=== PATIENT | female | born 1950 | race Caucasian/White ===

== ENCOUNTER → 2016-05-12 | Outpatient (CLI) | payer BC ==
[~2016-05-12] MED LIST: ACET-1311 PO; ALBUAER2 INH; AMIO200T PO; DIVA500T3 PO; DOCU100C31 PO; FENO134C2 PO; FURO20TA PO; LEVO25TA5 PO; METO100T14 PO; MOME50SP5; ONDA4TAB7 SL; PRAV10TA39 PO; RIVA1TAB4 PO
== END | disposition home or self-care (01) ==
LOC: C.LABSPEC 17:02
PROVIDERS: ATTEND Urology
DX: N39.0 Urinary tract infection, site not specified (principal)

== ENCOUNTER → 2016-10-13 | Outpatient (CLI) | payer BC ==
--- NOTE | 2016-10-14 13:49 | MAMMOGRAPHY REPORT ---
BILATERAL DIGITAL SCREENING MAMMOGRAM WITH CAD: 10/13/2016 CLINICAL HISTORY: Routine screening. The patient reported to the technologist that she has diffuse l eft breast pain. TECHNIQUE: Current study was also evaluated with a Computer Aided Detection (CAD) system. Bilateral CC and MLO views were obtained. COMPARISON: Comparison is made to exams dated: 01/22/2013 mammogram, 03/19/2014 mammogram, 09/15/2011 m ammogram, 08/26/2010 mammogram, 08/25/2009 mammogram - [facility], and 05/08/2008. BREAST COMPOSITION: There are scattered areas of fibroglandular density in both breasts. FINDINGS: No suspicious masses, calcifications, or areas of architectural distortion are noted in ei ther breast. There has been no significant interval change compared to prior exams. Coarse benign-ap pearing calcifications are noted throughout the left breast. Benign-appearing calcifications are als o noted within the right breast. Note that the images are suboptimal due to difficulties with patien t positioning as she is in a wheelchair and had to be held for the views; the MLO views in particular are suboptimal as the pectoralis muscles are not well-visualized. IMPRESSION: ACR BI-RADS CATEGORY 2: BENIGN There is no mammographic evidence of malignancy in either breast. A 1 year screening mammogram is rec ommended. Also recommend clinical follow-up for diffuse left breast pain. The patient will receive written notification of the results. Approximately 10% of breast cancers are not detected with mammography. A negative mammographic report should not delay biopsy if a clinically suggestive mass is present. Naila Prieto M.D. ah/:10/13/2016 15:41:19 Attending Technologist: Griselda MICHAEL(Donnell)(Lyn), [facility] Senior Technical Editor: Ptati Rose, [facility] letter sent: Normal 1/2 BI-RADS Code: ACR BI-RADS Category 2: Benign
== END | disposition home or self-care (01) ==
LOC: C.MAMM 14:55
PROVIDERS: ATTEND Family Medicine
DX: Z12.31 Encounter for screening mammogram for malignant neoplasm of breast (principal)

== ENCOUNTER → 2017-01-06 | Outpatient (CLI) | payer BC ==
--- NOTE | 2017-01-06 17:01 | DIAGNOSTIC IMAGING REPORT ---
CHEST 2 VIEWS ROUTINE CLINICAL HISTORY: R05 dyspnea COMPARISON STUDY: 01/13/2016 FINDINGS: Right subdiaphragmatic free air versus distended colon. Lungs are considered clear. No evidence for significant cardiac enlargement. Slight pulmonary vascular prominence. IMPRESSION: 1. Distended air-filled colon versus right subdiaphragmatic free air. 2. Pulmonary vascular congestion. The above report was generated using voice recognition software. It may contain grammatical, syntax or spelling errors. Electronically signed by: Garth Rincon M.D. 01/06/2017 5:00 PM Dictated Date/Time: 01/06/2017 4:58 PM
== END | disposition home or self-care (01) ==
LOC: C.RAD1850 15:44
PROVIDERS: ATTEND Family Medicine
DX: R05 Cough (principal); R09.89 Other specified symptoms and signs involving the circulatory and respiratory systems

== ENCOUNTER 2017-05-31 09:55 | Inpatient (IN) | payer BC, OTHER ==
[~2017-05-31] VITALS: Ht 167.6 cm; Wt 115.7 kg
[2017-05-31] MEDS ORDERED: TPRSR/25 PO (10:17)
[2017-05-31] MEDS ORDERED: PRVC/20 PO (10:17)
[2017-05-31] MEDS ORDERED: LEVO75TA5 PO (10:17)
[2017-05-31] MEDS ORDERED: RANI150T2 PO (10:17)
[2017-05-31] MEDS ORDERED: AMIO200T4 PO (10:17)
[2017-05-31] MEDS ORDERED: SODIUM CHLORIDE 0.9% 1000ML 1,000 ML IV STA (10:49)
[2017-05-31] MEDS ORDERED: ACETAMINOPHEN 500 MG TAB PO STA (10:50)
[2017-05-31] MEDS ORDERED: ASCA500 PO (10:57)
[2017-05-31 11:00] LABS: HEMATOCRIT 44.8 % (37-47); HEMOGLOBIN 14.9 g/dL (12.0-16.0); MEAN CELL VOLUME 97.4 fL (80-100); MEAN CORPUSCULAR HEMOGLOBIN 32.4 pg (25-34); MEAN CORPUSCULAR HGB CONC 33.3 g/dl (32-36); MEAN PLATELET VOLUME 10.3 fL (7.4-10.4); PLATELET COUNT 101 K/uL (130-400); RED CELL DISTRIBUTION WIDTH CV 13.4 % (11.5-14.5); RED CELL DISTRIBUTION WIDTH SD 47.5 fL (36.4-46.3); WHITE BLOOD COUNT 7.54 K/uL (4.8-10.8)
[2017-05-31 11:01] LABS: BASO % 0.1 %; BASO ABS # 0.01 K/uL (0-0.2); EOS % 0.3 %; EOS ABS # 0.02 K/uL (0-0.5); IG# 0.03 K/uL (0.00-0.02); LYMPH % 28.6 %; LYMPH ABS # 2.16 K/uL (1.2-3.4); MONO ABS # 1.58 K/uL (0.11-0.59); NEUT % 49.6 %; NEUT ABS # 3.74 K/uL (1.4-6.5)
[2017-05-31 11:06] LABS: INR 1.1 (0.9-1.1)
--- NOTE | 2017-05-31 11:09 | DIAGNOSTIC IMAGING REPORT ---
CHEST ONE VIEW PORTABLE CLINICAL HISTORY: Fever. COMPARISON STUDY: Radiograph January 06, 2017. FINDINGS: There is no pneumothorax or pleural effusion. There is no evidence for pulmonary edema. There is lucency under the right hemidiaphragm. Cardiomegaly is unchanged. IMPRESSION: Lucency under the right hemidiaphragm which was shown on previous exam. This could reflect bowel gas or pneumoperitoneum. This can be assessed on CT of the abdomen and pelvis which has been ordered. Electronically signed by: Vasyl Klein M.D. 05/31/2017 11:08 AM Dictated Date/Time: 05/31/2017 11:05 AM
[2017-05-31 11:10] LABS: ALT/SGPT 26 U/L (12-78); AST/SGOT 49 U/L (15-37); BLOOD UREA NITROGEN 10 mg/dl (7-18); CALCIUM 8.7 mg/dl (8.5-10.1); CARBON DIOXIDE 25 mmol/L (21-32); CREATININE 0.86 mg/dl (0.60-1.20); GLUCOSE 112 mg/dl (70-99); POTASSIUM 4.4 mmol/L (3.5-5.1); SODIUM 134 mmol/L (136-145)
[2017-05-31 11:15] LABS: ALKALINE PHOSPHATASE 52 U/L (45-117); CKMB 0.8 ng/ml (0.5-3.6); TOTAL PROTEIN 6.8 gm/dl (6.4-8.2)
[2017-05-31] MEDS ORDERED: OPTIRAY 320 IV PRN (11:15)
[2017-05-31 11:29] LABS: INFLUENZA B ANTIGEN Neg for Influ B (NEG)
[2017-05-31] MEDS ORDERED: KETOROLAC TROMETHAMINE 30 MG/ML VIAL IV STA (11:31)
[2017-05-31 11:36] LABS: ISTAT IONIZED CALCIUM 1.17 mmol/l (1.12-1.32); ISTAT POTASSIUM 4.2 mEq/L (3.3-5.0)
--- NOTE | 2017-05-31 12:15 | DIAGNOSTIC IMAGING REPORT ---
CT OF THE ABDOMEN AND PELVIS WITH CONTRAST CLINICAL HISTORY: Abdominal pain. COMPARISON STUDY: CT of the abdomen and pelvis August 22, 2015. TECHNIQUE: Following IV administration of 87 mL of Optiray-320, axial images of the abdomen and pelvis were obtained from the lung bases to the proximal femurs. Images were reviewed in the axial, sagittal, and coronal planes. IV contrast was administered without complication. A dose lowering technique was utilized adhering to the principles of ALARA. CT DOSE: 1669.71 mGy.cm FINDINGS: Mild cardiomegaly is noted. There is no pneumoperitoneum. Lucency projecting over the right hemidiaphragm on prior chest radiograph was due to gas within the colon. There are gallstones within the gallbladder. There is no evidence for acute cholecystitis. The liver, spleen, adrenal glands, kidneys and pancreas are unremarkable. There is no biliary or pancreatic ductal dilatation. No hydronephrosis. IVC filter is in place. The appendix is normal. There is no lymphadenopathy or ascites. No suspicious osseous lesions are present. The appearance of the abdomen and pelvis is unchanged. There is moderate levoscoliosis of the lumbar spine. There is a loop of significantly dilated small bowel within the anterior abdomen. Several additional small bowel loops of mildly dilated. There is a twisting appearance of the small bowel shown best on axial image 271 of 491. This favors a small bowel obstruction. There is no evidence for a obstruction. IMPRESSION: 1. Loop of significantly dilated gas-filled small bowel with mild dilatation of several distal small bowel loops suggestive of a small bowel obstruction. Associated twisting appearance of the small bowel may reflect the transition point and this could be due to an internal hernia or adhesions. No pneumatosis, free air or portal venous gas. No ascites. 2. Cholelithiasis. Electronically signed by: Vasyl Klein M.D. 05/31/2017 12:14 PM Dictated Date/Time: 05/31/2017 12:02 PM
[2017-05-31] MEDS ORDERED: PIPERACILLIN/TAZOBACTAM 4.5 GM/100ML D5W IV STA (12:21)
--- NOTE | 2017-05-31 13:19 | History and Physical ---
History & Physical Date & Time of Service: May 31, 2017 at 13:11 Chief Complaint: Incoherent Primary Care Physician: Jasmyne Orozco M.D. 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 The patient presents to the ER with her daughter and son who are present at bedside. The patient complains of increased respiratory symptoms including runny nose, sore throat, cough with sputum production in the past 3 days. Today caregivers (present for 5 hours in the morning, 2 hours in the afternoon) noticed the patient had increased lethargy and that she was found to be hypoxic in the 80s on room air at home. She does not wear any supplemental O2. she is prescribed CPAP at night but family reports it does not fit due to history of craniotomy. She also reports a decreased appetite with limited oral intake due to nausea which waxes and wanes over the last week. In general, family reports she is poor at staying hydrated as her is her primary caregiver and she does not want to make him take her to the bathroom more than required. The patient cannot remember the last time she had a bowel movement, but thinks it has been over 4 days. She does have some abdominal pain in the right upper quadrant and feels somewhat bloated . Here in the ER the patient is found to be influenza A positive. A CT of the abdomen and pelvis shows partial small bowel obstruction. CXR could reflect bowel gas or pneumoperitoneum. There are no consolidations or infiltrates to suggest pneumonia. EKG showing that she was in A. fib with RVR at time of admission, rate is currently well controlled in the 60s-80s. Past Medical/Surgical History Medical Problems: Atrial fibrillation CVA (cerebral infarction) Hyperlipidemia Hypertension Influenza A Partial small bowel obstruction Left sided hemiplegia Complex partial seizure on depakote Paroxsysmal Afib Obstructive sleep apnea Morbid obesity Osteoarthritis Surgical Hx: Hysterectomy s/p crainiotomy 2012 IVC filter Social History Smoking Status: Never Smoker Smokeless Tobacco Use: No Alcohol Use: none Drug Use: none Marital Status: Housing status: lives with family Occupational Status: employed Immunizations History of Influenza Vaccine: Yes Influenza Vaccine Date: Feb 04, 2013 History of Tetanus Vaccine?: Yes Tetanus Immunization Date: Feb 09, 2006 History of Pneumococcal: Yes Pneumococcal Date: Mar 06, 2003 History of Hepatitis B Vaccine: No 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 recently stopped taking med 01/2016, 05/31/17) Home Medications Scheduled Acetaminophen (Tylenol), 650 MG PO Q6HR PRN Amiodarone Hcl (Cordarone), 200 MG PO DAILY Ascorbic Acid (Vitamin C), 500 MG PO DAILY Divalproex Sodium (Depakote Er), 1 TAB PO DAILY Divalproex Sodium (Depakote Er), 2 TAB PO HS Docusate Sodium (Docusate Sodium), 100 MG PO BID Fenofibrate (Tricor ), 134 MG PO QAM Levothyroxine Sodium (Levothyroxine Sodium), 75 MCG PO QAM Metoprolol Succinate (Metoprolol Succinate ER), 25 MG PO DAILY Mometasone Furoate (Nasonex), 2 SPRAY NA QAM Pravastatin Sod (Pravastatin Sodium), 20 MG PO DAILY Ranitidine HCl (Ranitidine HCl), 150 MG PO DAILY Rivaroxaban (Xarelto), 20 MG PO DAILY Scheduled PRN Ondansetron (Zofran Odt), 4 MG SL Q6H PRN for Nausea Review of Systems Constitutional: No fever, + chills in the past 3 days Eyes: No diplopia, no worsening or blurred vision ENT: normal hearing, no trouble swallowing, + sore throat Respiratory: + cough, sputum, no dyspnea at rest or on exertion Cardiovascular: No chest pain, tightness or palpitations Abdomen: + pain in the RUQ, nausea, no vomiting, diarrhea or constipation Musculoskeletal: No joint pain, calf pain, + minor peripheral lower extremity swelling, worse in the left compared to right chronically Neurologic: No weakness, numbness/tingling, or balance problems Psychiatric: No anxiety or depression Skin: No rash or itch Physical Exam Vital Signs Date Time Temp Pulse Resp B/P (MAP) Pulse Ox O2 Delivery O2 Flow Rate FiO2 2/20/18 13:04 93 Nasal Cannula 2.0 05/31/17 13:03 88 Room Air 05/31/17 12:19 60 20 107/63 92 05/31/17 11:19 94 20 121/60 93 Room Air 05/31/17 10:38 104 05/31/17 09:58 38.0 107 18 113/69 92 Room Air General: awake, easily fatigued, NAD, morbidly obese Head: Normocephalic, atraumatic ENT: PERRL, EOMI, no pharyngeal exudate, mucous membranes dry Chest: Clear to auscultation, on 2 L via NC, O2 sats equal 95%, no adventitious breath sounds Cardiac: Irregularly irregular, no murmur, no JVD, normal peripheral pulses, good capillary refill Abdominal: NABS x 4 quadrants, soft, slightly distended + tender to palpation in the RUQ, no rebound, guarding or tenderness Extremities: Left-sided hemiplegia, mild peripheral edema trace pitting worse in left compared to right, no erythema, calfs nontender to palpation Psych: Normal mood and affect Neuro: AAO x 3, left-sided hemiplegia, speech is clear but somewhat slow, no peripheral sensory deficits Diagnostics Laboratory Results Results Past 24 Hours Test 05/31/17 10:20 05/31/17 10:30 05/31/17 11:21 05/31/17 11:25 Range/Units White Blood Count 7.54 4.8-10.8 K/uL Red Blood Count 4.60 4.2-5.4 M/uL Hemoglobin 14.9 12.0-16.0 g/dL Hematocrit 44.8 37-47 % Mean Corpuscular Volume 97.4 80-100 fL Mean Corpuscular Hemoglobin 32.4 25-34 pg Mean Corpuscular Hemoglobin Concent 33.3 32-36 g/dl Platelet Count 101 130-400 K/uL Mean Platelet Volume 10.3 7.4-10.4 fL Neutrophils (%) (Auto) 49.6 % Lymphocytes (%) (Auto) 28.6 % Monocytes (%) (Auto) 21.0 % Eosinophils (%) (Auto) 0.3 % Basophils (%) (Auto) 0.1 % Neutrophils # (Auto) 3.74 1.4-6.5 K/uL Lymphocytes # (Auto) 2.16 1.2-3.4 K/uL Monocytes # (Auto) 1.58 0.11-0.59 K/uL Eosinophils # (Auto) 0.02 0-0.5 K/uL Basophils # (Auto) 0.01 0-0.2 K/uL RDW Standard Deviation 47.5 36.4-46.3 fL RDW Coefficient of Variation 13.4 11.5-14.5 % Immature Granulocyte % (Auto) 0.4 % Immature Granulocyte # (Auto) 0.03 0.00-0.02 K/uL Prothrombin Time 11.7 9.0-12.0 SECONDS Prothromb Time International Ratio 1.1 0.9-1.1 Sodium Level 134 136-145 mmol/L Potassium Level 4.4 3.5-5.1 mmol/L Chloride Level 101 98-107 mmol/L Carbon Dioxide Level 25 21-32 mmol/L Anion Gap 8.0 18.0 16-25 mmol/L Blood Urea Nitrogen 10 7-18 mg/dl Creatinine 0.86 0.60-1.20 mg/dl Est Creatinine Clear Calc Drug Dose 84.5 ml/min Estimated GFR () 82.7 Estimated GFR (Non- 71.4 BUN/Creatinine Ratio 11.8 10-20 Random Glucose 112 70-99 mg/dl Calcium Level 8.7 8.5-10.1 mg/dl Magnesium Level 2.2 1.8-2.4 mg/dl Total Bilirubin 0.5 0.2-1 mg/dl Direct Bilirubin 0.2 0-0.2 mg/dl Aspartate Amino Transf (AST/SGOT) 49 15-37 U/L Alanine Aminotransferase (ALT/SGPT) 26 12-78 U/L Alkaline Phosphatase 52 45-117 U/L Total Creatine Kinase 92 26-192 U/L Creatine Kinase MB 0.8 0.5-3.6 ng/ml Creatine Kinase MB Ratio 0.9 0-3.0 Troponin I < 0.015 0-0.045 ng/ml Total Protein 6.8 6.4-8.2 gm/dl Albumin 3.0 3.4-5.0 gm/dl Influenza Type A Antigen POS for Influ A NEG Influenza Type B Antigen Neg for Influ B NEG Bedside Lactic Acid Venous 2.05 0.90-1.70 mmol/L Bedside Hemoglobin 15.6 12.0-16.0 g/dl Bedside Hematocrit 46 37-47 % Bedside Sodium 136 135-144 mEq/L Bedside Potassium 4.2 3.3-5.0 mEq/L Bedside Chloride 95 101-112 mEq/L Bedside Total CO2 28 24-31 mEq/l Bedside Blood Urea Nitrogen 10 7-18 mg/dl Bedside Creatinine 1.0 0.6-1.3 mg/dl Bedside Glucose (other) 102 70-99 mg/dl Bedside Ionized Calcium ([place]) 1.17 1.12-1.32 mmol/l Test 05/31/17 12:17 Range/Units Urine Color YELLOW Urine Appearance CLEAR CLEAR Urine pH 6.5 4.5-7.5 Urine Specific [place] 1.026 1.000-1.030 Urine Protein NEG NEG Urine Glucose (UA) NEG NEG Urine Ketones NEG NEG Urine Occult Blood NEG NEG Urine Nitrite NEG NEG Urine Bilirubin NEG NEG Urine Urobilinogen NEG NEG Urine Leukocyte Esterase NEG NEG Urine WBC (Auto) 1-5 0-5 /hpf Urine RBC (Auto) 0-4 0-4 /hpf Urine Hyaline Casts (Auto) 1-5 0-5 /lpf Urine Epithelial Cells (Auto) 0-5 0-5 /lpf Urine Bacteria (Auto) NEG NEG Microbiology Results 05/31/17 Blood Culture, Received Pending 05/31/17 Blood Culture, Received Pending Diagnostic Radiology CHEST ONE VIEW PORTABLE CLINICAL HISTORY: Fever. COMPARISON STUDY: Radiograph January 06, 2017. FINDINGS: There is no pneumothorax or pleural effusion. There is no evidence for pulmonary edema. There is lucency under the right hemidiaphragm. Cardiomegaly is unchanged. IMPRESSION: Lucency under the right hemidiaphragm which was shown on previous exam. This could reflect bowel gas or pneumoperitoneum. This can be assessed on CT of the abdomen and pelvis which has been ordered. Electronically signed by: Vasyl Klein M.D. 05/31/2017 11:08 AM Dictated Date/Time: 05/31/2017 11:05 AM The status of this report is Signed. CT OF THE ABDOMEN AND PELVIS WITH CONTRAST CLINICAL HISTORY: Abdominal pain. COMPARISON STUDY: CT of the abdomen and pelvis August 22, 2015. TECHNIQUE: Following IV administration of 87 mL of Optiray-320, axial images of the abdomen and pelvis were obtained from the lung bases to the proximal femurs. Images were reviewed in the axial, sagittal, and coronal planes. IV contrast was administered without complication. A dose lowering technique was utilized adhering to the principles of ALARA. CT DOSE: 1669.71 mGy.cm FINDINGS: Mild cardiomegaly is noted. There is no pneumoperitoneum. Lucency projecting over the right hemidiaphragm on prior chest radiograph was due to gas within the colon. There are gallstones within the gallbladder. There is no evidence for acute cholecystitis. The liver, spleen, adrenal glands, kidneys and pancreas are unremarkable. There is no biliary or pancreatic ductal dilatation. No hydronephrosis. IVC filter is in place. The appendix is normal. There is no lymphadenopathy or ascites. No suspicious osseous lesions are present. The appearance of the abdomen and pelvis is unchanged. There is moderate levoscoliosis of the lumbar spine. There is a loop of significantly dilated small bowel within the anterior abdomen. Several additional small bowel loops of mildly dilated. There is a twisting appearance of the small bowel shown best on axial image 271 of 491. This favors a small bowel obstruction. There is no evidence for a obstruction. IMPRESSION: 1. Loop of significantly dilated gas-filled small bowel with mild dilatation of several distal small bowel loops suggestive of a small bowel obstruction. Associated twisting appearance of the small bowel may reflect the transition point and this could be due to an internal hernia or adhesions. No pneumatosis, free air or portal venous gas. No ascites. 2. Cholelithiasis. Electronically signed by: Vasyl Klein M.D. 05/31/2017 12:14 PM Dictated Date/Time: 05/31/2017 12:02 PM The status of this report is Signed. EKG Atrial fibrillation with rapid ventricular response with premature ventricular or aberrantly conducted complexes Right axis deviation Right ventricular hypertrophy with repolarization abnormality Nonspecific T wave abnormality Vent. 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 The patient was found to have a partial small bowel obstruction and is influenza A positive. Influenza A - CXR reviewed-without any signs of consolidation or infiltrate suggestive of pneumonia - We will continue supportive care with oxygen, cough suppressants, Mucinex - Since symptoms started 3 days ago will not administer Tamiflu, especially since this may have side effects in regards to her small bowel obstruction. - Received 1 dose of Zosyn in the ER, no further antibiotics at this time - No leukocytosis, afebrile, VSS Small bowel obstruction - CT abdomen and pelvis reviewed showing a partial small bowel obstruction - general surgery has been contacted and at this time not recommending surgical intervention Discussed with Lyle Looney PA-C: no aggressive bowel regimen at this time. Serial abdominal exams, repeat imaging prn, hold xarelto in the event that surgical intervention is required. - N.p.o.- transition all meds to IV as possible - NSS at 100 mL/hr x 1 day Complex partial seizure - Patient is on Depakote 500 qam, 1000 mgeqpm -we will check Depakote level for toxicity - Patient has not had recent seizure like activity, her last was prior to January 2017 where she was also diagnosed with UTI. - The patient received 1 dose of Zosyn in the ER, will hold on further antibiotics as this may affect Depakote absorption levels. History of CVA right cerebral, with residual left-sided hemiplegia s/p craniotomy March 2012 - Patient follows with Dr. Berrios as an outpatient - We will hold Xarelto at this time with possibilities for surgical intervention for small bowel obstruction, and will start heparin drip low dose no bolus. - Continue statin therapy when PO meds allowed Paroxsysmal Afib - s/p IVC filter placement - Hold xarelto, heparin gtt on board - Continue amiodarone HTN - Pt does use lasix 20 mg prn for lower extremity edema, last use was 3-4 days ago. Monitor edema with fluids on board. HLD - Continue statin therapy when allowed po meds Obstructive sleep apnea - Patient is noted to have a CPAP machine at home however it does not fit her correctly therefore she refuses to wear at this time. Morbid obesity - BMI equal to 40.4 40.4 DVT prophylaxis: Teds, SCDs, heparin CODE STATUS: Full code, discussion was held with patient and family members at bedside. Disposition: Patient from home, has part-time caregivers and lives with who acts as the primary caregiver. CM to assist with discharge planning. Level of Care Telemetry Advanced Directives Existing Advance Directive: Yes Existing Living Will: Yes Resuscitation Status FULL RESUSCITATION VTE Prophylaxis Risk Level: Low Given or contraindicated: Other Anticoagulation, T.E.D. Stockings, SCD's Reviewed: Pt Seen/Exam by Me History Pt has been confused and weak. She has had a cough and has not had a bowel movement for 4 days. She takes lasix 20mg PRN for LE swelling and family reports she needed this 3-4 days ago. Family also reports that pt has not had a seizure since she had UTI. She does have issues with her depakote absorption if she is on abx and will have withdrawal seizures. Agree with HPI/ROS as noted by PA. General Appearance: no apparent distress, obese Eye Exam: bilateral eye EOMI, bilateral eye other (normal sclera) Respiratory: normal breath sounds, no respiratory distress Cardiovascular: normal peripheral pulses, regular rate, rhythm Gastrointestinal: non tender, soft, distended Extremities: non-tender, no pedal edema Neurologic/Psychiatric: alert (to person), other (unable to stay awake during discussion) Skin Characteristics: normal color, warm/dry Assessment/Plan Agree with plan as outlined above Confusion: possibly related to flu Depakote level pending Outside of sx tx window for tamiflu and PO intake could make SBO worse, will hold tamiflu for now I did discuss this with family and they agree to this plan IVF SBO: surgery has seen in the ED, planning for conservative management for now NGT IVF PRN lasix: give 10mg IV tomorrow given IVF Monitor Holding xarelto in case of OR needs, heparin gtt for now
--- NOTE | 2017-05-31 13:53 | Medical Consult ---
Consultation Date of Consultation: May 31, 2017. Attending Physician: History of Present Illness had 66 y/o female h/o A-fib, CVA with residual weakness brought to the ED for several days of upper respiratory symptoms (tested positive for Influenza A) and less alert/coherent today. Apparently she has had some abdominal discomfort over the last day. She is able to answer simple questions from her children but not able to offer a history on her own. She has caregivers along with her at home. Unsure of last BM. Her oral intake has been low the past few days. No N/V her children are aware of. She has some "trouble with her bowels" since her hysterectomy. Often is several days between BM's. No previous bowel obstruction. Past Medical/Surgical History Medical Problems: (1) Atrial fibrillation Status: Chronic (2) CVA (cerebral infarction) Status: Chronic (3) Hyperlipidemia Status: Chronic (4) Hypertension Status: Chronic Surgical history: hysterectomy 2009 knee scope IVCF Social History Smoking Status: Never Smoker Marital Status: Occupation Status: employed Allergies Coded Allergies: Fish Oil (Verified Allergy, Unknown, UNKNOWN, 05/31/17) Atorvastatin (Verified Adverse Reaction, Mild, MUSCLE ACHES, 05/31/17) Citalopram (Verified Adverse Reaction, Unknown, contributed to seizures? recently stopped taking med 01/2016, 05/31/17) Current Inpatient Medications Current Inpatient Medications Medications (Trade) Dose Ordered Sig/Carleen Route Start Time Stop Time Status Last Admin Dose Admin Ioversol (Optiray 320) 125 ml UD PRN IV 05/31/17 11:15 06/04/17 11:14 Review of Systems Respiratory: + cough Abdomen: + pain, No nausea, No vomiting Physical Exam Date Time Temp Pulse Resp B/P (MAP) Pulse Ox O2 Delivery O2 Flow Rate FiO2 05/31/17 13:04 93 Nasal Cannula 2.0 05/31/17 13:03 88 Room Air 05/31/17 12:19 60 20 107/63 92 05/31/17 11:19 94 20 121/60 93 Room Air 05/31/17 10:38 104 05/31/17 09:58 38.0 107 18 113/69 92 Room Air ENT: normal ENT inspection (does not have NGT) Abdomen/GI: non tender, soft (nondistended) Laboratory Results Last 24 Hours Test 05/31/17 10:20 05/31/17 10:30 05/31/17 11:21 05/31/17 11:25 White Blood Count 7.54 K/uL Red Blood Count 4.60 M/uL Hemoglobin 14.9 g/dL Hematocrit 44.8 % Mean Corpuscular Volume 97.4 fL Mean Corpuscular Hemoglobin 32.4 pg Mean Corpuscular Hemoglobin Concent 33.3 g/dl Platelet Count 101 K/uL Mean Platelet Volume 10.3 fL Neutrophils (%) (Auto) 49.6 % Lymphocytes (%) (Auto) 28.6 % Monocytes (%) (Auto) 21.0 % Eosinophils (%) (Auto) 0.3 % Basophils (%) (Auto) 0.1 % Neutrophils # (Auto) 3.74 K/uL Lymphocytes # (Auto) 2.16 K/uL Monocytes # (Auto) 1.58 K/uL Eosinophils # (Auto) 0.02 K/uL Basophils # (Auto) 0.01 K/uL RDW Standard Deviation 47.5 fL RDW Coefficient of Variation 13.4 % Immature Granulocyte % (Auto) 0.4 % Immature Granulocyte # (Auto) 0.03 K/uL Prothrombin Time 11.7 SECONDS Prothromb Time International Ratio 1.1 Sodium Level 134 mmol/L Potassium Level 4.4 mmol/L Chloride Level 101 mmol/L Carbon Dioxide Level 25 mmol/L Anion Gap 8.0 mmol/L 18.0 mmol/L Blood Urea Nitrogen 10 mg/dl Creatinine 0.86 mg/dl Est Creatinine Clear Calc Drug Dose 84.5 ml/min Estimated GFR () 82.7 Estimated GFR (Non- 71.4 BUN/Creatinine Ratio 11.8 Random Glucose 112 mg/dl Calcium Level 8.7 mg/dl Magnesium Level 2.2 mg/dl Total Bilirubin 0.5 mg/dl Direct Bilirubin 0.2 mg/dl Aspartate Amino Transf (AST/SGOT) 49 U/L Alanine Aminotransferase (ALT/SGPT) 26 U/L Alkaline Phosphatase 52 U/L Total Creatine Kinase 92 U/L Creatine Kinase MB 0.8 ng/ml Creatine Kinase MB Ratio 0.9 Troponin I < 0.015 ng/ml Total Protein 6.8 gm/dl Albumin 3.0 gm/dl Influenza Type A Antigen POS for Influ A Influenza Type B Antigen Neg for Influ B Bedside Lactic Acid Venous 2.05 mmol/L Bedside Hemoglobin 15.6 g/dl Bedside Hematocrit 46 % Bedside Sodium 136 mEq/L Bedside Potassium 4.2 mEq/L Bedside Chloride 95 mEq/L Bedside Total CO2 28 mEq/l Bedside Blood Urea Nitrogen 10 mg/dl Bedside Creatinine 1.0 mg/dl Bedside Glucose (other) 102 mg/dl Bedside Ionized Calcium (Chad) 1.17 mmol/l Test 05/31/17 12:17 Urine Color YELLOW Urine Appearance CLEAR Urine pH 6.5 Urine Specific [place] 1.026 Urine Protein NEG Urine Glucose (UA) NEG Urine Ketones NEG Urine Occult Blood NEG Urine Nitrite NEG Urine Bilirubin NEG Urine Urobilinogen NEG Urine Leukocyte Esterase NEG Urine WBC (Auto) 1-5 /hpf Urine RBC (Auto) 0-4 /hpf Urine Hyaline Casts (Auto) 1-5 /lpf Urine Epithelial Cells (Auto) 0-5 /lpf Urine Bacteria (Auto) NEG CT OF THE ABDOMEN AND PELVIS WITH CONTRAST CLINICAL HISTORY: Abdominal pain. COMPARISON STUDY: CT of the abdomen and pelvis August 22, 2015. TECHNIQUE: Following IV administration of 87 mL of Optiray-320, axial images of the abdomen and pelvis were obtained from the lung bases to the proximal femurs. Images were reviewed in the axial, sagittal, and coronal planes. IV contrast was administered without complication. A dose lowering technique was utilized adhering to the principles of ALARA. CT DOSE: 1669.71 mGy.cm FINDINGS: Mild cardiomegaly is noted. There is no pneumoperitoneum. Lucency projecting over the right hemidiaphragm on prior chest radiograph was due to gas within the colon. There are gallstones within the gallbladder. There is no evidence for acute cholecystitis. The liver, spleen, adrenal glands, kidneys and pancreas are unremarkable. There is no biliary or pancreatic ductal dilatation. No hydronephrosis. IVC filter is in place. The appendix is normal. There is no lymphadenopathy or ascites. No suspicious osseous lesions are present. The appearance of the abdomen and pelvis is unchanged. There is moderate levoscoliosis of the lumbar spine. There is a loop of significantly dilated small bowel within the anterior abdomen. Several additional small bowel loops of mildly dilated. There is a twisting appearance of the small bowel shown best on axial image 271 of 491. This favors a small bowel obstruction. There is no evidence for a obstruction. IMPRESSION: 1. Loop of significantly dilated gas-filled small bowel with mild dilatation of several distal small bowel loops suggestive of a small bowel obstruction. Associated twisting appearance of the small bowel may reflect the transition point and this could be due to an internal hernia or adhesions. No pneumatosis, free air or portal venous gas. No ascites. 2. Cholelithiasis. Electronically signed by: Vasyl Klein M.D. 05/31/2017 12:14 PM Dictated Date/Time: 05/31/2017 12:02 PM Assessment & Plan Influenza A-fib, anticoagulated ileus vs SBO Abdominal exam is benign. Lactic acid minimally elevated, will recheck this afternoon. Please hold Xarelto for now. Discussed with Dr. Oh, will place NGT.
[2017-05-31] MEDS ORDERED: ACETAMINOPHEN 325 MG TAB PO PRN (14:15)
[2017-05-31] MEDS ORDERED: HEPARIN 25000 UNIT/500 ML D5W ONE (14:22)
--- NOTE | 2017-05-31 14:45 | EMERGENCY ROOM VISIT NOTE ---
History Report prepared by April: Wes Quiñonez Under the Supervision of: Dr. Akhil Oliveros D.O. First contact with patient: 10:37 Chief Complaint: ALTERED MENTAL STATUS Stated Complaint: INCOHERENT Nursing Triage Summary: Family reports patient has been having flu like symptoms since the weekend- cough, nausea. History of a stroke 5 years ago, left sided weakness. Family reports increased weakness and only speaking one work or syllable at a time. Wheelchair bound. History of Present Illness The patient is a 66 year old female who presents to the Emergency Room with complaints of constant altered mental status starting this morning. The patient' s daughter states that the patient has not been herself today, and she has been less responsive than usual. The additionally states that he is unsure if she has been able to take her pills the past couple days. The patient also has had a cough for the past two days, and she has a runny nose and sore throat. The patient has been complaining of some abdominal pain for a while as well. The patient states that she is unsure when her last bowel movement was, and she states that she does not have any open wounds or sores. She has a history of a stroke 5 years ago, and she has some baseline weakness from it. The patient still has her appendix and gall bladder, and she has gall stones. She has not had any recent falls or traumas, and she is currently on Xarelto for A-fib. Pt denies headache, change in vision, fevers, chest pain, shortness of breath, vomiting, pain with urination, and melena. Source of History: patient, family Onset: this morning Position: other (global ) Quality: other (altered mental status) Timing: constant Associated Symptoms: + sorethroat, + cough, + abdominal pain Note: Associated symptoms: Runny nose Review of Systems See HPI for pertinent positives & negatives. A total of 10 systems reviewed and were otherwise negative. Past Medical & Surgical Medical Problems: (1) Atrial fibrillation (2) CVA (cerebral infarction) (3) Hyperlipidemia (4) Hypertension (5) Influenza A (6) Partial small bowel obstruction Social History Smoking Status: Never Smoker Marital Status: Occupation Status: employed Current/Historical Medications Scheduled Acetaminophen (Tylenol), 650 MG PO Q6HR PRN Amiodarone Hcl (Cordarone), 200 MG PO DAILY Ascorbic Acid (Vitamin C), 500 MG PO DAILY Divalproex Sodium (Depakote Er), 1 TAB PO DAILY Divalproex Sodium (Depakote Er), 2 TAB PO HS Docusate Sodium (Docusate Sodium), 100 MG PO BID Fenofibrate (Tricor ), 134 MG PO QAM Levothyroxine Sodium (Levothyroxine Sodium), 75 MCG PO QAM Metoprolol Succinate (Metoprolol Succinate ER), 25 MG PO DAILY Mometasone Furoate (Nasonex), 2 SPRAY NA QAM Pravastatin Sod (Pravastatin Sodium), 20 MG PO DAILY Ranitidine HCl (Ranitidine HCl), 150 MG PO DAILY Rivaroxaban (Xarelto), 20 MG PO DAILY Scheduled PRN Ondansetron (Zofran Odt), 4 MG SL Q6H PRN for Nausea Allergies Coded Allergies: Fish Oil (Verified Allergy, Unknown, UNKNOWN, 05/31/17) Atorvastatin (Verified Adverse Reaction, Mild, MUSCLE ACHES, 05/31/17) Citalopram (Verified Adverse Reaction, Unknown, contributed to seizures? recently stopped taking med 01/2016, 05/31/17) Physical Exam Vital Signs Date Time Temp Pulse Resp B/P (MAP) Pulse Ox O2 Delivery O2 Flow Rate FiO2 05/31/17 14:10 36.9 72 20 95/50 97 Nasal Cannula 2.0 05/31/17 13:54 74 05/31/17 13:04 93 Nasal Cannula 2.0 05/31/17 13:03 88 Room Air 05/31/17 12:19 60 20 107/63 92 05/31/17 11:19 94 20 121/60 93 Room Air 05/31/17 10:38 104 05/31/17 09:58 38.0 107 18 113/69 92 Room Air Physical Exam GENERAL: Sitting up in bed, lethargic, falls asleep on exam EYE EXAM: normal conjunctiva. PERRL and EOM's intact. OROPHARYNX: no exudate, no erythema, lips, buccal mucosa, and tongue normal and mucous membranes are moist NECK: supple, no nuchal rigidity, no adenopathy, non-tender LUNGS: Clear to auscultation. Normal chest wall mechanics HEART: no murmurs, S1 normal and S2 normal ABDOMEN: abdomen soft, non-tender, normo-active bowel sounds, no masses, no rebound or guarding. BACK: Back is symmetrical on inspection and there is no deformity, no midline tenderness, no CVA tenderness. SKIN: no rashes and no bruising UPPER EXTREMITIES: upper extremities are grossly normal. LOWER EXTREMITIES: No pitting edema. NEURO EXAM: Normal sensorium, cranial nerves II-XII grossly intact, normal speech, unable to move the left upper and left lower extremity secondary to a stroke. No weakness in the right upper or right lower extremity. Medical Decision & Procedures ER Provider Diagnostic Interpretation: Radiology results as stated below per my review and the radiologist's interpretation: CHEST ONE VIEW PORTABLE CLINICAL HISTORY: Fever. COMPARISON STUDY: Radiograph January 06, 2017. FINDINGS: There is no pneumothorax or pleural effusion. There is no evidence for pulmonary edema. There is lucency under the right hemidiaphragm. Cardiomegaly is unchanged. IMPRESSION: Lucency under the right hemidiaphragm which was shown on previous exam. This could reflect bowel gas or pneumoperitoneum. This can be assessed on CT of the abdomen and pelvis which has been ordered. Electronically signed by: Vasyl Klein M.D. 05/31/2017 11:08 AM Dictated Date/Time: 05/31/2017 11:[address] OF THE ABDOMEN AND PELVIS WITH CONTRAST CLINICAL HISTORY: Abdominal pain. COMPARISON STUDY: CT of the abdomen and pelvis August 22, 2015. TECHNIQUE: Following IV administration of 87 mL of Optiray-320, axial images of the abdomen and pelvis were obtained from the lung bases to the proximal femurs. Images were reviewed in the axial, sagittal, and coronal planes. IV contrast was administered without complication. A dose lowering technique was utilized adhering to the principles of ALARA. CT DOSE: 1669.71 mGy.cm FINDINGS: Mild cardiomegaly is noted. There is no pneumoperitoneum. Lucency projecting over the right hemidiaphragm on prior chest radiograph was due to gas within the colon. There are gallstones within the gallbladder. There is no evidence for acute cholecystitis. The liver, spleen, adrenal glands, kidneys and pancreas are unremarkable. There is no biliary or pancreatic ductal dilatation. No hydronephrosis. IVC filter is in place. The appendix is normal. There is no lymphadenopathy or ascites. No suspicious osseous lesions are present. The appearance of the abdomen and pelvis is unchanged. There is moderate levoscoliosis of the lumbar spine. There is a loop of significantly dilated small bowel within the anterior abdomen. Several additional small bowel loops of mildly dilated. There is a twisting appearance of the small bowel shown best on axial image 271 of 491. This favors a small bowel obstruction. There is no evidence for a obstruction. IMPRESSION: 1. Loop of significantly dilated gas-filled small bowel with mild dilatation of several distal small bowel loops suggestive of a small bowel obstruction. Associated twisting appearance of the small bowel may reflect the transition point and this could be due to an internal hernia or adhesions. No pneumatosis, free air or portal venous gas. No ascites. 2. Cholelithiasis. Electronically signed by: Vasyl Klein M.D. 05/31/2017 12:14 PM Dictated Date/Time: 05/31/2017 12:02 PM Laboratory Results 05/31/17 10:20 Red Blood Count 4.60, Mean Corpuscular Volume 97.4, Mean Corpuscular Hemoglobin 32.4, Mean Corpuscular Hemoglobin Concent 33.3, Mean Platelet Volume 10.3, Neutrophils (%) (Auto) 49.6, Lymphocytes (%) (Auto) 28.6, Monocytes (%) (Auto) 21.0, Eosinophils (%) (Auto) 0.3, Basophils (%) (Auto) 0.1, Neutrophils # (Auto ) 3.74, Lymphocytes # (Auto) 2.16, Monocytes # (Auto) 1.58, Eosinophils # (Auto ) 0.02, Basophils # (Auto) 0.01 05/31/17 10:20 Test 05/31/17 10:20 05/31/17 10:30 05/31/17 11:21 05/31/17 11:25 White Blood Count 7.54 K/uL (4.8-10.8) Red Blood Count 4.60 M/uL (4.2-5.4) Hemoglobin 14.9 g/dL (12.0-16.0) Hematocrit 44.8 % (37-47) Mean Corpuscular Volume 97.4 fL (80-100) Mean Corpuscular Hemoglobin 32.4 pg (25-34) Mean Corpuscular Hemoglobin Concent 33.3 g/dl (32-36) Platelet Count 101 K/uL (130-400) Mean Platelet Volume 10.3 fL (7.4-10.4) Neutrophils (%) (Auto) 49.6 % Lymphocytes (%) (Auto) 28.6 % Monocytes (%) (Auto) 21.0 % Eosinophils (%) (Auto) 0.3 % Basophils (%) (Auto) 0.1 % Neutrophils # (Auto) 3.74 K/uL (1.4-6.5) Lymphocytes # (Auto) 2.16 K/uL (1.2-3.4) Monocytes # (Auto) 1.58 K/uL (0.11-0.59) Eosinophils # (Auto) 0.02 K/uL (0-0.5) Basophils # (Auto) 0.01 K/uL (0-0.2) RDW Standard Deviation 47.5 fL (36.4-46.3) RDW Coefficient of Variation 13.4 % (11.5-14.5) Immature Granulocyte % (Auto) 0.4 % Immature Granulocyte # (Auto) 0.03 K/uL (0.00-0.02) Prothrombin Time 11.7 SECONDS (9.0-12.0) Prothromb Time International Ratio 1.1 (0.9-1.1) Est Creatinine Clear Calc Drug Dose 84.5 ml/min Estimated GFR () 82.7 Estimated GFR (Non- 71.4 BUN/Creatinine Ratio 11.8 (10-20) Calcium Level 8.7 mg/dl (8.5-10.1) Magnesium Level 2.2 mg/dl (1.8-2.4) Total Bilirubin 0.5 mg/dl (0.2-1) Direct Bilirubin 0.2 mg/dl (0-0.2) Aspartate Amino Transf (AST/SGOT) 49 U/L (15-37) Alanine Aminotransferase (ALT/SGPT) 26 U/L (12-78) Alkaline Phosphatase 52 U/L (45-117) Total Creatine Kinase 92 U/L (26-192) Creatine Kinase MB 0.8 ng/ml (0.5-3.6) Creatine Kinase MB Ratio 0.9 (0-3.0) Troponin I < 0.015 ng/ml (0-0.045) Total Protein 6.8 gm/dl (6.4-8.2) Albumin 3.0 gm/dl (3.4-5.0) Influenza Type A Antigen POS for Influ A (NEG) Influenza Type B Antigen Neg for Influ B (NEG) Bedside Lactic Acid Venous 2.05 mmol/L (0.90-1.70) Bedside Hemoglobin 15.6 g/dl (12.0-16.0) Bedside Hematocrit 46 % (37-47) Bedside Sodium 136 mEq/L (135-144) Bedside Potassium 4.2 mEq/L (3.3-5.0) Bedside Chloride 95 mEq/L (101-112) Bedside Total CO2 28 mEq/l (24-31) Anion Gap 18.0 mmol/L (16-25) Bedside Blood Urea Nitrogen 10 mg/dl (7-18) Bedside Creatinine 1.0 mg/dl (0.6-1.3) Bedside Glucose (other) 102 mg/dl (70-99) Bedside Ionized Calcium (Chad) 1.17 mmol/l (1.12-1.32) Test 05/31/17 12:17 05/31/17 14:02 Urine Color YELLOW Urine Appearance CLEAR (CLEAR) Urine pH 6.5 (4.5-7.5) Urine Specific [place] 1.026 (1.000-1.030) Urine Protein NEG (NEG) Urine Glucose (UA) NEG (NEG) Urine Ketones NEG (NEG) Urine Occult Blood NEG (NEG) Urine Nitrite NEG (NEG) Urine Bilirubin NEG (NEG) Urine Urobilinogen NEG (NEG) Urine Leukocyte Esterase NEG (NEG) Urine WBC (Auto) 1-5 /hpf (0-5) Urine RBC (Auto) 0-4 /hpf (0-4) Urine Hyaline Casts (Auto) 1-5 /lpf (0-5) Urine Epithelial Cells (Auto) 0-5 /lpf (0-5) Urine Bacteria (Auto) NEG (NEG) Laboratory results per my review. Medications Administered Medications (Trade) Dose Ordered Sig/Carleen Route Start Time Stop Time Status Last Admin Dose Admin Sodium Chloride 1,000 ml @ 999 mls/hr Q1H1M STAT IV 05/31/17 10:49 05/31/17 11:49 DC 05/31/17 11:23 999 MLS/HR Ketorolac Tromethamine (Toradol Inj) 15 mg NOW STAT IV 05/31/17 11:31 05/31/17 11:32 DC 05/31/17 12:07 15 MG Piperacillin Sod/ Tazobactam Sod (Zosyn Iv) 4.5 gm NOW STAT IV 05/31/17 12:21 05/31/17 12:22 DC 05/31/17 13:02 4.5 GM Heparin Sodium/ Dextrose (Heparin 25,000 Unit/500ml D5W) 25,000 unit STK-MED ONCE .ROUTE 05/31/17 14:22 05/31/17 14:23 DC 05/31/17 14:33 25,000 UNIT ECG Per My Interpretation Indication: altered mental status Rate (beats per minute): 107 Rhythm: atrial fibrillation (with RVR) Findings: nonspecific-ST abn (Lateral), Q waves (Inferior), RBBB, other (Right axis deviation) Comparison ECG Date: 03/09/13 Change: Atrial Fibrillation is new. RBBB, Q waves, and non-specific ST abnormality are unchanged. ED Course ED COURSE: Vital signs were reviewed and showed tachycardia and febrile The patients medical record was reviewed The above diagnostic studies were performed and reviewed. ED treatments and interventions as stated above. 1037: The patient was evaluated in room C4. A complete history and physical examination was performed. 1049: Sodium Chloride 1000 ml @ 999 mls/hr IV 1050: Tylenol Tab 1000mg PO 1131: Toradol 15mg IV 1221: Zosyn 4.5gm IV 1243: I discussed the patient's case with Lyle Martinez, and he recommends that the patient be evaluated by the hospitalist. 1305: I reviewed the patient's case with Dr. Garland - [facility] Hospitalist. She will evaluate the patient for further management. 1310: Upon reevaluation, the patient is doing okay.I discussed my findings with the patient and her family and they understand and agree with the treatment plan. Based on the patients age, coexisting illnesses, exam and lab findings the decision to treat as an inpatient was made. The patient remained stable while under my care. The patient will be evaluated for further management. Medical Decision Differential diagnosis includes etiologies such as sepsis, UTI, pneumonia, metabolic, electrolyte abnormalities, cardiac sources, intracerebral event, toxicologic, neurologic, as well as others were entertained. Patient is a 66-year-old female who presents to the ER for altered mental status , lethargy, brought in by family. On exam she did have a tender abdomen as well. She admits to multiple upper respiratory symptoms. Influenza was positive. Abdomen was tender on palpation consequently CT was obtained. CT shows a small bowel obstruction. CBC along with BMP, LFTs, bilirubin and troponin was unremarkable. UA was negative. Patient was febrile and tachycardic. She was given fluids. I did not give her Tamiflu secondary to the small bowel obstruction which was found on CT due to her exam of having abdominal pain. Patient family were updated at bedside. She is admitted to internal medicine for further workup. I did discuss case with both general surgery and internal medicine. Medication Reconcilliation Current Medication List: was personally reviewed by me Blood Pressure Screening Patient's blood pressure: Normal blood pressure Consults Time Called: 1240 Consulting Physician: Lyle Martinez Returned Call: [phone] I discussed the patient's case with Lyle Martinez, and he recommends that the patient be evaluated by the hospitalist. Additional Consults: Time Called: 1245 Consulted Physician: Dr. Dada RANDALL Hospitalist Returned Call: [phone] Additional Comments: I reviewed the patient's case with Dr. Dada RANDALL Hospitalist. She will evaluate the patient for further management. Impression Primary Impression: Flu Additional Impression: Small bowel obstruction Scribe Attestation The scribe's documentation has been prepared under my direction and personally reviewed by me in its entirety. I confirm that the note above accurately reflects all work, treatment, procedures, and medical decision making performed by me. Departure Information Dispostion Being Evaluated By Hospitalist Referrals Jasmyne Orozco M.D. (PCP) Patient Instructions My [facility] Problem Qualifiers
[2017-05-31 14:48] LABS: PTT PATIENT 30.8 SECONDS (21.0-31.0)
[2017-05-31 16:15] VITALS: BP 89/58; PULSE 78; TEMP 36.9; O2SAT 94; Ht 167.6 cm; Wt 115.7 kg
[2017-05-31] MEDS ORDERED: HEPARIN IV LOW DOSE NO BOLUS SCH (16:30)
--- NOTE | 2017-05-31 18:31 | DIAGNOSTIC IMAGING REPORT ---
KUB CLINICAL HISTORY: Enteric tube placement. FINDINGS: An AP, portable, supine radiograph of the upper abdomen is correlated with abdominal CT dated 05/31/2017. An enteric tube projects below the diaphragm over the proximal stomach. An IVC filter is in place. Large calcified gallstones are present in the right upper quadrant. There is no convincing radiographic evidence of bowel obstruction. The bony structures appear intact as visualized. IMPRESSION: 1. An enteric tube projects below the diaphragm over the proximal stomach. 2. Cholelithiasis. Electronically signed by: Charles Lucia M.D. 05/31/2017 6:29 PM Dictated Date/Time: 05/31/2017 6:28 PM
[2017-05-31 19:38] VITALS: PULSE 75; O2SAT 95
[2017-05-31] MEDS: LEVALBUTEROL 1.25MG/3ML NEB INH SCH (19:38)
[2017-05-31] MEDS: SODIUM CHLORIDE 0.9% 1000ML 1,000 ML IV SCH (20:12)
[2017-05-31 20:21] VITALS: BP 103/72; PULSE 82; TEMP 36.5; O2SAT 95
[2017-05-31] MEDS ORDERED: GUAIFENESIN 600 MG TABCR PO SCH (21:00)
[2017-05-31] MEDS ORDERED: VALPROIC ACID SYRUP 250 MG/5 ML PO SCH (21:00)
[2017-05-31] MEDS ORDERED: DIVALPROEX 500 MG EXTENDED RELEASE TAB PO SCH (21:00)
[2017-05-31 21:01] LABS: PTT PATIENT 47.1 SECONDS (21.0-31.0)
[2017-05-31] MEDS ORDERED: NURSING VERBAL MED ORDER ONE (21:30)
--- NOTE | 2017-05-31 22:41 | DIAGNOSTIC IMAGING REPORT ---
KUB CLINICAL HISTORY: Small bowel obstruction. FINDINGS: 3 AP, portable, supine abdominal radiographs are compared to abdominal radiographs and abdominal CT performed earlier the same day 05/31/2017. An enteric tube projects over the proximal stomach. There is gaseous distention of several small bowel loops in the mid abdomen. There is also mild gaseous distention of the colon. Numerous calcified gallstones are seen in the right upper quadrant. Excreted IV contrast fills the bladder. An IVC filter is in place. The skeletal structures are osteopenic. There is advanced lumbosacral spondylosis and scoliosis. The bony pelvis appears intact. IMPRESSION: 1. An enteric tube projects over the proximal stomach. 2. Nonspecific bowel gas pattern noting mild gaseous distention of small bowel loops and colon. Electronically signed by: Charles Lucia M.D. 05/31/2017 10:40 PM Dictated Date/Time: 05/31/2017 10:38 PM
[2017-06-01] VITALS (14 sets, daily range): BP systolic 109–144; BP diastolic 63–83; PULSE 84–115; TEMP 36.8–39.4; O2SAT 90–96
[2017-06-01] MEDS: LEVALBUTEROL 1.25MG/3ML NEB INH SCH ×4 (01:50→19:41)
[2017-06-01] MEDS ORDERED: LEVOTHYROXINE 75 MCG TAB PO SCH (06:00)
[2017-06-01 06:16] LABS: HEMATOCRIT 42.2 % (37-47); HEMOGLOBIN 13.9 g/dL (12.0-16.0); MEAN CELL VOLUME 97.9 fL (80-100); MEAN CORPUSCULAR HEMOGLOBIN 32.3 pg (25-34); MEAN CORPUSCULAR HGB CONC 32.9 g/dl (32-36); RED CELL DISTRIBUTION WIDTH CV 13.4 % (11.5-14.5); RED CELL DISTRIBUTION WIDTH SD 48.6 fL (36.4-46.3); WHITE BLOOD COUNT 5.92 K/uL (4.8-10.8)
[2017-06-01] MEDS: SODIUM CHLORIDE 0.9% 1000ML 1,000 ML IV SCH ×2 (06:21→11:29)
[2017-06-01] MEDS: LEVOTHYROXINE 75 MCG TAB NG SCH (06:21)
[2017-06-01 06:25] LABS: PTT PATIENT 39.1 SECONDS (21.0-31.0)
[2017-06-01 06:30] LABS: MEAN PLATELET VOLUME 9.7 fL (7.4-10.4); PLATELET COUNT 70 K/uL (130-400)
[2017-06-01] MEDS ORDERED: METOPROLOL TARTRATE 1 MG/ML VIAL ONE (06:37)
[2017-06-01 06:40] LABS: BASO % 0.2 %; BASO ABS # 0.01 K/uL (0-0.2); EOS % 0.2 %; EOS ABS # 0.01 K/uL (0-0.5); IG# 0.01 K/uL (0.00-0.02); LYMPH % 17.9 %; LYMPH ABS # 1.06 K/uL (1.2-3.4); MONO % 12.3 %; MONO ABS # 0.73 K/uL (0.11-0.59); NEUT % 69.2 %
[2017-06-01] MEDS: HEPARIN 25,000 UNIT/500ML D5W 500 ML IV PRN ×4 (06:41→18:53)
[2017-06-01] MEDS ORDERED: HEPARIN IV BOLUS 4,500 UNIT in SYRINGE 0 ML IV ONE ×2 (06:45→08:30)
[2017-06-01] MEDS ORDERED: METOPROLOL TARTRATE 1 MG/ML VIAL IV PRN (06:45)
[2017-06-01 06:53] LABS: BLOOD UREA NITROGEN 11 mg/dl (7-18); CALCIUM 8.3 mg/dl (8.5-10.1); CARBON DIOXIDE 26 mmol/L (21-32); CREATININE 0.74 mg/dl (0.60-1.20); GLUCOSE 112 mg/dl (70-99); POTASSIUM 3.6 mmol/L (3.5-5.1); SODIUM 139 mmol/L (136-145)
[2017-06-01] MEDS ORDERED: AMIODARONE IV BOLUS / DRIP IV STA (07:11)
[2017-06-01] MEDS ORDERED: AMIODARONE / D5W 100 ML IV SCH (07:30)
[2017-06-01] MEDS: GUAIFENESIN 200 MG TAB PO SCH ×4 (07:31→20:22)
[2017-06-01] MEDS ORDERED: AMIODARONE / D5W 200 ML IV SCH (07:45)
[2017-06-01] MEDS: POTASSIUM CHLR 10 MEQ / WTR 10 MEQ in PREMIXED WATER 100 ML IV SCH ×3 (08:48→12:41)
--- NOTE | 2017-06-01 08:53 | Surgery Progress Note ---
Surgery Progress Note Date of Service Jun 01, 2017. Subjective pt without new complaint. denies abdominal pain or nausea Objective Vital Signs: Date Time Temp Pulse Resp B/P (MAP) Pulse Ox O2 Delivery O2 Flow Rate FiO2 06/01/17 08:10 37.2 115 19 144/75 (98) 96 Room Air 06/01/17 07:32 122 131/69 06/01/17 07:15 100 16 93 Room Air 06/01/17 05:59 38.0 06/01/17 05:20 38.2 06/01/17 05:07 39.3 06/01/17 04:00 Room Air 06/01/17 03:57 36.8 111 18 137/69 (91) 93 Room Air 06/01/17 02:10 91 16 91 Room Air 06/01/17 00:24 37.0 84 17 128/83 (98) 95 Room Air 06/01/17 00:01 Room Air 05/31/17 20:21 36.5 82 17 103/72 (82) 95 Room Air 05/31/17 20:00 Room Air 05/31/17 19:38 75 16 95 Room Air 05/31/17 16:15 36.9 78 20 89/58 94 Room Air 05/31/17 15:05 77 99/64 97 05/31/17 14:10 36.9 72 20 95/50 97 Nasal Cannula 2.0 05/31/17 13:54 74 05/31/17 13:04 93 Nasal Cannula 2.0 05/31/17 13:03 88 Room Air 05/31/17 12:19 60 20 107/63 92 05/31/17 11:19 94 20 121/60 93 Room Air 05/31/17 10:38 104 05/31/17 09:58 38.0 107 18 113/69 92 Room Air General Appearance: no apparent distress Respiratory/Chest: no respiratory distress, no accessory muscle use Abdomen: non tender, non distended, soft Extremities: non-tender Laboratory Results: Results Past 24 Hours Test 05/31/17 10:20 05/31/17 10:30 05/31/17 11:21 05/31/17 11:25 Range/Units White Blood Count 7.54 4.8-10.8 K/uL Red Blood Count 4.60 4.2-5.4 M/uL Hemoglobin 14.9 12.0-16.0 g/dL Hematocrit 44.8 37-47 % Mean Corpuscular Volume 97.4 80-100 fL Mean Corpuscular Hemoglobin 32.4 25-34 pg Mean Corpuscular Hemoglobin Concent 33.3 32-36 g/dl Platelet Count 101 130-400 K/uL Mean Platelet Volume 10.3 7.4-10.4 fL Neutrophils (%) (Auto) 49.6 % Lymphocytes (%) (Auto) 28.6 % Monocytes (%) (Auto) 21.0 % Eosinophils (%) (Auto) 0.3 % Basophils (%) (Auto) 0.1 % Neutrophils # (Auto) 3.74 1.4-6.5 K/uL Lymphocytes # (Auto) 2.16 1.2-3.4 K/uL Monocytes # (Auto) 1.58 0.11-0.59 K/uL Eosinophils # (Auto) 0.02 0-0.5 K/uL Basophils # (Auto) 0.01 0-0.2 K/uL RDW Standard Deviation 47.5 36.4-46.3 fL RDW Coefficient of Variation 13.4 11.5-14.5 % Immature Granulocyte % (Auto) 0.4 % Immature Granulocyte # (Auto) 0.03 0.00-0.02 K/uL Prothrombin Time 11.7 9.0-12.0 SECONDS Prothromb Time International Ratio 1.1 0.9-1.1 Activated Partial Thromboplast Time 30.8 21.0-31.0 SECONDS Partial Thromboplastin Ratio 1.2 Sodium Level 134 136-145 mmol/L Potassium Level 4.4 3.5-5.1 mmol/L Chloride Level 101 98-107 mmol/L Carbon Dioxide Level 25 21-32 mmol/L Anion Gap 8.0 18.0 16-25 mmol/L Blood Urea Nitrogen 10 7-18 mg/dl Creatinine 0.86 0.60-1.20 mg/dl Est Creatinine Clear Calc Drug Dose 84.5 ml/min Estimated GFR () 82.7 Estimated GFR (Non- 71.4 BUN/Creatinine Ratio 11.8 10-20 Random Glucose 112 70-99 mg/dl Calcium Level 8.7 8.5-10.1 mg/dl Magnesium Level 2.2 1.8-2.4 mg/dl Total Bilirubin 0.5 0.2-1 mg/dl Direct Bilirubin 0.2 0-0.2 mg/dl Aspartate Amino Transf (AST/SGOT) 49 15-37 U/L Alanine Aminotransferase (ALT/SGPT) 26 12-78 U/L Alkaline Phosphatase 52 45-117 U/L Total Creatine Kinase 92 26-192 U/L Creatine Kinase MB 0.8 0.5-3.6 ng/ml Creatine Kinase MB Ratio 0.9 0-3.0 Troponin I < 0.015 0-0.045 ng/ml Total Protein 6.8 6.4-8.2 gm/dl Albumin 3.0 3.4-5.0 gm/dl Influenza Type A Antigen POS for Influ A NEG Influenza Type B Antigen Neg for Influ B NEG Bedside Lactic Acid Venous 2.05 0.90-1.70 mmol/L Bedside Hemoglobin 15.6 12.0-16.0 g/dl Bedside Hematocrit 46 37-47 % Bedside Sodium 136 135-144 mEq/L Bedside Potassium 4.2 3.3-5.0 mEq/L Bedside Chloride 95 101-112 mEq/L Bedside Total CO2 28 24-31 mEq/l Bedside Blood Urea Nitrogen 10 7-18 mg/dl Bedside Creatinine 1.0 0.6-1.3 mg/dl Bedside Glucose (other) 102 70-99 mg/dl Bedside Ionized Calcium (Chad) 1.17 1.12-1.32 mmol/l Test 05/31/17 12:17 05/31/17 16:52 05/31/17 20:15 06/01/17 06:00 Range/Units Urine Color YELLOW Urine Appearance CLEAR CLEAR Urine pH 6.5 4.5-7.5 Urine Specific [place] 1.026 1.000-1.030 Urine Protein NEG NEG Urine Glucose (UA) NEG NEG Urine Ketones NEG NEG Urine Occult Blood NEG NEG Urine Nitrite NEG NEG Urine Bilirubin NEG NEG Urine Urobilinogen NEG NEG Urine Leukocyte Esterase NEG NEG Urine WBC (Auto) 1-5 0-5 /hpf Urine RBC (Auto) 0-4 0-4 /hpf Urine Hyaline Casts (Auto) 1-5 0-5 /lpf Urine Epithelial Cells (Auto) 0-5 0-5 /lpf Urine Bacteria (Auto) NEG NEG Lactic Acid Level 1.4 0.4-2.0 mmol/L Valproic Acid (Depakene) Level 103 50-100 mcg/ml Activated Partial Thromboplast Time 47.1 39.1 21.0-31.0 SECONDS Partial Thromboplastin Ratio 1.8 1.5 White Blood Count 5.92 4.8-10.8 K/uL Red Blood Count 4.31 4.2-5.4 M/uL Hemoglobin 13.9 12.0-16.0 g/dL Hematocrit 42.2 37-47 % Mean Corpuscular Volume 97.9 80-100 fL Mean Corpuscular Hemoglobin 32.3 25-34 pg Mean Corpuscular Hemoglobin Concent 32.9 32-36 g/dl Platelet Count 70 130-400 K/uL Mean Platelet Volume 9.7 7.4-10.4 fL Neutrophils (%) (Auto) 69.2 % Lymphocytes (%) (Auto) 17.9 % Monocytes (%) (Auto) 12.3 % Eosinophils (%) (Auto) 0.2 % Basophils (%) (Auto) 0.2 % Neutrophils # (Auto) 4.10 1.4-6.5 K/uL Lymphocytes # (Auto) 1.06 1.2-3.4 K/uL Monocytes # (Auto) 0.73 0.11-0.59 K/uL Eosinophils # (Auto) 0.01 0-0.5 K/uL Basophils # (Auto) 0.01 0-0.2 K/uL RDW Standard Deviation 48.6 36.4-46.3 fL RDW Coefficient of Variation 13.4 11.5-14.5 % Immature Granulocyte % (Auto) 0.2 % Immature Granulocyte # (Auto) 0.01 0.00-0.02 K/uL Toxic Vacuolation 1+ Sodium Level 139 136-145 mmol/L Potassium Level 3.6 3.5-5.1 mmol/L Chloride Level 105 98-107 mmol/L Carbon Dioxide Level 26 21-32 mmol/L Anion Gap 8.0 3-11 mmol/L Blood Urea Nitrogen 11 7-18 mg/dl Creatinine 0.74 0.60-1.20 mg/dl Est Creatinine Clear Calc Drug Dose 96.8 ml/min Estimated GFR () 99.2 Estimated GFR (Non- 85.6 BUN/Creatinine Ratio 14.8 10-20 Random Glucose 112 70-99 mg/dl Calcium Level 8.3 8.5-10.1 mg/dl Magnesium Level 2.1 1.8-2.4 mg/dl Troponin I < 0.015 0-0.045 ng/ml Microbiology Results 05/31/17 Blood Culture, Received Pending 05/31/17 Blood Culture, Received Pending Assessment & Plan no clinical evidence of sbo will d/c ngt and start clears will continue to follow along.
[2017-06-01] MEDS: PRAVASTATIN SOD 20 MG TAB PO SCH (08:54)
[2017-06-01] MEDS ORDERED: VALPROIC ACID SYRUP 250 MG/5 ML PO SCH (09:00)
[2017-06-01] MEDS ORDERED: AMIODARONE 200 MG TAB PO SCH (09:00)
[2017-06-01] MEDS ORDERED: VALPROIC ACID SYRUP 250 MG/5 ML NG SCH ×2 (09:00→21:00)
[2017-06-01] MEDS ORDERED: METOPROLOL SUCC 25MG EXT REL TAB PO SCH (09:00)
[2017-06-01] MEDS ORDERED: DIVALPROEX 500 MG EXTENDED RELEASE TAB PO SCH (09:00)
[2017-06-01] MEDS ORDERED: AMIODARONE 200 MG TAB NG SCH (09:00)
[2017-06-01] MEDS ORDERED: METOPROLOL SUCC 25MG EXT REL TAB PO ONE (09:34)
--- NOTE | 2017-06-01 10:58 | CARDIOLOGY CONSULTATION REPORT ---
DATE OF CONSULTATION: 06/01/2017 REASON FOR CONSULTATION: 1. Paroxysmal atrial fibrillation. 2. Currently with wide-complex tachycardia. HISTORY OF PRESENT ILLNESS: Mrs. Julio is a very pleasant 66-year-old white female with a history of paroxysmal atrial fibrillation, hypertension, dyslipidemia, prior CVA with left-sided hemiplegia, complex partial seizure disorder on Depakote, obstructive sleep apnea (mask has not been used because of her prior craniotomy and it does not fit properly), morbid obesity, and osteoarthritis, who presented acutely to [facility] Emergency Room yesterday with complaints of runny nose, sore throat, fevers, and productive cough over the preceding 3 days. As the day progressed yesterday, her caregiver noticed increased lethargy and her O2 saturation was down into late 80s on room air. She was brought in for further evaluation. In the emergency room, she was noted to be in atrial fibrillation with an elevated ventricular response rate and she was found to be influenza A positive. Subsequent workup revealed partial small bowel obstruction as well. So, she has an NG tube in place. Currently, the patient is in room #211 and she continues to feel poorly. She feels achy and very tired. She continues to have a cough, which is productive and it is painful to cough. The patient denies any palpitations, tachypalpitations, or sensation that her heart is racing. She does not feel significant short of breath and denies any orthopnea or PND. The patient further denies any chest pain, heaviness, tightness, pressure, or discomfort. She denies any neck, jaw, back, or arm pain. She denies any nausea or diaphoresis. She is tolerating her NG tube without difficulty. Throughout the day yesterday and more so today, she has been having runs of a wide-complex tachycardia, ranging anywhere between 4 and 5 beats up to 50-beat runs. Because of her wide-complex tachycardia, she received IV Amiodarone bolus at 150 mg and is currently on an Amiodarone drip at 1 mg per minute. She is still having brief runs of ventricular tachycardia, but typically only for 4 or 5 beats at a time. The patient has no prior history of ventricular tachycardia, although she does have a history of paroxysmal atrial fibrillation, dating back to at least 2010. MEDICATIONS: 1. Valproic 1000 mg via NG tube at bedtime. 2. Amiodarone drip. 3. Toprol-XL 25 mg p.o. daily. 4. Pravastatin 20 mg daily. 5. Valproic 500 mg daily. 6. Guaifenesin 200 mg p.o. q. 4 hours while awake. 7. Potassium chloride rider at 10 mEq. 8. Lopressor 5 mg IV q. 4 hours p.r.n. for heart rate greater than 110. 9. Levothyroxine 75 mcg via NG tube daily. 10. Tylenol p.r.n. 11. Xopenex nebulizers q. 6 hours. 12. Heparin drip. 13. Normal saline 100 mL per hour. ALLERGIES: 1. ATORVASTATIN. 2. CITALOPRAM. 3. FISH OIL CAPSULES. PAST MEDICAL HISTORY: 1. Paroxysmal atrial fibrillation. 2. 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 3. Complex partial seizure disorder on Depakote, controlled. 4. Hypertension. 5. Dyslipidemia. 6. Currently with partial small bowel obstruction. 7. Obstructive sleep apnea, noncompliant due to the mask not fitting properly secondary to prior craniotomy. 8. Morbid obesity. 9. Osteoarthritis. 10. Currently with influenza A. 11. History of hysterectomy. 12. Status post craniotomy in 2011. 13. History of IVC filter. SOCIAL HISTORY: The patient is and lives with family. She does not use alcohol or tobacco. She is a lifelong nonsmoker. FAMILY HISTORY: Noncontributory. PHYSICAL EXAMINATION: VITAL SIGNS: Temperature is 37.2 degrees Celsius, pulse is 100-110 beats per minute and irregularly irregular, respiratory rate is 19, SpO2 is 96% on room air, and blood pressure is 144/75. I and O's positive 745 mL total overnight. GENERAL: The patient is in no acute distress. NG tube in place. HEENT: Head is atraumatic. EOMs intact. Sclerae are anicteric. Face is symmetric. No perioral cyanosis. Mucous membranes are moist. NECK: Without thyromegaly, adenopathy, or JVD. Carotid upstrokes are +2 bilaterally without bruits. CHEST AND LUNGS: With mildly diminished breath sounds at bilateral bases. Otherwise clear. No wheezes, rales or rhonchi. CARDIOVASCULAR: S1 and S2 are irregularly irregular, distant, without obvious murmur, gallop, or rub. PMI is nonpalpable. No lifts, heaves, or thrills. No abdominal, aortic or renal bruits. ABDOMEN: Bowel sounds are present. Abdomen is slightly distended. No guarding or rigidity. EXTREMITIES: Trace pretibial edema on the left and none on the right. No erythema. Calves are soft and nontender. NEUROLOGIC: The patient is awake, alert, and interactive. Answers questions appropriately. Speech is clear. LABORATORY DATA: White blood cell count is 5.92, hemoglobin 13.9 g/dL, hematocrit 42.2%, and platelet count is 70,000. Sodium is 139 mmol/L, potassium 3.6 mmol/L, BUN is 11 mg/dL, and creatinine 0.74 mg/dL. Random glucose 112 mg/dL. Serum magnesium level is normal at 2.1 mg/dL. Troponin I is less than 0.015 ng/mL x2. Total CK is 92 units/L with a CK-MB of 0.8 ng/mL. Valproic acid level is slightly supratherapeutic at 103 mcg/mL (reference range 50-100 mcg/mL). Current aPTT is 39.1 seconds. Urinalysis is unremarkable. Influenza A screen is positive. Blood cultures are pending. Chest x-ray shows no obvious infiltrate and no evidence of pulmonary edema. EKG on admission shows atrial fibrillation at a rate of 107 beats per minute with a run of ventricular tachycardia versus aberrantly conducted beats. Telemetry monitoring shows underlying atrial fibrillation with occasional periods of wide-complex tachycardia. Some of these are quite regular, which would suggest ventricular tachycardia, although other wide-complex beats have been somewhat irregular and may represent AFib with aberrant conduction. ASSESSMENT: 1. Acute influenza A. 2. Partial small bowel obstruction. 3. Paroxysmal atrial fibrillation with elevated ventricular response rate. 4. Periods of wide-complex tachycardia. Some of which appeared to be ventricular tachycardia (equally spaced QRS complexes) and occasionally looks like atrial fibrillation with aberrant conduction. 5. Hypertension. 6. Dyslipidemia. 7. History of cerebrovascular accident with residual left-sided hemiplegia. 8. Status post craniotomy. 9. History of complex partial seizure disorder on Depakote. 10. Obstructive sleep apnea. 11. Osteoarthritis. 12. History of IVC filter. PLAN: 1. Discuss with Dr. Liu who will meet with the patient. 2. Agree with amiodarone bolus followed by amiodarone drip to control her heart rhythm and rate. 3. Titrate Toprol-XL to 50 mg via NG tube daily. 4. Continue IV Lopressor 5 mg q. 4 hours p.r.n. for heart rate greater than 110. 5. Continue heparin drip. 6. Continue long-term pravastatin. 7. Continue valproic acid syrup for treatment of seizure disorder. 8. Continue to monitor daily laboratories. 9. Supportive measures for underlying influenza A. Question whether or not Tamiflu would be of benefit at this point. 10. Continue IV fluids for hydration. 11. Continue to monitor partial small bowel obstruction. 12. We will continue to follow closely. Most likely, we will ask our instruction librarian to see this patient tomorrow in followup. KARTHIK
[2017-06-01] MEDS ORDERED: OSELTAMIVIR PHOSPHATE 75 MG CAP PO STA (11:03)
--- NOTE | 2017-06-01 11:41 | DIAGNOSTIC IMAGING REPORT ---
CHEST ONE VIEW PORTABLE CLINICAL HISTORY: influenza A infection dyspnea COMPARISON STUDY: 06/08/2017 FINDINGS: Interval development of a subtle infiltrative process right pulmonary apex. Diaphragms are smooth. Mild stable cardia megaly. Mild fullness mid mediastinum compared to the prior study. Be secondary to the AP portable technique. IMPRESSION: Subtle infiltrate right upper lung. Mild stable cardiomegaly. The above report was generated using voice recognition software. It may contain grammatical, syntax or spelling errors. Electronically signed by: Garth Rincon M.D. 06/01/2017 11:40 AM Dictated Date/Time: 06/01/2017 11:38 AM
[2017-06-01] MEDS: ACETAMINOPHEN SOLN 650MG/20.3 ML UDC NG PRN ×2 (13:16→20:24)
[2017-06-01] MEDS: AMPICILLIN/SULBACTAM SOD INJ 3,000 MG in SODIUM CHLORIDE 0.9% 100ML 100 ML IV SCH ×3 (13:22→23:52)
[2017-06-01] MEDS: AMIODARONE / D5W 200 ML IV SCH (13:22)
--- NOTE | 2017-06-01 15:41 | ECHOCARDIOGRAM REPORT ---
*NOTICE TO RECEIVING REPUBLICAN AGENCY This information is strictly Confidential and protected under [place] law. [place] law prohibits you from making any further disclosure of this information unless further disclosure is expressly permitted by the written consent of the person to whom it pertains or is authorized by law. A general authorization for the release of medical or other information is not sufficient for this purpose. Hospital accepts no responsibility if the information is made available to any other person, INCLUDING THE PATIENT. Interpretation Summary * Name: CHARBEL HICKEY Study Date: 06/01/2017 12:08 PM BP: 134/65 mmHg * Patient Location: .2E\S\E211\S\1 HR: 114 * : 1950 (M/d/yyyy) Gender: Female Height: 66 in * Age: 66 yrs Ethnicity: [place] Weight: 243 lb * Ordering Physician: Kory Little * Referring Physician: Self, Referred * Performed By: Winifred Vazquez RDCS * * Reason For Study: V-FLUTTER * BSA: 2.2 m2 * -- Conclusions -- * 1. Left ventricle not well visualized. Grossly normal left ventricular size and systolic function. Estimated EF 60-65%. Cannot exclude wall motion abnormalities. Mild concentric left ventricular hypertrophy. * 2. Right ventricular hypertrophy. Right ventricle may be mildly dilated with grossly normal systolic function when visualized. * 3. No significant valvular abnormalities visualized, however valves were not well seen. * 4. Technically difficult study, somewhat enhanced with IV Definity. Procedure Details * A contrast injection of Definity was performed to improve assessment of LV function. * Contrast was injected into an intravenous site in the right arm. * One vial of Definity ultrasound contrast was diluted in normal saline to a total volume of 10 ml. A total of '2' ml of solution was administered during imaging. * Lot # [id number] of Definity utilized for procedure. * Expiration date APR 29. * The attending nurse who injected the contrast agent was ANAND LADD. Left Ventricle * Left ventricle not well visualized. Grossly normal left ventricular size and systolic function. Estimated EF 60-65%. Cannot exclude wall motion abnormalities. Mild concentric left ventricular hypertrophy. Right Ventricle * Right ventricular hypertrophy. Right ventricle may be mildly dilated with grossly normal systolic function when visualized. * The right ventricle is not well visualized. Atria * The left atrium is not well visualized. * Right atrium not well visualized. Mitral Valve * The mitral valve is grossly normal. * There is no mitral valve stenosis. * Significant mitral regurgitation is absent. Tricuspid Valve * The tricuspid valve is not well visualized. * There is no tricuspid stenosis. * Significant tricuspid regurgitation is absent. Aortic Valve * The aortic valve is not well visualized. * No hemodynamically significant valvular aortic stenosis. * There is no significant aortic regurgitation. Pulmonic Valve * The pulmonic valve is not well visualized. Great Vessels * The aortic root is normal size. * Aortic arch of normal dimension. Pericardium/Pleural * Prominent anterior fat pad. Great Vessels * Normal IVC size. MMode 2D Measurements and Calculations IVSd 1.2 cm IVSs 1.5 cm LVIDd 4.5 cm LVIDs 2.8 cm LVPWd 1.2 cm LVPWs 2.2 cm IVS/LVPW 1.0 FS 37.2 % EDV(Teich) 91.7 ml ESV(Teich) 30.0 ml EF(Teich) 67.3 % EDV(cubed) 90.2 ml ESV(cubed) 22.4 ml EF(cubed) 75.2 % % IVS thick 25.0 % % LVPW thick 81.2 % LV mass(C)d 200.7 grams LV mass(C)dI 92.4 grams/m\S\2 LV mass(C)s 213.8 grams LV mass(C)sI 98.4 grams/m\S\2 SV(Teich) 61.7 ml SI(Teich) 28.4 ml/m\S\2 SV(cubed) 67.8 ml SI(cubed) 31.2 ml/m\S\2 Ao root diam 3.3 cm Ao root area 8.8 cm\S\2 LA dimension 3.6 cm asc Aorta Diam 3.4 cm LA/Ao 1.1 Doppler Measurements and Calculations MV E max rosangela 107.3 cm/sec MV dec time 0.17 sec Ao V2 max 143.2 cm/sec Ao max PG 8.2 mmHg Ao max PG (full) 5.4 mmHg LV V1 max PG 2.8 mmHg LV V1 max 84.2 cm/sec
[2017-06-01 16:23] LABS: PTT PATIENT 85.6 SECONDS (21.0-31.0)
--- NOTE | 2017-06-01 20:10 | Progress Note ---
Subjective Date of Service: Jun 01, 2017. Subjective Pt evaluation today including: conversation w/ patient, conversation w/ family ( at bedside), physical exam, chart review, lab review, review of studies (CT abd/pelvis, chest x-ray, etc), review of inpatient medication list Pain: headache PO Intake: just had clear liquids delivered Voiding: strickland catheter in place tele overnight - a. fib, RVR, and wide complex tachycardia - NSV-T vs a. fib with aberrancy during the visit the patient was sleepy but she would awaken to answer questions reports she has been mildly confused first fever from the flu started sometime on Tuesday this +cough but no dyspnea NG tube was just discontinued prior to my arrival Problem List Medical Problems: (1) Flu Status: Acute (2) Small bowel obstruction Status: Acute (3) UTI (urinary tract infection) Status: Acute Review of Systems Constitutional: + fever Respiratory: No dyspnea at rest Cardiac: No chest pain Abdomen: No pain, No nausea, No vomiting Objective Vital Signs Date Time Temp Pulse Resp B/P (MAP) Pulse Ox O2 Delivery O2 Flow Rate FiO2 06/01/17 19:43 86 14 91 Nasal Cannula 2.0 06/01/17 16:00 Nasal Cannula 2.0 06/01/17 15:55 37.6 106 20 109/63 (78) 92 Nasal Cannula 2.0 06/01/17 14:20 107 16 91 Room Air 06/01/17 13:24 39.4 06/01/17 12:00 Room Air 06/01/17 11:32 37.1 107 16 134/65 (88) 91 Room Air 06/01/17 08:10 37.2 115 19 144/75 (98) 96 Room Air 06/01/17 08:00 Room Air 06/01/17 07:32 122 131/69 06/01/17 07:15 100 16 93 Room Air 06/01/17 05:59 38.0 06/01/17 05:20 38.2 06/01/17 05:07 39.3 06/01/17 04:00 Room Air 06/01/17 03:57 36.8 111 18 137/69 (91) 93 Room Air 06/01/17 02:10 91 16 91 Room Air 06/01/17 00:24 37.0 84 17 128/83 (98) 95 Room Air 06/01/17 00:01 Room Air 05/31/17 20:21 36.5 82 17 103/72 (82) 95 Room Air 05/31/17 20:00 Room Air Physical Exam General Appearance: no apparent distress, + obese, + pertinent finding (ill appearing ) ENT: pharynx normal Neck: no JVD Respiratory/Chest: lungs clear, no respiratory distress, no accessory muscle use Cardiovascular: no gallop, + tachycardia, + irregularly irregular Abdomen: normal bowel sounds, non tender, no organomegaly, + distended (mild) Extremities: no pedal edema Neurologic/Psychiatric: + pertinent finding (sleepy; LUE/LLE with mild weakness , about 4/5; RUE/RLE 5/5 strength ) Laboratory Results Last 24 Hours Test 05/31/17 20:15 06/01/17 06:00 06/01/17 11:16 06/01/17 11:26 Activated Partial Thromboplast Time 47.1 SECONDS 39.1 SECONDS Partial Thromboplastin Ratio 1.8 1.5 White Blood Count 5.92 K/uL Red Blood Count 4.31 M/uL Hemoglobin 13.9 g/dL Hematocrit 42.2 % Mean Corpuscular Volume 97.9 fL Mean Corpuscular Hemoglobin 32.3 pg Mean Corpuscular Hemoglobin Concent 32.9 g/dl Platelet Count 70 K/uL Mean Platelet Volume 9.7 fL Neutrophils (%) (Auto) 69.2 % Lymphocytes (%) (Auto) 17.9 % Monocytes (%) (Auto) 12.3 % Eosinophils (%) (Auto) 0.2 % Basophils (%) (Auto) 0.2 % Neutrophils # (Auto) 4.10 K/uL Lymphocytes # (Auto) 1.06 K/uL Monocytes # (Auto) 0.73 K/uL Eosinophils # (Auto) 0.01 K/uL Basophils # (Auto) 0.01 K/uL RDW Standard Deviation 48.6 fL RDW Coefficient of Variation 13.4 % Immature Granulocyte % (Auto) 0.2 % Immature Granulocyte # (Auto) 0.01 K/uL Toxic Vacuolation 1+ Sodium Level 139 mmol/L Potassium Level 3.6 mmol/L Chloride Level 105 mmol/L Carbon Dioxide Level 26 mmol/L Anion Gap 8.0 mmol/L Blood Urea Nitrogen 11 mg/dl Creatinine 0.74 mg/dl Est Creatinine Clear Calc Drug Dose 96.8 ml/min Estimated GFR () 99.2 Estimated GFR (Non- 85.6 BUN/Creatinine Ratio 14.8 Random Glucose 112 mg/dl Calcium Level 8.3 mg/dl Magnesium Level 2.1 mg/dl Troponin I < 0.015 ng/ml Hepatitis C Antibody Screen NEG Venous Blood pH 7.43 Venous Blood Partial Pressure CO2 41 mmHg Venous Blood Partial Pressure O2 47 mmHg Venous Blood HCO3 27 mmol/L Venous Blood Oxygen Saturation 81.3 % Venous Blood Base Excess 2.1 mEq/L Thyroid Stimulating Hormone (TSH) 0.099 uIu/ml Test 06/01/17 15:30 Activated Partial Thromboplast Time 85.6 SECONDS Partial Thromboplastin Ratio 3.3 Assessment and Plan 66yo female - 1. influenza A infection - although she is about 3 days out from symptom onset I believe the benefits of tamiflu outweight its risks, especially in light of how ill she is. Start tamiflu 75mg BID x 5 days now. Checked cxr - question RUL infiltrate - start IV antibiotic therapy (see below). 2. RUL pneumonia - bacterial superinfection in setting of flu A - aspiration vs community-acquired; start unasyn q6h. 3. metabolic encephalopathy 2nd to #1, #2 - supportive care. Avoid benzos and other sedating medications. Check VBG, r/o hypercarbia. I cannot r/o toxic encephalopathy. 4. h/o prior stroke with resulting left-sided weakness - noted. 5. pSBO vs ileus - appreciate general surgery consultation. Ileus is favored. NG tube has been d/c; started on clears. 6. seizure disorder with mildly supratherapeutic depakote level; recheck depakote level in AM. Depakote has been held for 24 hours. Resume depakote tonight 1000mg HS. Depakote toxicity (mild) could be contributing to sedation. 7. HTN - controlled. 8. atrial fibrillation - continue beta calderon. On heparin drip in the event she needed surgery. Can likely transition back to DOAC soon. 9. wide-complex tachycardia - unclear if this is NSVT vs a. fib with aberrancy. Either way remains on amiodarone infusion. 10. DIANNE - untreated. reports she could not tolerate BIPAP. At risk of hypercarbia. 11. morbid obesity with BMI 39 12. hypothyroidism - check TSH, r/o decompensated state. 13. DVT proph - heparin infusion. 14. mild thrombocytopenia - this would be very early for HIT to occur. Simply recheck CBC in am. will need PT, OT evals updated Continued [facility] stay due to: inadequate po fluid intake, ambulation difficulties , multiple IV medications needed Discharge planning: uncertain
[2017-06-01] MEDS: OSELTAMIVIR PHOSPHATE 75 MG CAP PO SCH (20:23)
[2017-06-01] MEDS: DIVALPROEX 500 MG EXTENDED RELEASE TAB PO SCH (20:23)
[2017-06-02] VITALS (14 sets, daily range): BP systolic 85–110; BP diastolic 46–76; PULSE 70–106; TEMP 36.3–39.3; O2SAT 89–98
[2017-06-02] MEDS: ACETAMINOPHEN SOLN 650MG/20.3 ML UDC NG PRN ×2 (00:34→08:50)
[2017-06-02 01:49] LABS: PTT PATIENT 88.1 SECONDS (21.0-31.0)
[2017-06-02] MEDS: AMIODARONE / D5W 200 ML IV SCH ×2 (01:53→13:22)
[2017-06-02] MEDS ORDERED: NURSING VERBAL MED ORDER ONE ×4 (02:00→13:30)
[2017-06-02] MEDS: LEVALBUTEROL 1.25MG/3ML NEB INH SCH ×4 (02:10→19:46)
[2017-06-02] MEDS ORDERED: NSS + 20MEQ KCL 1000ML 1,000 ML IV SCH (02:15)
[2017-06-02] MEDS: ONDANSETRON INJ 2 MG/ML 2 ML VIAL IV PRN (02:15)
[2017-06-02] MEDS: KETOROLAC TROMETHAMINE 30 MG/ML VIAL IV. PRN (02:15)
[2017-06-02] MEDS: NSS + 20MEQ KCL 1000ML 1,000 ML IV SCH ×2 (02:16→14:45)
[2017-06-02] MEDS: AMPICILLIN/SULBACTAM SOD INJ 3,000 MG in SODIUM CHLORIDE 0.9% 100ML 100 ML IV SCH ×4 (06:08→23:37)
[2017-06-02] MEDS: LEVOTHYROXINE 75 MCG TAB NG SCH (06:10)
[2017-06-02 08:38] LABS: HEMATOCRIT 39.1 % (37-47); HEMOGLOBIN 12.6 g/dL (12.0-16.0); MEAN CORPUSCULAR HEMOGLOBIN 31.9 pg (25-34); MEAN CORPUSCULAR HGB CONC 32.2 g/dl (32-36); RED CELL DISTRIBUTION WIDTH CV 13.5 % (11.5-14.5); RED CELL DISTRIBUTION WIDTH SD 49.2 fL (36.4-46.3); WHITE BLOOD COUNT 7.65 K/uL (4.8-10.8)
[2017-06-02 08:42] LABS: BASO % 0.1 %; BASO ABS # 0.01 K/uL (0-0.2); IG# 0.01 K/uL (0.00-0.02); LYMPH % 30.7 %; LYMPH ABS # 2.35 K/uL (1.2-3.4); MEAN PLATELET VOLUME 9.9 fL (7.4-10.4); MONO % 10.6 %; MONO ABS # 0.81 K/uL (0.11-0.59); NEUT % 58.5 %; NEUT ABS # 4.47 K/uL (1.4-6.5); PLATELET COUNT 70 K/uL (130-400)
[2017-06-02] MEDS: GUAIFENESIN 200 MG TAB PO SCH ×4 (08:46→21:52)
[2017-06-02] MEDS: PRAVASTATIN SOD 20 MG TAB PO SCH (08:46)
[2017-06-02] MEDS: OSELTAMIVIR PHOSPHATE 75 MG CAP PO SCH ×2 (08:47→21:49)
[2017-06-02] MEDS ORDERED: METOPROLOL SUCC 25MG EXT REL TAB PO SCH (09:00)
[2017-06-02 09:05] LABS: PTT PATIENT 50.8 SECONDS (21.0-31.0)
[2017-06-02 09:09] LABS: CALCIUM 8.1 mg/dl (8.5-10.1); CREATININE 0.62 mg/dl (0.60-1.20); POTASSIUM 3.9 mmol/L (3.5-5.1)
[2017-06-02] MEDS ORDERED: DIVALPROEX SODIUM SPRINKLE 125 MG CAP PO ONE (11:00)
--- NOTE | 2017-06-02 13:52 | Surgery Progress Note ---
Surgery Progress Note Date of Service Jun 02, 2017. Subjective no new complaints. denies abdominal pain or nausea. "hungry". Objective Vital Signs: Date Time Temp Pulse Resp B/P (MAP) Pulse Ox O2 Delivery O2 Flow Rate FiO2 06/02/17 11:46 Nasal Cannula 3.0 06/02/17 11:39 Nasal Cannula 3.0 06/02/17 11:27 36.3 70 21 102/76 (85) 96 Nasal Cannula 3.0 06/02/17 08:00 Nasal Cannula 3.0 06/02/17 08:00 Room Air 06/02/17 07:31 36.9 93 18 102/73 (83) 92 Nasal Cannula 3.0 06/02/17 07:20 81 18 93 Nasal Cannula 3.0 06/02/17 04:03 37.6 98 18 110/63 (79) 94 Nasal Cannula 2.0 06/02/17 04:00 94 Nasal Cannula 3.0 06/02/17 02:13 102 22 89 Nasal Cannula 2.0 06/02/17 00:15 39.3 106 21 107/62 (77) 94 Nasal Cannula 2.0 06/02/17 00:00 94 Nasal Cannula 2.0 06/01/17 20:00 Nasal Cannula 2.0 06/01/17 19:57 37.7 23 115/67 (83) 90 Nasal Cannula 2.0 06/01/17 19:43 86 14 91 Nasal Cannula 2.0 06/01/17 16:00 Nasal Cannula 2.0 06/01/17 15:55 37.6 106 20 109/63 (78) 92 Nasal Cannula 2.0 06/01/17 14:20 107 16 91 Room Air General Appearance: no apparent distress Head: normocephalic, atraumatic Respiratory/Chest: no respiratory distress, no accessory muscle use Abdomen: non tender, non distended, soft Laboratory Results: Results Past 24 Hours Test 06/01/17 15:30 06/02/17 00:54 06/02/17 08:28 Range/Units Activated Partial Thromboplast Time 85.6 88.1 50.8 21.0-31.0 SECONDS Partial Thromboplastin Ratio 3.3 3.4 2.0 White Blood Count 7.65 4.8-10.8 K/uL Red Blood Count 3.95 4.2-5.4 M/uL Hemoglobin 12.6 12.0-16.0 g/dL Hematocrit 39.1 37-47 % Mean Corpuscular Volume 99.0 80-100 fL Mean Corpuscular Hemoglobin 31.9 25-34 pg Mean Corpuscular Hemoglobin Concent 32.2 32-36 g/dl Platelet Count 70 130-400 K/uL Mean Platelet Volume 9.9 7.4-10.4 fL Neutrophils (%) (Auto) 58.5 % Lymphocytes (%) (Auto) 30.7 % Monocytes (%) (Auto) 10.6 % Eosinophils (%) (Auto) 0.0 % Basophils (%) (Auto) 0.1 % Neutrophils # (Auto) 4.47 1.4-6.5 K/uL Lymphocytes # (Auto) 2.35 1.2-3.4 K/uL Monocytes # (Auto) 0.81 0.11-0.59 K/uL Eosinophils # (Auto) 0.00 0-0.5 K/uL Basophils # (Auto) 0.01 0-0.2 K/uL RDW Standard Deviation 49.2 36.4-46.3 fL RDW Coefficient of Variation 13.5 11.5-14.5 % Immature Granulocyte % (Auto) 0.1 % Immature Granulocyte # (Auto) 0.01 0.00-0.02 K/uL Sodium Level 138 136-145 mmol/L Potassium Level 3.9 3.5-5.1 mmol/L Chloride Level 104 98-107 mmol/L Carbon Dioxide Level 28 21-32 mmol/L Anion Gap 6.0 3-11 mmol/L Blood Urea Nitrogen 10 7-18 mg/dl Creatinine 0.62 0.60-1.20 mg/dl Est Creatinine Clear Calc Drug Dose 116.0 ml/min Estimated GFR () 110.4 Estimated GFR (Non- 95.3 BUN/Creatinine Ratio 15.6 10-20 Random Glucose 98 70-99 mg/dl Calcium Level 8.1 8.5-10.1 mg/dl Valproic Acid (Depakene) Level 85 50-100 mcg/ml Assessment & Plan 06/02/17 clinically no GI issues. will advance diet 06/01/17 no clinical evidence of sbo will d/c ngt and start clears will continue to follow along. no clinical evidence of sbo will d/c ngt and start clears will continue to follow along.
[2017-06-02] MEDS ORDERED: AMIODARONE 200 MG TAB PO ONE (14:45)
[2017-06-02] MEDS: RIVAROXABAN 20 MG TAB PO SCH (14:45)
--- NOTE | 2017-06-02 15:12 | Cardiology Follow-Up ---
Subjective Date of Service: Jun 02, 2017. Pt evaluation today including: conversation w/ patient, conversation w/ family , physical exam, lab review, review of studies, review of inpatient medication list History of Present Illness She feels much better today, she has minimal GI complaints. She is not having palpitations, lightheadedness or dizziness. I believe her atrial fibrillation is paroxysmal although I cannot be sure of that, the last electrocardiogram I have here is from 2012 when she was in sinus. I believe she is on amiodarone 200 mg daily at home. Social History Smoking Status: Never Smoker History of Alcohol Use: No Review of Systems Respiratory: No shortness of breath, No dyspnea at rest Cardiac: No chest pain Medications Cardiovascular: Item Value Date Time Metoprolol 50 mg 06/02/17 0900 Succinate DAILY/PO 06/02/17 0849 (Toprol Xl Tab) Amiodarone HCL/ 200 ml @ 16.7 mls/hr 06/01/17 1345 Dextrose .[id number] 06/02/17 1322 Pravastatin Sodium 20 mg 06/01/17 0900 (Pravachol Tab) DAILY/PO 06/02/17 0846 Metoprolol 5 mg 06/01/17 0645 Tartrate Q4 PRN/IV (Lopressor Iv) Objective Vital Signs Past 12 Hours Date Time Temp Pulse Resp B/P (MAP) Pulse Ox O2 Delivery O2 Flow Rate FiO2 06/02/17 11:46 Nasal Cannula 3.0 06/02/17 11:39 Nasal Cannula 3.0 06/02/17 11:27 36.3 70 21 102/76 (85) 96 Nasal Cannula 3.0 06/02/17 08:00 Nasal Cannula 3.0 06/02/17 08:00 Room Air 06/02/17 07:31 36.9 93 18 102/73 (83) 92 Nasal Cannula 3.0 06/02/17 07:20 81 18 93 Nasal Cannula 3.0 06/02/17 04:03 37.6 98 18 110/63 (79) 94 Nasal Cannula 2.0 06/02/17 04:00 94 Nasal Cannula 3.0 Last Recorded Weight-Kilograms: 111.500 Physical Exam Constitutional: Level of Distress: NAD Lungs: Auscultation: breath sounds normal Cardiovascular: Heart Auscultation: irregular rate rhythm Data Laboratory Results: Last 24 Hours Test 06/01/17 15:30 06/02/17 00:54 06/02/17 08:28 Activated Partial Thromboplast Time 85.6 SECONDS 88.1 SECONDS 50.8 SECONDS Partial Thromboplastin Ratio 3.3 3.4 2.0 White Blood Count 7.65 K/uL Red Blood Count 3.95 M/uL Hemoglobin 12.6 g/dL Hematocrit 39.1 % Mean Corpuscular Volume 99.0 fL Mean Corpuscular Hemoglobin 31.9 pg Mean Corpuscular Hemoglobin Concent 32.2 g/dl Platelet Count 70 K/uL Mean Platelet Volume 9.9 fL Neutrophils (%) (Auto) 58.5 % Lymphocytes (%) (Auto) 30.7 % Monocytes (%) (Auto) 10.6 % Eosinophils (%) (Auto) 0.0 % Basophils (%) (Auto) 0.1 % Neutrophils # (Auto) 4.47 K/uL Lymphocytes # (Auto) 2.35 K/uL Monocytes # (Auto) 0.81 K/uL Eosinophils # (Auto) 0.00 K/uL Basophils # (Auto) 0.01 K/uL RDW Standard Deviation 49.2 fL RDW Coefficient of Variation 13.5 % Immature Granulocyte % (Auto) 0.1 % Immature Granulocyte # (Auto) 0.01 K/uL Sodium Level 138 mmol/L Potassium Level 3.9 mmol/L Chloride Level 104 mmol/L Carbon Dioxide Level 28 mmol/L Anion Gap 6.0 mmol/L Blood Urea Nitrogen 10 mg/dl Creatinine 0.62 mg/dl Est Creatinine Clear Calc Drug Dose 116.0 ml/min Estimated GFR () 110.4 Estimated GFR (Non- 95.3 BUN/Creatinine Ratio 15.6 Random Glucose 98 mg/dl Calcium Level 8.1 mg/dl Valproic Acid (Depakene) Level 85 mcg/ml Telemetry reviewed: Atrial fibrillation, rate better controlled today. Minimal apparent pattern today. Assessment and Plan 1. Wide complex rhythm: I believe this is aberrancy, based on the fact that it is irregular, on 12-lead electrocardiography the initial morphology of the QRS is very similar to her intrinsic normal conduction as is her [place]ck[place] and it has a typical right bundle branch pattern. It is also very much related to her heart rate. I suspect it occurred because she had a high heart rate due to either her medication changes or a high catecholamine state. This has mostly resolved although she was started on amiodarone. She is now off of IV amiodarone starting recently, I am going to discontinue oral amiodarone and continue beta blockade. 2. Atrial fibrillation: She has paroxysmal or permanent atrial fibrillation, she was on Xarelto prior to her hospitalization and that has been restarted. She was also on amiodarone 200 mg daily as well as metoprolol succinate 25 mg daily. I would continue anticoagulation and rate control, I will reduce her amiodarone to her outpatient dose of 200 mg daily. Currently she is on metoprolol succinate 50 mg daily, I will reduce that to 25 mg daily starting tomorrow morning. Thank you for allowing me to participate in her care.
--- NOTE | 2017-06-02 15:40 | DIAGNOSTIC IMAGING REPORT ---
CHEST ONE VIEW PORTABLE HISTORY: Follow-up right upper lobe pneumonia. COMPARISON: Chest 06/01/2017. FINDINGS: The heart remains mildly enlarged. No pleural effusions. No pneumothorax. There is interstitial thickening with right upper lobe and right infrahilar hazy airspace opacities. This remains unchanged. There are low lung volumes. IMPRESSION: 1. No significant change. 2. Diffuse interstitial thickening with right upper lobe and right infrahilar hazy airspace opacities. This could represent asymmetric pulmonary edema or a pneumonia. Electronically signed by: Viraj Avila M.D. 06/02/2017 3:39 PM Dictated Date/Time: 06/02/2017 3:37 PM
--- NOTE | 2017-06-02 19:56 | Progress Note ---
Subjective Date of Service: Jun 02, 2017. Subjective Pt evaluation today including: conversation w/ patient, conversation w/ family (, daughter at bedside), physical exam, chart review, lab review, review of studies (cxr), review of inpatient medication list Pain: myalgias/aches PO Intake: poor/fair Voiding: strickland catheter in place tele overnight with much less wide-complex tachycardia rate control of a. fib much better as well patient states she simply "feels poorly" mental status is improved per family very weak +cough cannot recall if she has passed any flatus Problem List Medical Problems: (1) Flu Status: Acute (2) Small bowel obstruction Status: Acute (3) UTI (urinary tract infection) Status: Acute Review of Systems Constitutional: + fever, + fatigue Respiratory: + cough, No dyspnea at rest Cardiac: No chest pain Abdomen: No pain, No nausea, No vomiting, No diarrhea Musculoskeletal: + joint pain, + muscle pain Objective Vital Signs Date Time Temp Pulse Resp B/P (MAP) Pulse Ox O2 Delivery O2 Flow Rate FiO2 06/02/17 16:00 37.1 92 17 91/46 (61) 93 Nasal Cannula 3.0 06/02/17 16:00 Nasal Cannula 3.0 06/02/17 15:24 Nasal Cannula 3.0 06/02/17 14:05 70 18 95 Nasal Cannula 3.0 06/02/17 11:46 Nasal Cannula 3.0 06/02/17 11:39 Nasal Cannula 3.0 06/02/17 11:27 36.3 70 21 102/76 (85) 96 Nasal Cannula 3.0 06/02/17 08:00 Nasal Cannula 3.0 06/02/17 08:00 Room Air 06/02/17 07:31 36.9 93 18 102/73 (83) 92 Nasal Cannula 3.0 06/02/17 07:20 81 18 93 Nasal Cannula 3.0 06/02/17 04:03 37.6 98 18 110/63 (79) 94 Nasal Cannula 2.0 06/02/17 04:00 94 Nasal Cannula 3.0 06/02/17 02:13 102 22 89 Nasal Cannula 2.0 06/02/17 00:15 39.3 106 21 107/62 (77) 94 Nasal Cannula 2.0 06/02/17 00:00 94 Nasal Cannula 2.0 06/01/17 20:00 Nasal Cannula 2.0 06/01/17 19:57 37.7 23 115/67 (83) 90 Nasal Cannula 2.0 Physical Exam General Appearance: no apparent distress, + obese, + pertinent finding (looks ill/tired) ENT: pharynx normal Neck: no JVD Respiratory/Chest: no respiratory distress, no accessory muscle use, + crackles (right base), + wheezing (end-exp, mild) Cardiovascular: no gallop, no murmur, + irregularly irregular Abdomen: normal bowel sounds, non tender, soft, no organomegaly Extremities: no pedal edema Neurologic/Psychiatric: alert, + motor weakness (LUE, LLE - no change) Laboratory Results Last 24 Hours Test 06/02/17 00:54 06/02/17 08:28 Activated Partial Thromboplast Time 88.1 SECONDS 50.8 SECONDS Partial Thromboplastin Ratio 3.4 2.0 White Blood Count 7.65 K/uL Red Blood Count 3.95 M/uL Hemoglobin 12.6 g/dL Hematocrit 39.1 % Mean Corpuscular Volume 99.0 fL Mean Corpuscular Hemoglobin 31.9 pg Mean Corpuscular Hemoglobin Concent 32.2 g/dl Platelet Count 70 K/uL Mean Platelet Volume 9.9 fL Neutrophils (%) (Auto) 58.5 % Lymphocytes (%) (Auto) 30.7 % Monocytes (%) (Auto) 10.6 % Eosinophils (%) (Auto) 0.0 % Basophils (%) (Auto) 0.1 % Neutrophils # (Auto) 4.47 K/uL Lymphocytes # (Auto) 2.35 K/uL Monocytes # (Auto) 0.81 K/uL Eosinophils # (Auto) 0.00 K/uL Basophils # (Auto) 0.01 K/uL RDW Standard Deviation 49.2 fL RDW Coefficient of Variation 13.5 % Immature Granulocyte % (Auto) 0.1 % Immature Granulocyte # (Auto) 0.01 K/uL Sodium Level 138 mmol/L Potassium Level 3.9 mmol/L Chloride Level 104 mmol/L Carbon Dioxide Level 28 mmol/L Anion Gap 6.0 mmol/L Blood Urea Nitrogen 10 mg/dl Creatinine 0.62 mg/dl Est Creatinine Clear Calc Drug Dose 116.0 ml/min Estimated GFR () 110.4 Estimated GFR (Non- 95.3 BUN/Creatinine Ratio 15.6 Random Glucose 98 mg/dl Calcium Level 8.1 mg/dl Valproic Acid (Depakene) Level 85 mcg/ml Assessment and Plan 66yo female - 1. sepsis 2nd to influenza A infection - day #2/5 of tamiflu. Supportive care. O2, nebs, etc. 2. RUL/RLL pneumonia - bacterial superinfection in setting of flu A - cxr again shows the pneumonia. Doubt this is CHF. Day #2 of unasyn. Plan 7-10 days of Rx. 3. metabolic encephalopathy 2nd to #1, #2 - improving with Rx of #1, #2. Avoid benzos, etc. 4. h/o prior stroke with resulting left-sided weakness - noted. Cont anticoagulation for a. fib. 5. pSBO vs ileus - appreciate general surgery consultation. Ileus is favored. Clinically resolved; diet advanced by surgery. 6. seizure disorder with mildly supratherapeutic depakote level; rechecked depakote level today and was now 80s. Resumed BID depakote. Family reports that with antibiotics her levels decrease? I'm not aware of interaction between unasyn and depakote. Follow carefully. 7. HTN - controlled. 8. atrial fibrillation - continue beta calderon. Stop heparin drip; change back to xarelto. 9. wide-complex tachycardia - a. fib with aberrancy favored by Dr. Rodrigez. Stop amiodarone drip; change back to oral amiodarone 200mg once daily. 10. DIANNE - untreated. reports she could not tolerate BIPAP. Will plan for overnight oximetry test the night prior to discharge to qualify her for home night-time O2. 11. morbid obesity with BMI 39 12. hypothyroidism - TSH minimally depressed; in light of a. fib it may be good idea to lower her synthroid dose. 13. DVT proph - xarelto. 14. mild thrombocytopenia - this would be very early for HIT to occur. Platelet count low but stable. Due to sepsis? Repeat level in am. Check b12/folate to be complete. Review of EMR shows her platelets have been low or low-normal for some time. MPV is normal making chronic low-grade ITP unlikely. PT, OT evals ordered family updated Continued [facility] stay due to: inadequate po fluid intake, ambulation difficulties , multiple IV medications needed Discharge planning: uncertain
[2017-06-02] MEDS ORDERED: AMIODARONE 200 MG TAB PO SCH (21:00)
[2017-06-02] MEDS: DIVALPROEX 500 MG EXTENDED RELEASE TAB PO SCH (21:52)
[2017-06-03] VITALS (11 sets, daily range): BP systolic 94–116; BP diastolic 50–67; PULSE 69–98; TEMP 36.6–38.1; O2SAT 90–97
[2017-06-03] MEDS: LEVALBUTEROL 1.25MG/3ML NEB INH SCH ×4 (01:50→19:14)
[2017-06-03] MEDS: KETOROLAC TROMETHAMINE 30 MG/ML VIAL IV. PRN (04:34)
[2017-06-03] MEDS: AMPICILLIN/SULBACTAM SOD INJ 3,000 MG in SODIUM CHLORIDE 0.9% 100ML 100 ML IV SCH ×3 (06:05→16:33)
[2017-06-03] MEDS: NSS + 20MEQ KCL 1000ML 1,000 ML IV SCH ×2 (06:05→20:03)
[2017-06-03] MEDS: LEVOTHYROXINE 75 MCG TAB NG SCH (06:13)
[2017-06-03 07:14] LABS: CREATININE 0.5 mg/dl (0.60-1.20)
[2017-06-03 07:15] LABS: CALCIUM 8.1 mg/dl (8.5-10.1); POTASSIUM 4.5 mmol/L (3.5-5.1)
[2017-06-03 07:44] LABS: PLATELET COUNT 65 K/uL (130-400)
[2017-06-03] MEDS ORDERED: NURSING VERBAL MED ORDER ONE (08:00)
[2017-06-03] MEDS: OSELTAMIVIR PHOSPHATE 75 MG CAP PO SCH ×2 (08:05→20:04)
[2017-06-03] MEDS: DIVALPROEX SODIUM SPRINKLE 125 MG CAP PO SCH (08:05)
[2017-06-03] MEDS: GUAIFENESIN 200 MG TAB PO SCH ×4 (08:05→20:04)
[2017-06-03] MEDS: METOPROLOL SUCC 25MG EXT REL TAB PO SCH (08:05)
[2017-06-03] MEDS: RIVAROXABAN 20 MG TAB PO SCH (08:06)
[2017-06-03] MEDS: AMIODARONE 200 MG TAB PO SCH (08:06)
[2017-06-03] MEDS: PRAVASTATIN SOD 20 MG TAB PO SCH (08:06)
[2017-06-03] MEDS ORDERED: DIVALPROEX SODIUM SPRINKLE 125 MG CAP PO SCH (09:00)
--- NOTE | 2017-06-03 09:56 | Cardiology Follow-Up ---
Subjective General Date of Service: Jun 03, 2017. Pt evaluation today including: conversation w/ patient, chart review, lab review History of Present Illness The patient is a 66 year old female Allergies Coded Allergies: Fish Oil (Verified Allergy, Unknown, UNKNOWN, 05/31/17) Atorvastatin (Verified Adverse Reaction, Mild, MUSCLE ACHES, 05/31/17) Citalopram (Verified Adverse Reaction, Unknown, contributed to seizures? recently stopped taking med 01/2016, 05/31/17) Social History Smoking Status: Never Smoker Hx Tobacco Use In Past Year?: No Hx Alcohol Use - Type And Amou: No Hx Substance Use - Type And Am: No Problem List Medical Problems: (1) Flu Status: Acute (2) Small bowel obstruction Status: Acute (3) UTI (urinary tract infection) Status: Acute Review of Systems Respiratory: + cough, + sputum, No shortness of breath, No dyspnea at rest Cardiac: No chest pain, No edema, No palpitations Additional ROS Details: feeling better; less nausea Physical Exam Vital Signs Last Vital Signs Documentation Date Time Temp Pulse Resp B/P (MAP) Pulse Ox O2 Delivery O2 Flow Rate FiO2 06/03/17 08:01 37.2 83 18 100/63 (75) 94 2.0 06/03/17 07:27 Nasal Cannula Physical Exam Constitutional: Level of Distress: NAD Lungs: Auscultation: no wheezing, no rales/crackles, no rhonchi, decreased breath sounds (coarse throughout) Cardiovascular: Heart Auscultation: irregular rate rhythm Abdomen: Bowel Sounds: normal Inspection & Palpation: soft, non-distended, no tenderness, guarding & rebound Extremities: no edema Assessment and Plan Assessment and Plan 1. Paroxysmal atrial fibrillation and wide complex rhythm likely Afib with aberrancy in d/w DR Rodriegz 2. 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 3. Complex partial seizure disorder on Depakote, controlled. 4. Hypertension. 5. Dyslipidemia. 6. Pneumonia. 7. Obstructive sleep apnea, noncompliant due to the mask not fitting properly secondary to prior craniotomy. 8. Morbid obesity. Continue Amio 200mg daily. In the past in the office she has always been in NSR Can determine need for Amio id she has chronic afib as an outpt Continue Toprol 25mg Daily On Xarelto given hx of CVA secondary to asymptomatic Afib On antibiotics to Tx pneumonia Laboratory Results Last 24 Hours Test 06/03/17 06:28 06/03/17 07:24 Sodium Level 140 mmol/L Potassium Level 4.5 mmol/L Chloride Level 106 mmol/L Carbon Dioxide Level 29 mmol/L Anion Gap 5.0 mmol/L Blood Urea Nitrogen 11 mg/dl Creatinine 0.50 mg/dl Est Creatinine Clear Calc Drug Dose 143.8 ml/min Estimated GFR () 118.5 Estimated GFR (Non- 102.3 BUN/Creatinine Ratio 22.3 Random Glucose 88 mg/dl Calcium Level 8.1 mg/dl Vitamin B12 Level 349 pg/mL Folate 19.86 ng/mL Platelet Count 65 K/uL Platelet Estimate DECREASED
[2017-06-03] MEDS: CYANOCOBALAMIN 500 MCG TAB (VIT B-12) PO SCH (11:02)
[2017-06-03] MEDS: SENNA 8.6 MG TAB PO SCH (11:02)
--- NOTE | 2017-06-03 12:53 | Surgery Progress Note ---
Surgery Progress Note Date of Service Jun 03, 2017. Subjective pt resting /sleeping ( i did not wake her) per nursing no GI issues. tolerating diet. no pain/ or n/v Objective Vital Signs: Date Time Temp Pulse Resp B/P (MAP) Pulse Ox O2 Delivery O2 Flow Rate FiO2 06/03/17 12:00 Room Air 06/03/17 11:53 36.8 88 18 94/50 (65) 90 3.0 06/03/17 08:01 37.2 83 18 100/63 (75) 94 2.0 06/03/17 08:00 Room Air 06/03/17 07:27 87 18 93 Nasal Cannula 3.0 06/03/17 05:14 38.1 98 20 103/63 (76) 95 Nasal Cannula 2.0 06/03/17 04:00 95 Nasal Cannula 2.0 06/03/17 01:51 86 18 91 Nasal Cannula 2.0 06/03/17 00:00 97 Nasal Cannula 2.0 06/03/17 00:00 37.6 82 21 113/62 (79) 97 06/02/17 22:00 109/63 (78) 06/02/17 21:09 37.1 73 20 85/49 (61) 98 Nasal Cannula 2.0 06/02/17 20:00 98 Nasal Cannula 2.0 06/02/17 19:48 87 14 97 Nasal Cannula 3.0 06/02/17 16:00 37.1 92 17 91/46 (61) 93 Nasal Cannula 3.0 06/02/17 16:00 Nasal Cannula 3.0 06/02/17 15:24 Nasal Cannula 3.0 06/02/17 14:05 70 18 95 Nasal Cannula 3.0 General Appearance: no apparent distress Respiratory/Chest: no respiratory distress, no accessory muscle use Abdomen: non distended, soft Laboratory Results: Results Past 24 Hours Test 06/03/17 06:28 06/03/17 07:24 Range/Units Sodium Level 140 136-145 mmol/L Potassium Level 4.5 3.5-5.1 mmol/L Chloride Level 106 98-107 mmol/L Carbon Dioxide Level 29 21-32 mmol/L Anion Gap 5.0 3-11 mmol/L Blood Urea Nitrogen 11 7-18 mg/dl Creatinine 0.50 0.60-1.20 mg/dl Est Creatinine Clear Calc Drug Dose 143.8 ml/min Estimated GFR () 118.5 Estimated GFR (Non- 102.3 BUN/Creatinine Ratio 22.3 10-20 Random Glucose 88 70-99 mg/dl Calcium Level 8.1 8.5-10.1 mg/dl Vitamin B12 Level 349 211-911 pg/mL Folate 19.86 >5.38 ng/mL Platelet Count 65 130-400 K/uL Platelet Estimate DECREASED Assessment & Plan 06/03/17 No GI issues at this point will sign off please call if we can help 06/02/17 clinically no GI issues. will advance diet 06/01/17 no clinical evidence of sbo will d/c ngt and start clears will continue to follow along. 06/02/17 clinically no GI issues. will advance diet 06/01/17 no clinical evidence of sbo will d/c ngt and start clears will continue to follow along.
[2017-06-03] MEDS ORDERED: SODIUM CHLORIDE 0.9% 500ML 500 ML IV SCH (15:45)
[2017-06-03] MEDS: IPRATROPIUM BROMIDE/ALBUTEROL respimat INH INH SCH ×2 (16:53→20:04)
[2017-06-03] MEDS: ACETAMINOPHEN SOLN 650MG/20.3 ML UDC NG PRN (16:53)
[2017-06-03] MEDS: ONDANSETRON INJ 2 MG/ML 2 ML VIAL IV PRN (20:03)
[2017-06-03] MEDS: DIVALPROEX 500 MG EXTENDED RELEASE TAB PO SCH (20:04)
--- NOTE | 2017-06-03 22:22 | Progress Note ---
Subjective Date of Service: Jun 03, 2017. Subjective Pt evaluation today including: conversation w/ patient, physical exam, chart review, lab review, review of inpatient medication list Pain: right flank/right paraspinal region of lumbar spine - started "this AM" PO Intake: poor per staff including liquids Voiding: strickland catheter in place tele overnight - nabila reyna with good rate control; no wide complex tachycardia during my visit she knew she was in [facility] due to the flu she complained about the bed as well as her back she reported cough but no dyspnea or orthopnea still with headache and feeling achy otherwise feeling somewhat better staff report she is not moving very much and not participating in getting out of bed, etc Problem List Medical Problems: (1) Flu Status: Acute (2) Small bowel obstruction Status: Acute (3) UTI (urinary tract infection) Status: Acute Review of Systems Constitutional: + fatigue, No fever, No chills Respiratory: No shortness of breath Cardiac: No chest pain Abdomen: No pain Objective Vital Signs Date Time Temp Pulse Resp B/P (MAP) Pulse Ox O2 Delivery O2 Flow Rate FiO2 06/03/17 18:57 36.6 69 18 99/58 (72) 94 Nasal Cannula 2.0 06/03/17 16:23 36.7 80 18 116/65 (82) 97 Nasal Cannula 2.0 06/03/17 15:51 Room Air 06/03/17 14:37 75 18 94 Nasal Cannula 3.0 06/03/17 12:00 Room Air 06/03/17 11:53 36.8 88 18 94/50 (65) 90 3.0 06/03/17 08:01 37.2 83 18 100/63 (75) 94 2.0 06/03/17 08:00 Room Air 06/03/17 07:27 87 18 93 Nasal Cannula 3.0 06/03/17 05:14 38.1 98 20 103/63 (76) 95 Nasal Cannula 2.0 06/03/17 04:00 95 Nasal Cannula 2.0 06/03/17 01:51 86 18 91 Nasal Cannula 2.0 06/03/17 00:00 97 Nasal Cannula 2.0 06/03/17 00:00 37.6 82 21 113/62 (79) 97 Physical Exam General Appearance: no apparent distress, + obese, + pertinent finding (looks better today) ENT: pharynx normal Neck: no JVD Respiratory/Chest: no respiratory distress, no accessory muscle use, + crackles (both bases, much worse on right ), + wheezing (mild end-exp) Cardiovascular: no gallop, + irregularly irregular Abdomen: normal bowel sounds, non tender, soft, no organomegaly, + pertinent finding (right flank tenderness; minimal pain over right paraspinal region lumbar) Extremities: no pedal edema Neurologic/Psychiatric: alert, oriented x 3 Skin: no rash Laboratory Results Last 24 Hours Test 06/03/17 06:28 06/03/17 07:24 Sodium Level 140 mmol/L Potassium Level 4.5 mmol/L Chloride Level 106 mmol/L Carbon Dioxide Level 29 mmol/L Anion Gap 5.0 mmol/L Blood Urea Nitrogen 11 mg/dl Creatinine 0.50 mg/dl Est Creatinine Clear Calc Drug Dose 143.8 ml/min Estimated GFR () 118.5 Estimated GFR (Non- 102.3 BUN/Creatinine Ratio 22.3 Random Glucose 88 mg/dl Calcium Level 8.1 mg/dl Vitamin B12 Level 349 pg/mL Folate 19.86 ng/mL Platelet Count 65 K/uL Platelet Estimate DECREASED Assessment and Plan 66yo female - 1. sepsis 2nd to influenza A infection - day #3/5 of tamiflu. Fevers resolved. Supportive care. O2, nebs, etc. 2. RUL/RLL pneumonia - bacterial superinfection in setting of flu A - day #3 of unasyn. Plan 7-10 days of Rx. Blood cx's negative. fevers resolved. 3. metabolic encephalopathy 2nd to #1, #2 - improving with Rx of #1, #2. 4. h/o prior stroke with resulting left-sided weakness - noted. Cont anticoagulation for a. fib. 5. pSBO vs ileus - appreciate general surgery consultation. Ileus is favored. resolved but no bowel movement. senna added. 6. seizure disorder with mildly supratherapeutic depakote level at admission - depakote held x 24 hours then resumed at normal home doses. 7. HTN - controlled but actually BPs are low-normal today; gave saline bolus today with improved BP. 8. atrial fibrillation - continue beta calderon. Cont xarelto. Cont amiodarone. 9. wide-complex tachycardia - a. fib with aberrancy favored by Dr. Rodrigez and Dr. Cullen. Cont amiodarone 200mg once daily. 10. DIANNE - untreated. reports she could not tolerate BIPAP. Will plan for overnight oximetry test the night prior to discharge to qualify her for home night-time O2. 11. morbid obesity with BMI 39 12. hypothyroidism - TSH minimally depressed; in light of a. fib it may be good idea to lower her synthroid dose. 13. DVT proph - xarelto. 14. mild thrombocytopenia - b12 level mildly low but doubt the cause of her thrombocytopenia. Folate wnl. Was on heparin drip but this has been d/c. suspect this is due to sepsis; level should recover over next few days. repeat CBC am. 15. right flank pain/right lower back pain - suspect musculoskeletal. Had CT just a few days ago of abdomen - showed NO kidney stones. Tylenol prn. Observe. PT, OT leave on tele 1 more day Continued [facility] stay due to: inadequate po fluid intake, ambulation difficulties , multiple IV medications needed Discharge planning: uncertain
[2017-06-04] VITALS (7 sets, daily range): BP systolic 123–133; BP diastolic 67–79; PULSE 71–77; TEMP 36.7–37.1; O2SAT 88–96
[2017-06-04] MEDS: AMPICILLIN/SULBACTAM SOD INJ 3,000 MG in SODIUM CHLORIDE 0.9% 100ML 100 ML IV SCH ×5 (00:19→23:51)
[2017-06-04] MEDS: ACETAMINOPHEN 500 MG TAB PO PRN (00:20)
[2017-06-04] MEDS: LEVALBUTEROL 1.25MG/3ML NEB INH SCH ×3 (01:57→15:00)
[2017-06-04] MEDS: LEVOTHYROXINE 75 MCG TAB NG SCH (05:46)
[2017-06-04 06:59] LABS: HEMATOCRIT 35.7 % (37-47); HEMOGLOBIN 11.4 g/dL (12.0-16.0); MEAN CELL VOLUME 100.6 fL (80-100); MEAN CORPUSCULAR HEMOGLOBIN 32.1 pg (25-34); MEAN CORPUSCULAR HGB CONC 31.9 g/dl (32-36); RED CELL DISTRIBUTION WIDTH CV 13.1 % (11.5-14.5); RED CELL DISTRIBUTION WIDTH SD 48.4 fL (36.4-46.3); WHITE BLOOD COUNT 4.01 K/uL (4.8-10.8)
[2017-06-04 07:03] LABS: MEAN PLATELET VOLUME 10.2 fL (7.4-10.4); PLATELET COUNT 65 K/uL (130-400)
[2017-06-04 07:39] LABS: CREATININE 0.45 mg/dl (0.60-1.20); POTASSIUM 4.4 mmol/L (3.5-5.1)
[2017-06-04 07:53] LABS: BASO % 0.2 %; BASO ABS # 0.01 K/uL (0-0.2); EOS % 1.5 %; EOS ABS # 0.06 K/uL (0-0.5); IG# 0.01 K/uL (0.00-0.02); LYMPH % 55.9 %; LYMPH ABS # 2.24 K/uL (1.2-3.4); MONO ABS # 0.32 K/uL (0.11-0.59); NEUT % 34.2 %; NEUT ABS # 1.37 K/uL (1.4-6.5)
[2017-06-04] MEDS: SENNA 8.6 MG TAB PO SCH (08:02)
[2017-06-04] MEDS: RIVAROXABAN 20 MG TAB PO SCH (08:02)
[2017-06-04] MEDS: METOPROLOL SUCC 25MG EXT REL TAB PO SCH (08:02)
[2017-06-04] MEDS: OSELTAMIVIR PHOSPHATE 75 MG CAP PO SCH ×2 (08:02→19:59)
[2017-06-04] MEDS: IPRATROPIUM BROMIDE/ALBUTEROL respimat INH INH SCH ×4 (08:03→19:59)
[2017-06-04] MEDS: AMIODARONE 200 MG TAB PO SCH (08:03)
[2017-06-04] MEDS: NSS + 20MEQ KCL 1000ML 1,000 ML IV SCH (08:03)
[2017-06-04] MEDS: DIVALPROEX SODIUM SPRINKLE 125 MG CAP PO SCH (08:03)
[2017-06-04] MEDS: PRAVASTATIN SOD 20 MG TAB PO SCH (08:03)
[2017-06-04] MEDS: GUAIFENESIN 200 MG TAB PO SCH ×4 (08:03→19:59)
[2017-06-04] MEDS: CYANOCOBALAMIN 500 MCG TAB (VIT B-12) PO SCH (08:04)
[2017-06-04] MEDS ORDERED: BISACODYL 10 MG SUPP PR STA (11:46)
--- NOTE | 2017-06-04 12:59 | DIAGNOSTIC IMAGING REPORT ---
CHEST ONE VIEW PORTABLE CLINICAL HISTORY: Pneumonia. Evaluate for congestive heart failure. COMPARISON STUDY: Chest radiograph June 02, 2017. FINDINGS: There is no pneumothorax or pleural effusion. Left basilar opacity has developed. There is mild persistent interstitial thickening. Cardiomediastinal silhouette is stable. IMPRESSION: 1. Interval development of left basilar opacity which may reflect pneumonia or atelectasis. 2. Persistent diffuse interstitial thickening. No evidence for overt pulmonary edema. Electronically signed by: Vasyl Klein M.D. 06/04/2017 12:57 PM Dictated Date/Time: 06/04/2017 12:56 PM
--- NOTE | 2017-06-04 17:31 | Progress Note ---
Subjective Date of Service: Jun 04, 2017. Subjective Pt evaluation today including: conversation w/ patient, physical exam, chart review, lab review, review of studies (cxr), review of inpatient medication list Pain: back pain is improved PO Intake: improving Voiding: strickland catheter in place tele with rate-controlled a fib overnight no wide-complex tachycardia feels better still quite weak cough remains but improving no dyspnea no orthopnea still no bowel movement Problem List Medical Problems: (1) Flu Status: Acute (2) Small bowel obstruction Status: Acute (3) UTI (urinary tract infection) Status: Acute Review of Systems Constitutional: + fatigue, No fever, No chills Respiratory: + cough, + wheezing, No sputum, No dyspnea at rest Cardiac: No chest pain, No orthopnea Abdomen: + constipation, No pain, No nausea, No vomiting, No diarrhea Objective Vital Signs Date Time Temp Pulse Resp B/P (MAP) Pulse Ox O2 Delivery O2 Flow Rate FiO2 06/04/17 15:34 36.9 75 20 130/67 (88) 96 Nasal Cannula 2.0 06/04/17 11:39 36.7 71 18 129/76 (93) 94 Room Air 06/04/17 07:40 37.1 77 20 127/78 (94) 88 2.0 06/04/17 03:53 36.8 72 23 133/71 (91) 93 Nasal Cannula 2.0 06/03/17 23:50 37.0 71 23 112/67 (82) 93 Nasal Cannula 2.0 06/03/17 18:57 36.6 69 18 99/58 (72) 94 Nasal Cannula 2.0 Physical Exam General Appearance: no apparent distress, + obese, + pertinent finding (looks better) ENT: pharynx normal Neck: no JVD Respiratory/Chest: no respiratory distress, no accessory muscle use, + decreased breath sounds (both bases), + rales (both bases - mild), + pertinent finding (scant end-exp wheeze) Cardiovascular: no gallop, no murmur, + irregularly irregular Abdomen: normal bowel sounds, non tender, soft, no organomegaly Extremities: no pedal edema Neurologic/Psychiatric: alert, oriented x 3 Laboratory Results Last 24 Hours Test 06/04/17 06:46 White Blood Count 4.01 K/uL Red Blood Count 3.55 M/uL Hemoglobin 11.4 g/dL Hematocrit 35.7 % Mean Corpuscular Volume 100.6 fL Mean Corpuscular Hemoglobin 32.1 pg Mean Corpuscular Hemoglobin Concent 31.9 g/dl Platelet Count 65 K/uL Mean Platelet Volume 10.2 fL Neutrophils (%) (Auto) 34.2 % Lymphocytes (%) (Auto) 55.9 % Monocytes (%) (Auto) 8.0 % Eosinophils (%) (Auto) 1.5 % Basophils (%) (Auto) 0.2 % Neutrophils # (Auto) 1.37 K/uL Lymphocytes # (Auto) 2.24 K/uL Monocytes # (Auto) 0.32 K/uL Eosinophils # (Auto) 0.06 K/uL Basophils # (Auto) 0.01 K/uL RDW Standard Deviation 48.4 fL RDW Coefficient of Variation 13.1 % Immature Granulocyte % (Auto) 0.2 % Immature Granulocyte # (Auto) 0.01 K/uL Sodium Level 142 mmol/L Potassium Level 4.4 mmol/L Chloride Level 108 mmol/L Carbon Dioxide Level 28 mmol/L Anion Gap 6.0 mmol/L Blood Urea Nitrogen 13 mg/dl Creatinine 0.45 mg/dl Est Creatinine Clear Calc Drug Dose 164.6 ml/min Estimated GFR () 122.7 Estimated GFR (Non- 105.9 BUN/Creatinine Ratio 29.0 Random Glucose 85 mg/dl Calcium Level 8.0 mg/dl Assessment and Plan 66yo female - 1. sepsis 2nd to influenza A infection - day #4/5 of tamiflu. Sepsis resolved. Finish tamiflu. No fever in over 48 hours. 2. RUL/RLL pneumonia - bacterial superinfection in setting of flu A - day #4 of unasyn. Plan 7-10 days of Rx. Blood cx's negative. fevers resolved. Repeat cxr today with LLL infiltrate with b/l interstitial infiltrates. Suspect this is all pneumonitis/pneumonia. 3. metabolic encephalopathy 2nd to #1, #2 - resolved. 4. h/o prior stroke with resulting left-sided weakness - noted. Cont anticoagulation for a. fib. 5. pSBO vs ileus - resolved. Dulcolax suppos x 1 for constipation. If she refuses to take then give dulcolax tab po x 1 along with miralax. 6. seizure disorder with mildly supratherapeutic depakote level at admission - depakote held x 24 hours then resumed at normal home doses. Repeat level in am. 7. HTN - BPs improved with hydration. Fluids d/c. 8. atrial fibrillation - continue beta calderon. Cont xarelto. Cont amiodarone. 9. wide-complex tachycardia - a. fib with aberrancy favored by Dr. Rodrigez and Dr. Cullen. Cont amiodarone 200mg once daily. 10. DIANNE - untreated. reports she could not tolerate BIPAP. Will plan for overnight oximetry test the night prior to discharge to qualify her for home night-time O2. 11. morbid obesity with BMI 39 12. hypothyroidism - TSH minimally depressed at admission. Would repeat in 3- 4 weeks as outpatient. 13. DVT proph - xarelto. 14. mild thrombocytopenia - b12 level mildly low but doubt the cause of her thrombocytopenia. Folate wnl. Was on heparin drip but this has been d/c. suspect this is due to sepsis; level should recover over next few days. repeat CBC am for stability. 15. right flank pain/right lower back pain - suspect musculoskeletal. This is already improved. PT, OT fabio appreciated - I reviewed their notes - she may need more care than what family can provide as she recovers from this illness will d/w family Continued [facility] stay due to: voiding difficulties, ambulation difficulties, multiple IV medications needed Discharge planning: uncertain
[2017-06-04] MEDS ORDERED: POLYETHYLENE (MIRALAX) 17 GM PACK PO ONE (18:00)
[2017-06-04] MEDS ORDERED: BISACODYL 5 MG TABEC PO ONE (18:00)
[2017-06-04] MEDS: DIVALPROEX 500 MG EXTENDED RELEASE TAB PO SCH (20:00)
[2017-06-05] VITALS (10 sets, daily range): BP systolic 122–139; BP diastolic 77–96; PULSE 75–86; TEMP 36.5–37.1; O2SAT 93–97
[2017-06-05] MEDS: ACETAMINOPHEN SOLN 650MG/20.3 ML UDC NG PRN (01:32)
[2017-06-05] MEDS: LEVOTHYROXINE 75 MCG TAB NG SCH (05:31)
[2017-06-05] MEDS: AMPICILLIN/SULBACTAM SOD INJ 3,000 MG in SODIUM CHLORIDE 0.9% 100ML 100 ML IV SCH (05:32)
[2017-06-05 07:01] LABS: HEMATOCRIT 36.2 % (37-47); HEMOGLOBIN 11.7 g/dL (12.0-16.0); MEAN CELL VOLUME 98.1 fL (80-100); MEAN CORPUSCULAR HEMOGLOBIN 31.7 pg (25-34); MEAN CORPUSCULAR HGB CONC 32.3 g/dl (32-36); RED CELL DISTRIBUTION WIDTH CV 12.7 % (11.5-14.5); RED CELL DISTRIBUTION WIDTH SD 45.6 fL (36.4-46.3); WHITE BLOOD COUNT 4.32 K/uL (4.8-10.8)
[2017-06-05 07:03] LABS: MEAN PLATELET VOLUME 9.7 fL (7.4-10.4); PLATELET COUNT 71 K/uL (130-400)
[2017-06-05 07:27] LABS: BASO % 0.2 %; BASO ABS # 0.01 K/uL (0-0.2); EOS % 2.1 %; EOS ABS # 0.09 K/uL (0-0.5); IG# 0.01 K/uL (0.00-0.02); LYMPH % 46.5 %; LYMPH ABS # 2.01 K/uL (1.2-3.4); MONO % 10.4 %; MONO ABS # 0.45 K/uL (0.11-0.59); NEUT % 40.6 %; NEUT ABS # 1.75 K/uL (1.4-6.5)
[2017-06-05] MEDS: OSELTAMIVIR PHOSPHATE 75 MG CAP PO SCH ×2 (08:13→21:00)
[2017-06-05] MEDS: SENNA 8.6 MG TAB PO SCH (08:13)
[2017-06-05] MEDS: RIVAROXABAN 20 MG TAB PO SCH (08:14)
[2017-06-05] MEDS: AMIODARONE 200 MG TAB PO SCH (08:14)
[2017-06-05] MEDS: GUAIFENESIN 200 MG TAB PO SCH ×4 (08:14→20:58)
[2017-06-05] MEDS: CYANOCOBALAMIN 500 MCG TAB (VIT B-12) PO SCH (08:14)
[2017-06-05] MEDS: POLYETHYLENE (MIRALAX) 17 GM PACK PO SCH (08:14)
[2017-06-05] MEDS: PRAVASTATIN SOD 20 MG TAB PO SCH (08:14)
[2017-06-05] MEDS: DIVALPROEX SODIUM SPRINKLE 125 MG CAP PO SCH (08:15)
[2017-06-05] MEDS: METOPROLOL SUCC 25MG EXT REL TAB PO SCH (08:15)
[2017-06-05] MEDS: IPRATROPIUM BROMIDE/ALBUTEROL respimat INH INH SCH ×4 (08:15→20:59)
[2017-06-05] MEDS: ACETAMINOPHEN 500 MG TAB PO PRN (10:32)
[2017-06-05] MEDS: LACTOBACILLUS ACIDOPHILUS (FLORANEX) TAB PO SCH ×2 (11:59→16:33)
[2017-06-05] MEDS: AMOXICILLIN/CLAVULANATE TAB 875 MG TAB PO SCH ×2 (12:00→16:33)
[2017-06-05] MEDS ORDERED: SOAP SUDS ENEMA PR ONE (12:45)
[2017-06-05] MEDS: BISACODYL 5 MG TABEC PO SCH (15:00)
--- NOTE | 2017-06-05 15:07 | Progress Note ---
Subjective Date of Service: Jun 05, 2017. Subjective Pt evaluation today including: conversation w/ patient, physical exam, chart review, lab review, review of inpatient medication list Pain: back but improved PO Intake: fair at best Voiding: strickland catheter in place tele overnight - rate controlled a. fib; no bradycardia or tachycardia; no wide complex rhythms once again still quite weak and fatigued cough present but no sputum no dyspnea or orthopnea no bowel movement since prior to admission but passing flatus she stated "my thinks I'm not trying hard enough" (to move around, etc) Problem List Medical Problems: (1) Flu Status: Acute (2) Small bowel obstruction Status: Acute (3) UTI (urinary tract infection) Status: Acute Review of Systems Constitutional: + fatigue, No fever, No chills Respiratory: No dyspnea at rest Cardiac: No chest pain, No orthopnea Abdomen: + constipation, No pain, No nausea, No vomiting Objective Vital Signs Date Time Temp Pulse Resp B/P (MAP) Pulse Ox O2 Delivery O2 Flow Rate FiO2 06/05/17 13:58 36.9 86 20 93 2.0 06/05/17 12:50 36.9 86 128/80 (96) 06/05/17 11:33 36.9 80 20 139/96 (110) 93 2.0 06/05/17 07:35 37.1 80 18 123/77 (92) 95 2.0 06/05/17 04:27 36.9 80 20 133/87 (102) 94 Nasal Cannula 2.0 06/05/17 04:00 97 Nasal Cannula 2.0 06/05/17 00:00 97 Nasal Cannula 2.0 06/04/17 23:45 37.0 73 20 123/77 (92) 91 Nasal Cannula 2.0 06/04/17 20:00 96 Nasal Cannula 2.0 06/04/17 19:23 36.7 77 20 131/79 (96) 96 Nasal Cannula 2.0 06/04/17 15:34 36.9 75 20 130/67 (88) 96 Nasal Cannula 2.0 Physical Exam General Appearance: no apparent distress, + obese, + pertinent finding (awake, alert, talkative) ENT: pharynx normal Neck: no JVD Respiratory/Chest: no respiratory distress, no accessory muscle use, + pertinent finding (relatively CTA b/l except decreased BS bases; no obvious rales; scant end-exp wheeze) Cardiovascular: no gallop, no murmur, + irregularly irregular Abdomen: normal bowel sounds, non tender, soft, no organomegaly, + distended ( scant) Extremities: no pedal edema Neurologic/Psychiatric: alert, + motor weakness (lue/lle - baseline) Skin: no rash Laboratory Results Last 24 Hours Test 06/05/17 06:45 White Blood Count 4.32 K/uL Red Blood Count 3.69 M/uL Hemoglobin 11.7 g/dL Hematocrit 36.2 % Mean Corpuscular Volume 98.1 fL Mean Corpuscular Hemoglobin 31.7 pg Mean Corpuscular Hemoglobin Concent 32.3 g/dl Platelet Count 71 K/uL Mean Platelet Volume 9.7 fL Neutrophils (%) (Auto) 40.6 % Lymphocytes (%) (Auto) 46.5 % Monocytes (%) (Auto) 10.4 % Eosinophils (%) (Auto) 2.1 % Basophils (%) (Auto) 0.2 % Neutrophils # (Auto) 1.75 K/uL Lymphocytes # (Auto) 2.01 K/uL Monocytes # (Auto) 0.45 K/uL Eosinophils # (Auto) 0.09 K/uL Basophils # (Auto) 0.01 K/uL RDW Standard Deviation 45.6 fL RDW Coefficient of Variation 12.7 % Immature Granulocyte % (Auto) 0.2 % Immature Granulocyte # (Auto) 0.01 K/uL Hyposegmented Neutrophils OCCASIONAL Platelet Estimate DECREASED Valproic Acid (Depakene) Level 76 mcg/ml Assessment and Plan 66yo female - 1. sepsis 2nd to influenza A infection - day #5/5 of tamiflu. Sepsis resolved. Finish tamiflu today. No fever in several days. 2. RUL/RLL pneumonia, question LLL infiltrate (on cxr dated 06/04) - bacterial superinfection in setting of flu A - day #5 of unasyn. Plan 7-10 days of Rx. Blood cx's negative. Change unasyn to augmentin today to finish her course. Trying to wean O2 but still requiring such. Wean as tolerated. See discussion below in "DIANNE" section. 3. metabolic encephalopathy 2nd to #1, #2 - resolved. 4. h/o prior stroke with resulting left-sided weakness - noted. Cont xarelto for a. fib. 5. pSBO vs ileus - resolved clinically, but with ongoing constipation. Dulcolax suppos x 1 did not produce bowel movement. Multiple oral agents haven' t helped either. Soap suds enema x 1. If no luck then place on dulcolax tab daily as well as miralax. 6. seizure disorder with mildly supratherapeutic depakote level at admission - depakote held x 24 hours then resumed at normal home doses. Level today within range. 7. HTN - BPs stable/controlled. 8. atrial fibrillation - continue beta calderon. Cont xarelto. Cont amiodarone. 9. wide-complex tachycardia - a. fib with aberrancy favored by Dr. Rodrigez and Dr. Cullen. Cont amiodarone 200mg once daily. 10. DIANNE - untreated. reports she could not tolerate BIPAP at home. Will plan for overnight oximetry test the night prior to discharge to qualify her for home night-time O2. 11. morbid obesity with BMI 41 12. hypothyroidism - TSH minimally depressed at admission. Would repeat in 3- 4 weeks as outpatient. 13. DVT proph - xarelto. 14. mild thrombocytopenia - b12 level mildly low but doubt the cause of her thrombocytopenia. Folate wnl. Was on heparin drip but this has been d/c. suspect this is due to sepsis; level starting to trend up. repeat CBC am for stability. 15. right flank pain/right lower back pain - suspect musculoskeletal. This is already improved. PT, OT fabio appreciated - I reviewed their notes - she may need more care than what family can provide as she recovers from this illness left message for on 06/04 will try to call them again today d/c tele ok to move to med/surg Continued [facility] stay due to: inadequate po fluid intake, voiding difficulties, ambulation difficulties Discharge planning: uncertain
[2017-06-05] MEDS: DIVALPROEX 500 MG EXTENDED RELEASE TAB PO SCH (20:59)
[2017-06-06] MEDS: LEVOTHYROXINE 75 MCG TAB NG SCH (06:32)
[2017-06-06 07:37] LABS: HEMATOCRIT 38.5 % (37-47); HEMOGLOBIN 12.5 g/dL (12.0-16.0); MEAN CELL VOLUME 97.7 fL (80-100); MEAN CORPUSCULAR HEMOGLOBIN 31.7 pg (25-34); MEAN CORPUSCULAR HGB CONC 32.5 g/dl (32-36); RED CELL DISTRIBUTION WIDTH CV 12.6 % (11.5-14.5); RED CELL DISTRIBUTION WIDTH SD 44.7 fL (36.4-46.3); WHITE BLOOD COUNT 5.05 K/uL (4.8-10.8)
[2017-06-06 07:45] LABS: MEAN PLATELET VOLUME 9.5 fL (7.4-10.4); PLATELET COUNT 92 K/uL (130-400)
[2017-06-06 07:54] VITALS: BP 124/81; PULSE 75; TEMP 36.7; O2SAT 90
[2017-06-06] MEDS: SENNA 8.6 MG TAB PO SCH (07:54)
[2017-06-06] MEDS: LACTOBACILLUS ACIDOPHILUS (FLORANEX) TAB PO SCH ×3 (07:54→17:14)
[2017-06-06] MEDS: AMOXICILLIN/CLAVULANATE TAB 875 MG TAB PO SCH ×2 (07:54→17:13)
[2017-06-06] MEDS: RIVAROXABAN 20 MG TAB PO SCH (07:55)
[2017-06-06] MEDS: IPRATROPIUM BROMIDE/ALBUTEROL respimat INH INH SCH ×4 (07:55→20:23)
[2017-06-06] MEDS: PRAVASTATIN SOD 20 MG TAB PO SCH (07:55)
[2017-06-06] MEDS: METOPROLOL SUCC 25MG EXT REL TAB PO SCH (07:55)
[2017-06-06] MEDS: GUAIFENESIN 200 MG TAB PO SCH ×4 (07:55→20:23)
[2017-06-06] MEDS: POLYETHYLENE (MIRALAX) 17 GM PACK PO SCH ×2 (07:55→20:22)
[2017-06-06] MEDS: DIVALPROEX SODIUM SPRINKLE 125 MG CAP PO SCH (07:55)
[2017-06-06] MEDS: CYANOCOBALAMIN 500 MCG TAB (VIT B-12) PO SCH (07:55)
[2017-06-06] MEDS: AMIODARONE 200 MG TAB PO SCH (07:55)
[2017-06-06] MEDS: BISACODYL 5 MG TABEC PO SCH (07:59)
[2017-06-06 08:05] LABS: BASO % 0.2 %; BASO ABS # 0.01 K/uL (0-0.2); EOS ABS # 0.05 K/uL (0-0.5); IG# 0.06 K/uL (0.00-0.02); LYMPH % 43.2 %; LYMPH ABS # 2.18 K/uL (1.2-3.4); MONO % 10.9 %; MONO ABS # 0.55 K/uL (0.11-0.59); NEUT % 43.5 %
[2017-06-06 15:48] VITALS: BP 123/77; PULSE 60; TEMP 36.6; O2SAT 90
[2017-06-06 16:00] VITALS: O2SAT 93
--- NOTE | 2017-06-06 17:48 | Hospitalist Progress Note ---
Hospitalist Progress Note Date of Service Jun 06, 2017. (Tess Dickson ., PA-C) Subjective Pt evaluation today including: conversation w/ patient, physical exam, chart review, lab review, review of inpatient medication list Pain: 6/10 LLE pain PO Intake: Tolerating PO diet Voiding: strickland catheter in place The patient complains of 6/10 LLE pain from her buttocks to her foot. She states this pain has been there for months. She complains of SOB. She otherwise denies complaints. The patient denies fevers, chills, sweats, chest pain, palpitations, claudication, cough, wheezing, nausea, vomiting, abdominal pain, dysuria, hematuria, urinary retention, paralysis, weakness, numbness and tingling. Additional Comments: See HPI for pertinent positives and negatives. All other systems reviewed and negative. (Tess Dickson ., PA-C) Objective Vital Signs Date Time Temp Pulse Resp B/P (MAP) Pulse Ox O2 Delivery O2 Flow Rate FiO2 06/06/17 16:00 93 Nasal Cannula 2.0 06/06/17 15:48 36.6 60 18 123/77 (92) 90 Nasal Cannula 1.5 06/06/17 08:00 Nasal Cannula 2.0 06/06/17 07:54 36.7 75 20 124/81 (95) 90 Nasal Cannula 2.0 06/06/17 00:00 Nasal Cannula 2.0 06/05/17 22:08 36.6 75 18 127/84 (98) 95 (Tess Dickson, PA-C) Physical Exam Notes: General appearance: +Morbidly obese. Well-developed, well-nourished, no apparent distress Head: Normocephalic, atraumatic Eyes: Normal inspection, PERRL, EOMI ENT: Normal ENT inspection, hearing grossly normal, pharynx normal Neck: Supple, no JVD, trachea midline Respiratory/Chest: Lungs clear to auscultation, normal breath sounds, no respiratory distress Cardiovascular: +Irregularly irregular. No gallop, no murmur Abdomen/GI: +Suprapubic area TTP. Normal bowel sounds, soft Extremities/Musculoskeletal: Normal inspection, no calf tenderness, no pedal edema Neurological/Psych: +Flat affect. Alert, oriented x 3 Skin: Normal color, warm/dry, no rash (Tess Dickson ., PA-C) Laboratory Results Last 24 Hours Test 06/06/17 07:13 White Blood Count 5.05 K/uL Red Blood Count 3.94 M/uL Hemoglobin 12.5 g/dL Hematocrit 38.5 % Mean Corpuscular Volume 97.7 fL Mean Corpuscular Hemoglobin 31.7 pg Mean Corpuscular Hemoglobin Concent 32.5 g/dl Platelet Count 92 K/uL Mean Platelet Volume 9.5 fL Neutrophils (%) (Auto) 43.5 % Lymphocytes (%) (Auto) 43.2 % Monocytes (%) (Auto) 10.9 % Eosinophils (%) (Auto) 1.0 % Basophils (%) (Auto) 0.2 % Neutrophils # (Auto) 2.20 K/uL Lymphocytes # (Auto) 2.18 K/uL Monocytes # (Auto) 0.55 K/uL Eosinophils # (Auto) 0.05 K/uL Basophils # (Auto) 0.01 K/uL RDW Standard Deviation 44.7 fL RDW Coefficient of Variation 12.6 % Immature Granulocyte % (Auto) 1.2 % Immature Granulocyte # (Auto) 0.06 K/uL Large Platelets 1+ (Tess Dickson ., PA-C) Assessment and Plan 66 y/o female with a history of paroxysmal a-fib with IVC filter, HTN, HLD, complex partial seizure, 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 Sepsis secondary to Influenza A w/metabolic encephalopathy--resolved - Completed course of Tamiflu, sepsis resolved RUL/RLL pneumonia, question LLL infiltrate (on cxr dated 06/04)--stable - Unasyn converted to Augmentin. Day #6 of 10 - O2 by protocol. - BCx no growth pSBO vs ileus, favors ileus - Pt had BM yesterday - Dulcolax and Senokot daily Seizure disorder -Continue depakote 500 mg PO qam and 1000 mg PO hs A-fib, a-fib w/aberrancy--stable -Cardiology consulted, following -Continue amiodarone 200 mg PO qd, Toprol 25 mg PO qd, Xarelto HTN, HLD--stable -Continue Toprol as above, Tricor 134 mg PO qd, pravastatin 20 mg PO qd Hypothyroidism -Continue Synthroid 75 mcg PO qd Thrombocytopenia -PLT count improving DVT prophylaxis -Xarelto Code Status -Level I, FULL RESUSCITATION STATUS Dispo -PT recommends ECF and/or 24 hour care (Tess Dickson ., PA-C) Attending Note & Attestation: Pt seen/examined, chart reviewed, care plan d/w AURELIANO Dickson. I agree w/ the hubbard components of her documentation. Initially was very sleepy during my visit; finally woke up and was at baseline. stated her left leg hurt from the buttock down to the left foot. present "for years" staff report poor appetite. still w/ o2 requirement VSS, no fever gen - NAD, obese mouth - MMM neck - no obvious JVD heart - irregular, HR<100 lungs - mild end-exp wheezing w/ decreased BS bases abd - soft, obese ext - no edema neuro - left hemiparesis platelet count rising on cbc A/P: 1. recent flu A infection with associated bronchitis - tamiflu finished; consider steroids for wheezing; this may help appetite too 2. ileus - finally had BM yesterday; remains on bowel regimen; reports she often goes 3-4 days w/o BM at home 3. superimposed community-acquired pneumonia vs aspiration pneumonia (favor latter) - finish augmentin course 4. thrombocytopenia - suspect due to sepsis - improving; cbc am 5. sepsis 2nd to #1, #2 - resolved 6. metabolic encephalopathy - 2nd to flu & pneumonia - resolved; MS returned to baseline extreme deconditioning, unable to sit up and transfer - family reports she needs to be at baseline to go home and thus will need SNF placement Taiwo Cruz MD (Taiwo Cruz MD)
[2017-06-06] MEDS: METHYLPREDNISOLONE IV 40 MG in SYRINGE 0 ML IV SCH (19:08)
[2017-06-06] MEDS: ACETAMINOPHEN SOLN 650MG/20.3 ML UDC NG PRN (19:11)
[2017-06-06] MEDS: DIVALPROEX 500 MG EXTENDED RELEASE TAB PO SCH (20:23)
[2017-06-07 00:11] VITALS: BP 134/84; PULSE 75; TEMP 36.6; O2SAT 91
[2017-06-07] MEDS: METHYLPREDNISOLONE IV 40 MG in SYRINGE 0 ML IV SCH ×3 (03:46→18:51)
[2017-06-07] MEDS: LEVOTHYROXINE 75 MCG TAB NG SCH (03:49)
[2017-06-07 07:03] VITALS: BP 136/90; PULSE 90; TEMP 36.5; O2SAT 92
[2017-06-07 07:05] LABS: HEMATOCRIT 42.4 % (37-47); HEMOGLOBIN 14.5 g/dL (12.0-16.0); MEAN CELL VOLUME 94.4 fL (80-100); MEAN CORPUSCULAR HEMOGLOBIN 32.3 pg (25-34); MEAN CORPUSCULAR HGB CONC 34.2 g/dl (32-36); MEAN PLATELET VOLUME 9.8 fL (7.4-10.4); PLATELET COUNT 118 K/uL (130-400); RED CELL DISTRIBUTION WIDTH CV 12.6 % (11.5-14.5); WHITE BLOOD COUNT 5.56 K/uL (4.8-10.8)
[2017-06-07] MEDS: AMOXICILLIN/CLAVULANATE TAB 875 MG TAB PO SCH ×2 (07:38→17:08)
[2017-06-07] MEDS: LACTOBACILLUS ACIDOPHILUS (FLORANEX) TAB PO SCH ×3 (07:38→17:08)
[2017-06-07] MEDS: PRAVASTATIN SOD 20 MG TAB PO SCH (07:38)
[2017-06-07] MEDS: SENNA 8.6 MG TAB PO SCH (07:39)
[2017-06-07] MEDS: AMIODARONE 200 MG TAB PO SCH (07:39)
[2017-06-07] MEDS: GUAIFENESIN 200 MG TAB PO SCH ×4 (07:39→20:48)
[2017-06-07] MEDS: IPRATROPIUM BROMIDE/ALBUTEROL respimat INH INH SCH ×4 (07:39→20:48)
[2017-06-07] MEDS: DIVALPROEX SODIUM SPRINKLE 125 MG CAP PO SCH (07:39)
[2017-06-07] MEDS: METOPROLOL SUCC 25MG EXT REL TAB PO SCH (07:39)
[2017-06-07] MEDS: POLYETHYLENE (MIRALAX) 17 GM PACK PO SCH ×2 (07:39→20:46)
[2017-06-07] MEDS: RIVAROXABAN 20 MG TAB PO SCH (07:39)
[2017-06-07] MEDS: CYANOCOBALAMIN 500 MCG TAB (VIT B-12) PO SCH (07:39)
[2017-06-07 07:43] LABS: CALCIUM 9.1 mg/dl (8.5-10.1); CREATININE 0.56 mg/dl (0.60-1.20); POTASSIUM 4.6 mmol/L (3.5-5.1)
[2017-06-07] MEDS: BISACODYL 5 MG TABEC PO SCH (07:44)
[2017-06-07 16:00] VITALS: O2SAT 92
[2017-06-07 16:12] VITALS: BP_SYST 126; BP_SYST 159; BP_DIAS 83; BP_DIAS 87; PULSE 48; PULSE 86; TEMP 36.8; O2SAT 90; O2SAT 96
[2017-06-07 16:52] VITALS: O2SAT 91
--- NOTE | 2017-06-07 17:03 | Hospitalist Progress Note ---
Hospitalist Progress Note Date of Service Jun 07, 2017. (Tess Dickson ., AURELIANO-C) Subjective Patient reports feeling well. She denies any shortness of breath today and is on room air during my visit laying flat. She denies any LLE pain currently. The patient denies fevers, chills, sweats, chest pain, palpitations, claudication, cough, wheezing, shortness of breath, nausea, vomiting, abdominal pain, dysuria, hematuria, urinary retention, paralysis, weakness, numbness and tingling. Additional Comments: See HPI for pertinent positives and negatives. All other systems reviewed and negative. (Tess Dickson ., AURELIANO-C) Objective Vital Signs Date Time Temp Pulse Resp B/P (MAP) Pulse Ox O2 Delivery O2 Flow Rate FiO2 06/07/17 16:52 91 Room Air 06/07/17 16:12 36.8 86 20 126/87 (100) 90 Nasal Cannula 2.0 06/07/17 16:00 92 Room Air 06/07/17 08:00 Nasal Cannula 2.0 06/07/17 07:03 36.5 90 20 136/90 (105) 92 Nasal Cannula 1.0 06/07/17 00:11 36.6 75 18 134/84 (101) 91 Nasal Cannula 2.0 06/07/17 00:00 Nasal Cannula 2.0 (Tess Dickson ., AURELIANO-C) Physical Exam Notes: General appearance: +Morbidly obese. Well-developed, well-nourished, no apparent distress Head: Normocephalic, atraumatic Eyes: Normal inspection, PERRL, EOMI ENT: Normal ENT inspection, hearing grossly normal, pharynx normal Neck: Supple, no JVD, trachea midline Respiratory/Chest: Lungs clear to auscultation, normal breath sounds, no respiratory distress Cardiovascular: +Irregularly irregular. No gallop, no murmur Abdomen/GI: +Suprapubic area TTP. Normal bowel sounds, soft Extremities/Musculoskeletal: Normal inspection, no calf tenderness, no pedal edema Neurological/Psych: +Flat affect. Alert, oriented x 3 Skin: Normal color, warm/dry, no rash (Tess Dickson ., AURELIANO-C) Laboratory Results Last 24 Hours Test 06/06/17 18:19 06/07/17 06:54 Bedside Glucose 109 mg/dl White Blood Count 5.56 K/uL Red Blood Count 4.49 M/uL Hemoglobin 14.5 g/dL Hematocrit 42.4 % Mean Corpuscular Volume 94.4 fL Mean Corpuscular Hemoglobin 32.3 pg Mean Corpuscular Hemoglobin Concent 34.2 g/dl RDW Standard Deviation 43.0 fL RDW Coefficient of Variation 12.6 % Platelet Count 118 K/uL Mean Platelet Volume 9.8 fL Sodium Level 136 mmol/L Potassium Level 4.6 mmol/L Chloride Level 99 mmol/L Carbon Dioxide Level 30 mmol/L Anion Gap 7.0 mmol/L Blood Urea Nitrogen 9 mg/dl Creatinine 0.56 mg/dl Est Creatinine Clear Calc Drug Dose 131.1 ml/min Estimated GFR () 114.2 Estimated GFR (Non- 98.5 BUN/Creatinine Ratio 16.7 Random Glucose 118 mg/dl Calcium Level 9.1 mg/dl Magnesium Level 2.4 mg/dl (Tess Dickson, PA-C) Assessment and Plan 66 y/o female with a history of paroxysmal a-fib with IVC filter, HTN, HLD, complex partial seizure, 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 Sepsis secondary to Influenza A w/metabolic encephalopathy--resolved - Completed course of Tamiflu, sepsis resolved RUL/RLL pneumonia, question LLL infiltrate (on cxr dated 06/04)--stable - Unasyn converted to Augmentin. Day #7 of 10 - O2 by protocol. - BCx no growth pSBO vs ileus, favors ileus--resolving - Pt had BM 06/05 - Dulcolax and Senokot daily Seizure disorder--stable -Continue depakote 500 mg PO qam and 1000 mg PO hs A-fib, a-fib w/aberrancy--stable, off tele -Cardiology consulted, following -Continue amiodarone 200 mg PO qd, Toprol 25 mg PO qd, Xarelto HTN, HLD--stable -Continue Toprol as above, Tricor 134 mg PO qd, pravastatin 20 mg PO qd Hypothyroidism -Continue Synthroid 75 mcg PO qd Thrombocytopenia -PLT count continues to improve. Could have been related to sepsis/illness DVT prophylaxis -Xarelto Code Status -Level I, FULL RESUSCITATION STATUS Dispo -PT recommends ECF and/or 24 hour care -Denied insurance auth for rehab, will likely be able to obtain for SNF -Referral to [facility], no beds at [facility] or [facility] (Tess Dickson, ALBERTO) Reviewed: Pt Seen/Exam by Me (Darcy Ortega MD) History Physician Clinical Sciences Professor supervision Note: I interviewed and examined the patient. Discussed with AURELIANO Dickson and agree with findings and plan as documented in the note. Any exceptions or clarifications are listed here: Patient reports some upset stomach, but no nausea, is passing gas. Has chronic left lower extremity pain. Vitals reviewed Morbidly obese, lying flat in bed, NAD Irregularly irregular, no murmurs gallops rubs Lungs clear to auscultation bilaterally, breathing unlabored Abdomen positive bowel sounds, soft, morbidly obese, nontender, nondistended Extremities no edema, contractures in the left upper extremity 66-year-old female with history of PAF, CVA,HTN, HLD, complex partial seizures, OA, and DIANNE who presents w/ pSBO and influenza A. -Much improved, being treated for acute bronchitis versus aspiration pneumonia now with steroids, antibiotics, finished treatment for influenza -Moving bowels and passing flatus, partial SBO is resolved -Thrombocytopenia improving extreme deconditioning, unable to sit up and transfer - family reports she needs to be at baseline to go home and thus will need SNF placement -Expect discharge to SNF tomorrow if bed available Documented By: Darcy Ortega (Darcy Ortega MD)
[2017-06-07] MEDS: DIVALPROEX 500 MG EXTENDED RELEASE TAB PO SCH (20:48)
[2017-06-07 22:37] VITALS: BP 122/78; PULSE 96; TEMP 36.9; O2SAT 91
[2017-06-08] MEDS: LEVOTHYROXINE 75 MCG TAB NG SCH (06:28)
[2017-06-08] MEDS: METOPROLOL SUCC 25MG EXT REL TAB PO SCH (07:57)
[2017-06-08] MEDS: PRAVASTATIN SOD 20 MG TAB PO SCH (07:57)
[2017-06-08] MEDS: SENNA 8.6 MG TAB PO SCH (07:58)
[2017-06-08] MEDS: GUAIFENESIN 200 MG TAB PO SCH ×2 (07:58→12:19)
[2017-06-08] MEDS: RIVAROXABAN 20 MG TAB PO SCH (07:58)
[2017-06-08] MEDS: LACTOBACILLUS ACIDOPHILUS (FLORANEX) TAB PO SCH ×2 (07:58→12:19)
[2017-06-08] MEDS: AMOXICILLIN/CLAVULANATE TAB 875 MG TAB PO SCH (07:58)
[2017-06-08] MEDS: IPRATROPIUM BROMIDE/ALBUTEROL respimat INH INH SCH ×2 (07:58→12:19)
[2017-06-08] MEDS: DIVALPROEX SODIUM SPRINKLE 125 MG CAP PO SCH (07:58)
[2017-06-08] MEDS: CYANOCOBALAMIN 500 MCG TAB (VIT B-12) PO SCH (07:58)
[2017-06-08] MEDS: AMIODARONE 200 MG TAB PO SCH (07:58)
[2017-06-08 07:59] VITALS: BP 113/67; PULSE 88; TEMP 36.7; O2SAT 91
[2017-06-08] MEDS: POLYETHYLENE (MIRALAX) 17 GM PACK PO SCH (08:01)
[2017-06-08] MEDS: BISACODYL 5 MG TABEC PO SCH (08:04)
[2017-06-08 08:18] VITALS: O2SAT 91
[2017-06-08 08:22] LABS: HEMATOCRIT 43.7 % (37-47); HEMOGLOBIN 14.5 g/dL (12.0-16.0); MEAN CELL VOLUME 95.8 fL (80-100); MEAN CORPUSCULAR HEMOGLOBIN 31.8 pg (25-34); MEAN CORPUSCULAR HGB CONC 33.2 g/dl (32-36); MEAN PLATELET VOLUME 10.5 fL (7.4-10.4); PLATELET COUNT 170 K/uL (130-400); RED CELL DISTRIBUTION WIDTH CV 12.9 % (11.5-14.5); RED CELL DISTRIBUTION WIDTH SD 44.5 fL (36.4-46.3); WHITE BLOOD COUNT 11.54 K/uL (4.8-10.8)
[2017-06-08 08:50] LABS: CALCIUM 9.2 mg/dl (8.5-10.1); CREATININE 0.65 mg/dl (0.60-1.20); POTASSIUM 4.1 mmol/L (3.5-5.1)
[2017-06-08] MEDS ORDERED: PRED10TA PO (14:35)
[2017-06-08] MEDS ORDERED: IPRA1AER2 INH (14:35)
[2017-06-08] MEDS ORDERED: SENN-61 PO (14:35)
[2017-06-08] MEDS ORDERED: AMOX1TAB43 PO (14:35)
[2017-06-08] MEDS ORDERED: DLC5 PO (14:35)
--- NOTE | 2017-06-08 14:45 | Discharge Instructions ---
Discharge Instructions Date of Service Jun 08, 2017. Admission Reason for Admission: Influenza A, Partial Small Bowel Obstruction Discharge Discharge Diagnosis / Problem: Influenza A, pneumonia, ileus Discharge Goals Goal(s): Decrease discomfort, Improve function, Diagnostic testing, Therapeutic intervention Activity Recommendations Activity Level: Assistance Required Therapies: Physical Therapy, Occupational Therapy . Additional Information Patient informed of condition: Yes Advance Directives: Yes DNR: No Level of Care: Skilled Communicable Disease: No (Flu resolved) Prognosis: Stable Quinn Catheter: Yes Instructions / Follow-Up Instructions / Follow-Up Patient presented to the hospital with increased lethargy and hypoxia. She was found to have influenza A. There was also concern for a partial small bowel obstruction, although ultimately an ileus was favored instead and this is now resolved. She also developed pneumonia and is finishing a course of antibiotics. She developed a-fib with aberrancy during her stay while septic, but this resolved as her infection/sepsis improved. She is now in rate controlled a-fib. She is now medically stable for transfer to SNF for subacute rehab. Medications: *Please continue Augmentin 875 mg PO BID x 2 more days to complete 10 day course. *Placed on the following prednisone taper: -Take 60 mg PO qd x 1 day, then 50 mg PO qd x 1 day, 40 mg PO qd x 1 day, 30 mg PO qd x 1 day, 20 mg PO qd x 1 day, 10 mg PO qd x 1, then stop *Placed on Combivent inhaler QIDR. *Started on Dulcolax 5 mg PO qd and Senokot 17.2 mg PO qd for constipation. Follow up: *Please have patient follow up with primary care provider within 1 week of discharge. Please seek medical attention if patient experiences fevers, chills, sweats, dizziness/lightheadedness, loss of consciousness, chest pain, shortness of breath, nausea, vomiting, numbness or tingling. Current Hospital Diet Patient's current hospital diet: AHA Diet (Heart Healthy) Discharge Diet Recommended Diet: AHA Diet (Heart Healthy) Pending Studies Studies pending at discharge: no Physician Orders On Transfer Vital Signs: Routine Medical Emergencies . Who to Call and When: Medical Emergencies: If at any time you feel your situation is an emergency, please call 911 immediately. . Non-Emergent Contact Non-Emergency issues call your: Primary Care Provider . Past History Medical & Surgical History: (1) Ileus (2) Pneumonia (3) Influenza A . "Provider Documentation" section prepared by Tess Dickson. . Core Measure Problem Core Measures: None
[2017-06-08 14:51] VITALS: BP 116/72; PULSE 80; TEMP 36.9; O2SAT 92
[2017-06-08 14:55] VITALS: BP 116/72; PULSE 80; TEMP 36.9; O2SAT 92
--- NOTE | 2017-06-08 14:55 | Discharge Summary ---
Discharge Summary Date of Service Jun 08, 2017. 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 osteoarthritis DIANNE non complant with CPAP hypothyroidism h/o IVC filter Acute metabolic encephalopathy Constipation A-fib w/aberrancy Thrombocytopenia senior living anticoagulation Immunizations: Have You Had Influenza Vaccine: Yes Influenza Vaccine Date: Feb 04, 2013 History of Tetanus Vaccine?: Yes Tetanus Immunization Date: Feb 09, 2006 History of Pneumococcal: Yes Pneumococcal Date: Mar 06, 2003 History of Hepatitis B Vaccine: No Procedures: Echocardiogram: Interpretation Summary * Name: CHARBEL HICKEY Study Date: 06/01/2017 12:08 PM BP: 134/65 mmHg * Patient Location: .2E\S\E211\S\1 HR: 114 * : 1950 (M/d/yyyy) Gender: Female Height: 66 in * Age: 66 yrs Ethnicity: [place] Weight: 243 lb * Ordering Physician: Koyr Little * Referring Physician: Self, Referred * Performed By: Winifred Vazquez RDCS * * Reason For Study: V-FLUTTER * BSA: 2.2 m2 * -- Conclusions -- * 1. Left ventricle not well visualized. Grossly normal left ventricular size and systolic function. Estimated EF 60-65%. Cannot exclude wall motion abnormalities. Mild concentric left ventricular hypertrophy. * 2. Right ventricular hypertrophy. Right ventricle may be mildly dilated with grossly normal systolic function when visualized. * 3. No significant valvular abnormalities visualized, however valves were not well seen. * 4. Technically difficult study, somewhat enhanced with IV Definity. Procedure Details * A contrast injection of Definity was performed to improve assessment of LV function. * Contrast was injected into an intravenous site in the right arm. * One vial of Definity ultrasound contrast was diluted in normal saline to a total volume of 10 ml. A total of '2' ml of solution was administered during imaging. * Lot # [id number] of Definity utilized for procedure. * Expiration date APR 29. * The attending nurse who injected the contrast agent was ANAND LADD. Left Ventricle * Left ventricle not well visualized. Grossly normal left ventricular size and systolic function. Estimated EF 60-65%. Cannot exclude wall motion abnormalities. Mild concentric left ventricular hypertrophy. Right Ventricle * Right ventricular hypertrophy. Right ventricle may be mildly dilated with grossly normal systolic function when visualized. * The right ventricle is not well visualized. Atria * The left atrium is not well visualized. * Right atrium not well visualized. Mitral Valve * The mitral valve is grossly normal. * There is no mitral valve stenosis. * Significant mitral regurgitation is absent. Tricuspid Valve * The tricuspid valve is not well visualized. * There is no tricuspid stenosis. * Significant tricuspid regurgitation is absent. Aortic Valve * The aortic valve is not well visualized. * No hemodynamically significant valvular aortic stenosis. * There is no significant aortic regurgitation. Pulmonic Valve * The pulmonic valve is not well visualized. Great Vessels * The aortic root is normal size. * Aortic arch of normal dimension. Pericardium/Pleural * Prominent anterior fat pad. Great Vessels * Normal IVC size. Consultations: General surgery Cardiology Medication Reconciliation New Medications: Prednisone (Prednisone) 10 Mg Tab 10 MG PO UD for 6 Days, #21 TAB 60 mg on 06/09, then decrease by 10 mg every day Amoxicillin & Pot Clavulanate (Amoxicillin/Clavulanate P) 1 Tab Tab 875 MG PO BIDM for 2 Days, #4 TAB Bisacodyl (Bisacodyl EC) 5 Mg Tabec 5 MG PO DAILY for 30 Days, #30 TAB Ipratropium-Albuterol (Combivent Respimat) 1 Aer Aer 1 PUFFS INH QID for 30 Days, #120 DOSE Senna (Senokot) 8.6 Mg Tab 17.2 MG PO QAM for 30 Days, #60 TAB Continued Medications: Acetaminophen (Tylenol) 325 Mg Tab 650 MG PO Q6HR PRN, 0 Refills pain Amiodarone Hcl (Cordarone) 200 Mg Tab 200 MG PO DAILY Ascorbic Acid (Vitamin C) 500 Mg Tab 500 MG PO DAILY Divalproex Sodium (Depakote Er) 500 Mg Tab 1 TAB PO DAILY for 30 Days, #30 TAB 2 Refills Divalproex Sodium (Depakote Er) 500 Mg Tab 2 TAB PO HS for 30 Days, #60 TAB Docusate Sodium (Docusate Sodium) 100 Mg Cap 100 MG PO BID Fenofibrate (Tricor ) 134 Mg Cap 134 MG PO QAM, 0 Refills Levothyroxine Sodium (Levothyroxine Sodium) 75 Mcg Tab 75 MCG PO QAM Metoprolol Succinate (Metoprolol Succinate ER) 25 Mg Tabcr 25 MG PO DAILY Mometasone Furoate (Nasonex) [place] 2 SPRAY NA QAM for PRN, 0 Refills Ondansetron (Zofran Odt) 4 Mg Tab 4 MG SL Q6H PRN for Nausea, TAB NAUSEA Pravastatin Sod (Pravastatin Sodium) 20 Mg Tab 20 MG PO DAILY Ranitidine HCl (Ranitidine HCl) 150 Mg Tab 150 MG PO DAILY Rivaroxaban (Xarelto) 20 Mg Tab 20 MG PO DAILY, TAB Discharge Exam The patient denies any shortness of breath. She did have some wheezing last night but states this has cleared up this morning. She reports a non- productive cough. The patient denies fevers, chills, sweats, chest pain, palpitations, claudication, shortness of breath, nausea, vomiting, abdominal pain, dysuria, hematuria, urinary retention, paralysis, weakness, numbness and tingling. Constitutional: No fever, No chills, No sweats Eyes: No worsening of vision, No eye pain, No diplopia ENT: No hearing loss, No nasal symptoms, No trouble swallowing Respiratory: +Non-productive cough, wheezing last night. No shortness of breath Cardiovascular: No chest pain, No claudication, No palpitations Abdomen: No pain, No nausea, No vomiting Musculoskeletal: No joint pain, No muscle pain, No swelling Genitourinary - Female: No dysuria, No urinary retention, No hematuria Neurologic: No paralysis, No weakness, No numbness/tingling Integumentary: No rash, No itch, No color change General appearance: +Morbidly obese. Well-developed, well-nourished, no apparent distress Head: Normocephalic, atraumatic Eyes: Normal inspection, PERRL, EOMI ENT: Normal ENT inspection, hearing grossly normal, pharynx normal Neck: Supple, no JVD, trachea midline Respiratory/Chest: +Decreased breath sounds. Lungs clear to auscultation, no respiratory distress Cardiovascular: +Irregularly irregular, rate controlled. 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 Sepsis secondary to Influenza A w/metabolic encephalopathy--resolved - Completed course of Tamiflu, sepsis resolved RUL/RLL pneumonia, question LLL infiltrate (on cxr dated 06/04)--stable - Unasyn converted to Augmentin. Day #8 of 10 - O2 by protocol, now on room air - BCx no growth pSBO vs ileus, favors ileus--resolving - Pt had BM 06/05 - Dulcolax 5 mg and Senokot 17.2 mg daily. Pt had been on Miralax BID scheduled but is now refusing, states it doesn't work Seizure disorder--stable -Continue depakote 500 mg PO qam and 1000 mg PO hs A-fib, a-fib w/aberrancy--stable, off tele -Cardiology consulted, following -Continue amiodarone 200 mg PO qd, Toprol 25 mg PO qd, Xarelto HTN, HLD--stable -Continue Toprol as above, Tricor 134 mg PO qd, pravastatin 20 mg PO qd Hypothyroidism -Continue Synthroid 75 mcg PO qd Thrombocytopenia--resolved -PLT WNL at discharge, related to sepsis/illness DVT prophylaxis -Xarelto Code Status -Level I, FULL RESUSCITATION STATUS Dispo -PT recommends ECF and/or 24 hour care -Denied insurance auth for rehab, will likely be able to obtain for SNF -Accepted to [facility] for SNF Total Time Spent: Greater than 30 minutes This includes examination of the patient, discharge planning, medication reconciliation, and communication with other providers. Discharge Instructions Please refer to the electronic Patient Visit Report (Discharge Instructions) for additional information. Follow-Up PCP within 1-2 weeks Additional Copies To Jasmyne Orozco M.D. Reviewed: Pt Seen/Exam by Me History Physician Hydraulic Modeling Engineer supervision Note: I interviewed and examined the patient. Discussed with AURELIANO Dickson and agree with findings and plan as documented in the note. Any exceptions or clarifications are listed here: Pt feels tired but no problems. Reports she does not wear her CPAP mask as it is uncomfortable, doesn't fit and has tried different masks. Vitals reviewed Morbidly obese, lying flat in bed, NAD Irregularly irregular, no murmurs gallops rubs Lungs clear to auscultation bilaterally, breathing unlabored Abdomen positive bowel sounds, soft, morbidly obese, nontender, nondistended Extremities no edema, contractures in the left upper extremity 66-year-old female with history of PAF, CVA,HTN, HLD, complex partial seizures, OA, and DIANNE who presents w/ pSBO and influenza A. -Much improved, being treated for acute bronchitis versus aspiration pneumonia now with steroids, antibiotics, finished treatment for influenza -Moving bowels and passing flatus, partial SBO is resolved -Thrombocytopenia improving extreme deconditioning, unable to sit up and transfer - family reports she needs to be at baseline to go home and thus will need SNF placement -Expect discharge to SNF today Documented By: Darcy Ortega
[2017-06-08 15:58] VITALS: O2SAT 92
== END 2017-06-08 16:38 | DRG 871 ==
LOC: C.EDB 09:57 → C.2E 14:09 → ENRESERV 14:36 → C.MS2W 06-05 15:00
PROVIDERS: ADMIT Family Medicine; ATTEND Family Medicine
DX: A41.89 Other specified sepsis (principal); J10.00 Influenza due to other identified influenza virus with unspecified type of pneumonia; K56.7 Ileus, unspecified; I69.354 Hemiplegia and hemiparesis following cerebral infarction affecting left non-dominant side; G40.209 Localization-related (focal) (partial) symptomatic epilepsy and epileptic syndromes with complex partial seizures, not intractable, without status epilepticus; J18.9 Pneumonia, unspecified organism; G93.41 Metabolic encephalopathy; Z68.41 Body mass index [BMI] 40.0-44.9, adult; I48.0 Paroxysmal atrial fibrillation; E78.5 Hyperlipidemia, unspecified; I10 Essential (primary) hypertension; G47.33 Obstructive sleep apnea (adult) (pediatric); M19.90 Unspecified osteoarthritis, unspecified site; E66.01 Morbid (severe) obesity due to excess calories; R65.20 Severe sepsis without septic shock; K59.00 Constipation, unspecified; D69.6 Thrombocytopenia, unspecified; Z79.01 Long term (current) use of anticoagulants; E03.9 Hypothyroidism, unspecified; Z95.828 Presence of other vascular implants and grafts; Z88.8 Allergy status to other drugs, medicaments and biological substances

== ENCOUNTER 2017-07-17 10:32 | Inpatient (IN) | payer OTHER ==
[~2017-07-17] VITALS: Ht 167.6 cm; Wt 108.1 kg
[~2017-07-17 10:32] MED LIST changes: -ALBUAER2 INH; -AMIO200T PO; +AMIO200T4 PO; +AMOX1TAB43 PO; +ASCA500 PO; +DLC5 PO; -FURO20TA PO; +IPRA1AER2 INH; -LEVO25TA5 PO; +LEVO75TA5 PO; -METO100T14 PO; -PRAV10TA39 PO; +PRVC/20 PO; +RANI150T2 PO; +SENN-61 PO; +TPRSR/25 PO
[2017-07-17] MEDS ORDERED: ONDANSETRON INJ 2 MG/ML 2 ML VIAL IV STA (10:48)
[2017-07-17] MEDS ORDERED: SODIUM CHLORIDE 0.9% 1000ML 500 ML IV STA (10:48)
--- NOTE | 2017-07-17 10:54 | EMERGENCY ROOM VISIT NOTE ---
History Report prepared by Citlalyibronny: Mary Leal Under the Supervision of: Dr. Charles Mccormick M.D. First contact with patient: 10:41 Chief Complaint: VOMITING Stated Complaint: VOMITING FOR 36 HOURS History of Present Illness The patient is a 66 year old female who presents to the Emergency Room with complaints of persistent vomiting for the past 36 hours. She is accompanied by her . She states she felt normal before her symptoms started. She denies any recent sick contacts or eating unusual foods recently. She has been unable to keep down anything except for "a few sips of water". She has not experienced any diarrhea. The patient has experienced some urinary symptoms with "cloudy urine" recently and dropped off a urine sample at her doctors office 2 days ago , but has not heard back about the results yet. She admits to feeling febrile, but her believes her temperature was 96.7 when he last checked. Her denies any similar symptoms. Her vomit has been "very dark" in color. The patient has previously undergone a hysterectomy. She still has both her gallbladder and appendix. She takes daily Xarelto for a history of atrial fibrillation and admits to a history of seizures. Her last seizure was approximately 1 week ago, but her states it was "very mild". Source of History: patient, spouse/significant other () Onset: 36 hours ART HANDLER Position: other (global) Timing: other (persistent) Associated Symptoms: + nausea, + urinary symptoms, No diarrhea Review of Systems See HPI for pertinent positives & negatives. A total of 10 systems reviewed and were otherwise negative. Past Medical & Surgical Medical Problems: (1) Atrial fibrillation (2) CVA (cerebral infarction) (3) Hyperlipidemia (4) Hypertension (5) Ileus (6) Influenza A (7) Nausea & vomiting (8) Partial small bowel obstruction (9) Pneumonia (10) Seizure disorder Social History Smoking Status: Never Smoker Alcohol Use: none Drug Use: none Marital Status: Housing Status: lives with family Occupation Status: employed Current/Historical Medications Scheduled Amiodarone Hcl (Cordarone), 200 MG PO DAILY Ascorbic Acid (Vitamin C), 500 MG PO BID Divalproex Sodium (Depakote Er), 1 TAB PO DAILY Divalproex Sodium (Depakote Er), 2 TAB PO HS Docusate Sodium (Docusate Sodium), 100 MG PO BID Levothyroxine Sodium (Levothyroxine Sodium), 75 MCG PO QAM Metoprolol Succinate (Metoprolol Succinate ER), 25 MG PO DAILY Mometasone Furoate (Nasonex), 2 SPRAY NA QAM Pravastatin Sod (Pravastatin Sodium), 20 MG PO DAILY Ranitidine HCl (Ranitidine HCl), 150 MG PO DAILY Rivaroxaban (Xarelto), 20 MG PO DAILY Senna (Senokot), 17.2 MG PO QAM Scheduled PRN Ondansetron (Zofran Odt), 4 MG SL Q6H PRN for Nausea Allergies Coded Allergies: Fish Oil (Verified Allergy, Unknown, UNKNOWN, 07/17/17) Atorvastatin (Verified Adverse Reaction, Mild, MUSCLE ACHES, 07/17/17) Citalopram (Verified Adverse Reaction, Unknown, contributed to seizures? recently stopped taking med 01/2016, 07/17/17) Physical Exam Vital Signs Date Time Temp Pulse Resp B/P (MAP) Pulse Ox O2 Delivery O2 Flow Rate FiO2 07/17/17 13:35 94 Room Air 07/17/17 12:46 100 18 127/93 94 07/17/17 10:35 36.7 98 16 114/65 94 Room Air Physical Exam GENERAL: Patient is in no acute distress. HEENT: No acute trauma, normocephalic atraumatic, mucous membranes are dry, no nasal congestion, no scleral icterus. NECK: No stridor, no adenopathy, no meningismus, trachea is midline. LUNGS: Clear to auscultation bilaterally, no wheeze, no rhonchi, breath sounds equal. HEART: Irregular rhythm with a normal rate, no murmurs. ABDOMEN: Soft, nontender, bowel sounds positive, no hernias, no peritonitis. EXTREMITIES: No cyanosis, mild bilateral pedal edema, full range of motion of all the joints without pain or difficulty, no signs for acute trauma. NEUROLOGIC: Oriented x 3, no acute motor or sensory deficits, no focal weakness. SKIN: No rash, no jaundice, no diaphoresis. Medical Decision & Procedures ER Provider Diagnostic Interpretation: Radiology results as stated below per my review and radiologist interpretation: CT ABD/PELVIS IV CONTRAST ONLY CLINICAL HISTORY: Abdominal pain and vomiting COMPARISON STUDY: May 31, 2017 TECHNIQUE: Following the IV administration of 91 mL of Optiray-320, CT scan of the abdomen and pelvis was performed from the lung bases to the proximal femurs. Images are reviewed in the axial, sagittal, and coronal planes. IV contrast was administered without complication. A dose lowering technique was utilized adhering to the principles of ALARA. CT DOSE: 1647.93 mGy.cm FINDINGS: Lower chest: The heart is normal in size and configuration, without pericardial effusion. The lung bases and pleural spaces are clear. Liver: The contrast-enhanced liver is normal in size, contour, and attenuation. There is no intrahepatic biliary ductal dilatation. The hepatic veins and portal veins are patent. Gallbladder: Multiple gallstones. Spleen: Normal in size and attenuation. Pancreas: Unremarkable. Adrenal glands: Unremarkable. Kidneys: There is slightly heterogeneous left renal enhancement. No focal masses are visualized. Pyelonephritis cannot be excluded. Please correlate clinically. Bowel: There are multiple dilated small bowel loops with a persistent transition zone within the right mid abdomen. There is associated mesenteric swirl pattern. The findings could indicate an internal hernia or twist from an adhesion. The colon is decompressed. The appendix appears normal Peritoneum: There is no intraperitoneal free air or abdominal ascites. Vasculature: There is no evidence of abdominal aortic aneurysm. There is an indwelling IVC filter. Several struts protrude beyond the IVC lumen Adenopathy: None. Pelvic viscera: The uterus appears surgically absent Skeletal structures: There are no destructive lesions visualized. There is a scoliosis. There is a lumbar spinal stenosis. IMPRESSION: 1. Persistent small bowel obstruction. There is a persistent mesenteric swirl sign, likely secondary to either an internal hernia or adhesion. 2. Cholelithiasis 3. Subtle inhomogeneous left renal enhancement. Clinical correlation to exclude pyelonephritis is recommended Electronically signed by: Barrington Schofield M.D. 07/17/2017 12:30 PM CHEST ONE VIEW PORTABLE CLINICAL HISTORY: Pain, radiating to the abdomen. COMPARISON STUDY: 06/04/2017 FINDINGS: The heart is normal in size. There is no focal pulmonary consolidation. No failure. There are no pleural effusions. There is gas present beneath the right hemidiaphragm, likely secondary to colonic interposition.[ IMPRESSION: 1. Gas beneath the right hemidiaphragm, likely representing distended bowel loops with colonic interposition. 2. No evidence of focal pulmonary consolidation Electronically signed by: Barrington Schofield M.D. 07/17/2017 11:06 AM Laboratory Results 07/17/17 11:36 Red Blood Count 4.79, Mean Corpuscular Volume 97.3, Mean Corpuscular Hemoglobin 31.9, Mean Corpuscular Hemoglobin Concent 32.8, Mean Platelet Volume 10.2, Neutrophils (%) (Auto) 72.6, Lymphocytes (%) (Auto) 18.5, Monocytes (%) (Auto) 8.3, Eosinophils (%) (Auto) 0.0, Basophils (%) (Auto) 0.1, Neutrophils # (Auto) 7.98, Lymphocytes # (Auto) 2.04, Monocytes # (Auto) 0.91, Eosinophils # (Auto) 0.00, Basophils # (Auto) 0.01 07/17/17 11:36 Test 07/17/17 11:30 07/17/17 11:36 Urine Color DK YELLOW Urine Appearance TURBID (CLEAR) Urine pH 7.0 (4.5-7.5) Urine Specific [place] 1.020 (1.000-1.030) Urine Protein 2+ (NEG) Urine Glucose (UA) NEG (NEG) Urine Ketones TRACE (NEG) Urine Occult Blood 2+ (NEG) Urine Nitrite POS (NEG) Urine Bilirubin NEG (NEG) Urine Urobilinogen POS (NEG) Urine Leukocyte Esterase LARGE (NEG) Urine WBC (Auto) >30 /hpf (0-5) Urine RBC (Auto) 10-30 /hpf (0-4) Urine Hyaline Casts (Auto) 5-10 /lpf (0-5) Urine Epithelial Cells (Auto) >30 /lpf (0-5) Urine Bacteria (Auto) 4+ (NEG) Urine Pathogenic Casts /lpf (0) Urine Yeast (Auto) (NONE PRSENT) White Blood Count 11.00 K/uL (4.8-10.8) Red Blood Count 4.79 M/uL (4.2-5.4) Hemoglobin 15.3 g/dL (12.0-16.0) Hematocrit 46.6 % (37-47) Mean Corpuscular Volume 97.3 fL (80-100) Mean Corpuscular Hemoglobin 31.9 pg (25-34) Mean Corpuscular Hemoglobin Concent 32.8 g/dl (32-36) Platelet Count 194 K/uL (130-400) Mean Platelet Volume 10.2 fL (7.4-10.4) Neutrophils (%) (Auto) 72.6 % Lymphocytes (%) (Auto) 18.5 % Monocytes (%) (Auto) 8.3 % Eosinophils (%) (Auto) 0.0 % Basophils (%) (Auto) 0.1 % Neutrophils # (Auto) 7.98 K/uL (1.4-6.5) Lymphocytes # (Auto) 2.04 K/uL (1.2-3.4) Monocytes # (Auto) 0.91 K/uL (0.11-0.59) Eosinophils # (Auto) 0.00 K/uL (0-0.5) Basophils # (Auto) 0.01 K/uL (0-0.2) RDW Standard Deviation 51.9 fL (36.4-46.3) RDW Coefficient of Variation 14.5 % (11.5-14.5) Immature Granulocyte % (Auto) 0.5 % Immature Granulocyte # (Auto) 0.06 K/uL (0.00-0.02) Prothrombin Time 11.3 SECONDS (9.0-12.0) Prothromb Time International Ratio 1.1 (0.9-1.1) Activated Partial Thromboplast Time 25.9 SECONDS (21.0-31.0) Partial Thromboplastin Ratio 1.0 Anion Gap 10.0 mmol/L (3-11) Estimated GFR () 69.0 Estimated GFR (Non- 59.5 BUN/Creatinine Ratio 19.5 (10-20) Calcium Level 9.7 mg/dl (8.5-10.1) Magnesium Level 2.4 mg/dl (1.8-2.4) Total Bilirubin 0.8 mg/dl (0.2-1) Aspartate Amino Transf (AST/SGOT) 23 U/L (15-37) Alanine Aminotransferase (ALT/SGPT) 15 U/L (12-78) Alkaline Phosphatase 69 U/L (45-117) Troponin I < 0.015 ng/ml (0-0.045) Total Protein 7.1 gm/dl (6.4-8.2) Albumin 3.3 gm/dl (3.4-5.0) Globulin 3.8 gm/dl (2.5-4.0) Albumin/Globulin Ratio 0.9 (0.9-2) Lipase 47 U/L (73-393) Thyroid Stimulating Hormone (TSH) 1.860 uIu/ml (0.300-4.500) Free Thyroxine 1.89 ng/dl (0.80-1.60) Valproic Acid (Depakene) Level 60 mcg/ml (50-100) Laboratory results reviewed by me. Medications Administered Medications (Trade) Dose Ordered Sig/Carleen Route Start Time Stop Time Status Last Admin Dose Admin Sodium Chloride 500 ml @ 999 mls/hr Q31M STAT IV 07/17/17 10:48 07/17/17 11:18 DC 07/17/17 11:23 999 MLS/HR Ondansetron HCl (Zofran Inj) 4 mg NOW STAT IV 07/17/17 10:48 07/17/17 10:50 DC 07/17/17 11:23 4 MG Ceftriaxone Sodium (Rocephin Inj) 1 gm NOW STAT IV 07/17/17 12:30 07/17/17 12:31 DC 07/17/17 12:42 1 GM ECG Per My Interpretation Indication: vomiting Rate (beats per minute): 118 Rhythm: atrial fibrillation Findings: RBBB (incomplete RBBB), other (baseline artifact, no ST elevation, No PVC's) Change: Patient's electrocardiogram interpreted by me. ED Course 1044: The patient was evaluated in room C4. A complete history and physical exam was performed. 1048: Zofran 4 mg IV, NSS 500 ml @ 999 mls/hr IV. 1230: Rocephin 1 gm IV. 1244: I discussed the patients case with ALLISON Kim [facility] Hospitalist. The patient will be further evaluated. 1250: I reevaluated the patient. I discussed her results and my recommendation she remain in the hospital for further evaluation and management and she verbalized complete understanding and agreement. Medical Decision The differential diagnoses considered include bowel obstruction, viral illness, food borne illness, pancreatitis, biliary colic, UTI, dehydration, electrolyte imbalance. There is a mild leukocytosis, this could be consistent with infection or her vomiting. No worrisome anemia. No significant electrolyte abnormality, kidney failure or hepatitis. No pancreatitis. Urinalysis is consistent with infection , urine culture is pending. Abdominal and pelvis CT does not show evidence for diverticulitis or abscess, a small bowel obstruction was suggested. EKG showed atrial fibrillation, no acute ischemic change. Cardiac enzyme testing 1 was not consistent with acute cardiac injury. Chest x-ray did not show pneumonia or free air. The patient received IV saline, IV Zofran and IV ceftriaxone. Given her dehydration, the UTI, the vomiting and potential small bowel obstruction, admission/observation was advised. I spoke to the patient and case management. The on-call hospitalist was consulted. Medication Reconcilliation Current Medication List: was personally reviewed by me Blood Pressure Screening Patient's blood pressure: Normal blood pressure Blood pressure disposition: Did not require urgent referral Consults Time Called: 1242 Consulting Physician: ALLISON Kim [facility] Hospitalist Returned Call: 1244 I discussed the patients case with ALLISON Kim [facility] Hospitalist. The patient will be further evaluated. Impression Primary Impression: Vomiting Additional Impressions: UTI (urinary tract infection) Small bowel obstruction Scribe Attestation The scribe's documentation has been prepared under my direction and personally reviewed by me in its entirety. I confirm that the note above accurately reflects all work, treatment, procedures, and medical decision making performed by me. Departure Information Dispostion Being Evaluated By Hospitalist Referrals Jasmyne Orozco M.D. (PCP) Patient Instructions My [facility] Problem Qualifiers
[2017-07-17] MEDS ORDERED: OPTIRAY 320 IV PRN (11:00)
--- NOTE | 2017-07-17 11:08 | DIAGNOSTIC IMAGING REPORT ---
CHEST ONE VIEW PORTABLE CLINICAL HISTORY: Pain, radiating to the abdomen. COMPARISON STUDY: 06/04/2017 FINDINGS: The heart is normal in size. There is no focal pulmonary consolidation. No failure. There are no pleural effusions. There is gas present beneath the right hemidiaphragm, likely secondary to colonic interposition.[ IMPRESSION: 1. Gas beneath the right hemidiaphragm, likely representing distended bowel loops with colonic interposition. 2. No evidence of focal pulmonary consolidation Electronically signed by: Barrington Schofield M.D. 07/17/2017 11:06 AM Dictated Date/Time: 07/17/2017 11:04 AM
[2017-07-17 11:47] LABS: BASO % 0.1 %; BASO ABS # 0.01 K/uL (0-0.2); HEMATOCRIT 46.6 % (37-47); HEMOGLOBIN 15.3 g/dL (12.0-16.0); IG# 0.06 K/uL (0.00-0.02); LYMPH % 18.5 %; LYMPH ABS # 2.04 K/uL (1.2-3.4); MEAN CELL VOLUME 97.3 fL (80-100); MEAN CORPUSCULAR HEMOGLOBIN 31.9 pg (25-34); MEAN CORPUSCULAR HGB CONC 32.8 g/dl (32-36); MEAN PLATELET VOLUME 10.2 fL (7.4-10.4); MONO % 8.3 %; MONO ABS # 0.91 K/uL (0.11-0.59); NEUT % 72.6 %; NEUT ABS # 7.98 K/uL (1.4-6.5); PLATELET COUNT 194 K/uL (130-400); RED CELL DISTRIBUTION WIDTH CV 14.5 % (11.5-14.5); RED CELL DISTRIBUTION WIDTH SD 51.9 fL (36.4-46.3)
[2017-07-17 11:56] LABS: INR 1.1 (0.9-1.1); PTT PATIENT 25.9 SECONDS (21.0-31.0)
[2017-07-17 12:00] LABS: ALBUMIN 3.3 gm/dl (3.4-5.0); ALT/SGPT 15 U/L (12-78); BLOOD UREA NITROGEN 20 mg/dl (7-18); CALCIUM 9.7 mg/dl (8.5-10.1); CARBON DIOXIDE 28 mmol/L (21-32); GLUCOSE 135 mg/dl (70-99); LIPASE 47 U/L (73-393); POTASSIUM 4.3 mmol/L (3.5-5.1); SODIUM 138 mmol/L (136-145)
[2017-07-17 12:09] LABS: ALKALINE PHOSPHATASE 69 U/L (45-117); AST/SGOT 23 U/L (15-37); TOTAL PROTEIN 7.1 gm/dl (6.4-8.2)
[2017-07-17] MEDS ORDERED: CEFTRIAXONE SOD INJ 1 GM ADDVIAL IV STA (12:30)
--- NOTE | 2017-07-17 12:32 | DIAGNOSTIC IMAGING REPORT ---
CT ABD/PELVIS IV CONTRAST ONLY CLINICAL HISTORY: Abdominal pain and vomiting COMPARISON STUDY: May 31, 2017 TECHNIQUE: Following the IV administration of 91 mL of Optiray-320, CT scan of the abdomen and pelvis was performed from the lung bases to the proximal femurs. Images are reviewed in the axial, sagittal, and coronal planes. IV contrast was administered without complication. A dose lowering technique was utilized adhering to the principles of ALARA. CT DOSE: 1647.93 mGy.cm FINDINGS: Lower chest: The heart is normal in size and configuration, without pericardial effusion. The lung bases and pleural spaces are clear. Liver: The contrast-enhanced liver is normal in size, contour, and attenuation. There is no intrahepatic biliary ductal dilatation. The hepatic veins and portal veins are patent. Gallbladder: Multiple gallstones. Spleen: Normal in size and attenuation. Pancreas: Unremarkable. Adrenal glands: Unremarkable. Kidneys: There is slightly heterogeneous left renal enhancement. No focal masses are visualized. Pyelonephritis cannot be excluded. Please correlate clinically. Bowel: There are multiple dilated small bowel loops with a persistent transition zone within the right mid abdomen. There is associated mesenteric swirl pattern. The findings could indicate an internal hernia or twist from an adhesion. The colon is decompressed. The appendix appears normal Peritoneum: There is no intraperitoneal free air or abdominal ascites. Vasculature: There is no evidence of abdominal aortic aneurysm. There is an indwelling IVC filter. Several struts protrude beyond the IVC lumen Adenopathy: None. Pelvic viscera: The uterus appears surgically absent Skeletal structures: There are no destructive lesions visualized. There is a scoliosis. There is a lumbar spinal stenosis. IMPRESSION: 1. Persistent small bowel obstruction. There is a persistent mesenteric swirl sign, likely secondary to either an internal hernia or adhesion. 2. Cholelithiasis 3. Subtle inhomogeneous left renal enhancement. Clinical correlation to exclude pyelonephritis is recommended Electronically signed by: Barrington Schofield M.D. 07/17/2017 12:30 PM Dictated Date/Time: 07/17/2017 12:23 PM
[2017-07-17 13:35] VITALS: O2SAT 94
--- NOTE | 2017-07-17 14:40 | History and Physical ---
History & Physical Date & Time of Service: Jul 17, 2017 at 14:13 Chief Complaint: Vomiting For 36 Hours Primary Care Physician: Jasmyne Orozco M.D. History of Present Illness Source: patient, family 66-year-old female with history of atrial fibrillation, seizure disorder, and prior CVA with left-sided paralysis. She presented to the emergency department with nausea and vomiting since evening. She notes eating supper and shortly afterwards developed nausea with vomiting. Since then any time that she eats she gets very nauseous and vomits. She notes that her vomit is dark in color. She denies having any recent bowel movement. She complains of crampy abdominal pain diffusely throughout the abdomen without any focal area of pain. She takes Xarelto for atrial fibrillation. She does have a seizure disorder and apparently had a mild seizure last week. She denies fever denies chills. She is wheelchair or bedbound and has not ambulated since her CVA in 2011. Patient was evaluated by Dr. Mccormick in the emergency department. CT scan of the abdomen and pelvis showed persistent small bowel obstruction with persistent mesenteric swirl sign likely secondary to either an internal hernia or adhesion. Chest x-ray showed gas beneath the right hemidiaphragm likely representing distended bowel loops with colonic interposition. No acute cardiopulmonary process. Patient had a urinalysis that looked infective and she was started on Rocephin. She was given Zofran as well as a normal saline bolus. Her nausea improved with Zofran however her abdomen remains crampy. Given her CT findings and ongoing symptoms hospital medicine was asked to see the patient and she will be placed under the hospitalist service. Past Medical/Surgical History Medical Problems: (1) Atrial fibrillation (2) Prior CVA (cerebral infarction) with left side paralysis (3) Hypertension (4) history of Ileus/Partial small bowel obstruction (5) Recent Pneumonia 2/ (13) Seizure disorder (16) frequent UTI (urinary tract infection) Past surgical history 1. Hysterectomy 2. prior tracheostomy in 2011 Family History reviewed and denies significant cancers/diabetes Social History Smoking Status: Never Smoker Smokeless Tobacco Use: No Alcohol Use: none Drug Use: none Marital Status: Housing status: lives with family Occupational Status: employed Immunizations History of Influenza Vaccine: Yes Influenza Vaccine Date: Feb 04, 2013 History of Tetanus Vaccine?: Yes Tetanus Immunization Date: Feb 09, 2006 History of Pneumococcal: Yes Pneumococcal Date: Mar 06, 2003 History of Hepatitis B Vaccine: No Allergies Coded Allergies: Fish Oil (Verified Allergy, Unknown, UNKNOWN, 07/17/17) Atorvastatin (Verified Adverse Reaction, Mild, MUSCLE ACHES, 07/17/17) Citalopram (Verified Adverse Reaction, Unknown, contributed to seizures? recently stopped taking med 01/2016, 07/17/17) Home Medications Scheduled Amiodarone Hcl (Cordarone), 200 MG PO DAILY Ascorbic Acid (Vitamin C), 500 MG PO BID Divalproex Sodium (Depakote Er), 1 TAB PO DAILY Divalproex Sodium (Depakote Er), 2 TAB PO HS Docusate Sodium (Docusate Sodium), 100 MG PO BID Levothyroxine Sodium (Levothyroxine Sodium), 75 MCG PO QAM Metoprolol Succinate (Metoprolol Succinate ER), 25 MG PO DAILY Mometasone Furoate (Nasonex), 2 SPRAY NA QAM Pravastatin Sod (Pravastatin Sodium), 20 MG PO DAILY Ranitidine HCl (Ranitidine HCl), 150 MG PO DAILY Rivaroxaban (Xarelto), 20 MG PO DAILY Senna (Senokot), 17.2 MG PO QAM Scheduled PRN Ondansetron (Zofran Odt), 4 MG SL Q6H PRN for Nausea Review of Systems Constitutional: No fever, No chills, No sweats, No weight loss, No weakness, No fatigue, No problem reported Eyes: No worsening of vision, No eye pain, No redness, No discharge, No diplopia, No problem reported ENT: No hearing loss, No unusual epistaxis, No nasal symptoms, No sore throat, No tinnitus, No dental problems, No trouble swallowing, No problem reported Respiratory: No cough, No sputum, No wheezing, No shortness of breath, No dyspnea on exertion, No dyspnea at rest, No hemoptysis, No problem reported Cardiovascular: No chest pain, No orthopnea, No PND, No edema, No claudication , No palpitations, No problem reported Abdomen: + pain, + nausea, + vomiting Musculoskeletal: + problem reported (does not ambulate), No joint pain, No muscle pain, No swelling, No calf pain Genitourinary - Female: + dysuria, + urinary frequency Neurologic: + paralysis (left side) Psychiatric: No depression symptoms, No anhedonism, No anxiety, No insomnia, No substance abuse, No problem reported Endocrine: No fatigue, No excessive thirst, No excessive urination, No problem reported Physical Exam Vital Signs Date Time Temp Pulse Resp B/P (MAP) Pulse Ox O2 Delivery O2 Flow Rate FiO2 07/17/17 13:35 94 Room Air 07/17/17 12:46 100 18 127/93 94 07/17/17 10:35 36.7 98 16 114/65 94 Room Air General Appearance: no apparent distress Head: normocephalic, atraumatic Eyes: normal inspection ENT: hearing grossly normal, pharynx normal Neck: supple, no adenopathy, no JVD Respiratory/Chest: chest non-tender, lungs clear, normal breath sounds Cardiovascular: regular rate, rhythm, no edema, no gallop, no murmur Abdomen/GI: soft, + tenderness (decreased bowel sounds) Back: no CVA tenderness, no muscle spasm Extremities/Musculoskelatal: + pertinent finding (left hand contracted with atrophy, left leg also with atrophy and flaccid) Neurologic/Psych: + pertinent finding (left side flaccid from prior CVA) Skin: normal color, warm/dry Diagnostics Laboratory Results Results Past 24 Hours Test 07/17/17 11:30 07/17/17 11:36 Range/Units Urine Color DK YELLOW Urine Appearance TURBID CLEAR Urine pH 7.0 4.5-7.5 Urine Specific [place] 1.020 1.000-1.030 Urine Protein 2+ NEG Urine Glucose (UA) NEG NEG Urine Ketones TRACE NEG Urine Occult Blood 2+ NEG Urine Nitrite POS NEG Urine Bilirubin NEG NEG Urine Urobilinogen POS NEG Urine Leukocyte Esterase LARGE NEG Urine WBC (Auto) >30 0-5 /hpf Urine RBC (Auto) 10-30 0-4 /hpf Urine Hyaline Casts (Auto) 5-10 0-5 /lpf Urine Epithelial Cells (Auto) >30 0-5 /lpf Urine Bacteria (Auto) 4+ NEG Urine Pathogenic Casts 0 /lpf Urine Yeast (Auto) NONE PRSENT White Blood Count 11.00 4.8-10.8 K/uL Red Blood Count 4.79 4.2-5.4 M/uL Hemoglobin 15.3 12.0-16.0 g/dL Hematocrit 46.6 37-47 % Mean Corpuscular Volume 97.3 80-100 fL Mean Corpuscular Hemoglobin 31.9 25-34 pg Mean Corpuscular Hemoglobin Concent 32.8 32-36 g/dl Platelet Count 194 130-400 K/uL Mean Platelet Volume 10.2 7.4-10.4 fL Neutrophils (%) (Auto) 72.6 % Lymphocytes (%) (Auto) 18.5 % Monocytes (%) (Auto) 8.3 % Eosinophils (%) (Auto) 0.0 % Basophils (%) (Auto) 0.1 % Neutrophils # (Auto) 7.98 1.4-6.5 K/uL Lymphocytes # (Auto) 2.04 1.2-3.4 K/uL Monocytes # (Auto) 0.91 0.11-0.59 K/uL Eosinophils # (Auto) 0.00 0-0.5 K/uL Basophils # (Auto) 0.01 0-0.2 K/uL RDW Standard Deviation 51.9 36.4-46.3 fL RDW Coefficient of Variation 14.5 11.5-14.5 % Immature Granulocyte % (Auto) 0.5 % Immature Granulocyte # (Auto) 0.06 0.00-0.02 K/uL Prothrombin Time 11.3 9.0-12.0 SECONDS Prothromb Time International Ratio 1.1 0.9-1.1 Activated Partial Thromboplast Time 25.9 21.0-31.0 SECONDS Partial Thromboplastin Ratio 1.0 Sodium Level 138 136-145 mmol/L Potassium Level 4.3 3.5-5.1 mmol/L Chloride Level 100 98-107 mmol/L Carbon Dioxide Level 28 21-32 mmol/L Anion Gap 10.0 3-11 mmol/L Blood Urea Nitrogen 20 7-18 mg/dl Creatinine 1.00 0.60-1.20 mg/dl Estimated GFR () 69.0 Estimated GFR (Non- 59.5 BUN/Creatinine Ratio 19.5 10-20 Random Glucose 135 70-99 mg/dl Calcium Level 9.7 8.5-10.1 mg/dl Magnesium Level 2.4 1.8-2.4 mg/dl Total Bilirubin 0.8 0.2-1 mg/dl Aspartate Amino Transf (AST/SGOT) 23 15-37 U/L Alanine Aminotransferase (ALT/SGPT) 15 12-78 U/L Alkaline Phosphatase 69 45-117 U/L Troponin I < 0.015 0-0.045 ng/ml Total Protein 7.1 6.4-8.2 gm/dl Albumin 3.3 3.4-5.0 gm/dl Globulin 3.8 2.5-4.0 gm/dl Albumin/Globulin Ratio 0.9 0.9-2 Lipase 47 73-393 U/L Thyroid Stimulating Hormone (TSH) 1.860 0.300-4.500 uIu/ml Free Thyroxine 1.89 0.80-1.60 ng/dl Valproic Acid (Depakene) Level 60 50-100 mcg/ml Microbiology Results 07/17/17 Urine Culture, Received Pending Diagnostic Radiology CT ABD/PELVIS IV CONTRAST ONLY CLINICAL HISTORY: Abdominal pain and vomiting COMPARISON STUDY: May 31, 2017 TECHNIQUE: Following the IV administration of 91 mL of Optiray-320, CT scan of the abdomen and pelvis was performed from the lung bases to the proximal femurs. Images are reviewed in the axial, sagittal, and coronal planes. IV contrast was administered without complication. A dose lowering technique was utilized adhering to the principles of ALARA. CT DOSE: 1647.93 mGy.cm FINDINGS: Lower chest: The heart is normal in size and configuration, without pericardial effusion. The lung bases and pleural spaces are clear. Liver: The contrast-enhanced liver is normal in size, contour, and attenuation. There is no intrahepatic biliary ductal dilatation. The hepatic veins and portal veins are patent. Gallbladder: Multiple gallstones. Spleen: Normal in size and attenuation. Pancreas: Unremarkable. Adrenal glands: Unremarkable. Kidneys: There is slightly heterogeneous left renal enhancement. No focal masses are visualized. Pyelonephritis cannot be excluded. Please correlate clinically. Bowel: There are multiple dilated small bowel loops with a persistent transition zone within the right mid abdomen. There is associated mesenteric swirl pattern. The findings could indicate an internal hernia or twist from an adhesion. The colon is decompressed. The appendix appears normal Peritoneum: There is no intraperitoneal free air or abdominal ascites. Vasculature: There is no evidence of abdominal aortic aneurysm. There is an indwelling IVC filter. Several struts protrude beyond the IVC lumen Adenopathy: None. Pelvic viscera: The uterus appears surgically absent Skeletal structures: There are no destructive lesions visualized. There is a scoliosis. There is a lumbar spinal stenosis. IMPRESSION: 1. Persistent small bowel obstruction. There is a persistent mesenteric swirl sign, likely secondary to either an internal hernia or adhesion. 2. Cholelithiasis 3. Subtle inhomogeneous left renal enhancement. Clinical correlation to exclude pyelonephritis is recommended CHEST ONE VIEW PORTABLE CLINICAL HISTORY: Pain, radiating to the abdomen. COMPARISON STUDY: 06/04/2017 FINDINGS: The heart is normal in size. There is no focal pulmonary consolidation. No failure. There are no pleural effusions. There is gas present beneath the right hemidiaphragm, likely secondary to colonic interposition.[ IMPRESSION: 1. Gas beneath the right hemidiaphragm, likely representing distended bowel loops with colonic interposition. 2. No evidence of focal pulmonary consolidation Impression Assessment and Plan 66 year old female with prior CVA - left side flaccid. Presented to ED with nausea and vomiting since . 1. Ileus vs SBO - NPO - convert oral meds to IV. If nausea/vomiting returns then insert NGT. Ask Gen Surgery to see. 2 POS of abdomen in the AM. 2. UTI - await C&S - Rocephin. 3. Abdominal pain secondary to #1. Morphine 4. Prior CVA 5. Seizure disorder - change depakote to IV - monitor 6. Paroxysmal A-fib on Xarelto. Hold Xarelto and start heparin gtt. PRN lopressor - place on tele with holding some of oral meds 7. Hypothyroidism - IV synthroid. switch to oral once tolerating PO 7. full code 8. DVT prophylaxis with SCD, RAMA and heparin 9. ELS 2 midnight. Uncertain if any discharge needs at this time. Advanced Directives Existing Living Will: Yes Existing Power of Lining Mechanic: Yes Resuscitation Status VTE Prophylaxis Will order VTE Prophylaxis: Yes Reviewed: Pt Seen/Exam by Me History Pt states she feels about the same as when she came in. She has mild epigastric abd pain, but her biggest reason for coming to the ED was the n/v. She is mildly nauseated but no emesis since she was given medications in the ED. Denies chest pain, SOB. Agree with HPI/ROS as noted by EMERGENCY DEPARTMENT CLINICIAN. General Appearance: no apparent distress, obese Eye Exam: bilateral eye normal inspection, bilateral eye other (nml sclera) Respiratory: normal breath sounds, no respiratory distress Cardiovascular: normal peripheral pulses, regular rate, rhythm Gastrointestinal: soft, tenderness (epigastric, minimal) Extremities: non-tender, no pedal edema Neurologic/Psychiatric: alert, oriented x 3, other (flat affect) Skin Characteristics: normal color, warm/dry Assessment/Plan Agree with plan as outlined above SBO with recent hx of same CT AP suggests hernia vs adhesions NPO with meds changed from PO to IV Gen surg c/s pending given recent SBO Hx of seizure disorder, possibly with a "mild" seizure last week while on abx Monitor Valproic acid levels are WNL
[2017-07-17] MEDS ORDERED: METOPROLOL TARTRATE 1 MG/ML VIAL IV PRN (14:45)
[2017-07-17] MEDS ORDERED: HEPARIN IV LOW DOSE NO BOLUS SCH (14:45)
[2017-07-17] MEDS ORDERED: HEPARIN 25000 UNIT/500 ML D5W ONE (15:54)
[2017-07-17] MEDS: HEPARIN 25,000 UNIT/500ML D5W 500 ML IV SCH ×2 (16:51→23:51)
[2017-07-17] MEDS: D5W AND 1/2NSS 1,000 ML IV SCH (16:52)
[2017-07-17 16:55] VITALS: BP 130/85; PULSE 96; TEMP 36.8; O2SAT 95
[2017-07-17 19:45] VITALS: BP 138/92; PULSE 91; TEMP 36.8; O2SAT 94
[2017-07-17] MEDS: ONDANSETRON INJ 2 MG/ML 2 ML VIAL IV PRN (20:30)
[2017-07-17] MEDS: VALPROATE SOD IV 500 MG in DEXTROSE 5% 50ML 50 ML IV SCH (21:38)
[2017-07-17] MEDS ORDERED: LACTOBACILLUS ACIDOPHILUS (FLORANEX) TAB PO SCH (21:45)
[2017-07-17 22:53] LABS: PTT PATIENT 28.5 SECONDS (21.0-31.0)
[2017-07-17 23:10] VITALS: BP 130/92; PULSE 119; TEMP 36.9; O2SAT 99
[2017-07-17] MEDS ORDERED: HEPARIN IV BOLUS 4,500 UNIT in SYRINGE 0 ML IV ONE (23:15)
[2017-07-17] MEDS ORDERED: NURSING VERBAL MED ORDER ONE (23:15)
[2017-07-18] VITALS (11 sets, daily range): BP systolic 116–167; BP diastolic 76–115; PULSE 80–131; TEMP 36.3–36.9; O2SAT 93–96; Ht 167.6 cm; Wt 108.1 kg
--- NOTE | 2017-07-18 03:06 | SURGICAL CONSULTATION ---
DATE OF CONSULTATION: 07/17/2017 I have been asked by Dr. Garland to see this 66-year-old female who presented to the Emergency Room with a 3-day history of nausea and vomiting. She has had about 7-day episodes of vomiting over that timeframe. There is no hematemesis. She states that if she tries to eat or drink anything, it just comes back up. She has mild abdominal discomfort mostly on the left side. It is dull in character. There is no sharp component. It is not waxing and waning. She has not had a bowel movement in a few days. She cannot remember when the last one was. She has not passed flatus in the last 2-3 days. She has not had any chills. She thinks she has felt hot, but her temperature has always been normal. She has no dysuria or hematuria. She was admitted about 6 weeks ago for pneumonia. A CAT scan at that time demonstrated dilated proximal small bowel with a swirl pattern, but she resolves that spontaneously. The patient is on Xarelto for prophylaxis for atrial fibrillation. She also had a CVA about 5 years ago with a resultant left-sided paralysis. She is wheelchair as she cannot ambulate. PAST MEDICAL HISTORY: For atrial fibrillation, CVA with left-sided paralysis, hypertension, ileus with partial small-bowel obstruction, pneumonia, seizure disorder, and UTIs. PAST SURGICAL HISTORY: For a IZAIAH-BSO. After the stroke, she also had a tracheostomy. Subsequently, it has been removed. MEDICATIONS: At home include Cordarone, vitamin C, Depakote, docusate sodium, levothyroxine, metoprolol, Nasonex, Pravastatin, ranitidine, Xarelto and Senokot. ALLERGIES: FISH OIL, ATORVASTATIN, CITALOPRAM. SOCIAL HISTORY: She does not smoke or chew tobacco. She does not drink any alcoholic beverages. PHYSICAL EXAMINATION: GENERAL: Reveals an obese female who is lying in bed comfortably and appears in no acute distress. VITAL SIGNS: Blood pressure is 148/92, heart rate 91, respirations 20, temperature 36.8, pulse oximetry 94% on room air. HEENT: Reveals sclerae to be anicteric. Mucous membranes are moist. NECK: Supple, with no adenopathy. BACK: Has no spinal or CVA tenderness. LUNGS: Clear. HEART: Irregularly irregular. ABDOMEN: Has some higher pitched bowel sounds, but is soft and it is only mildly distended with minimal tenderness towards the left side lateral to the umbilicus. LABORATORY DATA: WBC 11.0, H&H is 15.3 and 46.6, platelet count 194,000. Sodium 138, potassium 4.3, chloride 100, CO2 28, BUN 20, creatinine 1, glucose 135, total bilirubin 0.8, AST 23, ALT 50, alkaline phosphatase 69, lipase 47. TSH 1.86. INR is 1.1. CT scan of the abdomen and pelvis demonstrated multiple dilated small bowel loops with resistant transition zone in the right mid abdomen similar to previous. There does seem to be a mesenteric swirl pattern. ASSESSMENT AND PLAN: This patient has signs and symptoms of a bowel obstruction. I would treat her conservatively at first. If that does not resolve, especially considering withdrawal pattern and may come to surgical intervention. I introduced that idea with the patient and she stated that she does not want surgery. After further discussion, she stated it must be as a last resort. I do not feel an NG tube is necessary at the present time, which should be placed if she continues to have vomiting. We will continue to follow her with serial exams.
[2017-07-18] MEDS: ONDANSETRON INJ 2 MG/ML 2 ML VIAL IV PRN ×2 (03:16→10:01)
[2017-07-18] MEDS: D5W AND 1/2NSS 1,000 ML IV SCH ×3 (03:16→21:58)
[2017-07-18 06:12] LABS: BASO % 0.1 %; BASO ABS # 0.01 K/uL (0-0.2); HEMOGLOBIN 14.6 g/dL (12.0-16.0); IG# 0.06 K/uL (0.00-0.02); LYMPH % 20.8 %; LYMPH ABS # 2.52 K/uL (1.2-3.4); MEAN CELL VOLUME 97.8 fL (80-100); MEAN CORPUSCULAR HEMOGLOBIN 32.4 pg (25-34); MEAN CORPUSCULAR HGB CONC 33.2 g/dl (32-36); MONO ABS # 1.21 K/uL (0.11-0.59); NEUT % 68.6 %; NEUT ABS # 8.29 K/uL (1.4-6.5); PLATELET COUNT 155 K/uL (130-400); RED CELL DISTRIBUTION WIDTH CV 14.3 % (11.5-14.5); RED CELL DISTRIBUTION WIDTH SD 51.5 fL (36.4-46.3); WHITE BLOOD COUNT 12.09 K/uL (4.8-10.8)
[2017-07-18 06:18] LABS: PTT PATIENT 38.1 SECONDS (21.0-31.0)
[2017-07-18] MEDS ORDERED: HEPARIN IV BOLUS 4,500 UNIT in SYRINGE 0 ML IV ONE (06:45)
[2017-07-18 06:49] LABS: CALCIUM 8.9 mg/dl (8.5-10.1); CREATININE 0.84 mg/dl (0.60-1.20); POTASSIUM 3.9 mmol/L (3.5-5.1)
[2017-07-18] MEDS: HEPARIN 25,000 UNIT/500ML D5W 500 ML IV SCH ×2 (07:08→16:12)
[2017-07-18] MEDS ORDERED: MoRPHine SULFATE 2 MG/ML CARP IV PRN (08:30)
--- NOTE | 2017-07-18 08:56 | Surgery Progress Note ---
Surgery Progress Note Date of Service Jul 18, 2017. Subjective Post OP Day: HD # 1 + nausea and dry heaves with "spitting" no vomiting abdominal cramping , generalized slightly better than yesterday No flatus or bowel movement Objective Vital Signs: Date Time Temp Pulse Resp B/P (MAP) Pulse Ox O2 Delivery O2 Flow Rate FiO2 07/18/17 07:41 36.8 131 24 162/115 (131) 93 Room Air 07/18/17 04:00 Room Air 07/18/17 03:29 36.9 127 18 147/103 (118) 94 Room Air 07/17/17 23:59 Room Air 07/17/17 23:10 36.9 119 20 130/92 (105) 99 Room Air 07/17/17 20:00 Room Air 07/17/17 19:45 36.8 91 20 138/92 (107) 94 Room Air 07/17/17 16:55 36.8 96 20 130/85 (100) 95 Room Air 07/17/17 16:09 36.7 101 18 137/91 93 07/17/17 15:31 101 18 137/91 93 07/17/17 15:15 101 16 137/91 96 Room Air 07/17/17 13:35 94 Room Air 07/17/17 12:46 100 18 127/93 94 07/17/17 10:35 36.7 98 16 114/65 94 Room Air General Appearance: no apparent distress, + obese Head: normocephalic, atraumatic Neck: trachea midline Respiratory/Chest: no respiratory distress, no accessory muscle use Abdomen: soft, no organomegaly, no pulsatile mass, + distended (mildly distended), + tenderness (LUQ) Laboratory Results: Results Past 24 Hours Test 07/17/17 11:30 07/17/17 11:36 07/17/17 22:21 07/18/17 05:54 Range/Units Urine Color DK YELLOW Urine Appearance TURBID CLEAR Urine pH 7.0 4.5-7.5 Urine Specific [place] 1.020 1.000-1.030 Urine Protein 2+ NEG Urine Glucose (UA) NEG NEG Urine Ketones TRACE NEG Urine Occult Blood 2+ NEG Urine Nitrite POS NEG Urine Bilirubin NEG NEG Urine Urobilinogen POS NEG Urine Leukocyte Esterase LARGE NEG Urine WBC (Auto) >30 0-5 /hpf Urine RBC (Auto) 10-30 0-4 /hpf Urine Hyaline Casts (Auto) 5-10 0-5 /lpf Urine Epithelial Cells (Auto) >30 0-5 /lpf Urine Bacteria (Auto) 4+ NEG Urine Pathogenic Casts 0 /lpf Urine Yeast (Auto) NONE PRSENT White Blood Count 11.00 12.09 4.8-10.8 K/uL Red Blood Count 4.79 4.50 4.2-5.4 M/uL Hemoglobin 15.3 14.6 12.0-16.0 g/dL Hematocrit 46.6 44.0 37-47 % Mean Corpuscular Volume 97.3 97.8 80-100 fL Mean Corpuscular Hemoglobin 31.9 32.4 25-34 pg Mean Corpuscular Hemoglobin Concent 32.8 33.2 32-36 g/dl Platelet Count 194 155 130-400 K/uL Mean Platelet Volume 10.2 10.0 7.4-10.4 fL Neutrophils (%) (Auto) 72.6 68.6 % Lymphocytes (%) (Auto) 18.5 20.8 % Monocytes (%) (Auto) 8.3 10.0 % Eosinophils (%) (Auto) 0.0 0.0 % Basophils (%) (Auto) 0.1 0.1 % Neutrophils # (Auto) 7.98 8.29 1.4-6.5 K/uL Lymphocytes # (Auto) 2.04 2.52 1.2-3.4 K/uL Monocytes # (Auto) 0.91 1.21 0.11-0.59 K/uL Eosinophils # (Auto) 0.00 0.00 0-0.5 K/uL Basophils # (Auto) 0.01 0.01 0-0.2 K/uL RDW Standard Deviation 51.9 51.5 36.4-46.3 fL RDW Coefficient of Variation 14.5 14.3 11.5-14.5 % Immature Granulocyte % (Auto) 0.5 0.5 % Immature Granulocyte # (Auto) 0.06 0.06 0.00-0.02 K/uL Prothrombin Time 11.3 9.0-12.0 SECONDS Prothromb Time International Ratio 1.1 0.9-1.1 Activated Partial Thromboplast Time 25.9 28.5 38.1 21.0-31.0 SECONDS Partial Thromboplastin Ratio 1.0 1.1 1.5 Sodium Level 138 136 136-145 mmol/L Potassium Level 4.3 3.9 3.5-5.1 mmol/L Chloride Level 100 100 98-107 mmol/L Carbon Dioxide Level 28 28 21-32 mmol/L Anion Gap 10.0 8.0 3-11 mmol/L Blood Urea Nitrogen 20 19 7-18 mg/dl Creatinine 1.00 0.84 0.60-1.20 mg/dl Estimated GFR () 69.0 85.1 Estimated GFR (Non- 59.5 73.4 BUN/Creatinine Ratio 19.5 22.6 10-20 Random Glucose 135 135 70-99 mg/dl Calcium Level 9.7 8.9 8.5-10.1 mg/dl Magnesium Level 2.4 1.8-2.4 mg/dl Total Bilirubin 0.8 0.2-1 mg/dl Aspartate Amino Transf (AST/SGOT) 23 15-37 U/L Alanine Aminotransferase (ALT/SGPT) 15 12-78 U/L Alkaline Phosphatase 69 45-117 U/L Troponin I < 0.015 0-0.045 ng/ml Total Protein 7.1 6.4-8.2 gm/dl Albumin 3.3 3.4-5.0 gm/dl Globulin 3.8 2.5-4.0 gm/dl Albumin/Globulin Ratio 0.9 0.9-2 Lipase 47 73-393 U/L Thyroid Stimulating Hormone (TSH) 1.860 0.300-4.500 uIu/ml Free Thyroxine 1.89 0.80-1.60 ng/dl Valproic Acid (Depakene) Level 60 50-100 mcg/ml Est Creatinine Clear Calc Drug Dose 83.4 ml/min Microbiology Results 07/17/17 Urine Culture, Received Pending Assessment & Plan SBO- - afebrile, vitals stable - mild increase in wbc, 12.09K today - no return of bowel function - + nausea, dry heaves Plan: Abdomen 2 view portable, await results, may need NGT given nausea and dry heaves continue conservative management, added IV Morphine q 2 hrs as needed for pain continue medical management Patient seen with Dr. Regalado at 7 pm Feeling slightly better since placement of NGT , states she had large episode of vomiting when NGT was being placed Discussed with patient she may require surgery if there is no improvement in SB dilatation or no return of bowel function repeat abdomen 2 views tomorrow morning repeat am labs continue medical management
[2017-07-18] MEDS: LEVOTHYROXINE SODIUM INJ 37.5 MCG in SYRINGE 0 ML IV SCH (09:34)
[2017-07-18] MEDS: PANTOprazole INJ 40 MG in SYRINGE 0 ML IV SCH (09:34)
[2017-07-18] MEDS: VALPROATE SOD IV 500 MG in DEXTROSE 5% 50ML 50 ML IV SCH ×2 (09:35→20:21)
--- NOTE | 2017-07-18 09:42 | DIAGNOSTIC IMAGING REPORT ---
ABDOMEN 2 VIEWS HISTORY: 66 years-old Female nausea, vomiting, ct suggests sBO acute nausea and vomiting COMPARISON: CT 07/17/2017 TECHNIQUE: AP view of the abdomen FINDINGS: Mild gastric gaseous distention. Persistent dilated loops of small bowel are noted throughout measuring up to 5.7 cm transversely. No pneumatosis or pneumoperitoneum identified. Subdiaphragmatic lucency on the right is again seen suggesting air within a loop of bowel are seen on comparison CT. There is relative paucity of colonic gas. IVC filter is noted at the level of the 2 initial 3. Levoscoliosis of the lumbar spine. Cholelithiasis. No urolith identified. Mild right hemidiaphragmatic elevation. IMPRESSION: 1. Persistent dilated loops of small bowel suggest ongoing small bowel obstruction. 2. Subdiaphragmatic lucency on the right appears to be secondary to a loop of bowel interposed between the diaphragm and the liver. No definite pneumatosis or pneumoperitoneum. 3. Cholelithiasis. The above report was generated using voice recognition software. It may contain grammatical, syntax or spelling errors. Electronically signed by: Rico Sawyer M.D. 07/18/2017 9:41 AM Dictated Date/Time: 07/18/2017 9:32 AM
[2017-07-18] MEDS: MoRPHine SULFATE 2 MG/ML CARP IV PRN (10:02)
--- NOTE | 2017-07-18 10:38 | Hospitalist Progress Note ---
Hospitalist Progress Note Date of Service Jul 18, 2017. (Preeti Mcadams .ALLISON) Subjective Pt evaluation today including: conversation w/ patient, conversation w/ family , physical exam, chart review, lab review, review of inpatient medication list Voiding: strickland catheter in place Ms. Julio appears uncomfortable and unwell this morning. She has been running a.fib with a rapid rate at times as high as 140 bpm. She is nauseas but not vomiting. No bowel movement and she is not passing gas. Her is bedside and I did update him on the patient including surgery's plan. ROS Constitutional: no chills, aches, sweats or fever Respiratory: no sob,cough, sputum, or wheezing Cardiac: no chest pain, palpitations, edema, orthopnea or lightheadedness GI: see HPI : no dysuria or hesitancy Extremities: no joint pain or weakness Skin: no rash All other systems reviewed and negative (Preeti Mcadams .ALLISON) Medications Medications Administered Medications (Trade) Dose Ordered Sig/Carleen Route Start Time Stop Time Status Last Admin Dose Admin Sodium Chloride 500 ml @ 999 mls/hr Q31M STAT IV 07/17/17 10:48 07/17/17 11:18 DC 07/17/17 11:23 999 MLS/HR Ondansetron HCl (Zofran Inj) 4 mg NOW STAT IV 07/17/17 10:48 07/17/17 10:50 DC 07/17/17 11:23 4 MG Ceftriaxone Sodium (Rocephin Inj) 1 gm NOW STAT IV 07/17/17 12:30 07/17/17 12:31 DC 07/17/17 12:42 1 GM Ondansetron HCl (Zofran Inj) 4 mg Q6H PRN IV 07/17/17 13:45 08/16/17 13:44 07/18/17 10:01 4 MG Dextrose/Sodium Chloride 1,000 ml @ 100 mls/hr Q10H IV 07/17/17 16:30 08/16/17 16:29 07/18/17 03:16 100 MLS/HR Pantoprazole Sodium 40 mg/ Syringe 10 ml @ 5 mls/min DAILY@11 IV 07/18/17 11:00 08/17/17 10:59 07/18/17 09:34 5 MLS/MIN Valproate Sodium 500 mg/Dextrose 55 ml @ 55 mls/hr Q12H IV 07/17/17 21:00 08/16/17 20:59 07/18/17 09:35 55 MLS/HR Levothyroxine Sodium 37.5 mcg/ Syringe 1.875 ml @ 2 mls/min DAILY@09 IV 07/18/17 09:00 08/17/17 08:59 07/18/17 09:34 2 MLS/MIN Heparin Sodium/ Dextrose (Heparin 25,000 Unit/500ml D5W) 25,000 unit STK-MED ONCE .ROUTE 07/17/17 15:54 07/17/17 15:55 DC 07/17/17 16:04 19 UNIT Heparin Sodium/ Dextrose 500 ml @ 25 mls/hr Q20H IV 07/17/17 16:30 08/16/17 16:29 07/18/17 07:08 25 MLS/HR Heparin Sodium (Porcine) 4500 unit/Syringe 4.5 ml @ 10 mls/min NOW ONCE IV 07/17/17 23:15 07/17/17 23:16 DC 07/17/17 23:50 10 MLS/MIN Heparin Sodium (Porcine) 4500 unit/Syringe 4.5 ml @ 10 mls/min NOW ONCE IV 07/18/17 06:45 07/18/17 06:46 DC 07/18/17 07:08 10 MLS/MIN Morphine Sulfate (MoRPHine SULFATE INJ) 2 mg Q2H PRN IV 07/18/17 08:30 08/01/17 08:29 07/18/17 10:02 2 MG (Preeti Mcadams, ALLISON) Objective Vital Signs Date Time Temp Pulse Resp B/P (MAP) Pulse Ox O2 Delivery O2 Flow Rate FiO2 07/18/17 07:41 36.8 131 24 162/115 (131) 93 Room Air 07/18/17 04:00 Room Air 07/18/17 03:29 36.9 127 18 147/103 (118) 94 Room Air 07/17/17 23:59 Room Air 07/17/17 23:10 36.9 119 20 130/92 (105) 99 Room Air 07/17/17 20:00 Room Air 07/17/17 19:45 36.8 91 20 138/92 (107) 94 Room Air 07/17/17 16:55 36.8 96 20 130/85 (100) 95 Room Air 07/17/17 16:09 36.7 101 18 137/91 93 07/17/17 15:31 101 18 137/91 93 07/17/17 15:15 101 16 137/91 96 Room Air 07/17/17 13:35 94 Room Air 07/17/17 12:46 100 18 127/93 94 07/17/17 10:35 36.7 98 16 114/65 94 Room Air (Preeti Mcadams CRNP) Physical Exam Notes: General: unwell appearing Eyes: normal inspection, PERLL Respiratory: chest non tender, clear to auscultation, normal breath sounds, no respiratory distress, no accessory muscle use Cardiac: irregular rate and rhythm, no rub or gallop, no murmur, no edema, no jvd GI/: active bowel sounds, diffuse abdominal tenderness, soft, distended Extremities: normal range of motion, normal strength, non tender Neuro/Psych: alert and oriented x 3, normal mood and affect Skin: normal color, dry (Preeti Mcadams CRNP) Laboratory Results Last 24 Hours Test 07/17/17 11:30 07/17/17 11:36 07/17/17 22:21 07/18/17 05:54 Urine Color DK YELLOW Urine Appearance TURBID Urine pH 7.0 Urine Specific [place] 1.020 Urine Protein 2+ Urine Glucose (UA) NEG Urine Ketones TRACE Urine Occult Blood 2+ Urine Nitrite POS Urine Bilirubin NEG Urine Urobilinogen POS Urine Leukocyte Esterase LARGE Urine WBC (Auto) >30 /hpf Urine RBC (Auto) 10-30 /hpf Urine Hyaline Casts (Auto) 5-10 /lpf Urine Epithelial Cells (Auto) >30 /lpf Urine Bacteria (Auto) 4+ Urine Pathogenic Casts /lpf Urine Yeast (Auto) White Blood Count 11.00 K/uL 12.09 K/uL Red Blood Count 4.79 M/uL 4.50 M/uL Hemoglobin 15.3 g/dL 14.6 g/dL Hematocrit 46.6 % 44.0 % Mean Corpuscular Volume 97.3 fL 97.8 fL Mean Corpuscular Hemoglobin 31.9 pg 32.4 pg Mean Corpuscular Hemoglobin Concent 32.8 g/dl 33.2 g/dl Platelet Count 194 K/uL 155 K/uL Mean Platelet Volume 10.2 fL 10.0 fL Neutrophils (%) (Auto) 72.6 % 68.6 % Lymphocytes (%) (Auto) 18.5 % 20.8 % Monocytes (%) (Auto) 8.3 % 10.0 % Eosinophils (%) (Auto) 0.0 % 0.0 % Basophils (%) (Auto) 0.1 % 0.1 % Neutrophils # (Auto) 7.98 K/uL 8.29 K/uL Lymphocytes # (Auto) 2.04 K/uL 2.52 K/uL Monocytes # (Auto) 0.91 K/uL 1.21 K/uL Eosinophils # (Auto) 0.00 K/uL 0.00 K/uL Basophils # (Auto) 0.01 K/uL 0.01 K/uL RDW Standard Deviation 51.9 fL 51.5 fL RDW Coefficient of Variation 14.5 % 14.3 % Immature Granulocyte % (Auto) 0.5 % 0.5 % Immature Granulocyte # (Auto) 0.06 K/uL 0.06 K/uL Prothrombin Time 11.3 SECONDS Prothromb Time International Ratio 1.1 Activated Partial Thromboplast Time 25.9 SECONDS 28.5 SECONDS 38.1 SECONDS Partial Thromboplastin Ratio 1.0 1.1 1.5 Sodium Level 138 mmol/L 136 mmol/L Potassium Level 4.3 mmol/L 3.9 mmol/L Chloride Level 100 mmol/L 100 mmol/L Carbon Dioxide Level 28 mmol/L 28 mmol/L Anion Gap 10.0 mmol/L 8.0 mmol/L Blood Urea Nitrogen 20 mg/dl 19 mg/dl Creatinine 1.00 mg/dl 0.84 mg/dl Estimated GFR () 69.0 85.1 Estimated GFR (Non- 59.5 73.4 BUN/Creatinine Ratio 19.5 22.6 Random Glucose 135 mg/dl 135 mg/dl Calcium Level 9.7 mg/dl 8.9 mg/dl Magnesium Level 2.4 mg/dl Total Bilirubin 0.8 mg/dl Aspartate Amino Transf (AST/SGOT) 23 U/L Alanine Aminotransferase (ALT/SGPT) 15 U/L Alkaline Phosphatase 69 U/L Troponin I < 0.015 ng/ml Total Protein 7.1 gm/dl Albumin 3.3 gm/dl Globulin 3.8 gm/dl Albumin/Globulin Ratio 0.9 Lipase 47 U/L Thyroid Stimulating Hormone (TSH) 1.860 uIu/ml Free Thyroxine 1.89 ng/dl Valproic Acid (Depakene) Level 60 mcg/ml Est Creatinine Clear Calc Drug Dose 83.4 ml/min (Preeti Mcadams CRNP) Assessment and Plan Ms. Julio is a 66 year old female with prior CVA - left side flaccid here for SBO SBO - continue NPO status - oral meds converted to IV - Surgery consulted - saw patient this morning and ordered further imaging - will await there input. Per note last night from surgery, patient only wants surgical intervention as a last resort. May need NG tube if nausea is not controlled with Zofran - Abd xray this morning shows persistent SBO - morphine for pain UTI - Culture grew E.Coli - awaiting sensitivities - continue Rocephin for now - continue Strickland catheter A.fib/ history of prior CVA - will add scheduled IV metoprolol for heart rate as patient has been in an A.fib ranging from 1teens to 140s - continue heparin gtt while xeralto held for npo/possible surgery - continue telemetry monitoring Seizure disorder - continue IV depakote until able to take po Hypothyroidism - continue IV synthroid. switch to oral once tolerating PO Full code DVT prophylaxis with SCD, RAMA and heparin . (Preeti Mcadams CRNP) Supervising Note Dr. Bhat I performed a history and physical examination on the patient. I reviewed above note and agree with it. I discussed plan with APC and patient. During my face to face encounter with the patient, I answered all of the patient's questions. Patient appears to be scheduled for surgery tomorrow. Will CONTINUE NPO. (Fly Bhat M.D.)
[2017-07-18] MEDS: METOPROLOL TARTRATE 1 MG/ML VIAL IV. SCH ×2 (11:27→18:31)
[2017-07-18] MEDS: CEFTRIAXONE SOD INJ 1 GM in DEXTROSE 5% ADD-VANTAGE 50ML 50 ML IV SCH (11:27)
[2017-07-18 13:26] LABS: PTT PATIENT 47.6 SECONDS (21.0-31.0)
--- NOTE | 2017-07-18 14:21 | DIAGNOSTIC IMAGING REPORT ---
KUB CLINICAL HISTORY: 66 years-old Female presenting with KUB FOR [place] SUMP PLACEMENT. TECHNIQUE: Single supine view of the abdomen was obtained. COMPARISON: CT from 07/17/2017 and plain radiograph from 07/18/2017 at 9:04 AM. FINDINGS: A nasogastric tube terminates in the body the stomach with sidehole contained within the gastric lumen. Small bowel is distended with gas without apparent diameter of 6.4 cm though this is likely affected by magnification due to AP technique. Allowing for bowel gas and stool, no calcifications to suggest nephrolithiasis. Gallstones noted. An inferior vena cava filter projects at the level of L2-3. Pelvic phleboliths noted. Osteopenia suggested. Significant scoliotic curvature and degenerative change of the lumbar spine. IMPRESSION: 1. Nasogastric tube terminates in the body the stomach. 2. Persistent small bowel obstruction. Electronically signed by: Ganesh Temple M.D. 07/18/2017 2:20 PM Dictated Date/Time: 07/18/2017 2:16 PM
[2017-07-19] VITALS (12 sets, daily range): BP systolic 108–135; BP diastolic 74–86; PULSE 77–98; TEMP 36.2–36.9; O2SAT 92–96
[2017-07-19] MEDS: METOPROLOL TARTRATE 1 MG/ML VIAL IV. SCH ×4 (00:24→19:34)
[2017-07-19 07:10] LABS: BASO % 0.1 %; BASO ABS # 0.01 K/uL (0-0.2); EOS ABS # 0.09 K/uL (0-0.5); HEMATOCRIT 42.2 % (37-47); HEMOGLOBIN 13.4 g/dL (12.0-16.0); IG# 0.03 K/uL (0.00-0.02); LYMPH % 28.6 %; LYMPH ABS # 2.52 K/uL (1.2-3.4); MEAN CELL VOLUME 97.9 fL (80-100); MEAN CORPUSCULAR HEMOGLOBIN 31.1 pg (25-34); MEAN CORPUSCULAR HGB CONC 31.8 g/dl (32-36); MONO % 12.4 %; MONO ABS # 1.09 K/uL (0.11-0.59); NEUT % 57.6 %; NEUT ABS # 5.08 K/uL (1.4-6.5); PLATELET COUNT 140 K/uL (130-400); RED CELL DISTRIBUTION WIDTH CV 14.1 % (11.5-14.5); RED CELL DISTRIBUTION WIDTH SD 50.5 fL (36.4-46.3); WHITE BLOOD COUNT 8.82 K/uL (4.8-10.8)
[2017-07-19 07:25] LABS: PTT PATIENT 39.7 SECONDS (21.0-31.0)
[2017-07-19 07:50] LABS: CALCIUM 8.4 mg/dl (8.5-10.1); CREATININE 0.6 mg/dl (0.60-1.20); POTASSIUM 3.6 mmol/L (3.5-5.1)
[2017-07-19] MEDS: VALPROATE SOD IV 500 MG in DEXTROSE 5% 50ML 50 ML IV SCH ×2 (08:26→21:01)
[2017-07-19] MEDS: D5W AND 1/2NSS 1,000 ML IV SCH (08:37)
[2017-07-19] MEDS: LEVOTHYROXINE SODIUM INJ 37.5 MCG in SYRINGE 0 ML IV SCH (08:38)
--- NOTE | 2017-07-19 08:46 | DIAGNOSTIC IMAGING REPORT ---
KUB CLINICAL HISTORY: Small bowel obstruction. COMPARISON STUDY: KUB July 18, 2017. FINDINGS: Tip of nasogastric tube projects over the distal body of the stomach. IVC filter is noted. There are gallstones. Marked small bowel not significant change. There is a paucity of colonic gas. IMPRESSION: 1. Findings consistent with a persistent moderate to high-grade small bowel obstruction. 2. Interval placement of a nasogastric tube which is appropriately positioned. Electronically signed by: Vasyl Klein M.D. 07/19/2017 8:45 AM Dictated Date/Time: 07/19/2017 8:34 AM
[2017-07-19] MEDS ORDERED: NURSING VERBAL MED ORDER ONE ×2 (09:00→21:00)
[2017-07-19] MEDS: HEPARIN 25,000 UNIT/500ML D5W 500 ML IV SCH ×2 (09:13→20:37)
[2017-07-19] MEDS ORDERED: HEPARIN IV BOLUS 4,500 UNIT in SYRINGE 0 ML IV ONE (09:15)
--- NOTE | 2017-07-19 10:10 | Surgery Progress Note ---
Surgery Progress Note Date of Service Jul 19, 2017. Subjective I got a call from Dr. Regalado who recommend to do exploratory laparotomy based on pt's SBO, not passed gas or BM for 3 days, pt is still aver some abdominal pain, NG tube in I saw pt at bedside, pt is still have not pass any gas and BM for last 3 days, Objective Vital Signs: Date Time Temp Pulse Resp B/P (MAP) Pulse Ox O2 Delivery O2 Flow Rate FiO2 07/19/17 07:41 36.8 98 18 119/75 (90) 96 Room Air 07/19/17 06:25 100 07/19/17 04:00 Room Air 07/19/17 03:08 36.8 97 18 135/79 (97) 92 Room Air 07/19/17 00:24 102 151/92 07/18/17 23:59 Room Air 07/18/17 23:15 36.8 102 19 151/92 (111) 96 Room Air 07/18/17 20:32 36.6 98 20 167/98 (121) 94 Room Air 07/18/17 20:00 95 Room Air 07/18/17 18:31 80 117/76 07/18/17 18:17 80 117/76 (90) 07/18/17 16:13 36.6 91 20 116/81 (93) 95 Room Air 07/18/17 16:00 95 Room Air 07/18/17 13:00 96 Room Air 07/18/17 12:34 36.3 103 22 116/82 (93) 96 Room Air 07/18/17 11:27 103 116/82 General Appearance: WD/WN, no apparent distress Head: normocephalic Neck: supple, no JVD Respiratory/Chest: chest non-tender, lungs clear Cardiovascular: regular rate, rhythm, no edema Abdomen: no organomegaly, + distended, + tenderness Extremities: normal range of motion, non-tender, normal inspection Laboratory Results: Results Past 24 Hours Test 07/18/17 12:52 07/19/17 06:43 Range/Units Activated Partial Thromboplast Time 47.6 39.7 21.0-31.0 SECONDS Partial Thromboplastin Ratio 1.8 1.5 White Blood Count 8.82 4.8-10.8 K/uL Red Blood Count 4.31 4.2-5.4 M/uL Hemoglobin 13.4 12.0-16.0 g/dL Hematocrit 42.2 37-47 % Mean Corpuscular Volume 97.9 80-100 fL Mean Corpuscular Hemoglobin 31.1 25-34 pg Mean Corpuscular Hemoglobin Concent 31.8 32-36 g/dl Platelet Count 140 130-400 K/uL Mean Platelet Volume 10.0 7.4-10.4 fL Neutrophils (%) (Auto) 57.6 % Lymphocytes (%) (Auto) 28.6 % Monocytes (%) (Auto) 12.4 % Eosinophils (%) (Auto) 1.0 % Basophils (%) (Auto) 0.1 % Neutrophils # (Auto) 5.08 1.4-6.5 K/uL Lymphocytes # (Auto) 2.52 1.2-3.4 K/uL Monocytes # (Auto) 1.09 0.11-0.59 K/uL Eosinophils # (Auto) 0.09 0-0.5 K/uL Basophils # (Auto) 0.01 0-0.2 K/uL RDW Standard Deviation 50.5 36.4-46.3 fL RDW Coefficient of Variation 14.1 11.5-14.5 % Immature Granulocyte % (Auto) 0.3 % Immature Granulocyte # (Auto) 0.03 0.00-0.02 K/uL Sodium Level 135 136-145 mmol/L Potassium Level 3.6 3.5-5.1 mmol/L Chloride Level 98 98-107 mmol/L Carbon Dioxide Level 30 21-32 mmol/L Anion Gap 7.0 3-11 mmol/L Blood Urea Nitrogen 11 7-18 mg/dl Creatinine 0.60 0.60-1.20 mg/dl Est Creatinine Clear Calc Drug Dose 117.0 ml/min Estimated GFR () 111.6 Estimated GFR (Non- 96.3 BUN/Creatinine Ratio 18.0 10-20 Random Glucose 104 70-99 mg/dl Calcium Level 8.4 8.5-10.1 mg/dl Assessment & Plan CT scan-FINDINGS: Lower chest: The heart is normal in size and configuration, without pericardial effusion. The lung bases and pleural spaces are clear. Liver: The contrast-enhanced liver is normal in size, contour, and attenuation. There is no intrahepatic biliary ductal dilatation. The hepatic veins and portal veins are patent. Gallbladder: Multiple gallstones. Spleen: Normal in size and attenuation. Pancreas: Unremarkable. Adrenal glands: Unremarkable. Kidneys: There is slightly heterogeneous left renal enhancement. No focal masses are visualized. Pyelonephritis cannot be excluded. Please correlate clinically. Bowel: There are multiple dilated small bowel loops with a persistent transition zone within the right mid abdomen. There is associated mesenteric swirl pattern. The findings could indicate an internal hernia or twist from an adhesion. The colon is decompressed. The appendix appears normal Peritoneum: There is no intraperitoneal free air or abdominal ascites. Vasculature: There is no evidence of abdominal aortic aneurysm. There is an indwelling IVC filter. Several struts protrude beyond the IVC lumen Adenopathy: None. Pelvic viscera: The uterus appears surgically absent Skeletal structures: There are no destructive lesions visualized. There is a scoliosis. There is a lumbar spinal stenosis. IMPRESSION: 1. Persistent small bowel obstruction. There is a persistent mesenteric swirl sign, likely secondary to either an internal hernia or adhesion. 2. Cholelithiasis 3. Subtle inhomogeneous left renal enhancement. Clinical correlation to exclude pyelonephritis is recommended KUB 07/19/2017 FINDINGS: Tip of nasogastric tube projects over the distal body of the stomach. IVC filter is noted. There are gallstones. Marked small bowel not significant change. There is a paucity of colonic gas. IMPRESSION: 1. Findings consistent with a persistent moderate to high-grade small bowel obstruction. 2. Interval placement of a nasogastric tube which is appropriately positioned. Assessment: pt is 66 year old female who was admitted to hospital for SBO, not pass any gas and BM for 3 days, pt has history- hysterectomy, CVA, left side body paralysis, DVT, A-Fib, Dr. Regalado and me recommend to do exploratory laparotomy, possible bowel resection or stoma, D/W benefits, risks and alternatives of the procedure with pt and her , the risks - infection, bleeding, injury bowel,DVT, CO, stroke, , they understood, they agree with the plan, I answered all questions, Hold heparin now,
--- NOTE | 2017-07-19 10:41 | Hospitalist Progress Note ---
Hospitalist Progress Note Date of Service Jul 19, 2017. (Preeti Mcadams .ALLISON) Subjective Pt evaluation today including: conversation w/ patient, conversation w/ family , physical exam, chart review Voiding: no voiding problems Ms. Julio continues to feel unwell. She is less nauseas since having the NG tube placed which put out quite a bit of drainage yesterday but has significantly slowed since then. She has not had a bowel movement or passed gas today. She is not having pain, but is very uncomfortable. is bedside, he did not have questions for me as surgery had been in and explained the plan for the OR today. ROS Constitutional: no chills, aches, sweats or fever Respiratory: no sob,cough, sputum, or wheezing Cardiac: no chest pain, palpitations, edema, orthopnea or lightheadedness GI: see HPI : no dysuria or hesitancy Extremities: no joint pain or weakness Skin: no rash All other systems reviewed and negative (Preeti Mcadams .ALLISON) Medications Medications Administered Medications (Trade) Dose Ordered Sig/Carleen Route Start Time Stop Time Status Last Admin Dose Admin Sodium Chloride 500 ml @ 999 mls/hr Q31M STAT IV 07/17/17 10:48 07/17/17 11:18 DC 07/17/17 11:23 999 MLS/HR Ondansetron HCl (Zofran Inj) 4 mg NOW STAT IV 07/17/17 10:48 07/17/17 10:50 DC 07/17/17 11:23 4 MG Ceftriaxone Sodium (Rocephin Inj) 1 gm NOW STAT IV 07/17/17 12:30 07/17/17 12:31 DC 07/17/17 12:42 1 GM Ondansetron HCl (Zofran Inj) 4 mg Q6H PRN IV 07/17/17 13:45 08/16/17 13:44 07/18/17 10:01 4 MG Dextrose/Sodium Chloride 1,000 ml @ 100 mls/hr Q10H IV 07/17/17 16:30 08/16/17 16:29 07/19/17 08:37 100 MLS/HR Pantoprazole Sodium 40 mg/ Syringe 10 ml @ 5 mls/min DAILY@11 IV 07/18/17 11:00 08/17/17 10:59 07/18/17 09:34 5 MLS/MIN Valproate Sodium 500 mg/Dextrose 55 ml @ 55 mls/hr Q12H IV 07/17/17 21:00 08/16/17 20:59 07/19/17 08:26 55 MLS/HR Levothyroxine Sodium 37.5 mcg/ Syringe 1.875 ml @ 2 mls/min DAILY@09 IV 07/18/17 09:00 08/17/17 08:59 07/19/17 08:38 2 MLS/MIN Heparin Sodium/ Dextrose (Heparin 25,000 Unit/500ml D5W) 25,000 unit STK-MED ONCE .ROUTE 07/17/17 15:54 07/17/17 15:55 DC 07/17/17 16:04 19 UNIT Heparin Sodium/ Dextrose 500 ml @ 28 mls/hr [id number] IV 07/17/17 16:30 08/16/17 16:29 07/19/17 09:13 28 MLS/HR Heparin Sodium (Porcine) 4500 unit/Syringe 4.5 ml @ 10 mls/min NOW ONCE IV 07/17/17 23:15 07/17/17 23:16 DC 07/17/17 23:50 10 MLS/MIN Heparin Sodium (Porcine) 4500 unit/Syringe 4.5 ml @ 10 mls/min NOW ONCE IV 07/18/17 06:45 07/18/17 06:46 DC 07/18/17 07:08 10 MLS/MIN Morphine Sulfate (MoRPHine SULFATE INJ) 2 mg Q2H PRN IV 07/18/17 08:30 08/01/17 08:29 07/18/17 10:02 2 MG Ceftriaxone Sodium 1 gm/ Dextrose 50 ml @ 100 mls/hr Q24H IV 07/18/17 11:00 07/23/17 10:59 07/18/17 11:27 100 MLS/HR Metoprolol Tartrate (Lopressor Iv) 5 mg Q6 IV. 07/18/17 12:00 08/17/17 11:59 07/19/17 06:25 5 MG Heparin Sodium (Porcine) 4500 unit/Syringe 4.5 ml @ 10 mls/min 0915 ONCE IV 07/19/17 09:15 07/19/17 09:16 DC 07/19/17 09:12 10 MLS/MIN (Preeti Mcadams CRNP) Objective Vital Signs Date Time Temp Pulse Resp B/P (MAP) Pulse Ox O2 Delivery O2 Flow Rate FiO2 07/19/17 08:00 Room Air 07/19/17 07:41 36.8 98 18 119/75 (90) 96 Room Air 07/19/17 06:25 100 07/19/17 04:00 Room Air 07/19/17 03:08 36.8 97 18 135/79 (97) 92 Room Air 07/19/17 00:24 102 151/92 07/18/17 23:59 Room Air 07/18/17 23:15 36.8 102 19 151/92 (111) 96 Room Air 07/18/17 20:32 36.6 98 20 167/98 (121) 94 Room Air 07/18/17 20:00 95 Room Air 07/18/17 18:31 80 117/76 07/18/17 18:17 80 117/76 (90) 07/18/17 16:13 36.6 91 20 116/81 (93) 95 Room Air 07/18/17 16:00 95 Room Air 07/18/17 13:00 96 Room Air 07/18/17 12:34 36.3 103 22 116/82 (93) 96 Room Air 07/18/17 11:27 103 116/82 (Preeti Mcadams CRNP) Physical Exam Notes: General: no distress Eyes: normal inspection, PERLL Respiratory: chest non tender, clear to auscultation, normal breath sounds, no respiratory distress, no accessory muscle use Cardiac: regular rate and rhythm, no rub or gallop, no murmur, no edema, no jvd GI/: hypoactive bowel sounds, diffusely tender abdomen, soft, non distended Extremities: normal range of motion, normal strength, non tender Neuro/Psych: alert and oriented x 3, normal mood and affect Skin: normal color, dry (Preeti Mcadams CRNP) Laboratory Results Last 24 Hours Test 07/18/17 12:52 07/19/17 06:43 Activated Partial Thromboplast Time 47.6 SECONDS 39.7 SECONDS Partial Thromboplastin Ratio 1.8 1.5 White Blood Count 8.82 K/uL Red Blood Count 4.31 M/uL Hemoglobin 13.4 g/dL Hematocrit 42.2 % Mean Corpuscular Volume 97.9 fL Mean Corpuscular Hemoglobin 31.1 pg Mean Corpuscular Hemoglobin Concent 31.8 g/dl Platelet Count 140 K/uL Mean Platelet Volume 10.0 fL Neutrophils (%) (Auto) 57.6 % Lymphocytes (%) (Auto) 28.6 % Monocytes (%) (Auto) 12.4 % Eosinophils (%) (Auto) 1.0 % Basophils (%) (Auto) 0.1 % Neutrophils # (Auto) 5.08 K/uL Lymphocytes # (Auto) 2.52 K/uL Monocytes # (Auto) 1.09 K/uL Eosinophils # (Auto) 0.09 K/uL Basophils # (Auto) 0.01 K/uL RDW Standard Deviation 50.5 fL RDW Coefficient of Variation 14.1 % Immature Granulocyte % (Auto) 0.3 % Immature Granulocyte # (Auto) 0.03 K/uL Sodium Level 135 mmol/L Potassium Level 3.6 mmol/L Chloride Level 98 mmol/L Carbon Dioxide Level 30 mmol/L Anion Gap 7.0 mmol/L Blood Urea Nitrogen 11 mg/dl Creatinine 0.60 mg/dl Est Creatinine Clear Calc Drug Dose 117.0 ml/min Estimated GFR () 111.6 Estimated GFR (Non- 96.3 BUN/Creatinine Ratio 18.0 Random Glucose 104 mg/dl Calcium Level 8.4 mg/dl (Preeti Mcadams CRNP) Assessment and Plan Ms. Julio is a 66 year old female with prior CVA - left side flaccid here for SBO SBO - continue NPO status - oral meds converted to IV - Surgery consulted - placed NG tube yesterday and plan is for surgery this afternoon - Abd xray this morning shows persistent SBO - morphine for pain UTI - Culture grew E.Coli - ampicillin resistant - continue Rocephin for now - continue Quinn catheter A.fib/ history of prior CVA -continue scheduled IV metoprolol for heart rate - heart rates have improved since yesterday staying mostly in the 90s, continues to be in an A.fib - Heparin drip on hold for surgery, xeralto held for npo/possible surgery - continue telemetry monitoring Seizure disorder - continue IV depakote until able to take po, no seizure activity this admission Hypothyroidism - continue IV synthroid. switch to oral once tolerating PO Full code DVT prophylaxis with SCD, RAMA and heparin . (Preeti Mcadams ., ALLISON) Supervising Note Dr. Bhat I performed a history and physical examination on the patient. I reviewed above note and agree with it. I discussed plan with APC and patient. During my face to face encounter with the patient, I answered all of the patient's questions. Patient returned from surgery. Patient tolerated procedure well. Appears adhesions were lysed. Patient is resting comfortably in bed. (Fly Bhat M.D.)
[2017-07-19] MEDS: PANTOprazole INJ 40 MG in SYRINGE 0 ML IV SCH (11:32)
[2017-07-19] MEDS: CEFTRIAXONE SOD INJ 1 GM in DEXTROSE 5% ADD-VANTAGE 50ML 50 ML IV SCH (11:32)
[2017-07-19] MEDS ORDERED: ONDANSETRON INJ 2 MG/ML 2 ML VIAL ONE (13:10)
[2017-07-19] MEDS ORDERED: DEXAMETHASONE SOD INJ 4 MG/ML VIAL ONE (13:10)
[2017-07-19] MEDS ORDERED: PROPOFOL IV EMULSION 10 MG/ML 20 ML VIAL IV ONE (13:10)
[2017-07-19] MEDS ORDERED: MIDAZOLAM HCL 1 MG/ML 2ML VIAL ONE (13:10)
[2017-07-19] MEDS ORDERED: GLYCOPYRROLATE INJ 0.2 MG/ML VIAL ONE (13:10)
[2017-07-19] MEDS ORDERED: EpHEDrine SULFATE INJ 50 MG/ML AMP ONE (13:10)
[2017-07-19] MEDS ORDERED: NEOSTIGMINE METHYLSULFATE 5 MG/5 ML SYR ONE (13:10)
[2017-07-19] MEDS ORDERED: ROCURONIUM BROMIDE 10 MG/ML 5 ML VIAL IV ONE (13:10)
[2017-07-19] MEDS ORDERED: LIDOCAINE HCL 2% 2 ML VIAL (20MG/ML) ONE (13:10)
[2017-07-19] MEDS ORDERED: LARYING-O-JET KIT (LTA) ONE (13:10)
[2017-07-19] MEDS ORDERED: FENTANYL CITRATE INJ 50 MCG/1 ML 2 ML VIAL ONE (13:11)
[2017-07-19] MEDS ORDERED: ACETAMINOPHEN 1000 MG/100 ML IV IV ONE (14:25)
--- NOTE | 2017-07-19 14:25 | History & Physical Bridge Note ---
H&P Re-Evaluation Bridge Note: I have examined the patient, reviewed the History & Physical and in the interval since the performance of the History & Physical I have noted the following changes of clinical significance: No changes noted
[2017-07-19] MEDS ORDERED: CEFAZOLIN SOD 2000MG/15 ML IV PUSH IV ONE (14:27)
[2017-07-19] MEDS ORDERED: ONDANSETRON INJ 2 MG/ML 2 ML VIAL IV PRN (14:30)
[2017-07-19] MEDS ORDERED: ATROPINE SULFATE 0.1 MG/ML 5ML SYR IV PRN (14:30)
[2017-07-19] MEDS ORDERED: PHENYLEPHRINE 100MCG/ML 5ML SYR IV PRN (14:30)
[2017-07-19] MEDS ORDERED: EpHEDrine SULFATE INJ 50 MG/ML AMP IV PRN (14:30)
[2017-07-19] MEDS ORDERED: CEFAZOLIN SOD 2000MG/15 ML IV PUSH IV SCH (15:00)
[2017-07-19] MEDS ORDERED: BUPIVACAINE 0.5 % 5 MG/1 ML MPF 30ML VIAL ONE (15:18)
[2017-07-19] MEDS ORDERED: LIDOCAINE HCL 1% 20 ML VIAL ONE (15:19)
[2017-07-19] MEDS ORDERED: BACITRACIN OINT 15 GM TUBE ONE (15:19)
[2017-07-19] MEDS ORDERED: METOPROLOL TARTRATE 1 MG/ML VIAL ONE (16:07)
[2017-07-19] MEDS ORDERED: PHENYLEPHRINE HCL INJ 10 MG/ML VIAL ONE (16:07)
[2017-07-19] MEDS ORDERED: SUCCINYLCHOLINE CHLORIDE 20 MG/ML 10 ML VIAL IV ONE (16:07)
--- NOTE | 2017-07-19 16:49 | [facility] Post Operative Brief Note ---
Immediate Operative Summary Operative Date Jul 19, 2017. Pre-Operative Diagnosis Small bowel obstruction Post-Operative Diagnosis same Procedure(s) Performed exploratory laparotomy, with lysis of adhesions Surgeon Dr. John Beatty Respiratory Therapy Aide Surgeon(s) AURELIANO Presley Estimated Blood Loss 10ml Findings Consistent with Post-Op Diagnosis adheion on middle small bowel at RLQ, proximal dilated small bowel [id number] Fluids (cc crystalloids) 1000ml Specimens no specimen per surgeon Drains None Anesthesia Type General Complication(s) none Disposition Accompanied Pt To Recover: yes Disposition: Recovery Room / PACU
[2017-07-19] MEDS: HYDROmorphone INJ 2 MG/ML SYR/VIAL IV PRN ×4 (17:31→17:49)
--- NOTE | 2017-07-19 17:44 | Anesthesiology Progress Note ---
Anesthesia Post Op Note Date & Time Jul 19, 2017 at 17:43 Vital Signs Pain Intensity: 7.0 Vital Signs Past 12 Hours Date Time Temp Pulse Resp B/P (MAP) Pulse Ox O2 Delivery O2 Flow Rate FiO2 07/19/17 17:15 93 18 135/92 100 Oxymask 10 07/19/17 17:05 36.5 84 18 141/85 96 Oxymask 10 07/19/17 14:00 37.1 82 18 121/84 (96) 93 Room Air 07/19/17 12:00 Room Air 07/19/17 11:33 91 07/19/17 11:30 36.9 95 18 127/86 (100) 92 Room Air 07/19/17 08:00 Room Air 07/19/17 07:41 36.8 98 18 119/75 (90) 96 Room Air 07/19/17 06:25 100 Notes Mental Status: alert / awake / arousable, participated in evaluation Pt Amnestic to Procedure: Yes Nausea / Vomiting: adequately controlled Pain: adequately controlled Airway Patency, RR, SpO2: stable & adequate BP & HR: stable & adequate Hydration State: stable & adequate Anesthetic Complications: no major complications apparent
[2017-07-19] MEDS: D5W AND 1/2NSS + 20MEQ KCL 1,000 ML IV SCH (19:33)
[2017-07-19] MEDS: CEFAZOLIN IV 2,000 MG in SYRINGE 0 ML IV SCH (22:11)
[2017-07-20] VITALS (9 sets, daily range): BP systolic 108–135; BP diastolic 73–84; PULSE 99–128; TEMP 36.6–38.2; O2SAT 95–97
[2017-07-20] MEDS: METOPROLOL TARTRATE 1 MG/ML VIAL IV. SCH ×4 (00:40→18:55)
[2017-07-20] MEDS: MoRPHine SULFATE 4 MG/ML 1 ML CARP\\VIAL IV PRN ×5 (01:01→15:26)
[2017-07-20 02:58] LABS: PTT PATIENT 44.3 SECONDS (21.0-31.0)
[2017-07-20] MEDS ORDERED: HEPARIN IV BOLUS 3,000 UNIT in SYRINGE 0 ML IV ONE (03:30)
[2017-07-20] MEDS: HEPARIN 25,000 UNIT/500ML D5W 500 ML IV SCH ×3 (03:45→15:47)
[2017-07-20] MEDS: CEFAZOLIN IV 2,000 MG in SYRINGE 0 ML IV SCH ×2 (05:38→13:25)
[2017-07-20] MEDS: D5W AND 1/2NSS + 20MEQ KCL 1,000 ML IV SCH ×3 (05:38→18:54)
[2017-07-20] MEDS: MoRPHine SULFATE 2 MG/ML CARP IV PRN (05:40)
[2017-07-20] MEDS ORDERED: NURSING VERBAL MED ORDER ONE ×3 (06:30→20:00)
--- NOTE | 2017-07-20 07:55 | OPERATIVE REPORT ---
DATE OF OPERATION: 07/19/2017 PREOPERATIVE DIAGNOSIS: Small bowel obstruction. POSTOPERATIVE DIAGNOSIS: Small bowel obstruction. PROCEDURE: Exploratory laparotomy, lysis of adhesion. SURGEON: Myrna Beatty MD. ASSEMBLING INSPECTOR: Edda Avila PA-C ANESTHESIA: General. ESTIMATED BLOOD LOSS: About 10 mL. FINDINGS: Adhesion on the middle of the small bowel at the right lower quadrant where the scar causes the small bowel obstruction. Possible small bowel dilation reached to 10 cm. COMPLICATIONS: None. INDICATIONS FOR THE PROCEDURE: This is a 66 years old female who was admitted to hospital with small bowel obstruction and the patient already has 3 days admission to hospital, no bowel movement, no passed gas in over 3 days and also a KUB showed is small-bowel obstruction. Patient had a significant past medical history of atrial fibrillation, stroke, and a hysterectomy in the past and I recommended to do the exploratory laparotomy, possible bowel resection, possible stoma. I did talk to the patient's family member, patient's and daughter about the benefit and risk, alternate procedure. I indicated the risks may include but not limited such as bleeding, infection, injury to the bowel with small-bowel obstruction recurrence, myocardial infarction, DVT, stroke, even . They understand. The patient's signed informed consent. They agreed to proceed with the procedure. I answered all questions. DETAILS OF PROCEDURE: We brought the patient to the OR, put the patient in the supine position. Patient received SCD on bilateral legs to prevent DVT. Also, patient received 2 grams Ancef IV for prophylactic antibiotic. The patient received general anesthesia without difficulty. Abdomen was prepped and draped in routine sterile fashion. After time out, I made a midline incision about 15 cm incision and once we opened fascia, opened peritoneum under direct vision, getting into the abdomen, there were some clear fluid in the abdomen and significantly dilated small bowel which was 10 cm and we followed the dilation of small bowel and small-bowel obstruction ended to the right lower quadrant, there was scar causes small-bowel obstruction, taken down the scar and immediately the obstruction released and small bowel passes through and reached to the cecum area and reached the ascending colon. Then we confirmed the NG tube in stomach and then we checked the abdomen. No other obstruction of the bowel. So at this moment, we returned the bowel to the abdominal cavity and in the OR we suctioned NG tube about at least 1 liter of fluid suction out from stomach , small bowel is decompressed and easy to close the abdomen. Then I closed the abdominal fascial layer by using the #1 PDS continuous running, closed subcutaneous layer by using 2-0 Vicryl continuous running and used a staple closed the skin, also we injected the local anesthesia by using 1% lidocaine mixed with 0.5% Marcaine along the incision site. Then we put the dressing on. The patient tolerated the procedure well. All the instrument, needle and sponge count correct x2 at the end of case and the patient was extubated in the OR and transferred to recovery room in stable condition. After procedure, I did talk to the patient's and the patient's daughter about the OR finding and procedure we did, they understand. I attest to the content of the Intraoperative Record and any orders documented therein. Any exceptions are noted below. SAGARD
[2017-07-20] MEDS: ONDANSETRON INJ 2 MG/ML 2 ML VIAL IV PRN (08:22)
[2017-07-20] MEDS: VALPROATE SOD IV 500 MG in DEXTROSE 5% 50ML 50 ML IV SCH ×2 (08:22→21:15)
[2017-07-20] MEDS: LEVOTHYROXINE SODIUM INJ 37.5 MCG in SYRINGE 0 ML IV SCH (08:44)
[2017-07-20 09:02] LABS: BASO % 0.1 %; BASO ABS # 0.02 K/uL (0-0.2); EOS ABS # 0.15 K/uL (0-0.5); HEMATOCRIT 46.7 % (37-47); HEMOGLOBIN 15.7 g/dL (12.0-16.0); IG# 0.11 K/uL (0.00-0.02); LYMPH % 19.8 %; MEAN CELL VOLUME 98.7 fL (80-100); MEAN CORPUSCULAR HEMOGLOBIN 33.2 pg (25-34); MEAN CORPUSCULAR HGB CONC 33.6 g/dl (32-36); MONO % 15.5 %; MONO ABS # 2.26 K/uL (0.11-0.59); NEUT % 62.8 %; NEUT ABS # 9.18 K/uL (1.4-6.5); PLATELET COUNT 132 K/uL (130-400); RED CELL DISTRIBUTION WIDTH CV 14.2 % (11.5-14.5); RED CELL DISTRIBUTION WIDTH SD 50.9 fL (36.4-46.3); WHITE BLOOD COUNT 14.62 K/uL (4.8-10.8)
[2017-07-20 09:24] LABS: PTT PATIENT 75.6 SECONDS (21.0-31.0)
[2017-07-20 09:36] LABS: CALCIUM 8.2 mg/dl (8.5-10.1); CREATININE 0.66 mg/dl (0.60-1.20); POTASSIUM 4.2 mmol/L (3.5-5.1)
--- NOTE | 2017-07-20 10:43 | Anesthesiology Progress Note ---
Anesthesia Post Op Note Date & Time Jul 20, 2017 at 10:42 Vital Signs Vital Signs Past 12 Hours Date Time Temp Pulse Resp B/P (MAP) Pulse Ox O2 Delivery O2 Flow Rate FiO2 07/20/17 07:32 36.6 100 24 113/78 (90) 96 Nasal Cannula 4.0 07/20/17 05:38 107 07/20/17 03:30 96 Room Air 07/20/17 03:25 36.7 99 16 112/73 (86) 97 Nasal Cannula 4.0 07/20/17 00:40 86 113/77 07/20/17 00:00 Nasal Cannula 4.0 07/19/17 22:59 36.2 82 20 108/74 (85) 96 Nasal Cannula 4.0 Notes Mental Status: alert / awake / arousable, participated in evaluation Pt Amnestic to Procedure: Yes Nausea / Vomiting: adequately controlled Pain: adequately controlled Airway Patency, RR, SpO2: stable & adequate BP & HR: stable & adequate Hydration State: stable & adequate Anesthetic Complications: no major complications apparent
[2017-07-20] MEDS ORDERED: BISACODYL 5 MG TABEC PO ONE (11:00)
[2017-07-20] MEDS: PANTOprazole INJ 40 MG in SYRINGE 0 ML IV SCH (11:36)
[2017-07-20] MEDS: METOCLOPRAMIDE HCL INJ 5 MG/ML 2 ML VIAL IV. SCH ×2 (11:38→20:11)
--- NOTE | 2017-07-20 12:12 | Hospitalist Progress Note ---
Hospitalist Progress Note Date of Service Jul 20, 2017. (Preeti Mcadams .ALLISON) Subjective Pt evaluation today including: conversation w/ patient, physical exam, chart review, lab review, review of inpatient medication list Voiding: no voiding problems Ms. Julio is painful around her incision site and feeling drowsy. She still has some mild nausea. She is not passing gas yet. Per nursing, she had low output over the night and her fluids have been increased. ROS Constitutional: no chills, aches, sweats or fever Respiratory: no sob,cough, sputum, or wheezing Cardiac: no chest pain, palpitations, edema, orthopnea or lightheadedness GI: see HPI : strickland catheter Extremities: no joint pain or weakness Skin: no rash All other systems reviewed and negative (Preeti Mcadams CRNP) Medications Medications Administered Medications (Trade) Dose Ordered Sig/Carleen Route Start Time Stop Time Status Last Admin Dose Admin Sodium Chloride 500 ml @ 999 mls/hr Q31M STAT IV 07/17/17 10:48 07/17/17 11:18 DC 07/17/17 11:23 999 MLS/HR Ondansetron HCl (Zofran Inj) 4 mg NOW STAT IV 07/17/17 10:48 07/17/17 10:50 DC 07/17/17 11:23 4 MG Ceftriaxone Sodium (Rocephin Inj) 1 gm NOW STAT IV 07/17/17 12:30 07/17/17 12:31 DC 07/17/17 12:42 1 GM Ondansetron HCl (Zofran Inj) 4 mg Q6H PRN IV 07/17/17 13:45 08/16/17 13:44 07/20/17 08:22 4 MG Dextrose/Sodium Chloride 1,000 ml @ 100 mls/hr Q10H IV 07/17/17 16:30 07/19/17 16:52 DC 07/19/17 08:37 100 MLS/HR Pantoprazole Sodium 40 mg/ Syringe 10 ml @ 5 mls/min DAILY@11 IV 07/18/17 11:00 08/17/17 10:59 07/20/17 11:36 5 MLS/MIN Valproate Sodium 500 mg/Dextrose 55 ml @ 55 mls/hr Q12H IV 4/8/18 21:00 08/16/17 20:59 07/20/17 08:22 55 MLS/HR Levothyroxine Sodium 37.5 mcg/ Syringe 1.875 ml @ 2 mls/min DAILY@09 IV 07/18/17 09:00 08/17/17 08:59 07/20/17 08:44 2 MLS/MIN Heparin Sodium/ Dextrose (Heparin 25,000 Unit/500ml D5W) 25,000 unit STK-MED ONCE .ROUTE 07/17/17 15:54 07/17/17 15:55 DC 07/17/17 16:04 19 UNIT Heparin Sodium/ Dextrose 500 ml @ 28 mls/hr [id number] IV 07/17/17 16:30 08/16/17 16:29 07/20/17 03:45 30 MLS/HR Heparin Sodium (Porcine) 4500 unit/Syringe 4.5 ml @ 10 mls/min NOW ONCE IV 07/17/17 23:15 07/17/17 23:16 DC 07/17/17 23:50 10 MLS/MIN Heparin Sodium (Porcine) 4500 unit/Syringe 4.5 ml @ 10 mls/min NOW ONCE IV 07/18/17 06:45 07/18/17 06:46 DC 07/18/17 07:08 10 MLS/MIN Morphine Sulfate (MoRPHine SULFATE INJ) 2 mg Q2H PRN IV 07/18/17 08:30 08/01/17 08:29 07/20/17 05:40 2 MG Morphine Sulfate (MoRPHine SULFATE INJ) 4 mg Q2H PRN IV 07/18/17 08:30 08/01/17 08:29 07/20/17 11:40 4 MG Ceftriaxone Sodium 1 gm/ Dextrose 50 ml @ 100 mls/hr Q24H IV 07/18/17 11:00 07/19/17 17:09 DC 07/19/17 11:32 100 MLS/HR Metoprolol Tartrate (Lopressor Iv) 5 mg Q6 IV. 07/18/17 12:00 08/17/17 11:59 07/20/17 11:39 5 MG Heparin Sodium (Porcine) 4500 unit/Syringe 4.5 ml @ 10 mls/min 0915 ONCE IV 07/19/17 09:15 07/19/17 09:16 DC 07/19/17 09:12 10 MLS/MIN Hydromorphone HCl (Dilaudid Inj) 0.5 mg Q5M PRN IV 07/19/17 14:30 07/19/17 19:30 DC 07/19/17 17:49 0.5 MG Cefazolin Sodium (Ancef 2000mg Iv Push) 2,000 mg STK-MED ONCE IV 07/19/17 14:27 07/19/17 14:28 DC 07/19/17 15:21 2,000 MG Bupivacaine HCl (Marcaine 0.5% MPF Inj) 30 ml STK-MED ONCE .ROUTE 07/19/17 15:18 07/19/17 15:19 DC 07/19/17 16:45 10 ML Lidocaine HCl (Xylocaine 1% Inj (Local)) 20 ml STK-MED ONCE .ROUTE 07/19/17 15:19 07/19/17 15:20 DC 07/19/17 16:45 10 ML Bacitracin (Bacitracin Oint) 45 appln STK-MED ONCE .ROUTE 07/19/17 15:19 07/19/17 15:20 DC 07/19/17 16:45 45 APPLN Potassium Chloride/Dextrose/ Sod Cl 1,000 ml @ 150 mls/hr Q6H40M IV 07/19/17 17:00 08/18/17 16:59 07/20/17 11:36 150 MLS/HR Cefazolin Sodium 2000 mg/Syringe 15 ml @ 100 mls/hr Q8H IV 07/19/17 22:00 07/20/17 21:59 07/20/17 05:38 100 MLS/HR Heparin Sodium (Porcine) 3000 unit/Syringe 3 ml @ 10 mls/min NOW ONCE IV 07/20/17 03:30 07/20/17 03:31 DC 07/20/17 03:45 10 MLS/MIN Metoclopramide HCl (Reglan Inj) 10 mg Q8H IV. 07/20/17 12:00 08/19/17 11:59 07/20/17 11:38 10 MG Bisacodyl (Dulcolax Tab) 10 mg NOW ONCE PO 07/20/17 11:00 07/20/17 11:18 DC 07/20/17 11:38 10 MG (Preeti Mcadams CRNP) Objective Vital Signs Date Time Temp Pulse Resp B/P (MAP) Pulse Ox O2 Delivery O2 Flow Rate FiO2 07/20/17 11:39 101 113/78 07/20/17 08:00 Nasal Cannula 4.0 07/20/17 07:32 36.6 100 24 113/78 (90) 96 Nasal Cannula 4.0 07/20/17 05:38 107 07/20/17 03:30 96 Room Air 07/20/17 03:25 36.7 99 16 112/73 (86) 97 Nasal Cannula 4.0 07/20/17 00:40 86 113/77 07/20/17 00:00 Nasal Cannula 4.0 07/19/17 22:59 36.2 82 20 108/74 (85) 96 Nasal Cannula 4.0 07/19/17 22:02 36.3 80 18 109/76 (87) 96 Nasal Cannula 4.0 07/19/17 21:00 36.3 86 20 122/86 (98) 96 Nasal Cannula 4.0 07/19/17 20:30 36.2 82 18 116/80 (92) 96 Nasal Cannula 4.0 07/19/17 20:00 96 Room Air 07/19/17 19:59 36.2 77 20 117/81 (93) 96 Nasal Cannula 4.0 07/19/17 19:50 36.3 80 20 109/75 (86) 95 Nasal Cannula 4.0 07/19/17 19:38 36.3 84 16 113/78 (90) 96 4.0 07/19/17 19:34 94 113/78 07/19/17 19:28 36.6 81 16 122/84 (97) 95 Nasal Cannula 4.0 07/19/17 19:00 92 14 114/70 94 Nasal Cannula 4 07/19/17 18:45 92 21 101/74 95 Nasal Cannula 4 07/19/17 18:30 88 17 128/85 95 Nasal Cannula 4 07/19/17 18:15 36.4 80 19 111/84 95 Nasal Cannula 4 07/19/17 18:05 91 25 120/86 95 Nasal Cannula 4 07/19/17 17:55 87 17 119/86 95 Nasal Cannula 4 07/19/17 17:45 93 18 123/84 95 Oxymask 6 07/19/17 17:35 90 20 140/90 99 Oxymask 6 07/19/17 17:25 94 18 128/94 99 Oxymask 10 07/19/17 17:15 93 18 135/92 100 Oxymask 10 07/19/17 17:05 36.5 84 18 141/85 96 Oxymask 10 07/19/17 14:00 37.1 82 18 121/84 (96) 93 Room Air (Preeti Mcadams CRNP) Physical Exam Notes: General: no distress Eyes: normal inspection, PERLL Respiratory: chest non tender, clear to auscultation, normal breath sounds, no respiratory distress, no accessory muscle use Cardiac: regular rate and rhythm, no rub or gallop, no murmur, no edema, no jvd GI/: active bowel sounds, tender abdomen to palpation, soft, non distended, concentrated urine in Strickland bag Extremities: normal range of motion, normal strength, non tender Neuro/Psych: alert and oriented x 3, normal mood and affect Skin: normal color, dry (Preeti Mcadams CRNP) Laboratory Results Last 24 Hours Test 07/20/17 02:14 07/20/17 08:47 Activated Partial Thromboplast Time 44.3 SECONDS 75.6 SECONDS Partial Thromboplastin Ratio 1.7 2.9 White Blood Count 14.62 K/uL Red Blood Count 4.73 M/uL Hemoglobin 15.7 g/dL Hematocrit 46.7 % Mean Corpuscular Volume 98.7 fL Mean Corpuscular Hemoglobin 33.2 pg Mean Corpuscular Hemoglobin Concent 33.6 g/dl Platelet Count 132 K/uL Mean Platelet Volume 10.0 fL Neutrophils (%) (Auto) 62.8 % Lymphocytes (%) (Auto) 19.8 % Monocytes (%) (Auto) 15.5 % Eosinophils (%) (Auto) 1.0 % Basophils (%) (Auto) 0.1 % Neutrophils # (Auto) 9.18 K/uL Lymphocytes # (Auto) 2.90 K/uL Monocytes # (Auto) 2.26 K/uL Eosinophils # (Auto) 0.15 K/uL Basophils # (Auto) 0.02 K/uL RDW Standard Deviation 50.9 fL RDW Coefficient of Variation 14.2 % Immature Granulocyte % (Auto) 0.8 % Immature Granulocyte # (Auto) 0.11 K/uL Sodium Level 134 mmol/L Potassium Level 4.2 mmol/L Chloride Level 98 mmol/L Carbon Dioxide Level 30 mmol/L Anion Gap 6.0 mmol/L Blood Urea Nitrogen 10 mg/dl Creatinine 0.66 mg/dl Est Creatinine Clear Calc Drug Dose 105.7 ml/min Estimated GFR () 108.2 Estimated GFR (Non- 93.4 BUN/Creatinine Ratio 15.1 Random Glucose 130 mg/dl Calcium Level 8.2 mg/dl (Preeti Mcadams CRNP) Assessment and Plan Ms. Julio is a 66 year old female with prior CVA - left side flaccid here for SBO SBO - continue NPO status for now - oral meds converted to IV - Surgery consulted - s/p op day 1 exploratory lap and lysis of adhesions - morphine for pain - monitor for acute blood loss, cbc am UTI - Culture grew E.Coli - ampicillin resistant - continue Rocephin, last day of abx 07/23 - continue Strickland catheter Low Urine Output - continue with increased rate of fluids D51/2 NS 20K @150. A.fib/ history of prior CVA -continue scheduled IV metoprolol for heart rate - heart rates controlled, A.fib - Heparin drip resumed, patient takes Xeralto at home - continue telemetry monitoring Seizure disorder - continue IV depakote until able to take po, no seizure activity this admission Hypothyroidism - continue IV synthroid. switch to oral once tolerating PO Full code DVT prophylaxis with SCD, RAMA and heparin . (Preeti Mcadams CRNP) Supervising Note Dr. Bhat I performed a history and physical examination on the patient. I reviewed above note and agree with it. I discussed plan with APC and patient. During my face to face encounter with the patient, I answered all of the patient's questions. Patient is Post surgical day 1. Patient will be placed on clear liquid diet. Will assess how patient tolerates this and slowly progress her (Fly Bhat M.D.)
--- NOTE | 2017-07-20 15:40 | Surgery Progress Note ---
Surgery Progress Note Date of Service Jul 20, 2017. LATE ENTRY, PATIENT SEEN AT 9 AM Subjective Post OP Day: 1 (S/P EX LAP LYSIS OF ADHESIONS) patient slightly confused this morning, "please remove the cup from my hand" however when asked where she is she replies [facility] and when asked what happened yesterday she states she had surgery. Complaining of abdominal pain No nausea or vomiting Per nursing staff she had low urine output in mine shifter 150 cc, IV fluids increased to 150 cc/hr Objective Vital Signs: Date Time Temp Pulse Resp B/P (MAP) Pulse Ox O2 Delivery O2 Flow Rate FiO2 07/20/17 15:13 37.5 117 18 121/82 (95) 96 Nasal Cannula 4.0 07/20/17 12:04 37.0 108 20 135/84 (101) 96 Nasal Cannula 4.0 07/20/17 12:00 Nasal Cannula 4.0 07/20/17 11:39 101 113/78 07/20/17 08:00 Nasal Cannula 4.0 07/20/17 07:32 36.6 100 24 113/78 (90) 96 Nasal Cannula 4.0 07/20/17 05:38 107 07/20/17 03:30 96 Room Air 07/20/17 03:25 36.7 99 16 112/73 (86) 97 Nasal Cannula 4.0 07/20/17 00:40 86 113/77 07/20/17 00:00 Nasal Cannula 4.0 07/19/17 22:59 36.2 82 20 108/74 (85) 96 Nasal Cannula 4.0 07/19/17 22:02 36.3 80 18 109/76 (87) 96 Nasal Cannula 4.0 07/19/17 21:00 36.3 86 20 122/86 (98) 96 Nasal Cannula 4.0 07/19/17 20:30 36.2 82 18 116/80 (92) 96 Nasal Cannula 4.0 07/19/17 20:00 96 Room Air 07/19/17 19:59 36.2 77 20 117/81 (93) 96 Nasal Cannula 4.0 07/19/17 19:50 36.3 80 20 109/75 (86) 95 Nasal Cannula 4.0 07/19/17 19:38 36.3 84 16 113/78 (90) 96 4.0 07/19/17 19:34 94 113/78 07/19/17 19:28 36.6 81 16 122/84 (97) 95 Nasal Cannula 4.0 07/19/17 19:00 92 14 114/70 94 Nasal Cannula 4 07/19/17 18:45 92 21 101/74 95 Nasal Cannula 4 07/19/17 18:30 88 17 128/85 95 Nasal Cannula 4 07/19/17 18:15 36.4 80 19 111/84 95 Nasal Cannula 4 07/19/17 18:05 91 25 120/86 95 Nasal Cannula 4 07/19/17 17:55 87 17 119/86 95 Nasal Cannula 4 07/19/17 17:45 93 18 123/84 95 Oxymask 6 07/19/17 17:35 90 20 140/90 99 Oxymask 6 07/19/17 17:25 94 18 128/94 99 Oxymask 10 07/19/17 17:15 93 18 135/92 100 Oxymask 10 07/19/17 17:05 36.5 84 18 141/85 96 Oxymask 10 General Appearance: no apparent distress, + obese Head: normocephalic, atraumatic Neck: trachea midline Respiratory/Chest: no respiratory distress, no accessory muscle use Abdomen: non distended, soft, no organomegaly, + abnormal bowel sounds ( hypoactive bowel sounds) Incision(s): clean, dry (dressing clean and dry, incision not inspected) Laboratory Results: Results Past 24 Hours Test 07/20/17 02:14 07/20/17 08:47 07/20/17 15:27 Range/Units Activated Partial Thromboplast Time 44.3 75.6 21.0-31.0 SECONDS Partial Thromboplastin Ratio 1.7 2.9 White Blood Count 14.62 4.8-10.8 K/uL Red Blood Count 4.73 4.2-5.4 M/uL Hemoglobin 15.7 12.0-16.0 g/dL Hematocrit 46.7 37-47 % Mean Corpuscular Volume 98.7 80-100 fL Mean Corpuscular Hemoglobin 33.2 25-34 pg Mean Corpuscular Hemoglobin Concent 33.6 32-36 g/dl Platelet Count 132 130-400 K/uL Mean Platelet Volume 10.0 7.4-10.4 fL Neutrophils (%) (Auto) 62.8 % Lymphocytes (%) (Auto) 19.8 % Monocytes (%) (Auto) 15.5 % Eosinophils (%) (Auto) 1.0 % Basophils (%) (Auto) 0.1 % Neutrophils # (Auto) 9.18 1.4-6.5 K/uL Lymphocytes # (Auto) 2.90 1.2-3.4 K/uL Monocytes # (Auto) 2.26 0.11-0.59 K/uL Eosinophils # (Auto) 0.15 0-0.5 K/uL Basophils # (Auto) 0.02 0-0.2 K/uL RDW Standard Deviation 50.9 36.4-46.3 fL RDW Coefficient of Variation 14.2 11.5-14.5 % Immature Granulocyte % (Auto) 0.8 % Immature Granulocyte # (Auto) 0.11 0.00-0.02 K/uL Sodium Level 134 136-145 mmol/L Potassium Level 4.2 3.5-5.1 mmol/L Chloride Level 98 98-107 mmol/L Carbon Dioxide Level 30 21-32 mmol/L Anion Gap 6.0 3-11 mmol/L Blood Urea Nitrogen 10 7-18 mg/dl Creatinine 0.66 0.60-1.20 mg/dl Est Creatinine Clear Calc Drug Dose 105.7 ml/min Estimated GFR () 108.2 Estimated GFR (Non- 93.4 BUN/Creatinine Ratio 15.1 10-20 Random Glucose 130 70-99 mg/dl Calcium Level 8.2 8.5-10.1 mg/dl Assessment & Plan POD # 1 s/p ex lap, lysis of adhesion -vitals stable other than some tachycardia most likely from post op pain - afebrile post op - abdominal pain controlled - no flatus or bowel movement -scant NGT output overnight - abdomen soft, tender, nondistended Plan: Continue current pain management keep o2 sats >92% discontinue NGT, start clear liquids, advised patient to go slow Iv Reglan 10 mg q 8 hours One time Dulcolax 10 mg PO Continue Quinn to monitor urine ouptut, BUN/Creatinine wnl Continue IV fluids at 150 cc/hr Continue IV Heparin repeat am labs PT/OT consults Dr. Beatty has seen and examined patient, agrees with above
[2017-07-20] MEDS ORDERED: ACETAMINOPHEN 500 MG TAB PO ONE (20:05)
[2017-07-21] MEDS: METOPROLOL TARTRATE 1 MG/ML VIAL IV. SCH ×2 (00:19→06:20)
[2017-07-21] MEDS: D5W AND 1/2NSS + 20MEQ KCL 1,000 ML IV SCH ×3 (01:38→15:19)
[2017-07-21] MEDS: MoRPHine SULFATE 4 MG/ML 1 ML CARP\\VIAL IV PRN (01:47)
[2017-07-21] MEDS: METOCLOPRAMIDE HCL INJ 5 MG/ML 2 ML VIAL IV. SCH ×3 (04:15→19:49)
[2017-07-21 04:59] VITALS: BP 116/83; PULSE 112; TEMP 37; O2SAT 95
[2017-07-21 07:01] LABS: BASO % 0.2 %; BASO ABS # 0.02 K/uL (0-0.2); EOS % 2.1 %; EOS ABS # 0.25 K/uL (0-0.5); HEMATOCRIT 42.6 % (37-47); HEMOGLOBIN 13.7 g/dL (12.0-16.0); IG# 0.07 K/uL (0.00-0.02); LYMPH % 23.7 %; LYMPH ABS # 2.85 K/uL (1.2-3.4); MEAN CELL VOLUME 98.4 fL (80-100); MEAN CORPUSCULAR HEMOGLOBIN 31.6 pg (25-34); MEAN CORPUSCULAR HGB CONC 32.2 g/dl (32-36); MEAN PLATELET VOLUME 10.3 fL (7.4-10.4); MONO % 17.3 %; MONO ABS # 2.08 K/uL (0.11-0.59); NEUT % 56.1 %; NEUT ABS # 6.74 K/uL (1.4-6.5); PLATELET COUNT 122 K/uL (130-400); RED CELL DISTRIBUTION WIDTH CV 14.3 % (11.5-14.5); RED CELL DISTRIBUTION WIDTH SD 51.4 fL (36.4-46.3); WHITE BLOOD COUNT 12.01 K/uL (4.8-10.8)
[2017-07-21 07:22] LABS: PTT PATIENT 66.7 SECONDS (21.0-31.0)
[2017-07-21 07:36] LABS: CREATININE 0.55 mg/dl (0.60-1.20); POTASSIUM 4.1 mmol/L (3.5-5.1)
[2017-07-21 07:37] VITALS: BP 109/71; PULSE 105; TEMP 37.1; O2SAT 96
[2017-07-21] MEDS ORDERED: ONDANSETRON 4MG OD TAB SL PRN (08:45)
[2017-07-21] MEDS: VALPROATE SOD IV 500 MG in DEXTROSE 5% 50ML 50 ML IV SCH (08:55)
[2017-07-21] MEDS: LEVOTHYROXINE SODIUM INJ 37.5 MCG in SYRINGE 0 ML IV SCH (08:55)
[2017-07-21] MEDS: PANTOprazole INJ 40 MG in SYRINGE 0 ML IV SCH (08:55)
[2017-07-21] MEDS ORDERED: RIVAROXABAN 10 MG TAB PO SCH (09:00)
[2017-07-21] MEDS ORDERED: BISACODYL 10 MG SUPP PR STA (09:33)
[2017-07-21] MEDS ORDERED: BISACODYL 5 MG TABEC PO ONE (09:34)
--- NOTE | 2017-07-21 10:45 | Surgery Progress Note ---
Surgery Progress Note Date of Service Jul 21, 2017. Subjective Post OP Day: 2 + feeling well pt feels better today, less abdominal pain, no nausea, no vomiting, she tolerated clear diet, not pass gas yet, Objective Vital Signs: Date Time Temp Pulse Resp B/P (MAP) Pulse Ox O2 Delivery O2 Flow Rate FiO2 07/21/17 07:37 37.1 105 22 109/71 (84) 96 Nasal Cannula 4.0 07/21/17 06:20 108 112/71 07/21/17 04:59 37.0 112 20 116/83 (94) 95 Nasal Cannula 4.0 07/21/17 04:00 Nasal Cannula 4.0 07/21/17 00:19 132 114/78 07/21/17 00:00 Nasal Cannula 4.0 07/20/17 23:38 36.9 128 18 114/78 (90) 95 Nasal Cannula 4.0 07/20/17 20:00 97 Nasal Cannula 4.0 07/20/17 19:10 38.2 103 18 108/74 (85) 97 Nasal Cannula 4.0 07/20/17 18:55 126 115/72 07/20/17 16:00 96 Nasal Cannula 4.0 07/20/17 15:13 37.5 117 18 121/82 (95) 96 Nasal Cannula 4.0 07/20/17 12:04 37.0 108 20 135/84 (101) 96 Nasal Cannula 4.0 07/20/17 12:00 Nasal Cannula 4.0 07/20/17 11:39 101 113/78 General Appearance: WD/WN, no apparent distress Head: normocephalic Neck: supple, no JVD Respiratory/Chest: chest non-tender, lungs clear, normal breath sounds Cardiovascular: regular rate, rhythm, no edema, no gallop Abdomen: normal bowel sounds, non tender, non distended, soft, no organomegaly Incision(s): clean, dry, intact Extremities: non-tender Laboratory Results: Results Past 24 Hours Test 07/20/17 15:27 07/21/17 06:41 Range/Units Activated Partial Thromboplast Time 56.0 66.7 21.0-31.0 SECONDS Partial Thromboplastin Ratio 2.2 2.6 White Blood Count 12.01 4.8-10.8 K/uL Red Blood Count 4.33 4.2-5.4 M/uL Hemoglobin 13.7 12.0-16.0 g/dL Hematocrit 42.6 37-47 % Mean Corpuscular Volume 98.4 80-100 fL Mean Corpuscular Hemoglobin 31.6 25-34 pg Mean Corpuscular Hemoglobin Concent 32.2 32-36 g/dl Platelet Count 122 130-400 K/uL Mean Platelet Volume 10.3 7.4-10.4 fL Neutrophils (%) (Auto) 56.1 % Lymphocytes (%) (Auto) 23.7 % Monocytes (%) (Auto) 17.3 % Eosinophils (%) (Auto) 2.1 % Basophils (%) (Auto) 0.2 % Neutrophils # (Auto) 6.74 1.4-6.5 K/uL Lymphocytes # (Auto) 2.85 1.2-3.4 K/uL Monocytes # (Auto) 2.08 0.11-0.59 K/uL Eosinophils # (Auto) 0.25 0-0.5 K/uL Basophils # (Auto) 0.02 0-0.2 K/uL RDW Standard Deviation 51.4 36.4-46.3 fL RDW Coefficient of Variation 14.3 11.5-14.5 % Immature Granulocyte % (Auto) 0.6 % Immature Granulocyte # (Auto) 0.07 0.00-0.02 K/uL Sodium Level 134 136-145 mmol/L Potassium Level 4.1 3.5-5.1 mmol/L Chloride Level 100 98-107 mmol/L Carbon Dioxide Level 28 21-32 mmol/L Anion Gap 6.0 3-11 mmol/L Blood Urea Nitrogen 5 7-18 mg/dl Creatinine 0.55 0.60-1.20 mg/dl Est Creatinine Clear Calc Drug Dose 131.2 ml/min Estimated GFR () 114.9 Estimated GFR (Non- 99.1 BUN/Creatinine Ratio 9.4 10-20 Random Glucose 114 70-99 mg/dl Calcium Level 8.0 8.5-10.1 mg/dl Assessment & Plan CT scan-FINDINGS: Lower chest: The heart is normal in size and configuration, without pericardial effusion. The lung bases and pleural spaces are clear. Liver: The contrast-enhanced liver is normal in size, contour, and attenuation. There is no intrahepatic biliary ductal dilatation. The hepatic veins and portal veins are patent. Gallbladder: Multiple gallstones. Spleen: Normal in size and attenuation. Pancreas: Unremarkable. Adrenal glands: Unremarkable. Kidneys: There is slightly heterogeneous left renal enhancement. No focal masses are visualized. Pyelonephritis cannot be excluded. Please correlate clinically. Bowel: There are multiple dilated small bowel loops with a persistent transition zone within the right mid abdomen. There is associated mesenteric swirl pattern. The findings could indicate an internal hernia or twist from an adhesion. The colon is decompressed. The appendix appears normal Peritoneum: There is no intraperitoneal free air or abdominal ascites. Vasculature: There is no evidence of abdominal aortic aneurysm. There is an indwelling IVC filter. Several struts protrude beyond the IVC lumen Adenopathy: None. Pelvic viscera: The uterus appears surgically absent Skeletal structures: There are no destructive lesions visualized. There is a scoliosis. There is a lumbar spinal stenosis. IMPRESSION: 1. Persistent small bowel obstruction. There is a persistent mesenteric swirl sign, likely secondary to either an internal hernia or adhesion. 2. Cholelithiasis 3. Subtle inhomogeneous left renal enhancement. Clinical correlation to exclude pyelonephritis is recommended KUB 07/19/2017 FINDINGS: Tip of nasogastric tube projects over the distal body of the stomach. IVC filter is noted. There are gallstones. Marked small bowel not significant change. There is a paucity of colonic gas. IMPRESSION: 1. Findings consistent with a persistent moderate to high-grade small bowel obstruction. 2. Interval placement of a nasogastric tube which is appropriately positioned. Assessment: pt is 66 year old female who was admitted to hospital for SBO, not pass any gas and BM for 3 days, pt has history- hysterectomy, CVA, left side body paralysis, DVT, A-Fib, Dr. Regalado and me recommend to do exploratory laparotomy, possible bowel resection or stoma, D/W benefits, risks and alternatives of the procedure with pt and her , the risks - infection, bleeding, injury bowel,DVT, [place], stroke, , they understood, they agree with the plan, I answered all questions, Hold heparin now, 07/21/2017 doing better, not pass gas yet, dulcolax 10 mg SC PT consult will F/U CT scan-FINDINGS: Lower chest: The heart is normal in size and configuration, without pericardial effusion. The lung bases and pleural spaces are clear. Liver: The contrast-enhanced liver is normal in size, contour, and attenuation. There is no intrahepatic biliary ductal dilatation. The hepatic veins and portal veins are patent. Gallbladder: Multiple gallstones. Spleen: Normal in size and attenuation. Pancreas: Unremarkable. Adrenal glands: Unremarkable. Kidneys: There is slightly heterogeneous left renal enhancement. No focal masses are visualized. Pyelonephritis cannot be excluded. Please correlate clinically. Bowel: There are multiple dilated small bowel loops with a persistent transition zone within the right mid abdomen. There is associated mesenteric swirl pattern. The findings could indicate an internal hernia or twist from an adhesion. The colon is decompressed. The appendix appears normal Peritoneum: There is no intraperitoneal free air or abdominal ascites. Vasculature: There is no evidence of abdominal aortic aneurysm. There is an indwelling IVC filter. Several struts protrude beyond the IVC lumen Adenopathy: None. Pelvic viscera: The uterus appears surgically absent Skeletal structures: There are no destructive lesions visualized. There is a scoliosis. There is a lumbar spinal stenosis. IMPRESSION: 1. Persistent small bowel obstruction. There is a persistent mesenteric swirl sign, likely secondary to either an internal hernia or adhesion. 2. Cholelithiasis 3. Subtle inhomogeneous left renal enhancement. Clinical correlation to exclude pyelonephritis is recommended KUB 07/19/2017 FINDINGS: Tip of nasogastric tube projects over the distal body of the stomach. IVC filter is noted. There are gallstones. Marked small bowel not significant change. There is a paucity of colonic gas.
[2017-07-21] MEDS: HEPARIN 25,000 UNIT/500ML D5W 500 ML IV SCH (10:48)
[2017-07-21] MEDS: MoRPHine SULFATE 2 MG/ML CARP IV PRN ×2 (11:09→15:20)
[2017-07-21] MEDS: RANITIDINE HCL 150 MG TAB PO SCH (11:09)
[2017-07-21] MEDS: PRAVASTATIN SOD 20 MG TAB PO SCH (11:09)
[2017-07-21] MEDS: ASCORBIC ACID 500 MG TAB PO SCH ×2 (11:10→21:26)
[2017-07-21] MEDS: AMIODARONE 200 MG TAB PO SCH (11:10)
[2017-07-21] MEDS: SENNA 8.6 MG TAB PO SCH (11:10)
[2017-07-21] MEDS: METOPROLOL SUCC 25MG EXT REL TAB PO SCH (11:10)
[2017-07-21] MEDS: DOCUSATE SODIUM 100 MG CAP PO SCH ×2 (11:10→21:26)
--- NOTE | 2017-07-21 11:11 | Hospitalist Progress Note ---
Hospitalist Progress Note Date of Service Jul 21, 2017. Subjective Pt evaluation today including: conversation w/ patient, physical exam, chart review, lab review, review of inpatient medication list Voiding: no voiding problems Ms. Julio is a bit confused this morning though easy to reorient. She initially though she was at home when asked but remembered she had surgery when reminded that she was in the hospital. She continues to have abdominal pain but is not nauseas. ROS Constitutional: no chills, aches, sweats or fever Respiratory: no sob,cough, sputum, or wheezing Cardiac: no chest pain, palpitations, edema, orthopnea or lightheadedness GI: no nausea, vomiting, diarrhea or constipation : no dysuria or hesitancy Extremities: no joint pain or weakness Skin: no rash All other systems reviewed and negative Medications Medications Administered Medications (Trade) Dose Ordered Sig/Carleen Route Start Time Stop Time Status Last Admin Dose Admin Sodium Chloride 500 ml @ 999 mls/hr Q31M STAT IV 07/17/17 10:48 07/17/17 11:18 DC 07/17/17 11:23 999 MLS/HR Ondansetron HCl (Zofran Inj) 4 mg NOW STAT IV 07/17/17 10:48 07/17/17 10:50 DC 07/17/17 11:23 4 MG Ceftriaxone Sodium (Rocephin Inj) 1 gm NOW STAT IV 07/17/17 12:30 07/17/17 12:31 DC 07/17/17 12:42 1 GM Ondansetron HCl (Zofran Inj) 4 mg Q6H PRN IV 07/17/17 13:45 08/16/17 13:44 07/20/17 08:22 4 MG Dextrose/Sodium Chloride 1,000 ml @ 100 mls/hr Q10H IV 07/17/17 16:30 07/19/17 16:52 DC 07/19/17 08:37 100 MLS/HR Pantoprazole Sodium 40 mg/ Syringe 10 ml @ 5 mls/min DAILY@11 IV 07/18/17 11:00 08/17/17 10:59 07/21/17 08:55 5 MLS/MIN Valproate Sodium 500 mg/Dextrose 55 ml @ 55 mls/hr Q12H IV 07/17/17 21:00 07/21/17 10:43 DC 07/21/17 08:55 55 MLS/HR Levothyroxine Sodium 37.5 mcg/ Syringe 1.875 ml @ 2 mls/min DAILY@09 IV 07/18/17 09:00 08/17/17 08:59 07/21/17 08:55 2 MLS/MIN Heparin Sodium/ Dextrose (Heparin 25,000 Unit/500ml D5W) 25,000 unit STK-MED ONCE .ROUTE 07/17/17 15:54 07/17/17 15:55 DC 07/17/17 16:04 19 UNIT Heparin Sodium/ Dextrose 500 ml @ 28 mls/hr [id number] IV 07/17/17 16:30 08/16/17 16:29 07/20/17 15:47 28 MLS/HR Heparin Sodium (Porcine) 4500 unit/Syringe 4.5 ml @ 10 mls/min NOW ONCE IV 07/17/17 23:15 07/17/17 23:16 DC 07/17/17 23:50 10 MLS/MIN Heparin Sodium (Porcine) 4500 unit/Syringe 4.5 ml @ 10 mls/min NOW ONCE IV 07/18/17 06:45 07/18/17 06:46 DC 07/18/17 07:08 10 MLS/MIN Morphine Sulfate (MoRPHine SULFATE INJ) 2 mg Q2H PRN IV 07/18/17 08:30 08/01/17 08:29 07/20/17 05:40 2 MG Morphine Sulfate (MoRPHine SULFATE INJ) 4 mg Q2H PRN IV 07/18/17 08:30 08/01/17 08:29 07/21/17 01:47 4 MG Ceftriaxone Sodium 1 gm/ Dextrose 50 ml @ 100 mls/hr Q24H IV 07/18/17 11:00 07/19/17 17:09 DC 07/19/17 11:32 100 MLS/HR Metoprolol Tartrate (Lopressor Iv) 5 mg Q6 IV. 07/18/17 12:00 07/21/17 08:52 DC 07/21/17 06:20 5 MG Heparin Sodium (Porcine) 4500 unit/Syringe 4.5 ml @ 10 mls/min 0915 ONCE IV 07/19/17 09:15 07/19/17 09:16 DC 07/19/17 09:12 10 MLS/MIN Hydromorphone HCl (Dilaudid Inj) 0.5 mg Q5M PRN IV 07/19/17 14:30 07/19/17 19:30 DC 07/19/17 17:49 0.5 MG Cefazolin Sodium (Ancef 2000mg Iv Push) 2,000 mg STK-MED ONCE IV 07/19/17 14:27 07/19/17 14:28 DC 07/19/17 15:21 2,000 MG Bupivacaine HCl (Marcaine 0.5% MPF Inj) 30 ml STK-MED ONCE .ROUTE 07/19/17 15:18 07/19/17 15:19 DC 07/19/17 16:45 10 ML Lidocaine HCl (Xylocaine 1% Inj (Local)) 20 ml STK-MED ONCE .ROUTE 07/19/17 15:19 07/19/17 15:20 DC 07/19/17 16:45 10 ML Bacitracin (Bacitracin Oint) 45 appln STK-MED ONCE .ROUTE 07/19/17 15:19 07/19/17 15:20 DC 07/19/17 16:45 45 APPLN Potassium Chloride/Dextrose/ Sod Cl 1,000 ml @ 150 mls/hr Q6H40M IV 07/19/17 17:00 08/18/17 16:59 07/21/17 08:55 150 MLS/HR Cefazolin Sodium 2000 mg/Syringe 15 ml @ 100 mls/hr Q8H IV 07/19/17 22:00 07/20/17 21:59 DC 07/20/17 13:25 100 MLS/HR Heparin Sodium (Porcine) 3000 unit/Syringe 3 ml @ 10 mls/min NOW ONCE IV 07/20/17 03:30 07/20/17 03:31 DC 07/20/17 03:45 10 MLS/MIN Metoclopramide HCl (Reglan Inj) 10 mg Q8H IV. 07/20/17 12:00 08/19/17 11:59 07/21/17 04:15 10 MG Bisacodyl (Dulcolax Tab) 10 mg NOW ONCE PO 07/20/17 11:00 07/20/17 11:18 DC 07/20/17 11:38 10 MG Acetaminophen (Tylenol Tab) 1,000 mg STK-MED ONCE PO 07/20/17 20:05 07/20/17 20:06 DC 07/20/17 20:11 1,000 MG Objective Vital Signs Date Time Temp Pulse Resp B/P (MAP) Pulse Ox O2 Delivery O2 Flow Rate FiO2 07/21/17 07:37 37.1 105 22 109/71 (84) 96 Nasal Cannula 4.0 07/21/17 06:20 108 112/71 07/21/17 04:59 37.0 112 20 116/83 (94) 95 Nasal Cannula 4.0 07/21/17 04:00 Nasal Cannula 4.0 07/21/17 00:19 132 114/78 07/21/17 00:00 Nasal Cannula 4.0 07/20/17 23:38 36.9 128 18 114/78 (90) 95 Nasal Cannula 4.0 07/20/17 20:00 97 Nasal Cannula 4.0 07/20/17 19:10 38.2 103 18 108/74 (85) 97 Nasal Cannula 4.0 07/20/17 18:55 126 115/72 07/20/17 16:00 96 Nasal Cannula 4.0 07/20/17 15:13 37.5 117 18 121/82 (95) 96 Nasal Cannula 4.0 07/20/17 12:04 37.0 108 20 135/84 (101) 96 Nasal Cannula 4.0 07/20/17 12:00 Nasal Cannula 4.0 07/20/17 11:39 101 113/78 Physical Exam Notes: General: no distress Eyes: normal inspection, PERLL Respiratory: chest non tender, clear to auscultation, normal breath sounds, no respiratory distress, no accessory muscle use Cardiac: regular rate and rhythm, no rub or gallop, no murmur, no edema, no jvd GI/: active bowel sounds, no abd pain or tenderness, soft, non distended Extremities: normal range of motion, normal strength, non tender Neuro/Psych: alert and oriented x 3, normal mood and affect Skin: normal color, dry Laboratory Results Last 24 Hours Test 07/20/17 15:27 07/21/17 06:41 Activated Partial Thromboplast Time 56.0 SECONDS 66.7 SECONDS Partial Thromboplastin Ratio 2.2 2.6 White Blood Count 12.01 K/uL Red Blood Count 4.33 M/uL Hemoglobin 13.7 g/dL Hematocrit 42.6 % Mean Corpuscular Volume 98.4 fL Mean Corpuscular Hemoglobin 31.6 pg Mean Corpuscular Hemoglobin Concent 32.2 g/dl Platelet Count 122 K/uL Mean Platelet Volume 10.3 fL Neutrophils (%) (Auto) 56.1 % Lymphocytes (%) (Auto) 23.7 % Monocytes (%) (Auto) 17.3 % Eosinophils (%) (Auto) 2.1 % Basophils (%) (Auto) 0.2 % Neutrophils # (Auto) 6.74 K/uL Lymphocytes # (Auto) 2.85 K/uL Monocytes # (Auto) 2.08 K/uL Eosinophils # (Auto) 0.25 K/uL Basophils # (Auto) 0.02 K/uL RDW Standard Deviation 51.4 fL RDW Coefficient of Variation 14.3 % Immature Granulocyte % (Auto) 0.6 % Immature Granulocyte # (Auto) 0.07 K/uL Sodium Level 134 mmol/L Potassium Level 4.1 mmol/L Chloride Level 100 mmol/L Carbon Dioxide Level 28 mmol/L Anion Gap 6.0 mmol/L Blood Urea Nitrogen 5 mg/dl Creatinine 0.55 mg/dl Est Creatinine Clear Calc Drug Dose 131.2 ml/min Estimated GFR () 114.9 Estimated GFR (Non- 99.1 BUN/Creatinine Ratio 9.4 Random Glucose 114 mg/dl Calcium Level 8.0 mg/dl Assessment and Plan Ms. Julio is a 66 year old female with prior CVA - left side flaccid here for SBO SBO - placed on clear liquid diet - IV meds converted to oral - Surgery consulted - s/p op day 2 exploratory lap and lysis of adhesions - morphine for pain - monitor for acute blood loss, cbc am UTI - Culture grew E.Coli - ampicillin resistant - continue Rocephin, last day of abx 07/23 - continue Quinn catheter Low Urine Output - continue with increased rate of fluids D51/2 NS 20K @150 - patient's output increasing A.fib/ history of prior CVA -restarted po metoprolol, continue prn IV metoprolol for heart rate - heart rates controlled, A.fib - continue heparin gtt, patient takes Xeralto at home - appreciate surgery recommendation as to when to restart - continue telemetry monitoring - has been slightly tachycardic, hopefully this will start to resolve now that she is taking her home medication regimen Seizure disorder - changed to po depakote from IV, no seizure activity this admission Hypothyroidism - changed to po synthroid from IV synthroid Full code DVT prophylaxis with SCD, RAMA and heparin .
[2017-07-21 12:00] VITALS: BP 123/83; PULSE 105; TEMP 36.9; O2SAT 97
[2017-07-21] MEDS ORDERED: NURSING VERBAL MED ORDER ONE (12:30)
[2017-07-21 15:54] VITALS: BP 115/76; PULSE 113; TEMP 38.1; O2SAT 93
[2017-07-21] MEDS ORDERED: ERTAPENEM 1 GM ADDVIAL IV ONE (18:45)
[2017-07-21 19:45] VITALS: BP 111/72; PULSE 101; TEMP 37.6; O2SAT 94
[2017-07-21] MEDS: ERTAPENEM IV 1 GM in SODIUM CHLOR 0.9% AD-VAN 50ML 50 ML IV SCH (19:49)
--- NOTE | 2017-07-21 20:06 | DIAGNOSTIC IMAGING REPORT ---
CHEST ONE VIEW PORTABLE HISTORY: Fever. COMPARISON: Chest 07/17/2017. FINDINGS: No pneumothorax. No pleural effusions. The heart remains mildly enlarged. There is perihilar interstitial and vascular thickening suggestive of mild congestive change. No new focal lung consolidations. Linear density at the left lower lung zone may represent subsegmental atelectasis. IMPRESSION: Low lung volumes with mild central pulmonary vascular congestion without overt edema. Electronically signed by: Viraj Avila M.D. 07/21/2017 8:04 PM Dictated Date/Time: 07/21/2017 8:03 PM
[2017-07-21] MEDS: DIVALPROEX 500 MG EXTENDED RELEASE TAB PO SCH (20:20)
[2017-07-21 22:35] LABS: INFLUENZA A PCR Neg for Influ A (NEG); INFLUENZA B PCR Neg for Influ B (NEG)
[2017-07-21 23:46] VITALS: BP 113/77; PULSE 111; TEMP 37.4; O2SAT 95
[2017-07-22] MEDS: D5W AND 1/2NSS + 20MEQ KCL 1,000 ML IV SCH ×2 (03:45→15:35)
[2017-07-22] MEDS: METOCLOPRAMIDE HCL INJ 5 MG/ML 2 ML VIAL IV. SCH ×3 (03:49→19:17)
[2017-07-22] MEDS: MoRPHine SULFATE 2 MG/ML CARP IV PRN ×4 (04:05→19:06)
[2017-07-22 04:27] VITALS: BP 121/80; PULSE 112; TEMP 36.9; O2SAT 96
[2017-07-22] MEDS: HEPARIN 25,000 UNIT/500ML D5W 500 ML IV SCH ×2 (06:28→08:35)
[2017-07-22 06:59] LABS: BASO % 0.2 %; BASO ABS # 0.02 K/uL (0-0.2); EOS % 2.5 %; EOS ABS # 0.29 K/uL (0-0.5); HEMATOCRIT 41.5 % (37-47); HEMOGLOBIN 13.4 g/dL (12.0-16.0); IG# 0.05 K/uL (0.00-0.02); LYMPH % 20.2 %; LYMPH ABS # 2.31 K/uL (1.2-3.4); MEAN CELL VOLUME 98.8 fL (80-100); MEAN CORPUSCULAR HEMOGLOBIN 31.9 pg (25-34); MEAN CORPUSCULAR HGB CONC 32.3 g/dl (32-36); MEAN PLATELET VOLUME 10.2 fL (7.4-10.4); MONO % 14.9 %; NEUT % 61.8 %; NEUT ABS # 7.06 K/uL (1.4-6.5); PLATELET COUNT 124 K/uL (130-400); RED CELL DISTRIBUTION WIDTH CV 14.5 % (11.5-14.5); RED CELL DISTRIBUTION WIDTH SD 52.2 fL (36.4-46.3); WHITE BLOOD COUNT 11.43 K/uL (4.8-10.8)
[2017-07-22 07:19] VITALS: BP 102/72; PULSE 97; TEMP 36.8; O2SAT 95
[2017-07-22] MEDS: LEVOTHYROXINE SODIUM INJ 37.5 MCG in SYRINGE 0 ML IV SCH (07:41)
[2017-07-22] MEDS ORDERED: HEPARIN IV BOLUS 4,500 UNIT in SYRINGE 0 ML IV ONE (08:00)
[2017-07-22] MEDS: DOCUSATE SODIUM 100 MG CAP PO SCH ×2 (08:07→20:42)
[2017-07-22] MEDS: SENNA 8.6 MG TAB PO SCH (08:07)
[2017-07-22] MEDS: DIVALPROEX 500 MG EXTENDED RELEASE TAB PO SCH ×2 (08:08→20:42)
[2017-07-22] MEDS: ASCORBIC ACID 500 MG TAB PO SCH ×2 (08:08→20:42)
[2017-07-22 08:30] LABS: BASO % 0.2 %; BASO ABS # 0.02 K/uL (0-0.2); EOS % 2.9 %; EOS ABS # 0.33 K/uL (0-0.5); HEMATOCRIT 40.8 % (37-47); HEMOGLOBIN 13.2 g/dL (12.0-16.0); IG# 0.05 K/uL (0.00-0.02); LYMPH % 20.7 %; LYMPH ABS # 2.34 K/uL (1.2-3.4); MEAN CORPUSCULAR HGB CONC 32.4 g/dl (32-36); MEAN PLATELET VOLUME 10.3 fL (7.4-10.4); MONO % 14.2 %; NEUT % 61.6 %; NEUT ABS # 6.95 K/uL (1.4-6.5); PLATELET COUNT 120 K/uL (130-400); RED CELL DISTRIBUTION WIDTH CV 14.3 % (11.5-14.5); RED CELL DISTRIBUTION WIDTH SD 51.4 fL (36.4-46.3); WHITE BLOOD COUNT 11.29 K/uL (4.8-10.8)
[2017-07-22 08:49] LABS: CREATININE 0.54 mg/dl (0.60-1.20)
[2017-07-22 08:50] LABS: CALCIUM 8.3 mg/dl (8.5-10.1); PHOSPHORUS 2.9 mg/dl (2.5-4.9); POTASSIUM 4.1 mmol/L (3.5-5.1)
[2017-07-22] MEDS: AMIODARONE 200 MG TAB PO SCH (09:02)
[2017-07-22] MEDS: LEVOTHYROXINE 75 MCG TAB PO SCH (09:02)
[2017-07-22] MEDS: PRAVASTATIN SOD 20 MG TAB PO SCH (09:02)
[2017-07-22] MEDS: METOPROLOL SUCC 25MG EXT REL TAB PO SCH (09:03)
[2017-07-22] MEDS: RANITIDINE HCL 150 MG TAB PO SCH (09:03)
[2017-07-22 10:36] VITALS: BP 115/78; PULSE 102; TEMP 36.9; O2SAT 99
--- NOTE | 2017-07-22 11:00 | Progress Note ---
Progress Note Date of Service Jul 22, 2017. Progress Note ID Consult Dictated #[id number] A/P: 1. Post op Fever -Atelectasis on CXR, ? source, continue incentive spirometry -Doubt UTI, repeat ua negative -Blood cultures pending, if negative, can stop abx -thank you
[2017-07-22] MEDS: PANTOprazole INJ 40 MG in SYRINGE 0 ML IV SCH (11:38)
--- NOTE | 2017-07-22 12:00 | Surgery Progress Note ---
Surgery Progress Note Date of Service Jul 22, 2017. Subjective Post OP Day: 3 (s/p ex lap, lysis of adhesions) Patient states she is not feeling well but then doesn't reply with an answer why. States she is nauseated at times Denies of any abdominal pain at this time Tmax yesterday 38.1 at 3 pm, afebrile overnight UA repeated negative, CXR with possible atelectasis Objective Vital Signs: Date Time Temp Pulse Resp B/P (MAP) Pulse Ox O2 Delivery O2 Flow Rate FiO2 07/22/17 08:00 Nasal Cannula 2.0 07/22/17 07:19 36.8 97 20 102/72 (82) 95 07/22/17 04:27 36.9 112 18 121/80 (94) 96 Nasal Cannula 2.0 07/22/17 04:00 Nasal Cannula 2.0 07/22/17 03:49 132 131/92 07/22/17 00:00 Nasal Cannula 2.0 07/21/17 23:46 37.4 111 19 113/77 (89) 95 Nasal Cannula 2.0 07/21/17 20:00 Nasal Cannula 2.0 07/21/17 19:45 37.6 101 20 111/72 (85) 94 Nasal Cannula 2.0 07/21/17 16:00 Room Air 07/21/17 15:54 38.1 113 20 115/76 (89) 93 Room Air 07/21/17 12:00 Nasal Cannula 4.0 07/21/17 12:00 36.9 105 16 123/83 (96) 97 Nasal Cannula 4.0 General Appearance: no apparent distress, + obese Head: normocephalic, atraumatic Neck: trachea midline Respiratory/Chest: no respiratory distress, no accessory muscle use Abdomen: non distended, soft, no organomegaly, no pulsatile mass, + tenderness (generalized, appropraite post op, no peritonitis) Incision(s): clean, dry, intact, no erythema, no drainage, findings (clint intact) Laboratory Results: Results Past 24 Hours Test 07/21/17 20:20 07/21/17 21:50 07/22/17 06:40 07/22/17 07:46 Range/Units Urine Color YELLOW Urine Appearance CLEAR CLEAR Urine pH 5.5 4.5-7.5 Urine Specific [place] 1.007 1.000-1.030 Urine Protein NEG NEG Urine Glucose (UA) NEG NEG Urine Ketones NEG NEG Urine Occult Blood NEG NEG Urine Nitrite NEG NEG Urine Bilirubin NEG NEG Urine Urobilinogen NEG NEG Urine Leukocyte Esterase TRACE NEG Urine WBC (Auto) 1-5 0-5 /hpf Urine RBC (Auto) 0-4 0-4 /hpf Urine Hyaline Casts (Auto) 1-5 0-5 /lpf Urine Epithelial Cells (Auto) 20-30 0-5 /lpf Urine Bacteria (Auto) NEG NEG Influenza Type A (RT-PCR) Neg for Influ A NEG Influenza Type B (RT-PCR) Neg for Influ B NEG White Blood Count 11.43 4.8-10.8 K/uL Red Blood Count 4.20 4.2-5.4 M/uL Hemoglobin 13.4 12.0-16.0 g/dL Hematocrit 41.5 37-47 % Mean Corpuscular Volume 98.8 80-100 fL Mean Corpuscular Hemoglobin 31.9 25-34 pg Mean Corpuscular Hemoglobin Concent 32.3 32-36 g/dl Platelet Count 124 130-400 K/uL Mean Platelet Volume 10.2 7.4-10.4 fL Neutrophils (%) (Auto) 61.8 % Lymphocytes (%) (Auto) 20.2 % Monocytes (%) (Auto) 14.9 % Eosinophils (%) (Auto) 2.5 % Basophils (%) (Auto) 0.2 % Neutrophils # (Auto) 7.06 1.4-6.5 K/uL Lymphocytes # (Auto) 2.31 1.2-3.4 K/uL Monocytes # (Auto) 1.70 0.11-0.59 K/uL Eosinophils # (Auto) 0.29 0-0.5 K/uL Basophils # (Auto) 0.02 0-0.2 K/uL RDW Standard Deviation 52.2 36.4-46.3 fL RDW Coefficient of Variation 14.5 11.5-14.5 % Immature Granulocyte % (Auto) 0.4 % Immature Granulocyte # (Auto) 0.05 0.00-0.02 K/uL Activated Partial Thromboplast Time 37.0 21.0-31.0 SECONDS Partial Thromboplastin Ratio 1.4 Creatine Kinase MB Ratio 0-3.0 Test 07/22/17 08:20 Range/Units White Blood Count 11.29 4.8-10.8 K/uL Red Blood Count 4.12 4.2-5.4 M/uL Hemoglobin 13.2 12.0-16.0 g/dL Hematocrit 40.8 37-47 % Mean Corpuscular Volume 99.0 80-100 fL Mean Corpuscular Hemoglobin 32.0 25-34 pg Mean Corpuscular Hemoglobin Concent 32.4 32-36 g/dl Platelet Count 120 130-400 K/uL Mean Platelet Volume 10.3 7.4-10.4 fL Neutrophils (%) (Auto) 61.6 % Lymphocytes (%) (Auto) 20.7 % Monocytes (%) (Auto) 14.2 % Eosinophils (%) (Auto) 2.9 % Basophils (%) (Auto) 0.2 % Neutrophils # (Auto) 6.95 1.4-6.5 K/uL Lymphocytes # (Auto) 2.34 1.2-3.4 K/uL Monocytes # (Auto) 1.60 0.11-0.59 K/uL Eosinophils # (Auto) 0.33 0-0.5 K/uL Basophils # (Auto) 0.02 0-0.2 K/uL RDW Standard Deviation 51.4 36.4-46.3 fL RDW Coefficient of Variation 14.3 11.5-14.5 % Immature Granulocyte % (Auto) 0.4 % Immature Granulocyte # (Auto) 0.05 0.00-0.02 K/uL Sodium Level 137 136-145 mmol/L Potassium Level 4.1 3.5-5.1 mmol/L Chloride Level 101 98-107 mmol/L Carbon Dioxide Level 33 21-32 mmol/L Anion Gap 2.0 3-11 mmol/L Blood Urea Nitrogen 4 7-18 mg/dl Creatinine 0.54 0.60-1.20 mg/dl Est Creatinine Clear Calc Drug Dose 134.7 ml/min Estimated GFR () 115.6 Estimated GFR (Non- 99.7 BUN/Creatinine Ratio 6.9 10-20 Random Glucose 109 70-99 mg/dl Calcium Level 8.3 8.5-10.1 mg/dl Phosphorus Level 2.9 2.5-4.9 mg/dl Magnesium Level 2.1 1.8-2.4 mg/dl Creatine Kinase MB Ratio 0-3.0 Microbiology Results 07/21/17 Blood Culture, Received Pending 07/21/17 Blood Culture, Received Pending Assessment & Plan POD # 3 s/p ex lap, lysis of adhesions -vitals stable other than tachycardia, afib - afebrile overnight - leukocytosis improved - UA repeated yesterday negative, CXR with possible atelectasis - blood cultures pending - no return of bowel function Plan: awaiting return of bowel function continue clear liquids for now need to continue PT/OT, OOB to chair Continue IV Reglan Continue current pain management and IV Zofran Consider adding Breeze given patient's diet has not been able to be advanced repeat am labs continue abdominal binder continue IV Heparin Continue medical management daily dressing changes Dr. Beatty has seen patient, agrees with above
--- NOTE | 2017-07-22 12:23 | Consultant Recommendations ---
Razor Grinder Recommendations Date of Service Jul 22, 2017. Razor Grinder Recommendations No heavy lifting over 10 pounds for 6 weeks No strenuous activity until cleared by surgeon No submerging incision underwater for 2 weeks (no bathing, swimming, or hot tubs ) No driving while taking narcotic pain medication or until you are pain free You may shower. Replace dressing daily or as needed to keep clean and dry Surgical clint will be removed in office in about 3 weeks You will be given narcotic pain medication as needed for moderate to severe pain. This medication may make you drowsy and can cause constipation. To combat constipation, drink plenty of water daily, avoid foods that can constipate, may take OTC stool softener such as Colace, a gentle laxative, or prune juice. You may take extra strength Tylenol or Ibuprofen as needed for mild pain Follow-up in surgical office in 1-2 weeks, please call office at [phone] to make an appointment Wear abdominal binder daily for support
--- NOTE | 2017-07-22 12:25 | INFECT. DISEASE CONSULTATION ---
DATE OF CONSULTATION: 07/22/2017 HISTORY OF PRESENT ILLNESS: This is a 66-year-old female who was admitted to the hospital on 07/17/2017 secondary to nausea and vomiting which started prior to admission. She did have a CAT scan of the abdomen and pelvis in the ER which showed a small-bowel obstruction. She continued to have GI issues and was subsequently evaluated by surgery and taken to the operating room on the where she underwent an ex-lap and lysis of adhesions. She tolerated this procedure well. On the , she did have a T-max of 38.2, but this was an isolated incident. Yesterday she had a T-max of 38.1, again, an isolated incident. She does have a moderate leukocytosis, but this is improving from admission. She did have a UA yesterday which had 1-5 WBCs and no bacteria. Her previous urine culture which was obtained in the Emergency Room grew E. coli. She did receive Ancef perioperatively and was placed on ertapenem yesterday with repeated fever. Blood cultures were also obtained yesterday and are pending. A chest x-ray was done and did show atelectasis. She does have an incentive spirometer at the bedside. Infectious disease was consulted for postop fever. PAST MEDICAL HISTORY: Significant for Afib, history of CVA with left-sided paralysis, hypertension, partial bowel obstruction, seizure disorder. PAST SURGICAL HISTORY: Significant for hysterectomy and tracheostomy in 2011 and a recent ex-lap. FAMILY HISTORY: Noncontributory. SOCIAL HISTORY: Negative for tobacco use, alcohol use or drug use. ALLERGIES: SHE HAS ALLERGIES TO BENZODIAZEPINES, STATINS AND FISH OIL. CURRENT MEDICATIONS: Levothyroxine, Depakote, ertapenem, amiodarone, vitamin C, Colace, Toprol-XL, Pravachol, Zantac, Senokot, Reglan, Zofran, morphine, Lopressor. PHYSICAL EXAMINATION: VITAL SIGNS: She currently is afebrile. Her T-max was 38.1 at 4:00 p.m. yesterday, pulse 97, respiratory rate 20, blood pressure 102/72, oxygen saturation is 95% on 2 liters nasal cannula. GENERAL: She is awake, alert and oriented. She is in no acute distress. HEENT: Mucous membranes are dry. HEART: Without murmur. LUNGS: Clear. ABDOMEN: Binder is in place. It is tender to light palpation. There is no edema. SKIN: Without rash. LABORATORY STUDIES: CBC: White blood cell count 11.2, hemoglobin 13.2, platelets 120. Chemistry panel: Sodium 137, potassium 4.1, chloride 101, bicarbonate 33, BUN 4, creatinine 0.5, glucose 109. LFTs are normal on admission. A repeat UA yesterday is unremarkable. Flu swab yesterday is negative. Previous urine culture from the 8th is growing E. coli resistant to ampicillin only. Blood cultures from the 12th are pending. X-ray from yesterday does show atelectasis. ASSESSMENT AND PLAN: Postoperative fever. Certainly this could be related to atelectasis. Incentive spirometer is at the bedside and she is encouraged to use this. Her repeat UA is unremarkable. Unclear significance of E. coli in urine from the 8th that she was afebrile upon arrival to the hospital. She is currently on ertapenem empirically as she can remain on this pending blood cultures. If negative, she can be followed off of antibiotics.
[2017-07-22] MEDS ORDERED: NURSING VERBAL MED ORDER ONE (13:00)
[2017-07-22] MEDS ORDERED: BISACODYL 10 MG SUPP PR ONE (13:15)
[2017-07-22] MEDS: BOOST BREEZE NUTRITION DRINK 1 BOX PO SCH ×2 (14:00→19:17)
--- NOTE | 2017-07-22 15:16 | Hospitalist Progress Note ---
Hospitalist Progress Note Date of Service Jul 22, 2017. Subjective Pt evaluation today including: conversation w/ patient, conversation w/ family , physical exam, chart review, lab review, review of inpatient medication list Voiding: strickland catheter in place Patient up to chair, alert and oriented, at bedside. She continues to generally feel unwell. She has little appetite but no nausea or vomiting. ROS Constitutional: no chills, aches, sweats or fever Respiratory: no sob,cough, sputum, or wheezing Cardiac: no chest pain, palpitations, edema, orthopnea or lightheadedness GI: see HPI : no dysuria or hesitancy Extremities: no joint pain or weakness Skin: no rash All other systems reviewed and negative Medications Medications Administered Medications (Trade) Dose Ordered Sig/Carleen Route Start Time Stop Time Status Last Admin Dose Admin Sodium Chloride 500 ml @ 999 mls/hr Q31M STAT IV 07/17/17 10:48 07/17/17 11:18 DC 07/17/17 11:23 999 MLS/HR Ondansetron HCl (Zofran Inj) 4 mg NOW STAT IV 07/17/17 10:48 07/17/17 10:50 DC 07/17/17 11:23 4 MG Ceftriaxone Sodium (Rocephin Inj) 1 gm NOW STAT IV 07/17/17 12:30 07/17/17 12:31 DC 07/17/17 12:42 1 GM Ondansetron HCl (Zofran Inj) 4 mg Q6H PRN IV 07/17/17 13:45 08/16/17 13:44 07/20/17 08:22 4 MG Dextrose/Sodium Chloride 1,000 ml @ 100 mls/hr Q10H IV 07/17/17 16:30 07/19/17 16:52 DC 07/19/17 08:37 100 MLS/HR Pantoprazole Sodium 40 mg/ Syringe 10 ml @ 5 mls/min DAILY@11 IV 07/18/17 11:00 08/17/17 10:59 07/22/17 11:38 5 MLS/MIN Valproate Sodium 500 mg/Dextrose 55 ml @ 55 mls/hr Q12H IV 07/17/17 21:00 07/21/17 10:43 DC 07/21/17 08:55 55 MLS/HR Levothyroxine Sodium 37.5 mcg/ Syringe 1.875 ml @ 2 mls/min DAILY@09 IV 07/18/17 09:00 08/17/17 08:59 07/21/17 08:55 2 MLS/MIN Metoprolol Tartrate (Lopressor Iv) 5 mg Q4 PRN IV 07/17/17 14:45 08/16/17 14:44 07/22/17 03:49 5 MG Heparin Sodium/ Dextrose (Heparin 25,000 Unit/500ml D5W) 25,000 unit STK-MED ONCE .ROUTE 07/17/17 15:54 07/17/17 15:55 DC 07/17/17 16:04 19 UNIT Heparin Sodium/ Dextrose 500 ml @ 31 mls/hr Q16H8M IV 07/17/17 16:30 07/23/17 09:00 07/22/17 08:35 31 MLS/HR Heparin Sodium (Porcine) 4500 unit/Syringe 4.5 ml @ 10 mls/min NOW ONCE IV 07/17/17 23:15 07/17/17 23:16 DC 07/17/17 23:50 10 MLS/MIN Heparin Sodium (Porcine) 4500 unit/Syringe 4.5 ml @ 10 mls/min NOW ONCE IV 07/18/17 06:45 07/18/17 06:46 DC 07/18/17 07:08 10 MLS/MIN Morphine Sulfate (MoRPHine SULFATE INJ) 2 mg Q2H PRN IV 07/18/17 08:30 08/01/17 08:29 07/22/17 14:13 2 MG Morphine Sulfate (MoRPHine SULFATE INJ) 4 mg Q2H PRN IV 07/18/17 08:30 08/01/17 08:29 07/21/17 01:47 4 MG Ceftriaxone Sodium 1 gm/ Dextrose 50 ml @ 100 mls/hr Q24H IV 07/18/17 11:00 07/19/17 17:09 DC 07/19/17 11:32 100 MLS/HR Metoprolol Tartrate (Lopressor Iv) 5 mg Q6 IV. 07/18/17 12:00 07/21/17 08:52 DC 07/21/17 06:20 5 MG Heparin Sodium (Porcine) 4500 unit/Syringe 4.5 ml @ 10 mls/min 0915 ONCE IV 07/19/17 09:15 07/19/17 09:16 DC 07/19/17 09:12 10 MLS/MIN Hydromorphone HCl (Dilaudid Inj) 0.5 mg Q5M PRN IV 07/19/17 14:30 07/19/17 19:30 DC 07/19/17 17:49 0.5 MG Cefazolin Sodium (Ancef 2000mg Iv Push) 2,000 mg STK-MED ONCE IV 07/19/17 14:27 07/19/17 14:28 DC 07/19/17 15:21 2,000 MG Bupivacaine HCl (Marcaine 0.5% MPF Inj) 30 ml STK-MED ONCE .ROUTE 07/19/17 15:18 07/19/17 15:19 DC 07/19/17 16:45 10 ML Lidocaine HCl (Xylocaine 1% Inj (Local)) 20 ml STK-MED ONCE .ROUTE 07/19/17 15:19 07/19/17 15:20 DC 07/19/17 16:45 10 ML Bacitracin (Bacitracin Oint) 45 appln STK-MED ONCE .ROUTE 07/19/17 15:19 07/19/17 15:20 DC 07/19/17 16:45 45 APPLN Potassium Chloride/Dextrose/ Sod Cl 1,000 ml @ 75 mls/hr [id number] IV 07/19/17 17:00 08/18/17 16:59 07/22/17 03:45 75 MLS/HR Cefazolin Sodium 2000 mg/Syringe 15 ml @ 100 mls/hr Q8H IV 07/19/17 22:00 07/20/17 21:59 DC 07/20/17 13:25 100 MLS/HR Heparin Sodium (Porcine) 3000 unit/Syringe 3 ml @ 10 mls/min NOW ONCE IV 07/20/17 03:30 07/20/17 03:31 DC 07/20/17 03:45 10 MLS/MIN Metoclopramide HCl (Reglan Inj) 10 mg Q8H IV. 07/20/17 12:00 08/19/17 11:59 07/22/17 11:38 10 MG Bisacodyl (Dulcolax Tab) 10 mg NOW ONCE PO 07/20/17 11:00 07/20/17 11:18 DC 07/20/17 11:38 10 MG Acetaminophen (Tylenol Tab) 1,000 mg STK-MED ONCE PO 07/20/17 20:05 07/20/17 20:06 DC 07/20/17 20:11 1,000 MG Amiodarone HCl (Cordarone Tab) 200 mg DAILY PO 07/21/17 10:00 08/20/17 09:59 07/22/17 09:02 200 MG Ascorbic Acid (Vitamin C Tab) 500 mg BID PO 07/21/17 10:00 08/20/17 09:59 07/22/17 08:08 500 MG Divalproex Sodium (Depakote Extended Rel Tab) 500 mg DAILY PO 07/22/17 09:00 08/21/17 08:59 07/22/17 08:08 500 MG Divalproex Sodium (Depakote Extended Rel Tab) 1,000 mg HS PO 07/21/17 21:00 08/20/17 20:59 07/21/17 20:20 1,000 MG Docusate Sodium (coLACE CAP) 100 mg BID PO 07/21/17 10:00 08/20/17 09:59 07/22/17 08:07 100 MG Levothyroxine Sodium (Synthroid Tab) 75 mcg DAILYBB PO 07/22/17 10:00 08/21/17 09:59 07/22/17 09:02 75 MCG Metoprolol Succinate (Toprol Xl Tab) 25 mg DAILY PO 07/21/17 10:00 08/20/17 09:59 07/22/17 09:03 25 MG Ondansetron HCl (Zofran Odt) 4 mg Q6H PRN SL 07/21/17 08:45 08/20/17 08:44 07/21/17 11:09 4 MG Pravastatin Sodium (Pravachol Tab) 20 mg DAILY PO 07/21/17 10:00 08/20/17 09:59 07/22/17 09:02 20 MG Ranitidine HCl (zANTac TAB) 150 mg DAILY PO 07/21/17 10:00 08/20/17 09:59 07/22/17 09:03 150 MG Senna (Senokot Tab) 17.2 mg QAM PO 07/21/17 10:00 08/20/17 09:59 07/22/17 08:07 17.2 MG Bisacodyl (Dulcolax Supp) 10 mg NOW STAT NE 07/21/17 09:33 07/21/17 09:35 DC 07/21/17 10:46 10 MG Bisacodyl (Dulcolax Tab) 10 mg NOW ONCE PO 07/21/17 09:34 07/21/17 09:35 DC 07/21/17 11:09 10 MG Ertapenem 1 gm/ Sodium Chloride 50 ml @ 120 mls/hr Q24H IV 07/21/17 18:45 07/31/17 18:44 07/21/17 19:49 120 MLS/HR Heparin Sodium (Porcine) 4500 unit/Syringe 4.5 ml @ 10 mls/min NOW ONCE IV 07/22/17 08:00 07/22/17 08:01 DC 07/22/17 08:34 10 MLS/MIN Bisacodyl (Dulcolax Supp) 10 mg NOW ONCE NE 07/22/17 13:15 07/22/17 13:16 DC 07/22/17 14:11 10 MG Objective Vital Signs Date Time Temp Pulse Resp B/P (MAP) Pulse Ox O2 Delivery O2 Flow Rate FiO2 07/22/17 12:00 Room Air 07/22/17 10:36 36.9 102 20 115/78 (90) 99 Nasal Cannula 2.0 07/22/17 08:00 Nasal Cannula 2.0 07/22/17 07:19 36.8 97 20 102/72 (82) 95 07/22/17 04:27 36.9 112 18 121/80 (94) 96 Nasal Cannula 2.0 07/22/17 04:00 Nasal Cannula 2.0 07/22/17 03:49 132 131/92 07/22/17 00:00 Nasal Cannula 2.0 07/21/17 23:46 37.4 111 19 113/77 (89) 95 Nasal Cannula 2.0 07/21/17 20:00 Nasal Cannula 2.0 07/21/17 19:45 37.6 101 20 111/72 (85) 94 Nasal Cannula 2.0 07/21/17 16:00 Room Air 07/21/17 15:54 38.1 113 20 115/76 (89) 93 Room Air Physical Exam Notes: General: no distress Eyes: normal inspection, PERLL Respiratory: chest non tender, clear to auscultation, normal breath sounds, no respiratory distress, no accessory muscle use Cardiac: regular rate and rhythm, no rub or gallop, no murmur, no edema, no jvd GI/: active bowel sounds, no abd pain or tenderness, soft, non distended Extremities: normal range of motion, normal strength, non tender Neuro/Psych: alert and oriented x 3, normal mood and affect Skin: normal color, dry Laboratory Results Last 24 Hours Test 07/21/17 20:20 07/21/17 21:50 07/22/17 06:40 07/22/17 07:46 Urine Color YELLOW Urine Appearance CLEAR Urine pH 5.5 Urine Specific [place] 1.007 Urine Protein NEG Urine Glucose (UA) NEG Urine Ketones NEG Urine Occult Blood NEG Urine Nitrite NEG Urine Bilirubin NEG Urine Urobilinogen NEG Urine Leukocyte Esterase TRACE Urine WBC (Auto) 1-5 /hpf Urine RBC (Auto) 0-4 /hpf Urine Hyaline Casts (Auto) 1-5 /lpf Urine Epithelial Cells (Auto) 20-30 /lpf Urine Bacteria (Auto) NEG Influenza Type A (RT-PCR) Neg for Influ A Influenza Type B (RT-PCR) Neg for Influ B White Blood Count 11.43 K/uL Red Blood Count 4.20 M/uL Hemoglobin 13.4 g/dL Hematocrit 41.5 % Mean Corpuscular Volume 98.8 fL Mean Corpuscular Hemoglobin 31.9 pg Mean Corpuscular Hemoglobin Concent 32.3 g/dl Platelet Count 124 K/uL Mean Platelet Volume 10.2 fL Neutrophils (%) (Auto) 61.8 % Lymphocytes (%) (Auto) 20.2 % Monocytes (%) (Auto) 14.9 % Eosinophils (%) (Auto) 2.5 % Basophils (%) (Auto) 0.2 % Neutrophils # (Auto) 7.06 K/uL Lymphocytes # (Auto) 2.31 K/uL Monocytes # (Auto) 1.70 K/uL Eosinophils # (Auto) 0.29 K/uL Basophils # (Auto) 0.02 K/uL RDW Standard Deviation 52.2 fL RDW Coefficient of Variation 14.5 % Immature Granulocyte % (Auto) 0.4 % Immature Granulocyte # (Auto) 0.05 K/uL Activated Partial Thromboplast Time 37.0 SECONDS Partial Thromboplastin Ratio 1.4 Creatine Kinase MB Ratio Test 07/22/17 08:20 07/22/17 14:30 White Blood Count 11.29 K/uL Red Blood Count 4.12 M/uL Hemoglobin 13.2 g/dL Hematocrit 40.8 % Mean Corpuscular Volume 99.0 fL Mean Corpuscular Hemoglobin 32.0 pg Mean Corpuscular Hemoglobin Concent 32.4 g/dl Platelet Count 120 K/uL Mean Platelet Volume 10.3 fL Neutrophils (%) (Auto) 61.6 % Lymphocytes (%) (Auto) 20.7 % Monocytes (%) (Auto) 14.2 % Eosinophils (%) (Auto) 2.9 % Basophils (%) (Auto) 0.2 % Neutrophils # (Auto) 6.95 K/uL Lymphocytes # (Auto) 2.34 K/uL Monocytes # (Auto) 1.60 K/uL Eosinophils # (Auto) 0.33 K/uL Basophils # (Auto) 0.02 K/uL RDW Standard Deviation 51.4 fL RDW Coefficient of Variation 14.3 % Immature Granulocyte % (Auto) 0.4 % Immature Granulocyte # (Auto) 0.05 K/uL Sodium Level 137 mmol/L Potassium Level 4.1 mmol/L Chloride Level 101 mmol/L Carbon Dioxide Level 33 mmol/L Anion Gap 2.0 mmol/L Blood Urea Nitrogen 4 mg/dl Creatinine 0.54 mg/dl Est Creatinine Clear Calc Drug Dose 134.7 ml/min Estimated GFR () 115.6 Estimated GFR (Non- 99.7 BUN/Creatinine Ratio 6.9 Random Glucose 109 mg/dl Calcium Level 8.3 mg/dl Phosphorus Level 2.9 mg/dl Magnesium Level 2.1 mg/dl Creatine Kinase MB 1.0 ng/ml Creatine Kinase MB Ratio Troponin I < 0.015 ng/ml Assessment and Plan Ms. Julio is a 66 year old female with prior CVA - left side flaccid here for SBO SBO - continue clear liquid diet - Surgery consulted - s/p op day 3 exploratory lap and lysis of adhesions - morphine for pain - monitor for acute blood loss, cbc am Fever, possibly due to atelectasis - abx changed to ertapenem - can discontinue after 48 hours if BC no growth per ID consult - CXR showed atelectasis but no consolidation UTI - Culture grew E.Coli - had been on Rocephin x 6 days but abx changed to Ertapenem as above - continue Strickland catheter Low Urine Output - Fluids decreased yesterday afternoon to D51/2 NS 20K @75 ml/hr - patient's output improved A.fib/ history of prior CVA - restarted po metoprolol, continue prn IV metoprolol for heart rate - heart rates controlled, A.fib - stop heparin gtt and start Xeralto - continue telemetry monitoring - if afebrile tomorrow and heart rate better controlled, may be able to move to med surg Seizure disorder - continue Depakote, no seizure activity this admission Hypothyroidism - continue Synthroid Full code DVT prophylaxis with SCD, RAMA and heparin .
[2017-07-22 15:20] LABS: PTT PATIENT 56.9 SECONDS (21.0-31.0)
[2017-07-22] MEDS: ERTAPENEM IV 1 GM in SODIUM CHLOR 0.9% AD-VAN 50ML 50 ML IV SCH (15:41)
[2017-07-22 15:43] VITALS: BP 122/84; PULSE 110; TEMP 37.3; O2SAT 93
[2017-07-22 19:49] VITALS: BP 115/79; PULSE 102; TEMP 37.6; O2SAT 97
[2017-07-22 23:10] VITALS: BP 126/81; PULSE 103; TEMP 37.1; O2SAT 94
[2017-07-23] MEDS: HEPARIN 25,000 UNIT/500ML D5W 500 ML IV SCH (00:23)
[2017-07-23 03:15] VITALS: BP 110/75; PULSE 103; TEMP 37.5; O2SAT 93
[2017-07-23] MEDS: METOCLOPRAMIDE HCL INJ 5 MG/ML 2 ML VIAL IV. SCH ×3 (04:01→19:46)
[2017-07-23] MEDS: D5W AND 1/2NSS + 20MEQ KCL 1,000 ML IV SCH (05:27)
[2017-07-23] MEDS: LEVOTHYROXINE 75 MCG TAB PO SCH (06:18)
[2017-07-23 06:29] LABS: BASO % 0.1 %; BASO ABS # 0.01 K/uL (0-0.2); EOS % 4.3 %; HEMATOCRIT 38.2 % (37-47); HEMOGLOBIN 12.1 g/dL (12.0-16.0); IG# 0.05 K/uL (0.00-0.02); LYMPH % 21.7 %; LYMPH ABS # 2.02 K/uL (1.2-3.4); MEAN CELL VOLUME 98.7 fL (80-100); MEAN CORPUSCULAR HEMOGLOBIN 31.3 pg (25-34); MEAN CORPUSCULAR HGB CONC 31.7 g/dl (32-36); MEAN PLATELET VOLUME 10.4 fL (7.4-10.4); MONO ABS # 1.21 K/uL (0.11-0.59); NEUT % 60.4 %; NEUT ABS # 5.63 K/uL (1.4-6.5); PLATELET COUNT 129 K/uL (130-400); RED CELL DISTRIBUTION WIDTH CV 14.3 % (11.5-14.5); RED CELL DISTRIBUTION WIDTH SD 51.2 fL (36.4-46.3); WHITE BLOOD COUNT 9.32 K/uL (4.8-10.8)
[2017-07-23 07:01] LABS: PTT PATIENT 63.4 SECONDS (21.0-31.0)
[2017-07-23 07:04] LABS: CALCIUM 8.4 mg/dl (8.5-10.1); CREATININE 0.43 mg/dl (0.60-1.20); POTASSIUM 3.8 mmol/L (3.5-5.1)
[2017-07-23 07:05] LABS: PHOSPHORUS 3.4 mg/dl (2.5-4.9)
[2017-07-23 07:25] VITALS: BP 129/89; PULSE 99; TEMP 36.8; O2SAT 94
[2017-07-23] MEDS: PRAVASTATIN SOD 20 MG TAB PO SCH (08:19)
[2017-07-23] MEDS: METOPROLOL SUCC 25MG EXT REL TAB PO SCH (08:19)
[2017-07-23] MEDS: BOOST BREEZE NUTRITION DRINK 1 BOX PO SCH ×3 (08:19→21:37)
[2017-07-23] MEDS: RANITIDINE HCL 150 MG TAB PO SCH (08:19)
[2017-07-23] MEDS: DOCUSATE SODIUM 100 MG CAP PO SCH ×2 (08:19→21:37)
[2017-07-23] MEDS: RIVAROXABAN 20 MG TAB PO SCH (08:21)
[2017-07-23] MEDS: ASCORBIC ACID 500 MG TAB PO SCH ×2 (08:21→21:38)
[2017-07-23] MEDS: DIVALPROEX 500 MG EXTENDED RELEASE TAB PO SCH ×2 (08:21→21:38)
[2017-07-23] MEDS: AMIODARONE 200 MG TAB PO SCH (08:21)
[2017-07-23] MEDS: SENNA 8.6 MG TAB PO SCH (08:21)
[2017-07-23] MEDS: LEVOTHYROXINE SODIUM INJ 37.5 MCG in SYRINGE 0 ML IV SCH (08:22)
[2017-07-23] MEDS ORDERED: NURSING VERBAL MED ORDER ONE ×2 (09:00→09:45)
[2017-07-23] MEDS: PANTOprazole INJ 40 MG in SYRINGE 0 ML IV SCH (11:06)
[2017-07-23 11:15] VITALS: BP 114/79; PULSE 94; TEMP 36.5; O2SAT 93
--- NOTE | 2017-07-23 13:40 | SURGERY PROGRESS NOTE ---
DATE: 07/23/[address] Beatty. Patient is 4th postoperative day status post exploratory lap, lysis of adhesion. She is resting comfortable in bed, really not motivated to do anything. Her mental status is sluggish and I suspect this as her baseline. Her last vitals showed a temperature of 36.5, pulse 94, respirations 20, blood pressure 114/70, O2 sats 93 on room air. I&O, she has not had any bowel movement, her urine output was 600 overnight. Laboratory carr her hemoglobin is 12.1, WBC is 932. There is no left shift. BUN is 3, creatinine 0.34. Her PTT is 63.4. Her abdomen is obese, nontender. The incision is intact. There is really some reaction around the suture with minimal drainage and no evidence of any significant sloughing of the skin. At this point, I talked to the nurses. Her oral intake is very poor. She does not really feel like eating anything. We will try and have encouraged her oral intake if possible.
[2017-07-23 14:16] VITALS: BP 99/66; PULSE 87; TEMP 37; O2SAT 91
[2017-07-23 15:31] VITALS: BP 99/68; PULSE 100; TEMP 37.2; O2SAT 92
--- NOTE | 2017-07-23 16:33 | Progress Note ---
Subjective Date of Service: Jul 23, 2017. Subjective Pt evaluation today including: conversation w/ patient, conversation w/ family , physical exam, chart review, lab review, review of studies, conversation w/ new vehicle sales consultant, review of inpatient medication list Looks a little better than yesterday, however still reports significant fatigue decreased appetite, otherwise no other complaint, has been out of bed to chair with help, no spiking fever for 48 hours Problem List Medical Problems: (1) Small bowel obstruction Status: Acute (2) UTI (urinary tract infection) Status: Acute (3) UTI (urinary tract infection) Status: Acute (4) Vomiting Status: Acute Review of Systems Constitutional: + weakness, + fatigue, No fever, No chills, No sweats, No weight loss, No problem reported Eyes: No worsening of vision, No eye pain, No redness, No discharge, No diplopia ENT: No hearing loss, No unusual epistaxis, No nasal symptoms, No sore throat, No tinnitus, No dental problems, No trouble swallowing Respiratory: No cough, No sputum, No wheezing, No shortness of breath, No dyspnea on exertion, No dyspnea at rest, No hemoptysis Cardiac: No chest pain, No orthopnea, No PND, No edema, No claudication, No palpitations Abdomen: No pain, No nausea, No vomiting, No diarrhea, No constipation Musculoskeletal: No joint pain, No muscle pain, No swelling, No calf pain Female : No dysuria, No urinary frequency, No hematuria, No incontinence, No abnormal vaginal bleeding, No vaginal discharge Neurologic: No memory loss, No paralysis, No weakness, No numbness/tingling, No vertigo, No balance problems Psychiatric: No depression symptoms, No anhedonism, No anxiety, No insomnia, No substance abuse Heme: No abnormal bleeding/bruising, No clotting problems, No swollen lymph nodes, No night sweats Endo: No fatigue, No excessive thirst, No excessive urination Skin: No rash, No itch, No new/changing skin lesions, No color change, No bleeding Objective Vital Signs Date Time Temp Pulse Resp B/P (MAP) Pulse Ox O2 Delivery O2 Flow Rate FiO2 07/23/17 15:31 37.2 100 18 99/68 (78) 92 Room Air 07/23/17 15:15 Room Air 07/23/17 14:16 37.0 87 20 99/66 (77) 91 Room Air 07/23/17 12:00 36.5 94 20 93 07/23/17 12:00 Room Air 07/23/17 11:15 36.5 94 20 114/79 (91) 93 Room Air 07/23/17 08:00 Nasal Cannula 2.0 07/23/17 07:25 36.8 99 20 129/89 (102) 94 Nasal Cannula 2.0 07/23/17 04:00 Nasal Cannula 2.0 07/23/17 03:15 37.5 103 19 110/75 (87) 93 Room Air 07/22/17 23:59 Nasal Cannula 2.0 07/22/17 23:10 37.1 103 19 126/81 (96) 94 Nasal Cannula 2.0 07/22/17 20:00 Room Air 07/22/17 19:49 37.6 102 20 115/79 (91) 97 Nasal Cannula 2.0 Physical Exam General Appearance: WD/WN, no apparent distress, + obese Eyes: normal inspection, PERRL, EOMI, sclerae normal ENT: normal ENT inspection, hearing grossly normal, pharynx normal Neck: supple, no adenopathy, thyroid normal, no JVD, no carotid bruits, trachea midline Respiratory/Chest: chest non-tender, normal breath sounds, no respiratory distress, no accessory muscle use, + decreased breath sounds Cardiovascular: regular rate, rhythm, no edema, no gallop, no JVD, no murmur Abdomen: normal bowel sounds, non tender, soft, no organomegaly, no pulsatile mass Extremities: normal range of motion, non-tender, normal inspection, no pedal edema, no calf tenderness, normal capillary refill, pelvis stable Neurologic/Psychiatric: acute care physical therapist II-XII nml as tested, no motor/sensory deficits, alert, normal mood/affect, oriented x 3 Skin: normal color, warm/dry, no rash Lymphatic: no adenopathy Laboratory Results Last 24 Hours Test 07/23/17 06:12 White Blood Count 9.32 K/uL Red Blood Count 3.87 M/uL Hemoglobin 12.1 g/dL Hematocrit 38.2 % Mean Corpuscular Volume 98.7 fL Mean Corpuscular Hemoglobin 31.3 pg Mean Corpuscular Hemoglobin Concent 31.7 g/dl Platelet Count 129 K/uL Mean Platelet Volume 10.4 fL Neutrophils (%) (Auto) 60.4 % Lymphocytes (%) (Auto) 21.7 % Monocytes (%) (Auto) 13.0 % Eosinophils (%) (Auto) 4.3 % Basophils (%) (Auto) 0.1 % Neutrophils # (Auto) 5.63 K/uL Lymphocytes # (Auto) 2.02 K/uL Monocytes # (Auto) 1.21 K/uL Eosinophils # (Auto) 0.40 K/uL Basophils # (Auto) 0.01 K/uL RDW Standard Deviation 51.2 fL RDW Coefficient of Variation 14.3 % Immature Granulocyte % (Auto) 0.5 % Immature Granulocyte # (Auto) 0.05 K/uL Activated Partial Thromboplast Time 63.4 SECONDS Partial Thromboplastin Ratio 2.4 Sodium Level 139 mmol/L Potassium Level 3.8 mmol/L Chloride Level 105 mmol/L Carbon Dioxide Level 33 mmol/L Anion Gap 1.0 mmol/L Blood Urea Nitrogen 3 mg/dl Creatinine 0.43 mg/dl Est Creatinine Clear Calc Drug Dose 164.5 ml/min Estimated GFR () 124.6 Estimated GFR (Non- 107.5 BUN/Creatinine Ratio 7.6 Random Glucose 106 mg/dl Calcium Level 8.4 mg/dl Phosphorus Level 3.4 mg/dl Magnesium Level 2.1 mg/dl Assessment and Plan 66 year old female with prior CVA - left side flaccid was admitted on July 17, 2017 because of SBO SBO, s/p op day 3 exploratory lap and lysis of adhesions, stable, however is with poor appetite continue clear liquids for now continue PT/OT, OOB to chair Continue IV Reglan as needed, and current pain management and IV Zofran continue abdominal binder UTI ecoli spiking fever while on Rocephin , hx of Klebsiella, UTI, with multiple resistant, changed abx to Invanz, changed strickland catheter, ID consulted, input appreciated. Has no fever for >48 hours, blood, urine culture and blood culture was negative so, likely is postop fever, will discontinue antibiotic when blood culture 48 hours negative A.fib/ history of prior CVA - restarted po metoprolol, continue prn IV metoprolol for heart rate - heart rates controlled, A.fib - stop heparin gtt and start Xeralto Seizure disorder - continue Depakote, no seizure activity this admission Hypothyroidism - continue Synthroid Stable improving, PT OT, MedSurg, Patient is so weak which required 2-3 people to moving her from bed to chair, Talked to patient's daughter Merlene, about patient's conditions and care plan, that we both believe patient need to go to rehab or senior living before going home, will have case worker to continue follow-up Continued [facility] stay due to: home environment unsafe for pt Discharge planning: home
[2017-07-23] MEDS: ERTAPENEM IV 1 GM in SODIUM CHLOR 0.9% AD-VAN 50ML 50 ML IV SCH (19:46)
[2017-07-23 23:15] VITALS: BP 117/79; PULSE 95; TEMP 36.9; O2SAT 90
[2017-07-23] MEDS: MoRPHine SULFATE 2 MG/ML CARP IV PRN (23:24)
[2017-07-24] MEDS: METOCLOPRAMIDE HCL INJ 5 MG/ML 2 ML VIAL IV. SCH ×3 (04:00→20:45)
[2017-07-24] MEDS: LEVOTHYROXINE 75 MCG TAB PO SCH (06:03)
[2017-07-24 06:08] LABS: BASO % 0.1 %; BASO ABS # 0.01 K/uL (0-0.2); EOS % 4.8 %; EOS ABS # 0.38 K/uL (0-0.5); HEMATOCRIT 36.9 % (37-47); HEMOGLOBIN 11.8 g/dL (12.0-16.0); IG# 0.04 K/uL (0.00-0.02); LYMPH % 30.7 %; LYMPH ABS # 2.45 K/uL (1.2-3.4); MEAN CELL VOLUME 98.4 fL (80-100); MEAN CORPUSCULAR HEMOGLOBIN 31.5 pg (25-34); MEAN PLATELET VOLUME 9.7 fL (7.4-10.4); MONO % 11.3 %; NEUT % 52.6 %; NEUT ABS # 4.21 K/uL (1.4-6.5); PLATELET COUNT 140 K/uL (130-400); RED CELL DISTRIBUTION WIDTH CV 14.5 % (11.5-14.5); WHITE BLOOD COUNT 7.99 K/uL (4.8-10.8)
[2017-07-24 06:22] LABS: PTT PATIENT 33.4 SECONDS (21.0-31.0)
[2017-07-24 07:30] VITALS: O2SAT 92
[2017-07-24 07:43] VITALS: BP 101/72; PULSE 92; TEMP 37; O2SAT 92
[2017-07-24] MEDS: BOOST BREEZE NUTRITION DRINK 1 BOX PO SCH ×3 (09:31→20:44)
[2017-07-24] MEDS: DOCUSATE SODIUM 100 MG CAP PO SCH ×2 (09:39→20:46)
[2017-07-24] MEDS: RANITIDINE HCL 150 MG TAB PO SCH (10:09)
[2017-07-24] MEDS: RIVAROXABAN 20 MG TAB PO SCH (10:09)
[2017-07-24] MEDS: AMIODARONE 200 MG TAB PO SCH (10:10)
[2017-07-24] MEDS: ASCORBIC ACID 500 MG TAB PO SCH ×2 (10:10→20:45)
[2017-07-24] MEDS: PRAVASTATIN SOD 20 MG TAB PO SCH (10:10)
[2017-07-24] MEDS: DIVALPROEX 500 MG EXTENDED RELEASE TAB PO SCH ×2 (10:11→20:46)
[2017-07-24] MEDS: METOPROLOL SUCC 25MG EXT REL TAB PO SCH (10:11)
[2017-07-24] MEDS: SENNA 8.6 MG TAB PO SCH (10:11)
--- NOTE | 2017-07-24 12:07 | Surgery Progress Note ---
Surgery Progress Note Date of Service Jul 24, 2017. Subjective Post OP Day: 5 + pain controlled, No bowel movement, No nausea, No vomiting Laying in bed- feels "ok" Not motivated to eat very much- visiting. Objective Vital Signs: Date Time Temp Pulse Resp B/P (MAP) Pulse Ox O2 Delivery O2 Flow Rate FiO2 07/24/17 07:43 37.0 92 16 101/72 (82) 92 Room Air 07/24/17 07:30 92 07/24/17 00:00 Room Air 07/23/17 23:15 36.9 95 16 117/79 (92) 90 Room Air 07/23/17 15:31 37.2 100 18 99/68 (78) 92 Room Air 07/23/17 15:15 Room Air 07/23/17 14:16 37.0 87 20 99/66 (77) 91 Room Air General Appearance: WD/WN, no apparent distress Head: normocephalic, atraumatic Abdomen: soft, + tenderness (at incision site. Abdominal binder on- removed to change dressing and the reattached abdominal binder. ) Incision(s): clean, dry, intact, no erythema, no drainage Laboratory Results: Results Past 24 Hours Test 07/24/17 05:47 Range/Units White Blood Count 7.99 4.8-10.8 K/uL Red Blood Count 3.75 4.2-5.4 M/uL Hemoglobin 11.8 12.0-16.0 g/dL Hematocrit 36.9 37-47 % Mean Corpuscular Volume 98.4 80-100 fL Mean Corpuscular Hemoglobin 31.5 25-34 pg Mean Corpuscular Hemoglobin Concent 32.0 32-36 g/dl Platelet Count 140 130-400 K/uL Mean Platelet Volume 9.7 7.4-10.4 fL Neutrophils (%) (Auto) 52.6 % Lymphocytes (%) (Auto) 30.7 % Monocytes (%) (Auto) 11.3 % Eosinophils (%) (Auto) 4.8 % Basophils (%) (Auto) 0.1 % Neutrophils # (Auto) 4.21 1.4-6.5 K/uL Lymphocytes # (Auto) 2.45 1.2-3.4 K/uL Monocytes # (Auto) 0.90 0.11-0.59 K/uL Eosinophils # (Auto) 0.38 0-0.5 K/uL Basophils # (Auto) 0.01 0-0.2 K/uL RDW Standard Deviation 52.0 36.4-46.3 fL RDW Coefficient of Variation 14.5 11.5-14.5 % Immature Granulocyte % (Auto) 0.5 % Immature Granulocyte # (Auto) 0.04 0.00-0.02 K/uL Activated Partial Thromboplast Time 33.4 21.0-31.0 SECONDS Partial Thromboplastin Ratio 1.3 Assessment & Plan POD #5- s/p Ex Lap with Lysis of Adhesions. Patient seen and examined with Dr. Beck. Dressing changed at incision. Patient advanced to regular diet by Dr. Lucas- was eating a little bit during exam. Pain controlled. No BM, no flatus. Encouraged PO intake.
[2017-07-24 15:24] VITALS: BP 105/69; PULSE 97; TEMP 36.9; O2SAT 91
[2017-07-24] MEDS: MoRPHine SULFATE 2 MG/ML CARP IV PRN (15:56)
--- NOTE | 2017-07-24 16:53 | Progress Note ---
Subjective Date of Service: Jul 24, 2017. Subjective Pt evaluation today including: conversation w/ patient, conversation w/ family , physical exam, chart review, lab review, review of studies, review of inpatient medication list Looks a little better, smiling and conversational, in bedside, however complains still significant poor appetite, denies fever chill, denies diarrhea Problem List Medical Problems: (1) Small bowel obstruction Status: Acute (2) UTI (urinary tract infection) Status: Acute (3) UTI (urinary tract infection) Status: Acute (4) Vomiting Status: Acute Review of Systems Constitutional: + weakness, + fatigue, No fever, No chills, No sweats, No weight loss, No problem reported Eyes: No worsening of vision, No eye pain, No redness, No discharge, No diplopia ENT: No hearing loss, No unusual epistaxis, No nasal symptoms, No sore throat, No tinnitus, No dental problems, No trouble swallowing Respiratory: No cough, No sputum, No wheezing, No shortness of breath, No dyspnea on exertion, No dyspnea at rest, No hemoptysis Cardiac: + edema, No chest pain, No orthopnea, No PND, No claudication, No palpitations Abdomen: No pain, No nausea, No vomiting, No diarrhea, No constipation Musculoskeletal: No joint pain, No muscle pain, No swelling, No calf pain Female : No dysuria, No urinary frequency, No hematuria, No incontinence, No abnormal vaginal bleeding, No vaginal discharge Neurologic: No memory loss, No paralysis, No weakness, No numbness/tingling, No vertigo, No balance problems Psychiatric: No depression symptoms, No anhedonism, No anxiety, No insomnia, No substance abuse Heme: No abnormal bleeding/bruising, No clotting problems, No swollen lymph nodes, No night sweats Endo: + fatigue, No excessive thirst, No excessive urination Skin: No rash, No itch, No new/changing skin lesions, No color change, No bleeding Objective Vital Signs Date Time Temp Pulse Resp B/P (MAP) Pulse Ox O2 Delivery O2 Flow Rate FiO2 07/24/17 15:24 36.9 97 16 105/69 (81) 91 Room Air 07/24/17 07:43 37.0 92 16 101/72 (82) 92 Room Air 07/24/17 07:30 92 07/24/17 00:00 Room Air 07/23/17 23:15 36.9 95 16 117/79 (92) 90 Room Air Physical Exam General Appearance: WD/WN, no apparent distress, + obese Eyes: normal inspection, PERRL, EOMI, sclerae normal ENT: normal ENT inspection, hearing grossly normal, pharynx normal Neck: supple, no adenopathy, thyroid normal, no JVD, no carotid bruits, trachea midline Respiratory/Chest: chest non-tender, normal breath sounds, no respiratory distress, no accessory muscle use, + decreased breath sounds Cardiovascular: regular rate, rhythm, no edema, no gallop, no JVD, no murmur Abdomen: normal bowel sounds, non tender, soft, no organomegaly, no pulsatile mass, + pertinent finding (Strickland catheter in place) Extremities: normal range of motion, non-tender, normal inspection, no calf tenderness, normal capillary refill, pelvis stable, + swelling (1+ edema) 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, no motor/sensory deficits, alert, normal mood/affect, oriented x 3 Skin: normal color, warm/dry, no rash Lymphatic: no adenopathy Laboratory Results Last 24 Hours Test 07/24/17 05:47 White Blood Count 7.99 K/uL Red Blood Count 3.75 M/uL Hemoglobin 11.8 g/dL Hematocrit 36.9 % Mean Corpuscular Volume 98.4 fL Mean Corpuscular Hemoglobin 31.5 pg Mean Corpuscular Hemoglobin Concent 32.0 g/dl Platelet Count 140 K/uL Mean Platelet Volume 9.7 fL Neutrophils (%) (Auto) 52.6 % Lymphocytes (%) (Auto) 30.7 % Monocytes (%) (Auto) 11.3 % Eosinophils (%) (Auto) 4.8 % Basophils (%) (Auto) 0.1 % Neutrophils # (Auto) 4.21 K/uL Lymphocytes # (Auto) 2.45 K/uL Monocytes # (Auto) 0.90 K/uL Eosinophils # (Auto) 0.38 K/uL Basophils # (Auto) 0.01 K/uL RDW Standard Deviation 52.0 fL RDW Coefficient of Variation 14.5 % Immature Granulocyte % (Auto) 0.5 % Immature Granulocyte # (Auto) 0.04 K/uL Activated Partial Thromboplast Time 33.4 SECONDS Partial Thromboplastin Ratio 1.3 Assessment and Plan 66 year old female with prior CVA - left side flaccid was admitted on July 17, 2017 because of SBO SBO, s/p op day 4 exploratory lap and lysis of adhesions, stable, however is with poor appetite Has been clear liquids for now, advance as tolerated continue PT/OT, OOB to chair Continue IV Reglan as needed, and current pain management and IV Zofran continue abdominal binder UTI ecoli spiking fever while on Rocephin 3 days, hx of Klebsiella, UTI, with multiple resistant, changed abx to Invanz, changed strickland catheter, ID consulted, input appreciated. Has no fever for >48 hours, blood, urine culture and blood culture was negative so, likely is postop fever, has discontinue Invanz, will watch response after discontinue IV antibiotic A.fib/ history of prior CVA stable - restarted po metoprolol, continue prn IV metoprolol for heart rate heart rates controlled, A.fib Has stop heparin gtt and started Xeralto Seizure disorder, stable, continue Depakote, no seizure activity this admission Hypothyroidism - continue Synthroid Stable improving, PT OT, MedSurg, Patient is so weak which required 2-3 people to moving her from bed to chair, Talked to patient's daughter Merlene yesterday, and today, about patient's conditions and care plan, that we both believe patient need to go to rehab or long term before going home, will have case hardener to continue follow-up Possible ready to go to rehab tomorrow if bed available Continued [facility] stay due to: home environment unsafe for pt Discharge planning: home
[2017-07-24 23:00] VITALS: BP 111/67; PULSE 71; TEMP 37.1; O2SAT 94
[2017-07-25] MEDS: METOCLOPRAMIDE HCL INJ 5 MG/ML 2 ML VIAL IV. SCH (03:37)
[2017-07-25] MEDS: LEVOTHYROXINE 75 MCG TAB PO SCH (05:39)
[2017-07-25 07:56] VITALS: BP 113/77; PULSE 94; TEMP 37.2; O2SAT 94
[2017-07-25] MEDS ORDERED: BISACODYL 5 MG TABEC PO ONE (08:15)
--- NOTE | 2017-07-25 08:21 | Surgery Progress Note ---
Surgery Progress Note Date of Service Jul 25, 2017. Subjective + feeling well she is doing better, passed a lot gas, no BM yet, pt denies abdominal pain, no nausea, no vomiting, she tolerated clear diet, WBC normal, Objective Vital Signs: Date Time Temp Pulse Resp B/P (MAP) Pulse Ox O2 Delivery O2 Flow Rate FiO2 07/25/17 07:56 37.2 94 16 113/77 (89) 94 Room Air 07/24/17 23:50 Room Air 07/24/17 23:00 37.1 71 18 111/67 (82) 94 Room Air 07/24/17 15:51 Room Air 07/24/17 15:24 36.9 97 16 105/69 (81) 91 Room Air General Appearance: WD/WN, no apparent distress Head: normocephalic Neck: supple Respiratory/Chest: chest non-tender, lungs clear Cardiovascular: regular rate, rhythm, no edema, no gallop, no JVD Abdomen: normal bowel sounds, non tender, non distended Incision(s): clean, dry, intact Extremities: non-tender, no calf tenderness Assessment & Plan CT scan-FINDINGS: Lower chest: The heart is normal in size and configuration, without pericardial effusion. The lung bases and pleural spaces are clear. Liver: The contrast-enhanced liver is normal in size, contour, and attenuation. There is no intrahepatic biliary ductal dilatation. The hepatic veins and portal veins are patent. Gallbladder: Multiple gallstones. Spleen: Normal in size and attenuation. Pancreas: Unremarkable. Adrenal glands: Unremarkable. Kidneys: There is slightly heterogeneous left renal enhancement. No focal masses are visualized. Pyelonephritis cannot be excluded. Please correlate clinically. Bowel: There are multiple dilated small bowel loops with a persistent transition zone within the right mid abdomen. There is associated mesenteric swirl pattern. The findings could indicate an internal hernia or twist from an adhesion. The colon is decompressed. The appendix appears normal Peritoneum: There is no intraperitoneal free air or abdominal ascites. Vasculature: There is no evidence of abdominal aortic aneurysm. There is an indwelling IVC filter. Several struts protrude beyond the IVC lumen Adenopathy: None. Pelvic viscera: The uterus appears surgically absent Skeletal structures: There are no destructive lesions visualized. There is a scoliosis. There is a lumbar spinal stenosis. IMPRESSION: 1. Persistent small bowel obstruction. There is a persistent mesenteric swirl sign, likely secondary to either an internal hernia or adhesion. 2. Cholelithiasis 3. Subtle inhomogeneous left renal enhancement. Clinical correlation to exclude pyelonephritis is recommended KUB 07/19/2017 FINDINGS: Tip of nasogastric tube projects over the distal body of the stomach. IVC filter is noted. There are gallstones. Marked small bowel not significant change. There is a paucity of colonic gas. IMPRESSION: 1. Findings consistent with a persistent moderate to high-grade small bowel obstruction. 2. Interval placement of a nasogastric tube which is appropriately positioned. Assessment: pt is 66 year old female who was admitted to hospital for SBO, not pass any gas and BM for 3 days, pt has history- hysterectomy, CVA, left side body paralysis, DVT, A-Fib, Dr. Regalado and me recommend to do exploratory laparotomy, possible bowel resection or stoma, D/W benefits, risks and alternatives of the procedure with pt and her , the risks - infection, bleeding, injury bowel,DVT, AR, stroke, , they understood, they agree with the plan, I answered all questions, Hold heparin now, 07/21/2017 doing better, not pass gas yet, dulcolax 10 mg [place] PT consult will F/U 07/25/2017 doing better, passed gas, no abdominal pain miralax 17 g po dulcolax 10 mg po social work consult for possible D/C to [facility] tomorrow. OOD full liquid diet CT scan-FINDINGS: Lower chest: The heart is normal in size and configuration, without pericardial effusion. The lung bases and pleural spaces are clear. Liver: The contrast-enhanced liver is normal in size, contour, and attenuation. There is no intrahepatic biliary ductal dilatation. The hepatic veins and portal veins are patent. Gallbladder: Multiple gallstones. Spleen: Normal in size and attenuation. Pancreas: Unremarkable. Adrenal glands: Unremarkable. Kidneys: There is slightly heterogeneous left renal enhancement. No focal masses are visualized. Pyelonephritis cannot be excluded. Please correlate clinically. Bowel: There are multiple dilated small bowel loops with a persistent transition zone within the right mid abdomen. There is associated mesenteric swirl pattern. The findings could indicate an internal hernia or twist from an adhesion. The colon is decompressed. The appendix appears normal Peritoneum: There is no intraperitoneal free air or abdominal ascites. Vasculature: There is no evidence of abdominal aortic aneurysm. There is an indwelling IVC filter. Several struts protrude beyond the IVC lumen Adenopathy: None. Pelvic viscera: The uterus appears surgically absent Skeletal structures: There are no destructive lesions visualized. There is a scoliosis. There is a lumbar spinal stenosis. IMPRESSION: 1. Persistent small bowel obstruction. There is a persistent mesenteric swirl sign, likely secondary to either an internal hernia or adhesion. 2. Cholelithiasis 3. Subtle inhomogeneous left renal enhancement. Clinical correlation to exclude pyelonephritis is recommended KUB 07/19/2017 FINDINGS: Tip of nasogastric tube projects over the distal body of the stomach. IVC filter is noted. There are gallstones. Marked small bowel not significant change. There is a paucity of colonic gas.
[2017-07-25] MEDS: BOOST BREEZE NUTRITION DRINK 1 BOX PO SCH ×4 (09:00→21:00)
[2017-07-25] MEDS: PRAVASTATIN SOD 20 MG TAB PO SCH (09:07)
[2017-07-25] MEDS: METOPROLOL SUCC 25MG EXT REL TAB PO SCH (09:07)
[2017-07-25] MEDS: DIVALPROEX 500 MG EXTENDED RELEASE TAB PO SCH ×2 (09:07→21:08)
[2017-07-25] MEDS: AMIODARONE 200 MG TAB PO SCH (09:07)
[2017-07-25] MEDS: RANITIDINE HCL 150 MG TAB PO SCH (09:07)
[2017-07-25] MEDS: ASCORBIC ACID 500 MG TAB PO SCH ×2 (09:07→21:08)
[2017-07-25] MEDS: DOCUSATE SODIUM 100 MG CAP PO SCH ×2 (09:07→21:08)
[2017-07-25] MEDS: SENNA 8.6 MG TAB PO SCH (09:07)
[2017-07-25] MEDS: POLYETHYLENE (MIRALAX) 17 GM PACK PO SCH (09:08)
[2017-07-25] MEDS: RIVAROXABAN 20 MG TAB PO SCH (09:08)
--- NOTE | 2017-07-25 11:03 | Progress Note ---
Subjective Date of Service: Jul 25, 2017. Subjective pt afebrile over weekend, blood cultures negative to date x 2. abx stopped, remains stable off of abx. wbc nml. Problem List Medical Problems: (1) Small bowel obstruction Status: Acute (2) UTI (urinary tract infection) Status: Acute (3) UTI (urinary tract infection) Status: Acute (4) Vomiting Status: Acute Objective Vital Signs Date Time Temp Pulse Resp B/P (MAP) Pulse Ox O2 Delivery O2 Flow Rate FiO2 07/25/17 08:21 Room Air 07/25/17 07:56 37.2 94 16 113/77 (89) 94 Room Air 07/24/17 23:50 Room Air 07/24/17 23:00 37.1 71 18 111/67 (82) 94 Room Air 07/24/17 15:51 Room Air 07/24/17 15:24 36.9 97 16 105/69 (81) 91 Room Air Laboratory Results Item Value Date Time Blood Culture - Preliminary Resulted 07/21/17 1905 Blood NO GROWTH TO DATE. Blood Culture - Preliminary Resulted 07/21/17 1855 Blood NO GROWTH TO DATE. Assessment and Plan (1) Postoperative fever Assessment & Plan: resolved, suspect due to atelectasis. cultures negative, suggest continue to follow off of abx. stable and cultures negative. Continued [facility] stay due to: home environment unsafe for pt Discharge planning: home
--- NOTE | 2017-07-25 15:22 | Hospitalist Progress Note ---
Hospitalist Progress Note Date of Service Jul 25, 2017. (Preeti Mcadams .ALLISON) Subjective Pt evaluation today including: conversation w/ patient, physical exam, chart review, lab review, review of inpatient medication list Voiding: no voiding problems Ms. Julio continues to feel generally unwell but does not really have specific complaints other than soreness around the incision site. ROS Constitutional: no chills, aches, sweats or fever Respiratory: no sob,cough, sputum, or wheezing Cardiac: no chest pain, palpitations, edema, orthopnea or lightheadedness GI: no abdominal pain, nausea, vomiting, diarrhea or constipation : no dysuria or hesitancy Extremities: no joint pain or weakness Skin: no rash All other systems reviewed and negative (Preeti Mcadams CRNP) Medications Medications Administered Medications (Trade) Dose Ordered Sig/Carleen Route Start Time Stop Time Status Last Admin Dose Admin Sodium Chloride 500 ml @ 999 mls/hr Q31M STAT IV 07/17/17 10:48 07/17/17 11:18 DC 07/17/17 11:23 999 MLS/HR Ondansetron HCl (Zofran Inj) 4 mg NOW STAT IV 07/17/17 10:48 07/17/17 10:50 DC 07/17/17 11:23 4 MG Ceftriaxone Sodium (Rocephin Inj) 1 gm NOW STAT IV 07/17/17 12:30 07/17/17 12:31 DC 07/17/17 12:42 1 GM Ondansetron HCl (Zofran Inj) 4 mg Q6H PRN IV 07/17/17 13:45 08/16/17 13:44 07/20/17 08:22 4 MG Dextrose/Sodium Chloride 1,000 ml @ 100 mls/hr Q10H IV 07/17/17 16:30 07/19/17 16:52 DC 07/19/17 08:37 100 MLS/HR Pantoprazole Sodium 40 mg/ Syringe 10 ml @ 5 mls/min DAILY@11 IV 07/18/17 11:00 07/24/17 09:39 DC 07/23/17 11:06 5 MLS/MIN Valproate Sodium 500 mg/Dextrose 55 ml @ 55 mls/hr Q12H IV 07/17/17 21:00 07/21/17 10:43 DC 07/21/17 08:55 55 MLS/HR Levothyroxine Sodium 37.5 mcg/ Syringe 1.875 ml @ 2 mls/min DAILY@09 IV 07/18/17 09:00 07/23/17 09:48 DC 07/21/17 08:55 2 MLS/MIN Metoprolol Tartrate (Lopressor Iv) 5 mg Q4 PRN IV 07/17/17 14:45 08/16/17 14:44 07/22/17 03:49 5 MG Heparin Sodium/ Dextrose (Heparin 25,000 Unit/500ml D5W) 25,000 unit STK-MED ONCE .ROUTE 07/17/17 15:54 07/17/17 15:55 DC 07/17/17 16:04 19 UNIT Heparin Sodium/ Dextrose 500 ml @ 31 mls/hr Q16H8M IV 07/17/17 16:30 07/23/17 09:00 DC 07/23/17 00:23 31 MLS/HR Heparin Sodium (Porcine) 4500 unit/Syringe 4.5 ml @ 10 mls/min NOW ONCE IV 07/17/17 23:15 07/17/17 23:16 DC 07/17/17 23:50 10 MLS/MIN Heparin Sodium (Porcine) 4500 unit/Syringe 4.5 ml @ 10 mls/min NOW ONCE IV 07/18/17 06:45 07/18/17 06:46 DC 07/18/17 07:08 10 MLS/MIN Morphine Sulfate (MoRPHine SULFATE INJ) 2 mg Q2H PRN IV 07/18/17 08:30 08/01/17 08:29 07/24/17 15:56 2 MG Morphine Sulfate (MoRPHine SULFATE INJ) 4 mg Q2H PRN IV 07/18/17 08:30 08/01/17 08:29 07/21/17 01:47 4 MG Ceftriaxone Sodium 1 gm/ Dextrose 50 ml @ 100 mls/hr Q24H IV 07/18/17 11:00 07/19/17 17:09 DC 07/19/17 11:32 100 MLS/HR Metoprolol Tartrate (Lopressor Iv) 5 mg Q6 IV. 07/18/17 12:00 07/21/17 08:52 DC 07/21/17 06:20 5 MG Heparin Sodium (Porcine) 4500 unit/Syringe 4.5 ml @ 10 mls/min 0915 ONCE IV 07/19/17 09:15 07/19/17 09:16 DC 07/19/17 09:12 10 MLS/MIN Hydromorphone HCl (Dilaudid Inj) 0.5 mg Q5M PRN IV 07/19/17 14:30 07/19/17 19:30 DC 07/19/17 17:49 0.5 MG Cefazolin Sodium (Ancef 2000mg Iv Push) 2,000 mg STK-MED ONCE IV 07/19/17 14:27 07/19/17 14:28 DC 07/19/17 15:21 2,000 MG Bupivacaine HCl (Marcaine 0.5% MPF Inj) 30 ml STK-MED ONCE .ROUTE 07/19/17 15:18 07/19/17 15:19 DC 07/19/17 16:45 10 ML Lidocaine HCl (Xylocaine 1% Inj (Local)) 20 ml STK-MED ONCE .ROUTE 07/19/17 15:19 07/19/17 15:20 DC 07/19/17 16:45 10 ML Bacitracin (Bacitracin Oint) 45 appln STK-MED ONCE .ROUTE 07/19/17 15:19 07/19/17 15:20 DC 07/19/17 16:45 45 APPLN Potassium Chloride/Dextrose/ Sod Cl 1,000 ml @ 75 mls/hr [id number] IV 07/19/17 17:00 07/23/17 11:53 DC 07/23/17 05:27 75 MLS/HR Cefazolin Sodium 2000 mg/Syringe 15 ml @ 100 mls/hr Q8H IV 07/19/17 22:00 07/20/17 21:59 DC 07/20/17 13:25 100 MLS/HR Heparin Sodium (Porcine) 3000 unit/Syringe 3 ml @ 10 mls/min NOW ONCE IV 07/20/17 03:30 07/20/17 03:31 DC 07/20/17 03:45 10 MLS/MIN Metoclopramide HCl (Reglan Inj) 10 mg Q8H IV. 07/20/17 12:00 07/25/17 08:12 DC 07/25/17 03:37 10 MG Bisacodyl (Dulcolax Tab) 10 mg NOW ONCE PO 07/20/17 11:00 07/20/17 11:18 DC 07/20/17 11:38 10 MG Acetaminophen (Tylenol Tab) 1,000 mg STK-MED ONCE PO 07/20/17 20:05 07/20/17 20:06 DC 07/20/17 20:11 1,000 MG Amiodarone HCl (Cordarone Tab) 200 mg DAILY PO 07/21/17 10:00 08/20/17 09:59 07/25/17 09:07 200 MG Ascorbic Acid (Vitamin C Tab) 500 mg BID PO 07/21/17 10:00 08/20/17 09:59 07/25/17 09:07 500 MG Divalproex Sodium (Depakote Extended Rel Tab) 500 mg DAILY PO 07/22/17 09:00 08/21/17 08:59 07/25/17 09:07 500 MG Divalproex Sodium (Depakote Extended Rel Tab) 1,000 mg HS PO 07/21/17 21:00 08/20/17 20:59 07/24/17 20:46 1,000 MG Docusate Sodium (coLACE CAP) 100 mg BID PO 07/21/17 10:00 08/20/17 09:59 07/25/17 09:07 100 MG Levothyroxine Sodium (Synthroid Tab) 75 mcg DAILYBB PO 07/22/17 10:00 08/21/17 09:59 07/25/17 05:39 75 MCG Metoprolol Succinate (Toprol Xl Tab) 25 mg DAILY PO 07/21/17 10:00 08/20/17 09:59 07/25/17 09:07 25 MG Ondansetron HCl (Zofran Odt) 4 mg Q6H PRN SL 07/21/17 08:45 08/20/17 08:44 07/21/17 11:09 4 MG Pravastatin Sodium (Pravachol Tab) 20 mg DAILY PO 07/21/17 10:00 08/20/17 09:59 07/25/17 09:07 20 MG Ranitidine HCl (zANTac TAB) 150 mg DAILY PO 07/21/17 10:00 08/20/17 09:59 07/25/17 09:07 150 MG Senna (Senokot Tab) 17.2 mg QAM PO 07/21/17 10:00 08/20/17 09:59 07/25/17 09:07 17.2 MG Bisacodyl (Dulcolax Supp) 10 mg NOW STAT AK 07/21/17 09:33 07/21/17 09:35 DC 07/21/17 10:46 10 MG Bisacodyl (Dulcolax Tab) 10 mg NOW ONCE PO 07/21/17 09:34 07/21/17 09:35 DC 07/21/17 11:09 10 MG Ertapenem 1 gm/ Sodium Chloride 50 ml @ 120 mls/hr Q24H IV 07/21/17 18:45 07/24/17 09:35 DC 07/23/17 19:46 120 MLS/HR Heparin Sodium (Porcine) 4500 unit/Syringe 4.5 ml @ 10 mls/min NOW ONCE IV 07/22/17 08:00 07/22/17 08:01 DC 07/22/17 08:34 10 MLS/MIN Enteral Nutritional Formula (Boost Breeze Nutritional Drink) 1 box TID PO 07/22/17 14:00 08/21/17 13:59 07/24/17 09:31 1 BOX Bisacodyl (Dulcolax Supp) 10 mg NOW ONCE AK 07/22/17 13:15 07/22/17 13:16 DC 07/22/17 14:11 10 MG Rivaroxaban (Xarelto Tab) 20 mg DAILY PO 07/23/17 09:00 08/22/17 08:59 07/25/17 09:08 20 MG Polyethylene (Miralax Powder Packet) 17 gm DAILY PO 07/25/17 09:00 07/27/17 08:00 07/25/17 09:08 17 GM Bisacodyl (Dulcolax Tab) 10 mg NOW ONCE PO 07/25/17 08:15 07/25/17 08:18 DC 07/25/17 09:08 10 MG (Preeti Mcadams, [place]) Objective Vital Signs Date Time Temp Pulse Resp B/P (MAP) Pulse Ox O2 Delivery O2 Flow Rate FiO2 07/25/17 08:21 Room Air 07/25/17 07:56 37.2 94 16 113/77 (89) 94 Room Air 07/24/17 23:50 Room Air 07/24/17 23:00 37.1 71 18 111/67 (82) 94 Room Air 07/24/17 15:51 Room Air 07/24/17 15:24 36.9 97 16 105/69 (81) 91 Room Air (Preeti Mcadams CRNP) Physical Exam Notes: General: no distress Eyes: normal inspection, PERLL Respiratory: chest non tender, clear to auscultation, normal breath sounds, no respiratory distress, no accessory muscle use Cardiac: regular rate and rhythm, no rub or gallop, no murmur, no edema, no jvd GI/: active bowel sounds, no abd pain or tenderness, soft, non distended Extremities: normal range of motion, normal strength, non tender Neuro/Psych: alert and oriented x 3, normal mood and affect Skin: normal color, dry (Preeti Mcadams CRNP) Assessment and Plan Ms. Julio is a 66 year old female with prior CVA - left side flaccid here for SBO SBO - tolerating AHA diet - Surgery consulted - s/p op day 6 exploratory lap and lysis of adhesions - morphine for pain Fever likely due to atelectasis - abx discontinued due to no growth in blood cultures - CXR showed atelectasis but no consolidation - patient remains afebrile UTI - Culture grew E.Coli - antibiotics complete - dc Quinn catheter Low Urine Output - resolved with IVF A.fib/ history of prior CVA - continue metoprolol - heart rates controlled, A.fib - restart Xeralto after heparin drip in preparation for surgery Seizure disorder - continue Depakote, no seizure activity this admission Hypothyroidism - continue Synthroid Full code DVT prophylaxis with SCD, RAMA and heparin Disp - will discuss with CM for placement . (Preeti Mcadams CRNP) [employer] Physician Supervision Note: I interviewed and examined the patient. Discussed with Preeti Mcadams NP and agree with findings and plan as documented in the note. Any exceptions or clarifications are listed here: None Patient was seen in her room she was awake and alert she was slightly confused she did have a bowel movement yet but had a soft abdomen with good bowel sounds Temperature was 37.2, heart rate 94 respiration rate 16 BP is 113/77 next Patient is recovering well after small bowel obstruction with surgery is currently being treated for urinary tract infection present on admission her atrial fibrillation has been in control as well as her seizure disorder I will look for placement in a rehab over the next few days Documented By: Jorje Thomas (Jorje Thomas M.D.)
[2017-07-25 16:38] VITALS: BP 122/77; PULSE 96; TEMP 36.9; O2SAT 92
[2017-07-25 23:06] VITALS: BP 123/66; PULSE 102; TEMP 37; O2SAT 94
[2017-07-26] VITALS (7 sets, daily range): BP systolic 92–111; BP diastolic 67–76; PULSE 82–91; TEMP 36.6–37.4; O2SAT 85–96
[2017-07-26] MEDS: ACETAMINOPHEN 325 MG TAB PO PRN (01:37)
[2017-07-26] MEDS: LEVOTHYROXINE 75 MCG TAB PO SCH (05:41)
[2017-07-26] MEDS ORDERED: NURSING VERBAL MED ORDER ONE (09:15)
[2017-07-26] MEDS ORDERED: SOD PHOSPHATE/SOD BIPHOSPHATE ENEMA 132 ML BTL PR STA (09:34)
[2017-07-26] MEDS: PRAVASTATIN SOD 20 MG TAB PO SCH (09:38)
[2017-07-26] MEDS: SENNA 8.6 MG TAB PO SCH (09:39)
[2017-07-26] MEDS: RANITIDINE HCL 150 MG TAB PO SCH (09:39)
[2017-07-26] MEDS: DOCUSATE SODIUM 100 MG CAP PO SCH ×2 (09:40→21:12)
[2017-07-26] MEDS: AMIODARONE 200 MG TAB PO SCH (09:40)
[2017-07-26] MEDS: DIVALPROEX 500 MG EXTENDED RELEASE TAB PO SCH ×2 (09:40→21:13)
[2017-07-26] MEDS: ASCORBIC ACID 500 MG TAB PO SCH ×2 (09:40→21:12)
[2017-07-26] MEDS: RIVAROXABAN 20 MG TAB PO SCH (09:40)
[2017-07-26] MEDS: POLYETHYLENE (MIRALAX) 17 GM PACK PO SCH (09:41)
--- NOTE | 2017-07-26 09:45 | Surgery Progress Note ---
Surgery Progress Note Date of Service Jul 26, 2017. Subjective pt said she passed a lot flatus last night, pt denies abdominal pain, no nausea , no vomiting, pt tolerated diet, Objective Vital Signs: Date Time Temp Pulse Resp B/P (MAP) Pulse Ox O2 Delivery O2 Flow Rate FiO2 07/26/17 09:01 89 96 Nasal Cannula 1.0 07/26/17 08:38 36.6 90 32 111/76 (88) 85 Room Air 90 07/26/17 00:05 Room Air 07/25/17 23:06 37.0 102 18 123/66 (85) 94 Room Air 07/25/17 16:38 36.9 96 16 122/77 (92) 92 Room Air 07/25/17 16:30 Room Air General Appearance: WD/WN, no apparent distress Head: normocephalic Neck: supple, no JVD Respiratory/Chest: chest non-tender, lungs clear, normal breath sounds Cardiovascular: regular rate, rhythm, no edema, no gallop, no JVD Abdomen: normal bowel sounds, non tender, non distended, soft Incision(s): clean, dry, intact Extremities: normal range of motion, non-tender, normal inspection Assessment & Plan CT scan-FINDINGS: Lower chest: The heart is normal in size and configuration, without pericardial effusion. The lung bases and pleural spaces are clear. Liver: The contrast-enhanced liver is normal in size, contour, and attenuation. There is no intrahepatic biliary ductal dilatation. The hepatic veins and portal veins are patent. Gallbladder: Multiple gallstones. Spleen: Normal in size and attenuation. Pancreas: Unremarkable. Adrenal glands: Unremarkable. Kidneys: There is slightly heterogeneous left renal enhancement. No focal masses are visualized. Pyelonephritis cannot be excluded. Please correlate clinically. Bowel: There are multiple dilated small bowel loops with a persistent transition zone within the right mid abdomen. There is associated mesenteric swirl pattern. The findings could indicate an internal hernia or twist from an adhesion. The colon is decompressed. The appendix appears normal Peritoneum: There is no intraperitoneal free air or abdominal ascites. Vasculature: There is no evidence of abdominal aortic aneurysm. There is an indwelling IVC filter. Several struts protrude beyond the IVC lumen Adenopathy: None. Pelvic viscera: The uterus appears surgically absent Skeletal structures: There are no destructive lesions visualized. There is a scoliosis. There is a lumbar spinal stenosis. IMPRESSION: 1. Persistent small bowel obstruction. There is a persistent mesenteric swirl sign, likely secondary to either an internal hernia or adhesion. 2. Cholelithiasis 3. Subtle inhomogeneous left renal enhancement. Clinical correlation to exclude pyelonephritis is recommended KUB 07/19/2017 FINDINGS: Tip of nasogastric tube projects over the distal body of the stomach. IVC filter is noted. There are gallstones. Marked small bowel not significant change. There is a paucity of colonic gas. IMPRESSION: 1. Findings consistent with a persistent moderate to high-grade small bowel obstruction. 2. Interval placement of a nasogastric tube which is appropriately positioned. Assessment: pt is 66 year old female who was admitted to hospital for SBO, not pass any gas and BM for 3 days, pt has history- hysterectomy, CVA, left side body paralysis, DVT, A-Fib, Dr. Regalado and me recommend to do exploratory laparotomy, possible bowel resection or stoma, D/W benefits, risks and alternatives of the procedure with pt and her , the risks - infection, bleeding, injury bowel,DVT, [place], stroke, , they understood, they agree with the plan, I answered all questions, Hold heparin now, 07/21/2017 doing better, not pass gas yet, dulcolax 10 mg NV PT consult will F/U 07/25/2017 doing better, passed gas, no abdominal pain miralax 17 g po dulcolax 10 mg po social work consult for possible D/C to jail tomorrow. OOD full liquid diet 07/26/2017 doing fine, fleet enema social work consult for possible D/C to jail tomorrow CT scan-FINDINGS: Lower chest: The heart is normal in size and configuration, without pericardial effusion. The lung bases and pleural spaces are clear. Liver: The contrast-enhanced liver is normal in size, contour, and attenuation. There is no intrahepatic biliary ductal dilatation. The hepatic veins and portal veins are patent. Gallbladder: Multiple gallstones. Spleen: Normal in size and attenuation. Pancreas: Unremarkable. Adrenal glands: Unremarkable. Kidneys: There is slightly heterogeneous left renal enhancement. No focal masses are visualized. Pyelonephritis cannot be excluded. Please correlate clinically. Bowel: There are multiple dilated small bowel loops with a persistent transition zone within the right mid abdomen. There is associated mesenteric swirl pattern. The findings could indicate an internal hernia or twist from an adhesion. The colon is decompressed. The appendix appears normal Peritoneum: There is no intraperitoneal free air or abdominal ascites. Vasculature: There is no evidence of abdominal aortic aneurysm. There is an indwelling IVC filter. Several struts protrude beyond the IVC lumen Adenopathy: None. Pelvic viscera: The uterus appears surgically absent Skeletal structures: There are no destructive lesions visualized. There is a scoliosis. There is a lumbar spinal stenosis. IMPRESSION: 1. Persistent small bowel obstruction. There is a persistent mesenteric swirl sign, likely secondary to either an internal hernia or adhesion. 2. Cholelithiasis 3. Subtle inhomogeneous left renal enhancement. Clinical correlation to exclude pyelonephritis is recommended KUB 07/19/2017 FINDINGS: Tip of nasogastric tube projects over the distal body of the stomach. IVC filter is noted. There are gallstones. Marked small bowel not significant change. There is a paucity of colonic gas.
[2017-07-26] MEDS: BOOST BREEZE NUTRITION DRINK 1 BOX PO SCH ×3 (09:46→21:00)
[2017-07-26] MEDS: METOPROLOL SUCC 25MG EXT REL TAB PO SCH (09:55)
--- NOTE | 2017-07-26 13:36 | Hospitalist Progress Note ---
Hospitalist Progress Note Date of Service Jul 26, 2017. (Preeti Mcadams .[place]) Subjective Pt evaluation today including: conversation w/ patient, conversation w/ family , physical exam, chart review, lab review, review of inpatient medication list Voiding: no voiding problems Ms. Julio reports feeling lousy but is non specific as to why. Per and nursing she seems a bit more confused today than yesterday. She can answer most of my questions appropriately however she could not tell me that she was in the hospital ROS Constitutional: no chills, aches, sweats or fever Respiratory: no sob,cough, sputum, or wheezing Cardiac: no chest pain, palpitations, edema, orthopnea or lightheadedness GI: no abdominal pain, nausea, vomiting, diarrhea or constipation : no dysuria or hesitancy Extremities: no joint pain or weakness Skin: no rash All other systems reviewed and negative (Preeti Mcadams CRNP) Medications Medications Administered Medications (Trade) Dose Ordered Sig/Carleen Route Start Time Stop Time Status Last Admin Dose Admin Sodium Chloride 500 ml @ 999 mls/hr Q31M STAT IV 07/17/17 10:48 07/17/17 11:18 DC 07/17/17 11:23 999 MLS/HR Ondansetron HCl (Zofran Inj) 4 mg NOW STAT IV 07/17/17 10:48 07/17/17 10:50 DC 07/17/17 11:23 4 MG Ceftriaxone Sodium (Rocephin Inj) 1 gm NOW STAT IV 07/17/17 12:30 07/17/17 12:31 DC 07/17/17 12:42 1 GM Ondansetron HCl (Zofran Inj) 4 mg Q6H PRN IV 07/17/17 13:45 08/16/17 13:44 07/20/17 08:22 4 MG Dextrose/Sodium Chloride 1,000 ml @ 100 mls/hr Q10H IV 07/17/17 16:30 07/19/17 16:52 DC 07/19/17 08:37 100 MLS/HR Pantoprazole Sodium 40 mg/ Syringe 10 ml @ 5 mls/min DAILY@11 IV 07/18/17 11:00 07/24/17 09:39 DC 07/23/17 11:06 5 MLS/MIN Valproate Sodium 500 mg/Dextrose 55 ml @ 55 mls/hr Q12H IV 07/17/17 21:00 07/21/17 10:43 DC 07/21/17 08:55 55 MLS/HR Levothyroxine Sodium 37.5 mcg/ Syringe 1.875 ml @ 2 mls/min DAILY@09 IV 07/18/17 09:00 07/23/17 09:48 DC 07/21/17 08:55 2 MLS/MIN Metoprolol Tartrate (Lopressor Iv) 5 mg Q4 PRN IV 07/17/17 14:45 08/16/17 14:44 07/22/17 03:49 5 MG Heparin Sodium/ Dextrose (Heparin 25,000 Unit/500ml D5W) 25,000 unit STK-MED ONCE .ROUTE 07/17/17 15:54 07/17/17 15:55 DC 07/17/17 16:04 19 UNIT Heparin Sodium/ Dextrose 500 ml @ 31 mls/hr Q16H8M IV 07/17/17 16:30 07/23/17 09:00 DC 07/23/17 00:23 31 MLS/HR Heparin Sodium (Porcine) 4500 unit/Syringe 4.5 ml @ 10 mls/min NOW ONCE IV 07/17/17 23:15 07/17/17 23:16 DC 07/17/17 23:50 10 MLS/MIN Heparin Sodium (Porcine) 4500 unit/Syringe 4.5 ml @ 10 mls/min NOW ONCE IV 07/18/17 06:45 07/18/17 06:46 DC 07/18/17 07:08 10 MLS/MIN Morphine Sulfate (MoRPHine SULFATE INJ) 2 mg Q2H PRN IV 07/18/17 08:30 08/01/17 08:29 07/24/17 15:56 2 MG Morphine Sulfate (MoRPHine SULFATE INJ) 4 mg Q2H PRN IV 07/18/17 08:30 08/01/17 08:29 07/21/17 01:47 4 MG Ceftriaxone Sodium 1 gm/ Dextrose 50 ml @ 100 mls/hr Q24H IV 07/18/17 11:00 07/19/17 17:09 DC 07/19/17 11:32 100 MLS/HR Metoprolol Tartrate (Lopressor Iv) 5 mg Q6 IV. 07/18/17 12:00 07/21/17 08:52 DC 07/21/17 06:20 5 MG Heparin Sodium (Porcine) 4500 unit/Syringe 4.5 ml @ 10 mls/min 0915 ONCE IV 07/19/17 09:15 07/19/17 09:16 DC 07/19/17 09:12 10 MLS/MIN Hydromorphone HCl (Dilaudid Inj) 0.5 mg Q5M PRN IV 07/19/17 14:30 07/19/17 19:30 DC 07/19/17 17:49 0.5 MG Cefazolin Sodium (Ancef 2000mg Iv Push) 2,000 mg STK-MED ONCE IV 07/19/17 14:27 07/19/17 14:28 DC 07/19/17 15:21 2,000 MG Bupivacaine HCl (Marcaine 0.5% MPF Inj) 30 ml STK-MED ONCE .ROUTE 07/19/17 15:18 07/19/17 15:19 DC 07/19/17 16:45 10 ML Lidocaine HCl (Xylocaine 1% Inj (Local)) 20 ml STK-MED ONCE .ROUTE 07/19/17 15:19 07/19/17 15:20 DC 07/19/17 16:45 10 ML Bacitracin (Bacitracin Oint) 45 appln STK-MED ONCE .ROUTE 07/19/17 15:19 07/19/17 15:20 DC 07/19/17 16:45 45 APPLN Potassium Chloride/Dextrose/ Sod Cl 1,000 ml @ 75 mls/hr [id number] IV 07/19/17 17:00 07/23/17 11:53 DC 07/23/17 05:27 75 MLS/HR Cefazolin Sodium 2000 mg/Syringe 15 ml @ 100 mls/hr Q8H IV 07/19/17 22:00 07/20/17 21:59 DC 07/20/17 13:25 100 MLS/HR Heparin Sodium (Porcine) 3000 unit/Syringe 3 ml @ 10 mls/min NOW ONCE IV 07/20/17 03:30 07/20/17 03:31 DC 07/20/17 03:45 10 MLS/MIN Metoclopramide HCl (Reglan Inj) 10 mg Q8H IV. 07/20/17 12:00 4/16/18 08:12 DC 07/25/17 03:37 10 MG Bisacodyl (Dulcolax Tab) 10 mg NOW ONCE PO 07/20/17 11:00 07/20/17 11:18 DC 07/20/17 11:38 10 MG Acetaminophen (Tylenol Tab) 1,000 mg STK-MED ONCE PO 07/20/17 20:05 07/20/17 20:06 DC 07/20/17 20:11 1,000 MG Amiodarone HCl (Cordarone Tab) 200 mg DAILY PO 07/21/17 10:00 08/20/17 09:59 07/26/17 09:40 200 MG Ascorbic Acid (Vitamin C Tab) 500 mg BID PO 07/21/17 10:00 08/20/17 09:59 07/26/17 09:40 500 MG Divalproex Sodium (Depakote Extended Rel Tab) 500 mg DAILY PO 07/22/17 09:00 08/21/17 08:59 07/26/17 09:40 500 MG Divalproex Sodium (Depakote Extended Rel Tab) 1,000 mg HS PO 07/21/17 21:00 08/20/17 20:59 07/25/17 21:08 1,000 MG Docusate Sodium (coLACE CAP) 100 mg BID PO 07/21/17 10:00 08/20/17 09:59 07/26/17 09:40 100 MG Levothyroxine Sodium (Synthroid Tab) 75 mcg DAILYBB PO 07/22/17 10:00 08/21/17 09:59 07/26/17 05:41 75 MCG Metoprolol Succinate (Toprol Xl Tab) 25 mg DAILY PO 07/21/17 10:00 08/20/17 09:59 07/25/17 09:07 25 MG Ondansetron HCl (Zofran Odt) 4 mg Q6H PRN SL 07/21/17 08:45 08/20/17 08:44 07/21/17 11:09 4 MG Pravastatin Sodium (Pravachol Tab) 20 mg DAILY PO 07/21/17 10:00 08/20/17 09:59 07/26/17 09:38 20 MG Ranitidine HCl (zANTac TAB) 150 mg DAILY PO 07/21/17 10:00 08/20/17 09:59 07/26/17 09:39 150 MG Senna (Senokot Tab) 17.2 mg QAM PO 07/21/17 10:00 08/20/17 09:59 07/26/17 09:39 17.2 MG Bisacodyl (Dulcolax Supp) 10 mg NOW STAT NE 07/21/17 09:33 07/21/17 09:35 DC 07/21/17 10:46 10 MG Bisacodyl (Dulcolax Tab) 10 mg NOW ONCE PO 07/21/17 09:34 07/21/17 09:35 DC 07/21/17 11:09 10 MG Ertapenem 1 gm/ Sodium Chloride 50 ml @ 120 mls/hr Q24H IV 07/21/17 18:45 07/24/17 09:35 DC 07/23/17 19:46 120 MLS/HR Heparin Sodium (Porcine) 4500 unit/Syringe 4.5 ml @ 10 mls/min NOW ONCE IV 07/22/17 08:00 07/22/17 08:01 DC 07/22/17 08:34 10 MLS/MIN Enteral Nutritional Formula (Boost Breeze Nutritional Drink) 1 box TID PO 07/22/17 14:00 08/21/17 13:59 07/24/17 09:31 1 BOX Bisacodyl (Dulcolax Supp) 10 mg NOW ONCE NE 07/22/17 13:15 07/22/17 13:16 DC 07/22/17 14:11 10 MG Rivaroxaban (Xarelto Tab) 20 mg DAILY PO 07/23/17 09:00 08/22/17 08:59 07/26/17 09:40 20 MG Polyethylene (Miralax Powder Packet) 17 gm DAILY PO 07/25/17 09:00 07/30/17 08:00 07/26/17 09:41 17 GM Bisacodyl (Dulcolax Tab) 10 mg NOW ONCE PO 07/25/17 08:15 07/25/17 08:18 DC 07/25/17 09:08 10 MG Acetaminophen (Tylenol Tab) 650 mg Q4H PRN PO 07/26/17 01:15 08/25/17 01:14 07/26/17 01:37 650 MG Sodium Biphosphate/ Sodium Phosphate (Fleet Enema) 132 ml NOW STAT NE 07/26/17 09:34 07/26/17 09:35 DC 07/26/17 09:55 132 ML (rPeeti Mcadams CRNP) Objective Vital Signs Date Time Temp Pulse Resp B/P (MAP) Pulse Ox O2 Delivery O2 Flow Rate FiO2 07/26/17 12:08 36.9 86 22 106/69 (81) 95 Room Air 07/26/17 09:55 82 92/67 (75) 95 Room Air 07/26/17 09:01 89 96 Nasal Cannula 1.0 07/26/17 09:00 Room Air 07/26/17 08:38 36.6 90 32 111/76 (88) 85 Room Air 90 07/26/17 00:05 Room Air 07/25/17 23:06 37.0 102 18 123/66 (85) 94 Room Air 07/25/17 16:38 36.9 96 16 122/77 (92) 92 Room Air 07/25/17 16:30 Room Air (Preeti Mcadams CRNP) Physical Exam Notes: General: no distress Eyes: normal inspection, PERLL Respiratory: chest non tender, clear to auscultation, normal breath sounds, no respiratory distress, no accessory muscle use Cardiac: regular rate and rhythm, no rub or gallop, no murmur, no edema, no jvd GI/: active bowel sounds, no abd pain or tenderness, soft, non distended Extremities: normal range of motion, normal strength, non tender Neuro/Psych: alert and oriented x 2, normal mood and affect, baseline left side hemiparesis, no apparent new CN deficits on exam Skin: normal color, dry (Preeti Mcadams CRNP) Assessment and Plan Ms. Julio is a 66 year old female with prior CVA - left side flaccid here for SBO SBO - tolerating AHA diet - Surgery consulted - s/p op day 7 exploratory lap and lysis of adhesions - morphine for pain Fever likely due to atelectasis - abx discontinued due to no growth in blood cultures - CXR showed atelectasis but no consolidation - patient remains afebrile UTI - Culture grew E.Coli - antibiotics complete - dc'd Quinn catheter Low Urine Output - resolved with IVF A.fib/ history of prior CVA - continue metoprolol - heart rates controlled, A.fib - restarted Xeralto after heparin drip in preparation for surgery Confusion, Seizure disorder - continue Depakote, no seizure activity this admission - depakote with morning labs Hypothyroidism - continue Synthroid Full code DVT prophylaxis with SCD, RAMA and heparin Disp - [place] . (Preeti Mcadams ., [place]) BACK [employer] Physician Supervision Note: I interviewed and examined the patient. Discussed with Preeti Mcadams NP and agree with findings and plan as documented in the note. Any exceptions or clarifications are listed here: None is at the bedside slightly concerned that she may be more lethargic than usual. We are checking a Depakote level otherwise she appears to be in stable condition at this time next Temp 36 6 pulse 82 respiration 32 BP 92/67/min evaluation the patient is slightly tired but more awake and alert in ways that she can answer questions more appropriately Her cardiac exam is regular lungs are clear abdomen slightly protuberant she has good bowel sounds present Patient is recovering for small bowel obstruction with resection or evaluating her for toxic encephalopathy from elevation of her antiepileptic medications Documented By: Jorje Thomas (Jorje Thomas M.D.)
[2017-07-27] MEDS: LEVOTHYROXINE 75 MCG TAB PO SCH (05:49)
[2017-07-27 08:10] VITALS: BP 110/78; PULSE 91; TEMP 36.7; O2SAT 93
[2017-07-27] MEDS: BOOST BREEZE NUTRITION DRINK 1 BOX PO SCH ×2 (09:00→13:40)
[2017-07-27 09:13] LABS: BASO % 0.2 %; BASO ABS # 0.02 K/uL (0-0.2); EOS ABS # 0.18 K/uL (0-0.5); HEMATOCRIT 40.2 % (37-47); IG# 0.02 K/uL (0.00-0.02); LYMPH % 30.7 %; MEAN CELL VOLUME 98.5 fL (80-100); MEAN CORPUSCULAR HEMOGLOBIN 31.9 pg (25-34); MEAN CORPUSCULAR HGB CONC 32.3 g/dl (32-36); MONO % 7.8 %; MONO ABS # 0.69 K/uL (0.11-0.59); NEUT % 59.1 %; NEUT ABS # 5.18 K/uL (1.4-6.5); PLATELET COUNT 190 K/uL (130-400); RED CELL DISTRIBUTION WIDTH CV 14.7 % (11.5-14.5); RED CELL DISTRIBUTION WIDTH SD 52.3 fL (36.4-46.3); WHITE BLOOD COUNT 8.79 K/uL (4.8-10.8)
[2017-07-27] MEDS: AMIODARONE 200 MG TAB PO SCH (09:13)
[2017-07-27] MEDS: ASCORBIC ACID 500 MG TAB PO SCH ×2 (09:14→21:00)
[2017-07-27] MEDS: DOCUSATE SODIUM 100 MG CAP PO SCH ×2 (09:14→20:58)
[2017-07-27] MEDS: METOPROLOL SUCC 25MG EXT REL TAB PO SCH (09:14)
[2017-07-27] MEDS: SENNA 8.6 MG TAB PO SCH (09:14)
[2017-07-27] MEDS: PRAVASTATIN SOD 20 MG TAB PO SCH (09:14)
[2017-07-27] MEDS: RANITIDINE HCL 150 MG TAB PO SCH (09:14)
[2017-07-27] MEDS: DIVALPROEX 500 MG EXTENDED RELEASE TAB PO SCH ×2 (09:15→21:01)
[2017-07-27] MEDS: RIVAROXABAN 20 MG TAB PO SCH (09:15)
[2017-07-27] MEDS: POLYETHYLENE (MIRALAX) 17 GM PACK PO SCH (09:15)
[2017-07-27 09:47] LABS: ALBUMIN 2.5 gm/dl (3.4-5.0); CALCIUM 8.8 mg/dl (8.5-10.1); CREATININE 0.54 mg/dl (0.60-1.20); POTASSIUM 3.6 mmol/L (3.5-5.1)
--- NOTE | 2017-07-27 09:51 | Surgery Progress Note ---
Surgery Progress Note Date of Service Jul 27, 2017. Subjective Post OP Day: POD # 8 s/p ex lap, lysis of adhesion "not feeling well" however does not give reason as to why, states they keep taking blood from me and at 6:15 this morning Has not passed flatus since yesterday afternoon, no bowel movement after fleet enema No abdominal pain Tolerated diet, currently eating breakfast and try almost completely empty no nausea or vomiting Objective Vital Signs: Date Time Temp Pulse Resp B/P (MAP) Pulse Ox O2 Delivery O2 Flow Rate FiO2 07/27/17 08:10 36.7 91 16 110/78 (89) 93 Room Air 07/27/17 07:45 Room Air 07/27/17 00:00 Room Air 07/26/17 23:00 37.4 91 18 105/69 (81) 93 Room Air 07/26/17 15:41 37.0 85 20 102/73 (83) 95 Room Air 07/26/17 15:25 95 Room Air 07/26/17 12:08 36.9 86 22 106/69 (81) 95 Room Air 07/26/17 09:55 82 92/67 (75) 95 Room Air General Appearance: no apparent distress, + obese Head: normocephalic, atraumatic Neck: trachea midline Respiratory/Chest: no respiratory distress, no accessory muscle use Abdomen: non distended, soft, no organomegaly, no pulsatile mass, + tenderness (mild tenderness near incision site) Incision(s): clean, dry, intact, no erythema, no drainage, findings (clint intact) Laboratory Results: Results Past 24 Hours Test 07/27/17 06:09 07/27/17 08:52 Range/Units Valproic Acid (Depakene) Level 70 50-100 mcg/ml White Blood Count 8.79 4.8-10.8 K/uL Red Blood Count 4.08 4.2-5.4 M/uL Hemoglobin 13.0 12.0-16.0 g/dL Hematocrit 40.2 37-47 % Mean Corpuscular Volume 98.5 80-100 fL Mean Corpuscular Hemoglobin 31.9 25-34 pg Mean Corpuscular Hemoglobin Concent 32.3 32-36 g/dl Platelet Count 190 130-400 K/uL Mean Platelet Volume 10.0 7.4-10.4 fL Neutrophils (%) (Auto) 59.1 % Lymphocytes (%) (Auto) 30.7 % Monocytes (%) (Auto) 7.8 % Eosinophils (%) (Auto) 2.0 % Basophils (%) (Auto) 0.2 % Neutrophils # (Auto) 5.18 1.4-6.5 K/uL Lymphocytes # (Auto) 2.70 1.2-3.4 K/uL Monocytes # (Auto) 0.69 0.11-0.59 K/uL Eosinophils # (Auto) 0.18 0-0.5 K/uL Basophils # (Auto) 0.02 0-0.2 K/uL RDW Standard Deviation 52.3 36.4-46.3 fL RDW Coefficient of Variation 14.7 11.5-14.5 % Immature Granulocyte % (Auto) 0.2 % Immature Granulocyte # (Auto) 0.02 0.00-0.02 K/uL Assessment & Plan POD # 8 s/p ex lap, lysis of adhesions - vitals stable other than tachycardia, afib - afebrile for last 4 days, post op fever most likely atelectasis - leukocytosis resolved - UTI- ecoli, treatment finished, antibiotics discontinued, strickland cath discontinued - blood cultures x 2 negative - + flatus but no bowel movement Plan: awaiting return of complete bowel function, patient is passing flatus and tolerated AHA diet without nausea or vomiting. Recommend bowel regimen with stool softener BID, Miralax BID, Senokot BID and avoiding narcotics if possible. Will start Po Tramadol as needed for pain. continue AHA diet need to continue PT/OT, OOB to chair Continue IV Zofran prn nausea Continue breeze/boost repeat am labs continue abdominal binder Continue medical management Possible discharge to [facility] today, no surgical contraindication to discharge to SNF. Will need f/u in surgical office in [address] Beatty has seen patient, agrees with above
[2017-07-27] MEDS ORDERED: TRAMADOL HCL 50 MG TAB PO PRN (10:00)
[2017-07-27] MEDS ORDERED: BISACODYL 10 MG SUPP PR STA (14:22)
[2017-07-27] MEDS ORDERED: BISACODYL 10 MG SUPP PR PRN (14:30)
[2017-07-27] MEDS ORDERED: POLYETHYLENE (MIRALAX) 17 GM PACK PO PRN (14:30)
--- NOTE | 2017-07-27 14:31 | Hospitalist Progress Note ---
Hospitalist Progress Note Date of Service Jul 27, 2017. (Preeti Mcadams ., ALLISON) Subjective Pt evaluation today including: conversation w/ patient, physical exam, chart review, lab review, review of inpatient medication list Voiding: no voiding problems Ms. Julio is back to her baseline mentation, making jokes and talking to her (Preeti Mcadams ., ALLISON) Medications Medications Administered Medications (Trade) Dose Ordered Sig/Carleen Route Start Time Stop Time Status Last Admin Dose Admin Sodium Chloride 500 ml @ 999 mls/hr Q31M STAT IV 07/17/17 10:48 07/17/17 11:18 DC 07/17/17 11:23 999 MLS/HR Ondansetron HCl (Zofran Inj) 4 mg NOW STAT IV 07/17/17 10:48 07/17/17 10:50 DC 07/17/17 11:23 4 MG Ceftriaxone Sodium (Rocephin Inj) 1 gm NOW STAT IV 07/17/17 12:30 07/17/17 12:31 DC 07/17/17 12:42 1 GM Ondansetron HCl (Zofran Inj) 4 mg Q6H PRN IV 07/17/17 13:45 08/16/17 13:44 07/20/17 08:22 4 MG Dextrose/Sodium Chloride 1,000 ml @ 100 mls/hr Q10H IV 07/17/17 16:30 07/19/17 16:52 DC 07/19/17 08:37 100 MLS/HR Pantoprazole Sodium 40 mg/ Syringe 10 ml @ 5 mls/min DAILY@11 IV 07/18/17 11:00 07/24/17 09:39 DC 07/23/17 11:06 5 MLS/MIN Valproate Sodium 500 mg/Dextrose 55 ml @ 55 mls/hr Q12H IV 07/17/17 21:00 07/21/17 10:43 DC 07/21/17 08:55 55 MLS/HR Levothyroxine Sodium 37.5 mcg/ Syringe 1.875 ml @ 2 mls/min DAILY@09 IV 07/18/17 09:00 07/23/17 09:48 DC 07/21/17 08:55 2 MLS/MIN Metoprolol Tartrate (Lopressor Iv) 5 mg Q4 PRN IV 07/17/17 14:45 08/16/17 14:44 07/22/17 03:49 5 MG Heparin Sodium/ Dextrose (Heparin 25,000 Unit/500ml D5W) 25,000 unit STK-MED ONCE .ROUTE 07/17/17 15:54 07/17/17 15:55 DC 07/17/17 16:04 19 UNIT Heparin Sodium/ Dextrose 500 ml @ 31 mls/hr Q16H8M IV 07/17/17 16:30 07/23/17 09:00 DC 07/23/17 00:23 31 MLS/HR Heparin Sodium (Porcine) 4500 unit/Syringe 4.5 ml @ 10 mls/min NOW ONCE IV 07/17/17 23:15 07/17/17 23:16 DC 07/17/17 23:50 10 MLS/MIN Heparin Sodium (Porcine) 4500 unit/Syringe 4.5 ml @ 10 mls/min NOW ONCE IV 07/18/17 06:45 07/18/17 06:46 DC 07/18/17 07:08 10 MLS/MIN Morphine Sulfate (MoRPHine SULFATE INJ) 2 mg Q2H PRN IV 07/18/17 08:30 08/01/17 08:29 07/24/17 15:56 2 MG Morphine Sulfate (MoRPHine SULFATE INJ) 4 mg Q2H PRN IV 07/18/17 08:30 08/01/17 08:29 07/21/17 01:47 4 MG Ceftriaxone Sodium 1 gm/ Dextrose 50 ml @ 100 mls/hr Q24H IV 07/18/17 11:00 07/19/17 17:09 DC 07/19/17 11:32 100 MLS/HR Metoprolol Tartrate (Lopressor Iv) 5 mg Q6 IV. 07/18/17 12:00 07/21/17 08:52 DC 07/21/17 06:20 5 MG Heparin Sodium (Porcine) 4500 unit/Syringe 4.5 ml @ 10 mls/min 0915 ONCE IV 07/19/17 09:15 07/19/17 09:16 DC 07/19/17 09:12 10 MLS/MIN Hydromorphone HCl (Dilaudid Inj) 0.5 mg Q5M PRN IV 07/19/17 14:30 07/19/17 19:30 DC 07/19/17 17:49 0.5 MG Cefazolin Sodium (Ancef 2000mg Iv Push) 2,000 mg STK-MED ONCE IV 07/19/17 14:27 07/19/17 14:28 DC 07/19/17 15:21 2,000 MG Bupivacaine HCl (Marcaine 0.5% MPF Inj) 30 ml STK-MED ONCE .ROUTE 07/19/17 15:18 07/19/17 15:19 DC 07/19/17 16:45 10 ML Lidocaine HCl (Xylocaine 1% Inj (Local)) 20 ml STK-MED ONCE .ROUTE 07/19/17 15:19 07/19/17 15:20 DC 07/19/17 16:45 10 ML Bacitracin (Bacitracin Oint) 45 appln STK-MED ONCE .ROUTE 07/19/17 15:19 07/19/17 15:20 DC 07/19/17 16:45 45 APPLN Potassium Chloride/Dextrose/ Sod Cl 1,000 ml @ 75 mls/hr [id number] IV 07/19/17 17:00 07/23/17 11:53 DC 07/23/17 05:27 75 MLS/HR Cefazolin Sodium 2000 mg/Syringe 15 ml @ 100 mls/hr Q8H IV 07/19/17 22:00 07/20/17 21:59 DC 07/20/17 13:25 100 MLS/HR Heparin Sodium (Porcine) 3000 unit/Syringe 3 ml @ 10 mls/min NOW ONCE IV 07/20/17 03:30 07/20/17 03:31 DC 07/20/17 03:45 10 MLS/MIN Metoclopramide HCl (Reglan Inj) 10 mg Q8H IV. 07/20/17 12:00 07/25/17 08:12 DC 07/25/17 03:37 10 MG Bisacodyl (Dulcolax Tab) 10 mg NOW ONCE PO 07/20/17 11:00 07/20/17 11:18 DC 07/20/17 11:38 10 MG Acetaminophen (Tylenol Tab) 1,000 mg STK-MED ONCE PO 07/20/17 20:05 07/20/17 20:06 DC 07/20/17 20:11 1,000 MG Amiodarone HCl (Cordarone Tab) 200 mg DAILY PO 07/21/17 10:00 08/20/17 09:59 07/27/17 09:13 200 MG Ascorbic Acid (Vitamin C Tab) 500 mg BID PO 07/21/17 10:00 08/20/17 09:59 07/27/17 09:14 500 MG Divalproex Sodium (Depakote Extended Rel Tab) 500 mg DAILY PO 07/22/17 09:00 08/21/17 08:59 07/27/17 09:15 500 MG Divalproex Sodium (Depakote Extended Rel Tab) 1,000 mg HS PO 07/21/17 21:00 08/20/17 20:59 07/26/17 21:13 1,000 MG Docusate Sodium (coLACE CAP) 100 mg BID PO 07/21/17 10:00 08/20/17 09:59 07/27/17 09:14 100 MG Levothyroxine Sodium (Synthroid Tab) 75 mcg DAILYBB PO 07/22/17 10:00 08/21/17 09:59 07/27/17 05:49 75 MCG Metoprolol Succinate (Toprol Xl Tab) 25 mg DAILY PO 07/21/17 10:00 08/20/17 09:59 07/27/17 09:14 25 MG Ondansetron HCl (Zofran Odt) 4 mg Q6H PRN SL 07/21/17 08:45 08/20/17 08:44 07/21/17 11:09 4 MG Pravastatin Sodium (Pravachol Tab) 20 mg DAILY PO 07/21/17 10:00 08/20/17 09:59 07/27/17 09:14 20 MG Ranitidine HCl (zANTac TAB) 150 mg DAILY PO 07/21/17 10:00 08/20/17 09:59 07/27/17 09:14 150 MG Senna (Senokot Tab) 17.2 mg QAM PO 07/21/17 10:00 08/20/17 09:59 07/27/17 09:14 17.2 MG Bisacodyl (Dulcolax Supp) 10 mg NOW STAT ME 07/21/17 09:33 07/21/17 09:35 DC 07/21/17 10:46 10 MG Bisacodyl (Dulcolax Tab) 10 mg NOW ONCE PO 07/21/17 09:34 07/21/17 09:35 DC 07/21/17 11:09 10 MG Ertapenem 1 gm/ Sodium Chloride 50 ml @ 120 mls/hr Q24H IV 07/21/17 18:45 07/24/17 09:35 DC 07/23/17 19:46 120 MLS/HR Heparin Sodium (Porcine) 4500 unit/Syringe 4.5 ml @ 10 mls/min NOW ONCE IV 07/22/17 08:00 07/22/17 08:01 DC 07/22/17 08:34 10 MLS/MIN Enteral Nutritional Formula (Boost Breeze Nutritional Drink) 1 box TID PO 07/22/17 14:00 08/21/17 13:59 07/24/17 09:31 1 BOX Bisacodyl (Dulcolax Supp) 10 mg NOW ONCE ME 07/22/17 13:15 07/22/17 13:16 DC 07/22/17 14:11 10 MG Rivaroxaban (Xarelto Tab) 20 mg DAILY PO 07/23/17 09:00 08/22/17 08:59 07/27/17 09:15 20 MG Polyethylene (Miralax Powder Packet) 17 gm DAILY PO 07/25/17 09:00 07/30/17 08:00 07/27/17 09:15 17 GM Bisacodyl (Dulcolax Tab) 10 mg NOW ONCE PO 07/25/17 08:15 07/25/17 08:18 DC 07/25/17 09:08 10 MG Acetaminophen (Tylenol Tab) 650 mg Q4H PRN PO 07/26/17 01:15 08/25/17 01:14 07/26/17 01:37 650 MG Sodium Biphosphate/ Sodium Phosphate (Fleet Enema) 132 ml NOW STAT ME 07/26/17 09:34 07/26/17 09:35 DC 07/26/17 09:55 132 ML (Preeti Mcadams CRNP) Objective Vital Signs Date Time Temp Pulse Resp B/P (MAP) Pulse Ox O2 Delivery O2 Flow Rate FiO2 07/27/17 08:10 36.7 91 16 110/78 (89) 93 Room Air 07/27/17 07:45 Room Air 07/27/17 00:00 Room Air 07/26/17 23:00 37.4 91 18 105/69 (81) 93 Room Air 07/26/17 15:41 37.0 85 20 102/73 (83) 95 Room Air 07/26/17 15:25 95 Room Air (Preeti Mcadams CRNP) Physical Exam Notes: General: no distress Eyes: normal inspection, PERLL Respiratory: chest non tender, clear to auscultation, normal breath sounds, no respiratory distress, no accessory muscle use Cardiac: regular rate and rhythm, no rub or gallop, no murmur, no edema, no jvd GI/: active bowel sounds, no abd pain or tenderness, soft, non distended Extremities: normal range of motion, normal strength, non tender Neuro/Psych: alert and oriented x 3, normal mood and affect Skin: normal color, dry (Preeti Mcadams CRNP) Laboratory Results Last 24 Hours Test 07/27/17 06:09 07/27/17 08:52 Valproic Acid (Depakene) Level 70 mcg/ml White Blood Count 8.79 K/uL Red Blood Count 4.08 M/uL Hemoglobin 13.0 g/dL Hematocrit 40.2 % Mean Corpuscular Volume 98.5 fL Mean Corpuscular Hemoglobin 31.9 pg Mean Corpuscular Hemoglobin Concent 32.3 g/dl Platelet Count 190 K/uL Mean Platelet Volume 10.0 fL Neutrophils (%) (Auto) 59.1 % Lymphocytes (%) (Auto) 30.7 % Monocytes (%) (Auto) 7.8 % Eosinophils (%) (Auto) 2.0 % Basophils (%) (Auto) 0.2 % Neutrophils # (Auto) 5.18 K/uL Lymphocytes # (Auto) 2.70 K/uL Monocytes # (Auto) 0.69 K/uL Eosinophils # (Auto) 0.18 K/uL Basophils # (Auto) 0.02 K/uL RDW Standard Deviation 52.3 fL RDW Coefficient of Variation 14.7 % Immature Granulocyte % (Auto) 0.2 % Immature Granulocyte # (Auto) 0.02 K/uL Sodium Level 139 mmol/L Potassium Level 3.6 mmol/L Chloride Level 107 mmol/L Carbon Dioxide Level 27 mmol/L Anion Gap 5.0 mmol/L Blood Urea Nitrogen 12 mg/dl Creatinine 0.54 mg/dl Est Creatinine Clear Calc Drug Dose 131.0 ml/min Estimated GFR () 115.6 Estimated GFR (Non- 99.7 BUN/Creatinine Ratio 21.7 Random Glucose 97 mg/dl Calcium Level 8.8 mg/dl Total Bilirubin 0.6 mg/dl Aspartate Amino Transf (AST/SGOT) 19 U/L Alanine Aminotransferase (ALT/SGPT) 12 U/L Alkaline Phosphatase 57 U/L Total Protein 6.0 gm/dl Albumin 2.5 gm/dl Globulin 3.5 gm/dl Albumin/Globulin Ratio 0.7 (Preeti Mcadams CRNP) Assessment and Plan Ms. Julio is a 66 year old female with prior CVA - left side flaccid here for SBO SBO - tolerating AHA diet - Surgery consulted - s/p op day 8 exploratory lap and lysis of adhesions - morphine for pain Fever likely due to atelectasis - abx discontinued due to no growth in blood cultures - CXR showed atelectasis but no consolidation - patient remains afebrile UTI - Culture grew E.Coli - antibiotics complete - dc'd Quinn catheter Low Urine Output - resolved with IVF A.fib/ history of prior CVA - continue metoprolol - heart rates controlled, A.fib - restarted Xeralto after heparin drip following surgery Confusion, Seizure disorder - continue Depakote, no seizure activity this admission - depakote with morning labs was wnl Hypothyroidism - continue Synthroid Full code DVT prophylaxis with SCD, RAMA and heparin Disp - [facility] auth denied, needs peer to peer . (Preeti Mcadams CRNP) ASSISTANT SURVEYOR Physician Supervision Note: I interviewed and examined the patient. Discussed with Preeti Mcadams ASSISTANT SURVEYOR and agree with findings and plan as documented in the note. Any exceptions or clarifications are listed here: None Patient is slightly lethargic has difficulty moving about in bed is no focal pain we will check a Depakote level and was within normal limits we are still awaiting approval for [facility] facility as she is having difficulty self repositioning and transferring which is different from her baseline Temp 36 7 pulse 91 respiration 16 BP 110/78 cardiac exam is regular lungs are clear abdomen normoactive bowel sounds and soft although she has not had a bowel movement yet organ escalate with increasing enema Patient is here status post small bowel resection with baseline history of stroke and functional quadriplegia and some mood disorder continue to rehab and supportive care awaiting appeal to denial from [facility] insurance for [facility] facility placement due to her change from her baseline. Will reevaluate her ability to use a trapeze on 07/28 Documented By: Jorje Thomas (Jorje Thomas M.D.)
[2017-07-27 15:40] VITALS: O2SAT 93
[2017-07-27 16:30] VITALS: BP 117/80; PULSE 104; TEMP 36.8; O2SAT 92
[2017-07-27] MEDS ORDERED: BOOST BREEZE NUTRITION DRINK 1 BOX PO SCH (17:45)
[2017-07-27] MEDS: ACETAMINOPHEN 325 MG TAB PO PRN (21:01)
[2017-07-27 22:47] VITALS: BP 94/67; PULSE 92; TEMP 37; O2SAT 96
[2017-07-28] MEDS: LEVOTHYROXINE 75 MCG TAB PO SCH (06:25)
[2017-07-28 07:44] VITALS: BP 109/76; PULSE 76; TEMP 36.4; O2SAT 91
--- NOTE | 2017-07-28 08:49 | Surgery Progress Note ---
Surgery Progress Note Date of Service Jul 28, 2017. Subjective + feeling well pt is fine, passed BM, pt denies abdominal pain, no nausea, no vomiting, Objective Vital Signs: Date Time Temp Pulse Resp B/P (MAP) Pulse Ox O2 Delivery O2 Flow Rate FiO2 07/28/17 08:08 Room Air 07/28/17 07:44 36.4 76 24 109/76 (87) 91 Room Air 07/27/17 23:56 Room Air 07/27/17 22:47 37.0 92 16 94/67 (76) 96 Room Air 07/27/17 16:30 36.8 104 16 117/80 (92) 92 Room Air 07/27/17 15:40 93 Room Air General Appearance: WD/WN, no apparent distress Head: normocephalic Neck: supple Respiratory/Chest: chest non-tender Cardiovascular: regular rate, rhythm, no edema Abdomen: normal bowel sounds, non tender, non distended, soft, no organomegaly Incision(s): clean, dry, intact Extremities: non-tender Laboratory Results: Results Past 24 Hours Test 07/27/17 08:52 07/28/17 08:29 Range/Units White Blood Count 8.79 4.8-10.8 K/uL Red Blood Count 4.08 4.2-5.4 M/uL Hemoglobin 13.0 12.0-16.0 g/dL Hematocrit 40.2 37-47 % Mean Corpuscular Volume 98.5 80-100 fL Mean Corpuscular Hemoglobin 31.9 25-34 pg Mean Corpuscular Hemoglobin Concent 32.3 32-36 g/dl Platelet Count 190 130-400 K/uL Mean Platelet Volume 10.0 7.4-10.4 fL Neutrophils (%) (Auto) 59.1 % Lymphocytes (%) (Auto) 30.7 % Monocytes (%) (Auto) 7.8 % Eosinophils (%) (Auto) 2.0 % Basophils (%) (Auto) 0.2 % Neutrophils # (Auto) 5.18 1.4-6.5 K/uL Lymphocytes # (Auto) 2.70 1.2-3.4 K/uL Monocytes # (Auto) 0.69 0.11-0.59 K/uL Eosinophils # (Auto) 0.18 0-0.5 K/uL Basophils # (Auto) 0.02 0-0.2 K/uL RDW Standard Deviation 52.3 36.4-46.3 fL RDW Coefficient of Variation 14.7 11.5-14.5 % Immature Granulocyte % (Auto) 0.2 % Immature Granulocyte # (Auto) 0.02 0.00-0.02 K/uL Sodium Level 139 136-145 mmol/L Potassium Level 3.6 3.5-5.1 mmol/L Chloride Level 107 98-107 mmol/L Carbon Dioxide Level 27 21-32 mmol/L Anion Gap 5.0 3-11 mmol/L Blood Urea Nitrogen 12 7-18 mg/dl Creatinine 0.54 0.60-1.20 mg/dl Est Creatinine Clear Calc Drug Dose 131.0 ml/min Estimated GFR () 115.6 Estimated GFR (Non- 99.7 BUN/Creatinine Ratio 21.7 10-20 Random Glucose 97 70-99 mg/dl Calcium Level 8.8 8.5-10.1 mg/dl Total Bilirubin 0.6 0.2-1 mg/dl Aspartate Amino Transf (AST/SGOT) 19 15-37 U/L Alanine Aminotransferase (ALT/SGPT) 12 12-78 U/L Alkaline Phosphatase 57 45-117 U/L Total Protein 6.0 6.4-8.2 gm/dl Albumin 2.5 3.4-5.0 gm/dl Globulin 3.5 2.5-4.0 gm/dl Albumin/Globulin Ratio 0.7 0.9-2 Assessment & Plan CT scan-FINDINGS: Lower chest: The heart is normal in size and configuration, without pericardial effusion. The lung bases and pleural spaces are clear. Liver: The contrast-enhanced liver is normal in size, contour, and attenuation. There is no intrahepatic biliary ductal dilatation. The hepatic veins and portal veins are patent. Gallbladder: Multiple gallstones. Spleen: Normal in size and attenuation. Pancreas: Unremarkable. Adrenal glands: Unremarkable. Kidneys: There is slightly heterogeneous left renal enhancement. No focal masses are visualized. Pyelonephritis cannot be excluded. Please correlate clinically. Bowel: There are multiple dilated small bowel loops with a persistent transition zone within the right mid abdomen. There is associated mesenteric swirl pattern. The findings could indicate an internal hernia or twist from an adhesion. The colon is decompressed. The appendix appears normal Peritoneum: There is no intraperitoneal free air or abdominal ascites. Vasculature: There is no evidence of abdominal aortic aneurysm. There is an indwelling IVC filter. Several struts protrude beyond the IVC lumen Adenopathy: None. Pelvic viscera: The uterus appears surgically absent Skeletal structures: There are no destructive lesions visualized. There is a scoliosis. There is a lumbar spinal stenosis. IMPRESSION: 1. Persistent small bowel obstruction. There is a persistent mesenteric swirl sign, likely secondary to either an internal hernia or adhesion. 2. Cholelithiasis 3. Subtle inhomogeneous left renal enhancement. Clinical correlation to exclude pyelonephritis is recommended KUB 07/19/2017 FINDINGS: Tip of nasogastric tube projects over the distal body of the stomach. IVC filter is noted. There are gallstones. Marked small bowel not significant change. There is a paucity of colonic gas. IMPRESSION: 1. Findings consistent with a persistent moderate to high-grade small bowel obstruction. 2. Interval placement of a nasogastric tube which is appropriately positioned. Assessment: pt is 66 year old female who was admitted to hospital for SBO, not pass any gas and BM for 3 days, pt has history- hysterectomy, CVA, left side body paralysis, DVT, A-Fib, Dr. Regalado and me recommend to do exploratory laparotomy, possible bowel resection or stoma, D/W benefits, risks and alternatives of the procedure with pt and her , the risks - infection, bleeding, injury bowel,DVT, AL, stroke, , they understood, they agree with the plan, I answered all questions, Hold heparin now, 07/21/2017 doing better, not pass gas yet, dulcolax 10 mg VT PT consult will F/U 07/25/2017 doing better, passed gas, no abdominal pain miralax 17 g po dulcolax 10 mg po social work consult for possible D/C to group home tomorrow. OOD full liquid diet 07/26/2017 doing fine, fleet enema social work consult for possible D/C to group home tomorrow 07/28/2017 pt can be discharged home or group home today sign off today, please call with any questions or concern, F/U me 2 weeks, CT scan-FINDINGS: Lower chest: The heart is normal in size and configuration, without pericardial effusion. The lung bases and pleural spaces are clear. Liver: The contrast-enhanced liver is normal in size, contour, and attenuation. There is no intrahepatic biliary ductal dilatation. The hepatic veins and portal veins are patent. Gallbladder: Multiple gallstones. Spleen: Normal in size and attenuation. Pancreas: Unremarkable. Adrenal glands: Unremarkable. Kidneys: There is slightly heterogeneous left renal enhancement. No focal masses are visualized. Pyelonephritis cannot be excluded. Please correlate clinically. Bowel: There are multiple dilated small bowel loops with a persistent transition zone within the right mid abdomen. There is associated mesenteric swirl pattern. The findings could indicate an internal hernia or twist from an adhesion. The colon is decompressed. The appendix appears normal Peritoneum: There is no intraperitoneal free air or abdominal ascites. Vasculature: There is no evidence of abdominal aortic aneurysm. There is an indwelling IVC filter. Several struts protrude beyond the IVC lumen Adenopathy: None. Pelvic viscera: The uterus appears surgically absent Skeletal structures: There are no destructive lesions visualized. There is a scoliosis. There is a lumbar spinal stenosis. IMPRESSION: 1. Persistent small bowel obstruction. There is a persistent mesenteric swirl sign, likely secondary to either an internal hernia or adhesion. 2. Cholelithiasis 3. Subtle inhomogeneous left renal enhancement. Clinical correlation to exclude pyelonephritis is recommended KUB 07/19/2017 FINDINGS: Tip of nasogastric tube projects over the distal body of the stomach. IVC filter is noted. There are gallstones. Marked small bowel not significant change. There is a paucity of colonic gas.
[2017-07-28 08:56] LABS: HEMATOCRIT 40.9 % (37-47); HEMOGLOBIN 13.2 g/dL (12.0-16.0); MEAN CELL VOLUME 98.8 fL (80-100); MEAN CORPUSCULAR HEMOGLOBIN 31.9 pg (25-34); MEAN CORPUSCULAR HGB CONC 32.3 g/dl (32-36); PLATELET COUNT 193 K/uL (130-400); RED CELL DISTRIBUTION WIDTH CV 14.6 % (11.5-14.5); RED CELL DISTRIBUTION WIDTH SD 52.5 fL (36.4-46.3); WHITE BLOOD COUNT 7.39 K/uL (4.8-10.8)
[2017-07-28] MEDS: POLYETHYLENE (MIRALAX) 17 GM PACK PO SCH (09:00)
[2017-07-28 09:27] LABS: CALCIUM 8.8 mg/dl (8.5-10.1); CREATININE 0.53 mg/dl (0.60-1.20); POTASSIUM 3.6 mmol/L (3.5-5.1)
[2017-07-28] MEDS: SENNA 8.6 MG TAB PO SCH (09:27)
[2017-07-28] MEDS: DOCUSATE SODIUM 100 MG CAP PO SCH ×2 (09:27→20:32)
[2017-07-28] MEDS: METOPROLOL SUCC 25MG EXT REL TAB PO SCH (09:27)
[2017-07-28] MEDS: RANITIDINE HCL 150 MG TAB PO SCH (09:27)
[2017-07-28] MEDS: PRAVASTATIN SOD 20 MG TAB PO SCH (09:27)
[2017-07-28] MEDS: DIVALPROEX 500 MG EXTENDED RELEASE TAB PO SCH ×2 (09:28→20:32)
[2017-07-28] MEDS: ASCORBIC ACID 500 MG TAB PO SCH ×2 (09:28→20:32)
[2017-07-28] MEDS: RIVAROXABAN 20 MG TAB PO SCH (09:28)
--- NOTE | 2017-07-28 09:49 | Hospitalist Progress Note ---
Hospitalist Progress Note Date of Service Jul 28, 2017. (Preeti Mcadams ., [place]) Subjective Pt evaluation today including: conversation w/ patient, physical exam, chart review, lab review, review of inpatient medication list Voiding: incontinence Ms. Julio is alert and oriented this morning. She has no complaints thought she is concerned about not going home. I did discuss the benefits of physical therapy with her. ROS Constitutional: no chills, aches, sweats or fever Respiratory: no sob,cough, sputum, or wheezing Cardiac: no chest pain, palpitations, edema, orthopnea or lightheadedness GI: no abdominal pain, nausea, vomiting, diarrhea or constipation : no dysuria or hesitancy Extremities: no joint pain or weakness Skin: no rash All other systems reviewed and negative (Preeti Mcadams CRNP) Medications Medications Administered Medications (Trade) Dose Ordered Sig/Carleen Route Start Time Stop Time Status Last Admin Dose Admin Sodium Chloride 500 ml @ 999 mls/hr Q31M STAT IV 07/17/17 10:48 07/17/17 11:18 DC 07/17/17 11:23 999 MLS/HR Ondansetron HCl (Zofran Inj) 4 mg NOW STAT IV 07/17/17 10:48 07/17/17 10:50 DC 07/17/17 11:23 4 MG Ceftriaxone Sodium (Rocephin Inj) 1 gm NOW STAT IV 07/17/17 12:30 07/17/17 12:31 DC 07/17/17 12:42 1 GM Ondansetron HCl (Zofran Inj) 4 mg Q6H PRN IV 07/17/17 13:45 08/16/17 13:44 07/20/17 08:22 4 MG Dextrose/Sodium Chloride 1,000 ml @ 100 mls/hr Q10H IV 07/17/17 16:30 07/19/17 16:52 DC 07/19/17 08:37 100 MLS/HR Pantoprazole Sodium 40 mg/ Syringe 10 ml @ 5 mls/min DAILY@11 IV 07/18/17 11:00 07/24/17 09:39 DC 07/23/17 11:06 5 MLS/MIN Valproate Sodium 500 mg/Dextrose 55 ml @ 55 mls/hr Q12H IV 07/17/17 21:00 07/21/17 10:43 DC 07/21/17 08:55 55 MLS/HR Levothyroxine Sodium 37.5 mcg/ Syringe 1.875 ml @ 2 mls/min DAILY@09 IV 07/18/17 09:00 07/23/17 09:48 DC 07/21/17 08:55 2 MLS/MIN Metoprolol Tartrate (Lopressor Iv) 5 mg Q4 PRN IV 07/17/17 14:45 08/16/17 14:44 07/22/17 03:49 5 MG Heparin Sodium/ Dextrose (Heparin 25,000 Unit/500ml D5W) 25,000 unit STK-MED ONCE .ROUTE 07/17/17 15:54 07/17/17 15:55 DC 07/17/17 16:04 19 UNIT Heparin Sodium/ Dextrose 500 ml @ 31 mls/hr Q16H8M IV 07/17/17 16:30 07/23/17 09:00 DC 07/23/17 00:23 31 MLS/HR Heparin Sodium (Porcine) 4500 unit/Syringe 4.5 ml @ 10 mls/min NOW ONCE IV 07/17/17 23:15 07/17/17 23:16 DC 07/17/17 23:50 10 MLS/MIN Heparin Sodium (Porcine) 4500 unit/Syringe 4.5 ml @ 10 mls/min NOW ONCE IV 07/18/17 06:45 07/18/17 06:46 DC 07/18/17 07:08 10 MLS/MIN Morphine Sulfate (MoRPHine SULFATE INJ) 2 mg Q2H PRN IV 07/18/17 08:30 08/01/17 08:29 07/24/17 15:56 2 MG Morphine Sulfate (MoRPHine SULFATE INJ) 4 mg Q2H PRN IV 07/18/17 08:30 08/01/17 08:29 07/21/17 01:47 4 MG Ceftriaxone Sodium 1 gm/ Dextrose 50 ml @ 100 mls/hr Q24H IV 07/18/17 11:00 07/19/17 17:09 DC 07/19/17 11:32 100 MLS/HR Metoprolol Tartrate (Lopressor Iv) 5 mg Q6 IV. 07/18/17 12:00 07/21/17 08:52 DC 07/21/17 06:20 5 MG Heparin Sodium (Porcine) 4500 unit/Syringe 4.5 ml @ 10 mls/min 0915 ONCE IV 07/19/17 09:15 07/19/17 09:16 DC 07/19/17 09:12 10 MLS/MIN Hydromorphone HCl (Dilaudid Inj) 0.5 mg Q5M PRN IV 07/19/17 14:30 07/19/17 19:30 DC 07/19/17 17:49 0.5 MG Cefazolin Sodium (Ancef 2000mg Iv Push) 2,000 mg STK-MED ONCE IV 07/19/17 14:27 07/19/17 14:28 DC 07/19/17 15:21 2,000 MG Bupivacaine HCl (Marcaine 0.5% MPF Inj) 30 ml STK-MED ONCE .ROUTE 07/19/17 15:18 07/19/17 15:19 DC 07/19/17 16:45 10 ML Lidocaine HCl (Xylocaine 1% Inj (Local)) 20 ml STK-MED ONCE .ROUTE 07/19/17 15:19 07/19/17 15:20 DC 07/19/17 16:45 10 ML Bacitracin (Bacitracin Oint) 45 appln STK-MED ONCE .ROUTE 07/19/17 15:19 07/19/17 15:20 DC 07/19/17 16:45 45 APPLN Potassium Chloride/Dextrose/ Sod Cl 1,000 ml @ 75 mls/hr [id number] IV 07/19/17 17:00 07/23/17 11:53 DC 07/23/17 05:27 75 MLS/HR Cefazolin Sodium 2000 mg/Syringe 15 ml @ 100 mls/hr Q8H IV 07/19/17 22:00 07/20/17 21:59 DC 07/20/17 13:25 100 MLS/HR Heparin Sodium (Porcine) 3000 unit/Syringe 3 ml @ 10 mls/min NOW ONCE IV 07/20/17 03:30 07/20/17 03:31 DC 07/20/17 03:45 10 MLS/MIN Metoclopramide HCl (Reglan Inj) 10 mg Q8H IV. 07/20/17 12:00 07/25/17 08:12 DC 07/25/17 03:37 10 MG Bisacodyl (Dulcolax Tab) 10 mg NOW ONCE PO 07/20/17 11:00 07/20/17 11:18 DC 07/20/17 11:38 10 MG Acetaminophen (Tylenol Tab) 1,000 mg STK-MED ONCE PO 07/20/17 20:05 07/20/17 20:06 DC 07/20/17 20:11 1,000 MG Amiodarone HCl (Cordarone Tab) 200 mg DAILY PO 07/21/17 10:00 08/20/17 09:59 07/27/17 09:13 200 MG Ascorbic Acid (Vitamin C Tab) 500 mg BID PO 07/21/17 10:00 08/20/17 09:59 07/28/17 09:28 500 MG Divalproex Sodium (Depakote Extended Rel Tab) 500 mg DAILY PO 07/22/17 09:00 08/21/17 08:59 07/28/17 09:28 500 MG Divalproex Sodium (Depakote Extended Rel Tab) 1,000 mg HS PO 07/21/17 21:00 08/20/17 20:59 07/27/17 21:01 1,000 MG Docusate Sodium (coLACE CAP) 100 mg BID PO 07/21/17 10:00 08/20/17 09:59 07/28/17 09:27 100 MG Levothyroxine Sodium (Synthroid Tab) 75 mcg DAILYBB PO 07/22/17 10:00 08/21/17 09:59 07/28/17 06:25 75 MCG Metoprolol Succinate (Toprol Xl Tab) 25 mg DAILY PO 07/21/17 10:00 08/20/17 09:59 07/28/17 09:27 25 MG Ondansetron HCl (Zofran Odt) 4 mg Q6H PRN SL 07/21/17 08:45 08/20/17 08:44 07/21/17 11:09 4 MG Pravastatin Sodium (Pravachol Tab) 20 mg DAILY PO 07/21/17 10:00 08/20/17 09:59 07/28/17 09:27 20 MG Ranitidine HCl (zANTac TAB) 150 mg DAILY PO 07/21/17 10:00 08/20/17 09:59 07/28/17 09:27 150 MG Senna (Senokot Tab) 17.2 mg QAM PO 07/21/17 10:00 08/20/17 09:59 07/28/17 09:27 17.2 MG Bisacodyl (Dulcolax Supp) 10 mg NOW STAT [place] 07/21/17 09:33 07/21/17 09:35 DC 07/21/17 10:46 10 MG Bisacodyl (Dulcolax Tab) 10 mg NOW ONCE PO 07/21/17 09:34 07/21/17 09:35 DC 07/21/17 11:09 10 MG Ertapenem 1 gm/ Sodium Chloride 50 ml @ 120 mls/hr Q24H IV 07/21/17 18:45 07/24/17 09:35 DC 07/23/17 19:46 120 MLS/HR Heparin Sodium (Porcine) 4500 unit/Syringe 4.5 ml @ 10 mls/min NOW ONCE IV 07/22/17 08:00 07/22/17 08:01 DC 07/22/17 08:34 10 MLS/MIN Enteral Nutritional Formula (Boost Breeze Nutritional Drink) 1 box TID PO 07/22/17 14:00 07/27/17 14:43 DC 07/24/17 09:31 1 BOX Bisacodyl (Dulcolax Supp) 10 mg NOW ONCE NJ 07/22/17 13:15 07/22/17 13:16 DC 07/22/17 14:11 10 MG Rivaroxaban (Xarelto Tab) 20 mg DAILY PO 07/23/17 09:00 08/22/17 08:59 07/28/17 09:28 20 MG Polyethylene (Miralax Powder Packet) 17 gm DAILY PO 07/25/17 09:00 07/30/17 08:00 07/27/17 09:15 17 GM Bisacodyl (Dulcolax Tab) 10 mg NOW ONCE PO 07/25/17 08:15 07/25/17 08:18 DC 07/25/17 09:08 10 MG Acetaminophen (Tylenol Tab) 650 mg Q4H PRN PO 07/26/17 01:15 08/25/17 01:14 07/27/17 21:01 650 MG Sodium Biphosphate/ Sodium Phosphate (Fleet Enema) 132 ml NOW STAT NJ 07/26/17 09:34 07/26/17 09:35 DC 07/26/17 09:55 132 ML Bisacodyl (Dulcolax Supp) 10 mg NOW STAT NJ 07/27/17 14:22 07/27/17 14:25 DC 07/27/17 15:56 10 MG (Preeti Mcadams CRNP) Objective Vital Signs Date Time Temp Pulse Resp B/P (MAP) Pulse Ox O2 Delivery O2 Flow Rate FiO2 07/28/17 08:08 Room Air 07/28/17 07:44 36.4 76 24 109/76 (87) 91 Room Air 07/27/17 23:56 Room Air 07/27/17 22:47 37.0 92 16 94/67 (76) 96 Room Air 07/27/17 16:30 36.8 104 16 117/80 (92) 92 Room Air 07/27/17 15:40 93 Room Air (Preeti Mcadams CRNP) Physical Exam Notes: General: no distress Eyes: normal inspection, PERLL Respiratory: chest non tender, clear to auscultation, normal breath sounds, no respiratory distress, no accessory muscle use Cardiac: regular rate and rhythm, no rub or gallop, no murmur, no edema, no jvd GI/: active bowel sounds, no abd pain or tenderness, soft, non distended Extremities: normal range of motion, normal strength, non tender Neuro/Psych: alert and oriented x 3, normal mood and affect Skin: normal color, dry (Preeti Mcadams CRNP) Laboratory Results Last 24 Hours Test 07/28/17 08:29 White Blood Count 7.39 K/uL Red Blood Count 4.14 M/uL Hemoglobin 13.2 g/dL Hematocrit 40.9 % Mean Corpuscular Volume 98.8 fL Mean Corpuscular Hemoglobin 31.9 pg Mean Corpuscular Hemoglobin Concent 32.3 g/dl RDW Standard Deviation 52.5 fL RDW Coefficient of Variation 14.6 % Platelet Count 193 K/uL Mean Platelet Volume 10.0 fL Sodium Level 142 mmol/L Potassium Level 3.6 mmol/L Chloride Level 107 mmol/L Carbon Dioxide Level 28 mmol/L Anion Gap 7.0 mmol/L Blood Urea Nitrogen 10 mg/dl Creatinine 0.53 mg/dl Est Creatinine Clear Calc Drug Dose 133.4 ml/min Estimated GFR () 116.3 Estimated GFR (Non- 100.3 BUN/Creatinine Ratio 19.4 Random Glucose 84 mg/dl Calcium Level 8.8 mg/dl (Preeti Mcadams CRNP) Assessment and Plan Ms. Julio is a 66 year old female with prior CVA - left side flaccid here for SBO SBO - tolerating AHA diet - Surgery consulted - s/p op day 9 exploratory lap and lysis of adhesions - morphine for pain - she has not needed pain medicine since 07/24 Fever likely due to atelectasis - abx discontinued due to no growth in blood cultures - CXR showed atelectasis but no consolidation - patient remains afebrile UTI - Culture grew E.Coli - antibiotics complete - dc'd Quinn catheter Low Urine Output - resolved with IVF A.fib/ history of prior CVA - continue metoprolol - heart rates controlled, A.fib - continue Xeralto Confusion, Seizure disorder - continue Depakote, no seizure activity this admission - depakote 07/27 was wnl Hypothyroidism - continue Synthroid Full code DVT prophylaxis with SCD, RAMA and heparin Disp - PT to re-eval for placement . (Preeti Mcadams CRNP) KENO MANAGER Physician Supervision Note: I interviewed and examined the patient. Discussed with Preeti Mcadams KENO MANAGER and agree with findings and plan as documented in the note. 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
[2017-07-28] MEDS: AMIODARONE 200 MG TAB PO SCH (10:17)
[2017-07-28 12:37] VITALS: BP 97/76; PULSE 76; TEMP 36.6; O2SAT 94
[2017-07-28 15:32] VITALS: BP 104/72; PULSE 74; TEMP 36.8; O2SAT 94
[2017-07-28] MEDS: ACETAMINOPHEN 325 MG TAB PO PRN (16:31)
[2017-07-28 23:48] VITALS: BP 96/69; PULSE 82; TEMP 36.9; O2SAT 96
[2017-07-29] MEDS: ACETAMINOPHEN 325 MG TAB PO PRN (01:01)
[2017-07-29] MEDS: LEVOTHYROXINE 75 MCG TAB PO SCH (05:11)
[2017-07-29 07:08] LABS: HEMATOCRIT 42.2 % (37-47); HEMOGLOBIN 13.5 g/dL (12.0-16.0); MEAN CELL VOLUME 98.6 fL (80-100); MEAN CORPUSCULAR HEMOGLOBIN 31.5 pg (25-34); PLATELET COUNT 194 K/uL (130-400); RED CELL DISTRIBUTION WIDTH CV 14.5 % (11.5-14.5); RED CELL DISTRIBUTION WIDTH SD 51.5 fL (36.4-46.3); WHITE BLOOD COUNT 7.61 K/uL (4.8-10.8)
[2017-07-29 07:38] LABS: CREATININE 0.62 mg/dl (0.60-1.20); POTASSIUM 3.4 mmol/L (3.5-5.1)
[2017-07-29 07:40] VITALS: BP 105/73; PULSE 81; TEMP 36.5; O2SAT 96
[2017-07-29] MEDS ORDERED: POTASSIUM CHLORIDE 20 MEQ TABCR PO ONE (08:15)
[2017-07-29] MEDS: POLYETHYLENE (MIRALAX) 17 GM PACK PO SCH (09:00)
[2017-07-29] MEDS: SENNA 8.6 MG TAB PO SCH (09:00)
[2017-07-29] MEDS: DOCUSATE SODIUM 100 MG CAP PO SCH (09:00)
[2017-07-29] MEDS: RANITIDINE HCL 150 MG TAB PO SCH (09:12)
[2017-07-29] MEDS: PRAVASTATIN SOD 20 MG TAB PO SCH (09:12)
[2017-07-29] MEDS: DIVALPROEX 500 MG EXTENDED RELEASE TAB PO SCH (09:13)
[2017-07-29] MEDS: RIVAROXABAN 20 MG TAB PO SCH (09:13)
[2017-07-29] MEDS: ASCORBIC ACID 500 MG TAB PO SCH (09:13)
[2017-07-29] MEDS: METOPROLOL SUCC 25MG EXT REL TAB PO SCH (09:13)
[2017-07-29] MEDS: AMIODARONE 200 MG TAB PO SCH (09:14)
--- NOTE | 2017-07-29 14:00 | Discharge Instructions ---
Discharge Instructions Date of Service Jul 29, 2017. Admission Reason for Admission: Nausea And Vomiting Discharge Discharge Diagnosis / Problem: small bowel obstruction Discharge Goals Goal(s): Improve disease control, Therapeutic intervention Activity Recommendations Activity Level: Assistance Required (left side hemiparesis) Therapies: Physical Therapy, Occupational Therapy . Additional Information Patient informed of condition: Yes Advance Directives: Yes DNR: No Level of Care: Skilled Communicable Disease: No Prognosis: Stable Quinn Catheter: No Instructions / Follow-Up Instructions / Follow-Up Please have patient follow up with general surgery in week. Current Hospital Diet Patient's current hospital diet: AHA Diet (Heart Healthy) Discharge Diet Recommended Diet: AHA Diet (Heart Healthy) Procedures Procedures Performed: exploratory laparotomy, with lysis of adhesions Chest Xray Abdominal Xray Abdominal CT Pending Studies Studies pending at discharge: no Physician Orders On Transfer POLST Discussion: without POLST completion Medical Emergencies . Who to Call and When: Medical Emergencies: If at any time you feel your situation is an emergency, please call 911 immediately. . Non-Emergent Contact Non-Emergency issues call your: Primary Care Provider Call Non-Emergent contact if: you have a fever, you have any medication questions . . "Provider Documentation" section prepared by Preeti Mcadams. . Force Adjustment Supervisor Recommendations Force Adjustment Supervisor Recommendations: No heavy lifting over 10 pounds for 6 weeks No strenuous activity until cleared by surgeon No submerging incision underwater for 2 weeks (no bathing, swimming, or hot tubs ) No driving while taking narcotic pain medication or until you are pain free You may shower. Replace dressing daily or as needed to keep clean and dry Surgical clint will be removed in office in about 3 weeks You will be given narcotic pain medication as needed for moderate to severe pain. This medication may make you drowsy and can cause constipation. To combat constipation, drink plenty of water daily, avoid foods that can constipate, may take OTC stool softener such as Colace, a gentle laxative, or prune juice. You may take extra strength Tylenol or Ibuprofen as needed for mild pain Follow-up in surgical office in 1-2 weeks, please call office at [phone] to make an appointment Wear abdominal binder daily for support Core Measure Problem Core Measures: None
--- NOTE | 2017-07-29 14:11 | Discharge Summary ---
Discharge Summary Date of Service Jul 29, 2017. Discharge Summary Admission Date: Jul 17, 2017 at 14:39 Discharge Date: Jul 29, 2017 Discharge Disposition: [facility] facility Principal Diagnosis: small bowel obstruction Problems/Secondary Diagnoses: Fever likely due to atelectasis, UTI, Low Urine Output, A.fib/ history of prior CVA, Confusion, Seizure disorder, Hypothyroidism Immunizations: Have You Had Influenza Vaccine: Yes Influenza Vaccine Date: Feb 04, 2013 History of Tetanus Vaccine?: Yes Tetanus Immunization Date: Feb 09, 2006 History of Pneumococcal: Yes Pneumococcal Date: Mar 06, 2003 History of Hepatitis B Vaccine: No Procedures: CHEST ONE VIEW PORTABLE HISTORY: Fever. COMPARISON: Chest 07/17/2017. FINDINGS: No pneumothorax. No pleural effusions. The heart remains mildly enlarged. There is perihilar interstitial and vascular thickening suggestive of mild congestive change. No new focal lung consolidations. Linear density at the left lower lung zone may represent subsegmental atelectasis. IMPRESSION: Low lung volumes with mild central pulmonary vascular congestion without overt edema. Electronically signed by: Viraj Avila M.D. 07/21/2017 8:04 PM KUB CLINICAL HISTORY: Small bowel obstruction. COMPARISON STUDY: KUB July 18, 2017. FINDINGS: Tip of nasogastric tube projects over the distal body of the stomach. IVC filter is noted. There are gallstones. Marked small bowel not significant change. There is a paucity of colonic gas. IMPRESSION: 1. Findings consistent with a persistent moderate to high-grade small bowel obstruction. 2. Interval placement of a nasogastric tube which is appropriately positioned. Electronically signed by: Vasyl Klein M.D. 07/19/2017 8:45 AM Dictated Date/Time: 07/19/2017 8:34 AM KUB CLINICAL HISTORY: 66 years-old Female presenting with KUB FOR [employer] SUMP PLACEMENT. TECHNIQUE: Single supine view of the abdomen was obtained. COMPARISON: CT from 07/17/2017 and plain radiograph from 07/18/2017 at 9:04 AM. FINDINGS: A nasogastric tube terminates in the body the stomach with sidehole contained within the gastric lumen. Small bowel is distended with gas without apparent diameter of 6.4 cm though this is likely affected by magnification due to AP technique. Allowing for bowel gas and stool, no calcifications to suggest nephrolithiasis. Gallstones noted. An inferior vena cava filter projects at the level of L2-3. Pelvic phleboliths noted. Osteopenia suggested. Significant scoliotic curvature and degenerative change of the lumbar spine. IMPRESSION: 1. Nasogastric tube terminates in the body the stomach. 2. Persistent small bowel obstruction. Electronically signed by: Ganesh Temple M.D. 07/18/2017 2:20 PM ABDOMEN 2 VIEWS HISTORY: 66 years-old Female nausea, vomiting, ct suggests sBO acute nausea and vomiting COMPARISON: CT 07/17/2017 TECHNIQUE: AP view of the abdomen FINDINGS: Mild gastric gaseous distention. Persistent dilated loops of small bowel are noted throughout measuring up to 5.7 cm transversely. No pneumatosis or pneumoperitoneum identified. Subdiaphragmatic lucency on the right is again seen suggesting air within a loop of bowel are seen on comparison CT. There is relative paucity of colonic gas. IVC filter is noted at the level of the 2 initial 3. Levoscoliosis of the lumbar spine. Cholelithiasis. No urolith identified. Mild right hemidiaphragmatic elevation. IMPRESSION: 1. Persistent dilated loops of small bowel suggest ongoing small bowel obstruction. 2. Subdiaphragmatic lucency on the right appears to be secondary to a loop of bowel interposed between the diaphragm and the liver. No definite pneumatosis or pneumoperitoneum. 3. Cholelithiasis. The above report was generated using voice recognition software. It may contain grammatical, syntax or spelling errors. Electronically signed by: Rico Sawyer M.D. 07/18/2017 9:[address] ABD/PELVIS IV CONTRAST ONLY CLINICAL HISTORY: Abdominal pain and vomiting COMPARISON STUDY: May 31, 2017 TECHNIQUE: Following the IV administration of 91 mL of Optiray-320, CT scan of the abdomen and pelvis was performed from the lung bases to the proximal femurs. Images are reviewed in the axial, sagittal, and coronal planes. IV contrast was administered without complication. A dose lowering technique was utilized adhering to the principles of ALARA. CT DOSE: 1647.93 mGy.cm FINDINGS: Lower chest: The heart is normal in size and configuration, without pericardial effusion. The lung bases and pleural spaces are clear. Liver: The contrast-enhanced liver is normal in size, contour, and attenuation. There is no intrahepatic biliary ductal dilatation. The hepatic veins and portal veins are patent. Gallbladder: Multiple gallstones. Spleen: Normal in size and attenuation. Pancreas: Unremarkable. Adrenal glands: Unremarkable. Kidneys: There is slightly heterogeneous left renal enhancement. No focal masses are visualized. Pyelonephritis cannot be excluded. Please correlate clinically. Bowel: There are multiple dilated small bowel loops with a persistent transition zone within the right mid abdomen. There is associated mesenteric swirl pattern. The findings could indicate an internal hernia or twist from an adhesion. The colon is decompressed. The appendix appears normal Peritoneum: There is no intraperitoneal free air or abdominal ascites. Vasculature: There is no evidence of abdominal aortic aneurysm. There is an indwelling IVC filter. Several struts protrude beyond the IVC lumen Adenopathy: None. Pelvic viscera: The uterus appears surgically absent Skeletal structures: There are no destructive lesions visualized. There is a scoliosis. There is a lumbar spinal stenosis. IMPRESSION: 1. Persistent small bowel obstruction. There is a persistent mesenteric swirl sign, likely secondary to either an internal hernia or adhesion. 2. Cholelithiasis 3. Subtle inhomogeneous left renal enhancement. Clinical correlation to exclude pyelonephritis is recommended Electronically signed by: Barrington Schofield M.D. 07/17/2017 12:30 PM CHEST ONE VIEW PORTABLE CLINICAL HISTORY: Pain, radiating to the abdomen. COMPARISON STUDY: 06/04/2017 FINDINGS: The heart is normal in size. There is no focal pulmonary consolidation. No failure. There are no pleural effusions. There is gas present beneath the right hemidiaphragm, likely secondary to colonic interposition.[ IMPRESSION: 1. Gas beneath the right hemidiaphragm, likely representing distended bowel loops with colonic interposition. 2. No evidence of focal pulmonary consolidation Electronically signed by: Barrington Schofield M.D. 07/17/2017 11:06 AM Consultations: Dr. Beatty General Surgery Dr. Molina Infectious Disease Medication Reconciliation Continued Medications: Amiodarone Hcl (Cordarone) 200 Mg Tab 200 MG PO DAILY Ascorbic Acid (Vitamin C) 500 Mg Tab 500 MG PO BID Divalproex Sodium (Depakote Er) 500 Mg Tab 1 TAB PO DAILY Divalproex Sodium (Depakote Er) 500 Mg Tab 2 TAB PO HS Docusate Sodium (Docusate Sodium) 100 Mg Cap 100 MG PO BID Levothyroxine Sodium (Levothyroxine Sodium) 75 Mcg Tab 75 MCG PO QAM Metoprolol Succinate (Metoprolol Succinate ER) 25 Mg Tabcr 25 MG PO DAILY Mometasone Furoate (Nasonex) [place] 2 SPRAY NA QAM for PRN Ondansetron (Zofran Odt) 4 Mg Tab 4 MG SL Q6H PRN for Nausea NAUSEA Pravastatin Sod (Pravastatin Sodium) 20 Mg Tab 20 MG PO DAILY Ranitidine HCl (Ranitidine HCl) 150 Mg Tab 150 MG PO DAILY Rivaroxaban (Xarelto) 20 Mg Tab 20 MG PO DAILY Senna (Senokot) 8.6 Mg Tab 17.2 MG PO QAM for 30 Days, #60 TAB Discharge Exam ROS Constitutional: no chills, aches, sweats or fever Respiratory: no sob,cough, sputum, or wheezing Cardiac: no chest pain, palpitations, edema, orthopnea or lightheadedness GI: no abdominal pain, nausea, vomiting, diarrhea or constipation : no dysuria or hesitancy Extremities: no joint pain or weakness Skin: no rash All other systems reviewed and negative General: no distress Eyes: normal inspection, PERLL Respiratory: chest non tender, clear to auscultation, normal breath sounds, no respiratory distress, no accessory muscle use Cardiac: regular rate and rhythm, no rub or gallop, no murmur, no edema, no jvd GI/: active bowel sounds, no abd pain or tenderness, soft, non distended Extremities: baseline strength and rom Neuro/Psych: alert and oriented x 3, normal mood and affect Skin: normal color, dry Hospital Course 66-year-old female with history of atrial fibrillation, seizure disorder, and prior CVA with left-sided paralysis. She presented to the emergency department with nausea and vomiting She takes Xarelto for atrial fibrillation. 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 She is wheelchair or bedbound and has not ambulated since her CVA in 2011. CT scan of the abdomen and pelvis in the ED showed persistent small bowel obstruction with persistent mesenteric swirl sign likely secondary to either an internal hernia or adhesion. Chest x-ray showed gas beneath the right hemidiaphragm likely representing distended bowel loops with colonic interposition. No acute cardiopulmonary process. Patient had a urinalysis that looked infective and she was started on Rocephin. SBO - tolerating AHA diet - Surgery consulted - s/p op day 10 exploratory lap and lysis of adhesions - morphine for pain - she has not needed pain medicine since 07/24 Fever likely due to atelectasis - abx discontinued due to no growth in blood cultures - CXR showed atelectasis but no consolidation - patient remains afebrile UTI - Culture grew E.Coli - antibiotics complete - dc'd Quinn catheter Low Urine Output - resolved with IVF A.fib/ history of prior CVA - continue metoprolol - heart rates controlled, A.fib - continue Xeralto Confusion, Seizure disorder - continue Depakote, no seizure activity this admission - depakote level 07/27 was wnl Hypothyroidism - continue Synthroid IT SOFTWARE 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 Discussed with Preeti Mcadams NP and agree with findings and plan as documented in the note. Any exceptions or clarifications are listed here: None Patient was in her usual state I did help reposition room with nursing staff. She is agreeable to go to [facility] facility for [facility] after small bowel obstruction. She is limited on a baseline level with a CVA but has more trunk weakness and difficulty with positioning subsequent to her procedure. Her wound was inspected is clean dry and intact her vital signs are stable she is transferred to [facility] for subacute rehabilitation Documented By: Jorje Thomas . Total Time Spent: Greater than 30 minutes This includes examination of the patient, discharge planning, medication reconciliation, and communication with other providers. Discharge Instructions Please refer to the electronic Patient Visit Report (Discharge Instructions) for additional information. Follow-Up Dr. Beatty in about a week Additional Copies To [facility]
[2017-07-29 14:35] VITALS: BP 105/73; PULSE 81; TEMP 36.5; O2SAT 96
== END 2017-07-29 16:00 | DRG 336 ==
LOC: C.EDB 10:33 → EDBEDREQ 13:50 → EDBEDREQSVC 14:05 → CANRESERV 14:23 → ENRESERV 14:23 → C.2T 14:39 → EDBEDREQSVC 15:19 → ENRESERV 15:24 → EDBEDREQSVC 07-23 12:44 → ENRESERV 07-23 12:48 → C.MSN 07-23 14:07
PROVIDERS: ADMIT Family Medicine; ATTEND Internal Medicine
PROC: 0DNF4ZZ Release Right Large Intestine, Percutaneous Endoscopic Approach (ICD-10-PCS; principal; 2017-07-19 09:45)
DX: K56.609 Unspecified intestinal obstruction, unspecified as to partial versus complete obstruction (principal); N39.0 Urinary tract infection, site not specified; I69.959 Hemiplegia and hemiparesis following unspecified cerebrovascular disease affecting unspecified side; I48.0 Paroxysmal atrial fibrillation; G40.909 Epilepsy, unspecified, not intractable, without status epilepticus; Z88.8 Allergy status to other drugs, medicaments and biological substances; E03.9 Hypothyroidism, unspecified; R41.0 Disorientation, unspecified; Z79.01 Long term (current) use of anticoagulants

== ENCOUNTER → 2017-08-08 | Outpatient (CLI) | payer OTHER ==
[~2017-08-08] MED LIST changes: -ACET-1311 PO; -AMOX1TAB43 PO; -DLC5 PO; -FENO134C2 PO; -IPRA1AER2 INH
[2017-08-08 08:54] LABS: BASO % 0.1 %; BASO ABS # 0.01 K/uL (0-0.2); EOS % 2.6 %; EOS ABS # 0.22 K/uL (0-0.5); HEMATOCRIT 44.1 % (37-47); HEMOGLOBIN 13.8 g/dL (12.0-16.0); IG# 0.02 K/uL (0.00-0.02); LYMPH % 42.9 %; LYMPH ABS # 3.58 K/uL (1.2-3.4); MEAN CELL VOLUME 99.8 fL (80-100); MEAN CORPUSCULAR HEMOGLOBIN 31.2 pg (25-34); MEAN CORPUSCULAR HGB CONC 31.3 g/dl (32-36); MONO % 7.2 %; NEUT ABS # 3.91 K/uL (1.4-6.5); PLATELET COUNT 154 K/uL (130-400); RED CELL DISTRIBUTION WIDTH CV 14.3 % (11.5-14.5); RED CELL DISTRIBUTION WIDTH SD 52.5 fL (36.4-46.3); WHITE BLOOD COUNT 8.34 K/uL (4.8-10.8)
[2017-08-08 09:04] LABS: BLOOD UREA NITROGEN 10 mg/dl (7-18); GLUCOSE 89 mg/dl (70-99)
[2017-08-08 09:05] LABS: CALCIUM 8.8 mg/dl (8.5-10.1); CARBON DIOXIDE 27 mmol/L (21-32); POTASSIUM 3.8 mmol/L (3.5-5.1); SODIUM 143 mmol/L (136-145)
== END ==
LOC: C.LABCC 08:31
PROVIDERS: ATTEND Internal Medicine
DX: I48.91 Unspecified atrial fibrillation (principal)

== ENCOUNTER 2017-11-08 09:56 | Emergency (ER) | payer BC ==
[~2017-11-08 09:56] MED LIST changes: +COEN1CAP28 PO; +FURO-85 PO; +LVNIS100 SQ; +MISCCAP80 PO; -MOME50SP5; -ONDA4TAB7 SL; -SENN-61 PO; +fiber capsules PO
[2017-11-08 10:01] VITALS: TEMP 36.6; Ht 167.6 cm
[2017-11-08] MEDS ORDERED: CRAN1TAB4 PO (11:10)
[2017-11-08 11:38] LABS: HEMATOCRIT 35.9 % (37-47); HEMOGLOBIN 11.1 g/dL (12.0-16.0); MEAN CELL VOLUME 100.6 fL (80-100); MEAN CORPUSCULAR HEMOGLOBIN 31.1 pg (25-34); MEAN CORPUSCULAR HGB CONC 30.9 g/dl (32-36); RED CELL DISTRIBUTION WIDTH CV 14.7 % (11.5-14.5); RED CELL DISTRIBUTION WIDTH SD 53.7 fL (36.4-46.3); WHITE BLOOD COUNT 6.05 K/uL (4.8-10.8)
[2017-11-08 11:47] LABS: INR 1.1 (0.9-1.1); PTT PATIENT 29.4 SECONDS (21.0-31.0)
--- NOTE | 2017-11-08 11:55 | DIAGNOSTIC IMAGING REPORT ---
ABD/PELVIS NO IV OR ORAL CONT CT DOSE: 1218.46 mGycm HISTORY: Pain. Nausea. ABD PAIN, POSSIBLE OBSTRUCTION, NO CONTRAST TECHNIQUE: Multiaxial CT images of the abdomen and pelvis were performed without contrast. A dose lowering technique was utilized adhering to the principles of ALARA. COMPARISON STUDY: 07/17/2017 FINDINGS: Lung bases are clear. Liver spleen and pancreas appear unremarkable. Gallstone filled gallbladder. Inferior vena caval filter is present. Nonobstructive bowel pattern. Kidneys negative for hydronephrosis. Bladder is midline. No significant adenopathy within the abdomen and pelvic or inguinal region. IMPRESSION: 1. Gallstone filled gallbladder. 2. Nonobstructive bowel pattern. 3. Otherwise negative abdomen and pelvis. The above report was generated using voice recognition software. It may contain grammatical, syntax or spelling errors. Electronically signed by: Garth Rincon M.D. 11/08/2017 11:54 AM Dictated Date/Time: 11/08/2017 11:46 AM
[2017-11-08 11:59] LABS: ALBUMIN 2.8 gm/dl (3.4-5.0); ALKALINE PHOSPHATASE 41 U/L (45-117); ALT/SGPT 15 U/L (12-78); AST/SGOT 20 U/L (15-37); BLOOD UREA NITROGEN 9 mg/dl (7-18); CALCIUM 8.4 mg/dl (8.5-10.1); CARBON DIOXIDE 34 mmol/L (21-32); CREATININE 0.71 mg/dl (0.60-1.20); GLUCOSE 100 mg/dl (70-99); POTASSIUM 3.3 mmol/L (3.5-5.1); SODIUM 142 mmol/L (136-145); TOTAL PROTEIN 5.9 gm/dl (6.4-8.2)
[2017-11-08 12:08] LABS: BASO % 0.2 %; BASO ABS # 0.01 K/uL (0-0.2); IG# 0.02 K/uL (0.00-0.02); LYMPH ABS # 2.18 K/uL (1.2-3.4); MEAN PLATELET VOLUME 9.7 fL (7.4-10.4); MONO % 10.2 %; MONO ABS # 0.62 K/uL (0.11-0.59); NEUT % 48.3 %; NEUT ABS # 2.92 K/uL (1.4-6.5); PLATELET COUNT 92 K/uL (130-400)
[2017-11-08 13:15] VITALS: BP 113/64; PULSE 51; O2SAT 95
--- NOTE | 2017-11-08 14:17 | EMERGENCY ROOM VISIT NOTE ---
History Report prepared by April: Melissa Vo Under the Supervision of: Dr. Charles Mccormick M.D. First contact with patient: 10:22 Chief Complaint: OTHER COMPLAINT Stated Complaint: POSSIBLE STRANGULATED HERNIA History of Present Illness The patient is a 67 year old female who presents to the Emergency Room with complaints of a sudden possible strangulated hernia that was first noticed this morning. Per daughter, the patient's caregiver noticed the hernia this morning and stated that it was not present yesterday. Per daughter, the caregiver notes that is in the right lower abdomen. The patient notes that the pain in her abdomen is rated a 3/10 in severity. She notes that touching the area exacerbates the pain. Per daughter, the patient complains of not being able to eat today. The patient denies a fever, nausea, and vomiting. Source of History: patient, family Onset: this morning Position: abdomen (RLQ) Symptom Intensity: Modifying Factors (Worsening): other (tocuhing the area) Associated Symptoms: No fevers, No nausea, No vomiting Note: The patient complains of not being able to eat today. Review of Systems See HPI for pertinent positives & negatives. A total of 10 systems reviewed and were otherwise negative. Past Medical & Surgical Medical Problems: (1) Atrial fibrillation (2) CVA (cerebral infarction) (3) Hyperlipidemia (4) Hypertension (5) Ileus (6) Influenza A (7) Nausea & vomiting (8) Partial small bowel obstruction (9) Pneumonia (10) Postoperative fever (11) Seizure disorder Surgical Problems: (1) S/P colonoscopy Family History Patient reports no known family medical history. Social History Smoking Status: Never Smoker Alcohol Use: none Drug Use: none Marital Status: Housing Status: lives with family Occupation Status: employed Current/Historical Medications Scheduled Amiodarone Hcl (Cordarone), 200 MG PO QAM Ascorbic Acid (Vitamin C), 500 MG PO BID Coenzyme Q10 (Ubidecarenone) (Co Q10), 200 MG PO BID Cranberry (Vaccinium Macrocarp (Cranberry), 400 MG PO DAILY Divalproex Sodium (Depakote Er), 500 MG PO QAM Divalproex Sodium (Depakote Er), 1,000 MG PO HS Docusate Sodium (Docusate Sodium), 100 MG PO BID Furosemide (Lasix), 1 TAB PO PRN Levothyroxine Sodium (Levothyroxine Sodium), 75 MCG PO QAM Metoprolol Succinate (Metoprolol Succinate ER), 25 MG PO QPM Pravastatin Sod (Pravastatin Sodium), 20 MG PO QPM Probiotic Product (Probiotic), 1 TAB PO PRN Ranitidine HCl (Ranitidine HCl), 150 MG PO QAM Rivaroxaban (Xarelto), 20 MG PO QPM Allergies Coded Allergies: Fish Oil (Verified Allergy, Unknown, UNKNOWN, 11/08/17) Atorvastatin (Verified Adverse Reaction, Mild, MUSCLE ACHES, 11/08/17) Citalopram (Verified Adverse Reaction, Unknown, contributed to seizures? recently stopped taking med 01/2016, 11/08/17) Physical Exam Vital Signs Date Time Temp Pulse Resp B/P (MAP) Pulse Ox O2 Delivery O2 Flow Rate FiO2 11/08/17 13:15 51 16 113/64 95 11/08/17 11:52 55 18 122/49 95 Room Air 11/08/17 10:01 36.6 59 20 104/69 94 Room Air Physical Exam GENERAL: Patient is in no acute distress. HEENT: No acute trauma, normocephalic atraumatic, mucous membranes moist, no nasal congestion, no scleral icterus. NECK: No stridor, no adenopathy, no meningismus, trachea is midline. LUNGS: Clear to auscultation bilaterally, no wheeze, no rhonchi, breath sounds equal. HEART: Without murmurs gallops or rubs, regular rate and rhythm. ABDOMEN: 3 cm firm, somewhat tender lesion to the right side of the abdomen, just lateral to her midline healed incision. The area is tender and quite firm. There is no erythema and no abdominal peritonitis. EXTREMITIES: No cyanosis or edema, full range of motion of all the joints without pain or difficulty, no signs for acute trauma. NEUROLOGIC: Oriented x 3, no acute motor or sensory deficits, no focal weakness. SKIN: No rash, no jaundice, no diaphoresis. Medical Decision & Procedures ER Provider Diagnostic Interpretation: Radiology results as stated below per my review and radiologist interpretation: ABD/PELVIS NO IV OR ORAL CONT CT DOSE: 1218.46 mGycm HISTORY: Pain. Nausea. ABD PAIN, POSSIBLE OBSTRUCTION, NO CONTRAST TECHNIQUE: Multiaxial CT images of the abdomen and pelvis were performed without contrast. A dose lowering technique was utilized adhering to the principles of ALARA. COMPARISON STUDY: 07/17/2017 FINDINGS: Lung bases are clear. Liver spleen and pancreas appear unremarkable. Gallstone filled gallbladder. Inferior vena caval filter is present. Nonobstructive bowel pattern. Kidneys negative for hydronephrosis. Bladder is midline. No significant adenopathy within the abdomen and pelvic or inguinal region. IMPRESSION: 1. Gallstone filled gallbladder. 2. Nonobstructive bowel pattern. 3. Otherwise negative abdomen and pelvis. The above report was generated using voice recognition software. It may contain grammatical, syntax or spelling errors. Electronically signed by: Garth Rincon M.D. 11/08/2017 11:54 AM Dictated Date/Time: 11/08/2017 11:46 AM Laboratory Results 11/08/17 11:25 Red Blood Count 3.57, Mean Corpuscular Volume 100.6, Mean Corpuscular Hemoglobin 31.1, Mean Corpuscular Hemoglobin Concent 30.9, Mean Platelet Volume 9.7, Neutrophils (%) (Auto) 48.3, Lymphocytes (%) (Auto) 36.0, Monocytes (%) ( Auto) 10.2, Eosinophils (%) (Auto) 5.0, Basophils (%) (Auto) 0.2, Neutrophils # (Auto) 2.92, Lymphocytes # (Auto) 2.18, Monocytes # (Auto) 0.62, Eosinophils # ( Auto) 0.30, Basophils # (Auto) 0.01 11/08/17 11:25 Test 11/08/17 11:25 White Blood Count 6.05 K/uL (4.8-10.8) Red Blood Count 3.57 M/uL (4.2-5.4) Hemoglobin 11.1 g/dL (12.0-16.0) Hematocrit 35.9 % (37-47) Mean Corpuscular Volume 100.6 fL (80-100) Mean Corpuscular Hemoglobin 31.1 pg (25-34) Mean Corpuscular Hemoglobin Concent 30.9 g/dl (32-36) Platelet Count 92 K/uL (130-400) Mean Platelet Volume 9.7 fL (7.4-10.4) Neutrophils (%) (Auto) 48.3 % Lymphocytes (%) (Auto) 36.0 % Monocytes (%) (Auto) 10.2 % Eosinophils (%) (Auto) 5.0 % Basophils (%) (Auto) 0.2 % Neutrophils # (Auto) 2.92 K/uL (1.4-6.5) Lymphocytes # (Auto) 2.18 K/uL (1.2-3.4) Monocytes # (Auto) 0.62 K/uL (0.11-0.59) Eosinophils # (Auto) 0.30 K/uL (0-0.5) Basophils # (Auto) 0.01 K/uL (0-0.2) RDW Standard Deviation 53.7 fL (36.4-46.3) RDW Coefficient of Variation 14.7 % (11.5-14.5) Immature Granulocyte % (Auto) 0.3 % Immature Granulocyte # (Auto) 0.02 K/uL (0.00-0.02) Platelet Estimate DECREASED Prothrombin Time 12.0 SECONDS (9.0-12.0) Prothromb Time International Ratio 1.1 (0.9-1.1) Activated Partial Thromboplast Time 29.4 SECONDS (21.0-31.0) Partial Thromboplastin Ratio 1.1 Anion Gap 4.0 mmol/L (3-11) Estimated GFR () 103.6 Estimated GFR (Non- 89.4 BUN/Creatinine Ratio 12.9 (10-20) Calcium Level 8.4 mg/dl (8.5-10.1) Total Bilirubin 0.4 mg/dl (0.2-1) Aspartate Amino Transf (AST/SGOT) 20 U/L (15-37) Alanine Aminotransferase (ALT/SGPT) 15 U/L (12-78) Alkaline Phosphatase 41 U/L (45-117) Total Protein 5.9 gm/dl (6.4-8.2) Albumin 2.8 gm/dl (3.4-5.0) Globulin 3.1 gm/dl (2.5-4.0) Albumin/Globulin Ratio 0.9 (0.9-2) Laboratory results reviewed by me. ED Course 1022: The patient was evaluated in room B2. A complete history and physical exam was performed. 1204: I spoke to radiology about the CT results at this time. 1216: Reevaluated the patient. Discussed results and discharge instructions: she verbalized understanding and agreement. The patient is ready for discharge. Medical Decision Differential diagnoses include: incarcerated hernia, hematoma, bowel obstruction , dehydration, infection, anemia, electrolyte imbalance. There is no leukocytosis. A very mild anemia was present. Platelet count slightly low but not critical. No significant electrolyte abnormality, kidney failure or hepatitis. Abdominal and pelvis CT does not show any bowel obstruction. There was a finding across the abdominal wall just to the right of her incision thought more chronic and possibly a hematoma. I discussed the findings with Dr. Rincon of radiology. The patient is tender in the area noted on CT. This may be a hematoma. There is no erythema to suggest infection, the patient is not toxic or febrile. There is no bowel obstruction. The patient is resting comfortably. Patient is being discharged to follow with her outpatient doctor's office. If things are worsening, she can return. The family was reassured that there was no hernia by CT. Medication Reconcilliation Current Medication List: was personally reviewed by me Blood Pressure Screening Patient's blood pressure: Normal blood pressure Impression Primary Impression: Concern about hernia without diagnosis Scribe Attestation The scribe's documentation has been prepared under my direction and personally reviewed by me in its entirety. I confirm that the note above accurately reflects all work, treatment, procedures, and medical decision making performed by me. Departure Information Dispostion Home / Self-Care Referrals Jasmyne Orozco M.D. (PCP) Forms HOME CARE DOCUMENTATION FORM, IMPORTANT VISIT INFORMATION, WORK / SCHOOL INSTRUCTIONS Patient Instructions My [facility]– [place] Additional Instructions warm compresses to the sore area no hernia today by CT scan return for increasing redness, fever or worsening pain follow with josé miguel arcos later this week for a recheck
--- NOTE | 2017-11-10 13:17 | Pharmacy Progress Note ---
ED Pharmacist Culture FollowUp Date of Service: Nov 10, 2017. Patient's urine culture growing E. coli resistante to ampicillin, unasyn, ciprofloxacin, levofloxacin. Patient presented for possible hernia. No documentation of urinary symptoms, normal WBC, Afebrile, No UA to correlate but specimen was from straight cath. Discussed with Dr. Mccormick who was physician for visit, asymptomatic bacteriuria vs. need for treatment. Per Dr. Mccormick will be prescribed keflex 500 mg BID x 7 days. Called patient and talked to her / caregiver. Prescription called [facility] to [facility] per request. No further questions.
== END 2017-11-08 13:15 | disposition home or self-care (01) ==
LOC: C.EDB 09:58
DX: R10.31 Right lower quadrant pain (principal); I48.91 Unspecified atrial fibrillation; Z86.73 Personal history of transient ischemic attack (TIA), and cerebral infarction without residual deficits; E78.5 Hyperlipidemia, unspecified; I10 Essential (primary) hypertension; Z79.01 Long term (current) use of anticoagulants; Z79.899 Other long term (current) drug therapy; Z88.8 Allergy status to other drugs, medicaments and biological substances; Z91.048 Other nonmedicinal substance allergy status

== ENCOUNTER 2019-01-04 14:02 | Inpatient (IN) ==
[2019-01-04] MEDS ORDERED: SODIUM CHLORIDE 0.9% 1000ML 1,000 ML IV SCH ×2 (14:30→18:15)
--- NOTE | 2019-01-04 14:38 | XRay Report ---
XR chest 1V portable CLINICAL HISTORY: 68 years-old Female presenting with weakness. TECHNIQUE: Portable upright AP view of the chest was obtained. COMPARISON: 11/27/2018. FINDINGS: Atherosclerosis of the aortic arch. Cardiac silhouette enlarged. No focal opacity. No large effusion or pneumothorax. Degenerative changes of the thoracic spine. Osteopenia. Hyperdensities in the upper abdomen consistent with gallstones. IMPRESSION: 1. Cardiomegaly. No other convincing evidence of acute cardiopulmonary disease. Electronically signed by: Ganesh Temple M.D. 01/04/2019 2:37 PM
[2019-01-04 15:09] LABS: Basophils # (auto) 0.01 K/uL (0-0.2); Basophils % (auto) 0.1 %; Eosinophils # (auto) 0.07 K/uL (0-0.5); Eosinophils % (auto) 0.8 %; Hematocrit (blood only) 43.7 % (37-47); Hemoglobin 13.8 g/dL (12.0-16.0); Immature Granulocytes # (auto) 0.02 K/uL (0.00-0.02); Immature Granulocytes % (auto) 0.2 %; Lymphocytes # (auto) 2.46 K/uL (1.2-3.4); Lymphocytes % (auto) 26.6 %; Mean Corpuscular Hemoglobin 32.3 pg (25-34); Mean Corpuscular Hgb Conc 31.6 g/dL (32-36); Mean Corpuscular Volume 102.3 fL (80-100); Mean Platelet Volume 10.6 fL (7.4-10.4); Monocytes # (auto) 0.83 K/uL (0.11-0.59); Neutrophils # (auto) 5.85 K/uL (1.4-6.5); Neutrophils % (auto) 63.3 %; Platelet Count 113 K/uL (130-400); RDW Coefficient of Variation 13.8 % (11.5-14.5); RDW Standard Deviation 51.8 fL (36.4-46.3); Red Blood Count 4.27 M/uL (4.2-5.4); White Blood Count 9.24 K/uL (4.8-10.8)
[2019-01-04 15:19] LABS: Alanine Aminotransferase 10 U/L (12-78); Aspartate Aminotransferase 15 U/L (15-37); BUN Creatinine Ratio 17.6 (10-20); Blood Urea Nitrogen 11 mg/dl (7-18); Calcium 9.2 mg/dl (8.5-10.1); Carbon Dioxide 35 mmol/L (21-32); Chloride 100 mmol/L (98-107); Est GFR (African American) 108.3; Est GFR (Non-African American) 93.5; Glucose 106 mg/dl (70-99); Potassium 3.8 mmol/L (3.5-5.1); Sodium 140 mmol/L (136-145)
--- NOTE | 2019-01-04 15:24 | XRay Report ---
XR KUB/Abdomen 1 view CLINICAL HISTORY: 68 years-old Female presenting with constipation. TECHNIQUE: Single supine view of the abdomen was obtained. COMPARISON: CT of abdomen and pelvis from 09/20/2018 and plain radiograph from 12/26/2017. FINDINGS: Moderate stool burden throughout the colon. IVC filter in place at the level of L3. Prominent choleli thiasis. Nonobstructive bowel gas pattern. No gross pneumoperitoneum. Allowing for bowel gas and stool, no calcifications to suggest nephrolithiasis. Multiple pelvic phleb oliths unchanged in distribution. Levoscoliosis and multilevel degenerative changes of the lumbar spine. Lung bases clear. IMPRESSION: 1. Constipation with a moderate stool burden. 2. Cholelithiasis. Electronically signed by: Ganesh Temple M.D. 01/04/2019 3:23 PM
[2019-01-04 15:29] LABS: Albumin Globulin Ratio 0.8 (0.9-2); Alkaline Phosphatase 66 U/L (45-117); Bilirubin,Total 0.4 mg/dl (0.2-1); Globulin 3.8 gm/dl (2.5-4.0); Total Protein 6.8 gm/dl (6.4-8.2); Troponin I < 0.015 ng/ml (0-0.045)
--- NOTE | 2019-01-04 15:33 | CT Scan Report ---
CT head/brain wo con CLINICAL HISTORY: 68 years-old Female presenting with AMS. TECHNIQUE: Multidetector CT imaging of the head was performed without the use of intravenous contrast . IV contrast: None. One or more dose lowering techniques were used consistent with the principles of ALARA (as low as reasonably achievable), including automatic exposure control, mA or kV adjustment t o individual patient size, and/or use of iterative reconstruction. COMPARISON: 03/07/2013. CT DOSE (mGy.cm): The estimated cumulative dose is 773.57 mGy.cm. FINDINGS: [employer] topogram: Unremarkable. Proportional ventricular and sulcal prominence, likely age-related parenchymal volume loss. No hemorr quique. Periventricular and subcortical white matter hypoattenuation, nonspecific but likely indicative of chronic small vessel ischemic change. Redemonstration of the extensive right middle cerebellar ar xiomy territory distribution chronic infarct with overlying postsurgical changes of the right calvariu m. No acute territorial infarct. No mass effect or midline shift. Extra-axial crescentic low-density fluid and dural thickening consistent with postoperative change. The presence of calcification is new from prior. Paranasal sinuses and mastoid air cells clear. IMPRESSION: 1. No significant change compared to the prior study. No acute intracranial abnormality. Electronically signed by: Ganesh Temple M.D. 01/04/2019 3:32 PM
[2019-01-04 15:41] LABS: T4 Free Thyroxine 1.52 ng/dl (0.8-1.6)
[2019-01-04 17:04] LABS: Appearance Urine Clear (Clear); Bilirubin Urine Negative (Negative); Blood Urine Negative (Negative); Color Urine Yellow; Glucose Urine UA Negative (Negative); Ketones Urine Negative (Negative); Leukocyte Esterase Urine Negative (Negative); Nitrite Urine Negative (Negative); Protein Urine Negative (Negative); Specific Gravity Urine 1.017 (1.000-1.030); Urobilinogen Urine Negative (Negative); pH Urine 6.5 (4.5-7.5)
--- NOTE | 2019-01-04 20:22 | History & Physical Report ---
Date of Service January 04, 2019 Assessment & Plan (1) Altered mental status: Admit to inpatient on telemetry to rule out transient ischemic attack versus new stroke. Vital signs every 4 hours Neurochecks every 4 hours as per protocol BNP pending CTA head and neck pending Echocardiogram in a.m. Doppler of the lower extremities in a.m. to rule out DVT DVT prophylaxis continue Xarelto which patient takes for A. fib's. Neurology consult pending Continue home medicine as adjusted but per /divalproex ER 250 mg every 24 hours, 1000 p.o. nightly, divalproex p.o. twice daily. Patient is full code per family request Present on Admission?: Yes (2) GERD (gastroesophageal reflux disease): Continue ranitidine 150 mg p.o. twice daily Present on Admission?: Yes (3) DIANNE (obstructive sleep apnea): Continue CPAP Present on Admission?: Yes (4) Chronic constipation: Continue docusate sodium 100 mg p.o. twice daily, MiraLAX as needed for constipation Present on Admission?: Yes (5) Hypothyroidism: Elevated TSH to 5.3 but free T4 normal 1.52. Continue monitoring. Continue home dose of levothyroxine 75 MCG's p.o. nightly. Present on Admission?: Yes (6) Seizure disorder: As discussed and altered mental status section Present on Admission?: Yes (7) Atrial fibrillation: Continue Xarelto Present on Admission?: Yes (8) Hyperlipidemia: Continue pravastatin 20 mg p.o. nightly Present on Admission?: Yes (9) Hypertension: Continue furosemide 20 mg p.o. daily as needed, metoprolol succinate 25 mg p.o. nightly, amiodarone 200 mg p.o. every morning. And aspirin 325 mg and continue with 81 mg daily Present on Admission?: Yes History of Present Illness Chief Complaint: Altered mental status Primary Care Provider: Jasmyne Orozco MD Patient is a 68 years old female with past medical history of CVA in 2011, left spastic hemiparesis, obstructive sleep apnea, morbid obesity, hypothyroidism, seizure disorder, atrial fibrillation, hyperlipidemia, hypertension, GERD who was brought by her family to the emergency room stating that patient is declining in the past 3 weeks and that she had 2 seizures yesterday. Per family patient had partial seizures. Patient is less alert and oriented rarely speaks. Family said patient had CVA in 2011 and that left significant sequela but before these episodes patient was able to feed herself which she is not able anymore. Patient saw neurologist 2 days ago and her medication was adjusted at that time. Patient is [place]. [place] [facility] [place] She started to take her medication per new regime 48 hr ago. Family said patient does not feel like herself. Patient is responsive to conversation but she does not talk much. Patient is incontinent for urine. She is checked by her wound care at home and she has decubitus ulcers and right big toe wound which is in healing process. Patient is poor historian and it is difficult to review systems with her. Patient family declines fever chills headache chest pain shortness of breath abdominal pain frequency urgency hematuria dysuria hematemesis. Patient is usually constipated and this is not new. Labs are reviewed: Which shows white blood cell count of 9.24 hemoglobin of 13.8, hematocrit of 43.7 platelets of 113. PT/PTT/INR are pending, BNP pending. Sodium 140, potassium 3.8, chloride 100 anion gap 5, BUN 11, creatinine 0.63, GFR 93.5 lactate 1.6, AST 15, ALT 10, alkaline phosphatase 66, troponin 0 0.015 total protein 6.8, albumin 3 TSH 5.3, free T4 1.52 which is normal. Urine is negative for nitrates, bilirubin, urobilinogen and leukocyte esterase. Level of Depakote is 105 which is upper limit of normal. Chest x-ray: Cardiomegaly, no other convincing evidence of acute pulmonary disease. KUB positive for constipation with moderate stool burden, and cholelithiasis. Decision was made to admit patient to the PCU on telemetry for CT a of head and neck and other studies necessary to be done for altered mental status. Allergies Allergy/AdvReac Type Severity Reaction Status Date / Time fish oil Allergy Unknown UNKNOWN Verified 01/04/19 16:09 atorvastatin AdvReac Mild MUSCLE Verified 01/04/19 16:09 ACHES citalopram AdvReac Unknown contributed Verified 01/04/19 16:09 to seizures? recently stopped taking med 01/2016 Home Medications Home Medications Medication Instructions Recorded Confirmed Type amiodarone 200 mg PO QAM 12/16/17 01/04/19 History ascorbic acid (vitamin C) 500 mg PO BID 12/16/17 01/04/19 History coenzyme Q10 200 mg PO BID 12/16/17 01/04/19 History cranberry 400 mg PO HS 12/16/17 01/04/19 History docusate sodium 100 mg PO BID 12/16/17 01/04/19 History furosemide 20 mg PO DAILY PRN 12/16/17 01/04/19 History levothyroxine 75 mcg PO QAM 12/16/17 01/04/19 History pravastatin 20 mg PO QAM 12/16/17 01/04/19 History ranitidine HCl 150 mg PO BID 12/16/17 01/04/19 History acetaminophen [Mapap 650 mg PO Q6 PRN #30 tab 12/28/17 01/04/19 Rx (acetaminophen)] metoprolol succinate 25 mg PO HS 01/12/18 01/04/19 History polyethylene glycol 3350 [Miralax] 17 g PO BID 01/12/18 01/04/19 History divalproex ER 250 mg 1,000 mg PO HS tab 10/24/18 01/04/19 History tablet,extended release 24 hr ciprofloxacin 750 mg tablet 750 mg PO BID #60 tab 12/28/18 01/04/19 Rx Bio Cleanse 1 tab PO QAM 01/04/19 01/04/19 History Lactobacillus acidophilus 1 cell PO HS 01/04/19 01/04/19 History [Probiotic] divalproex 500 mg PO BID 01/04/19 01/04/19 History duloxetine 60 mg PO QAM 01/04/19 01/04/19 History lacosamide [Vimpat] 100 mg PO BID 01/04/19 01/04/19 History rivaroxaban [Xarelto] 20 mg PO HS 01/04/19 01/04/19 History Past Med/Surg History Medical History Bilateral leg edema Left spastic hemiparesis From CVA secondary to A. fib in 2011 DIANNE (obstructive sleep apnea) (Chronic) Fatty liver (Chronic) Thrombocytopenia (Acute) Chronic constipation (Chronic) Morbid obesity (Chronic) BMI 37 Hypothyroidism (Chronic) Seizure disorder (Chronic) Atrial fibrillation (Chronic) Hyperlipidemia (Chronic) Hypertension (Chronic) Atrial fibrillation CVA (cerebral infarction) With left-sided hemiparesis Hepatic encephalopathy History of stroke Hyperammonemia Hypertension Paralysis as complication of stroke Recurrent UTI Sacral decubitus ulcer Seizure disorder Sleep apnea Small bowel obstruction Surgical History H/O exploratory laparotomy H/O: hysterectomy History of hysterectomy Family History Other Hypertension Obesity Social History Preferred Language: Cameroonian Communication Ability: Effective Visual Impairment: No Limitations Hearing Ability: Normal [employer] Required: Yes Beliefs That Will Affect Care: None marital status: Current Living Situation: Spouse Feels Safe at Home: Yes Smoking Status: Never smoker Second Hand Exposure: No ; Hx Alcohol Use: Yes Alcohol type: wine Hx Substance Use: No Review of Systems Review of Systems: All systems reviewed & are unremarkable except as noted in HPI & below Physical Exam Constitutional: WD/WN, vitals as above well developed, well nourished and + morbidly obese Eyes: PERRL, conjunctivae normal, anicteric sclerae ENMT: external ear and nose normal, oropharynx normal Neck: trachea midline, no thyromegaly Respiratory: normal respiratory effort, lungs clear to auscultation Cardiovascular: Heart Sounds: normal S1, normal S2 and + murmur Palpation: + palpable S3 Vessels: + JVD Chest (Breasts): normal inspection/palpation of breasts Gastrointestinal (Abdomen): normal bowel sounds, soft, nontender, no hepato splenomegaly Musculoskeletal: Left-sided weakness-2/5 strength in the upper and lower left extremities. Small wound located at the big toe of the right foot in the healing process. Extensive decubitus second through third degree located at the patient -perineum and lower back Skin: Decubitus ulcer and right big toe wound. Neurologic: Old weakness of the left upper and lower extremities Psychiatric: Poor historian difficult to perform exam. Exam based on the family's narrative Genitourinary: Large labial decubital the right lid lesion bilaterally and in the perineal area. Lymphatic: no cervical or axillary lymphadenopathy Results & Data Vital Signs (Past 12 Hours) Vital Signs Temp Pulse Pulse Resp BP BP Pulse Ox 01/04/19 20:11 92 H 16 99/51 L 100 01/04/19 19:11 82 16 110/66 96 01/04/19 18:30 81 30 H 108/75 95 01/04/19 18:00 81 23 104/74 90 01/04/19 17:30 81 25 H 108/77 92 01/04/19 17:00 86 19 106/74 97 01/04/19 16:32 84 18 95/43 L 95 01/04/19 16:26 96 H 18 101/80 97 01/04/19 14:42 86 16 95 01/04/19 14:21 82 18 120/78 96 01/04/19 14:20 36.6 C 86 16 120/78 95 Code Status & VTE Plan Code Status Full code VTE Prophylaxis Plan VTE Prophylaxis will be ordered: Yes PG Care Time/CCT Total # of Minutes Spent Total Time Spent with Patient: Total time spent is greater than 50% in coordination of care (as documented) at patient's floor/unit and/or counseling patient: (1) Altered mental status Altered mental status type: unspecified Qualified Code(s): R41.82 - Altered mental status, unspecified (2) Hypothyroidism Hypothyroidism type: acquired Qualified Code(s): E03.9 - Hypothyroidism, unspecified (3) Atrial fibrillation Atrial fibrillation type: paroxysmal Qualified Code(s): I48.0 - Paroxysmal atrial fibrillation (4) Hyperlipidemia Hyperlipidemia type: other hyperlipidemia Qualified Code(s): E78.4 - Other hyperlipidemia (5) Hypertension Hypertension type: essential hypertension Qualified Code(s): I10 - Essential (primary) hypertension
--- NOTE | 2019-01-04 20:50 | Emergency Department Note ---
Entered by Miller Haro acting as a scribe for Elaine Rodriguez MD History of Present Illness General Chief complaint: Altered Mental Status Source: patient History of Present Illness Onset (ago): hour(s) (this morning) Location: head Pain Consistency: + constant Quality: + other (AMS) Associated symptoms: + denies other symptoms (vomiting) and + other (purple discoloration, not able to eat well) The patient is a 68 y/o female who presents to the ED w/ CC of constant altered mental status beginning this morning. The patient's states he tried to get the patient into bed after eating lunch, and the patient could not keep her head up. He reports she also was not able to eat well, and she developed a purple discoloration in her toes on her way here. The notes normally uses a Stand Assist because the patient's left side is weak secondary to a stroke 7 years ago. He states her right side works well. The reports she is more withdrawn as normal. He notes her urine has been darker than normal. The states she does have seizures, and she had two yesterday. The states she was recently at her neurologist and increased her dose of Vimpat and decreased her dose of Depakote with the goal of stopping the Depakote. He reports she did not have a fever. The notes she normally is evaluated by Dr. Berrios, [facility] [place] [facility], but recently she was evaluated by [facility] neurology. He states a history of several bowel obstructions and thinks the patient may be constipated because she has not had a BM recently. The denies vomiting. Home Medications Home Medications Medication Instructions Recorded Confirmed Type amiodarone 200 mg PO QAM 12/16/17 01/04/19 History ascorbic acid (vitamin C) 500 mg PO BID 12/16/17 01/04/19 History coenzyme Q10 200 mg PO BID 12/16/17 01/04/19 History cranberry 400 mg PO HS 12/16/17 01/04/19 History docusate sodium 100 mg PO BID 12/16/17 01/04/19 History furosemide 20 mg PO DAILY PRN 12/16/17 01/04/19 History levothyroxine 75 mcg PO QAM 12/16/17 01/04/19 History pravastatin 20 mg PO QAM 12/16/17 01/04/19 History ranitidine HCl 150 mg PO BID 12/16/17 01/04/19 History acetaminophen [Mapap 650 mg PO Q6 PRN #30 tab 12/28/17 01/04/19 Rx (acetaminophen)] metoprolol succinate 25 mg PO HS 01/12/18 01/04/19 History polyethylene glycol 3350 [Miralax] 17 g PO BID 01/12/18 01/04/19 History ciprofloxacin 750 mg tablet 750 mg PO BID #60 tab 12/28/18 01/04/19 Rx Bio Cleanse 1 tab PO QAM 01/04/19 01/04/19 History Lactobacillus acidophilus 1 cell PO HS 01/04/19 01/04/19 History [Probiotic] divalproex 500 mg PO BID 01/04/19 01/04/19 History duloxetine 60 mg PO QAM 01/04/19 01/04/19 History lacosamide [Vimpat] 100 mg PO BID 01/04/19 01/04/19 History rivaroxaban [Xarelto] 20 mg PO HS 01/04/19 01/04/19 History Allergies Allergy/AdvReac Type Severity Reaction Status Date / Time fish oil Allergy Unknown UNKNOWN Verified 01/04/19 16:09 atorvastatin AdvReac Mild MUSCLE Verified 01/04/19 16:09 ACHES citalopram AdvReac Unknown contributed Verified 01/04/19 16:09 to seizures? recently stopped taking med 01/2016 Past Med/Surg History Medical History Bilateral leg edema Left spastic hemiparesis From CVA secondary to A. fib in 2011 DIANNE (obstructive sleep apnea) (Chronic) Fatty liver (Chronic) Thrombocytopenia (Acute) Chronic constipation (Chronic) Morbid obesity (Chronic) BMI 37 Hypothyroidism (Chronic) Seizure disorder (Chronic) Atrial fibrillation (Chronic) Hyperlipidemia (Chronic) Hypertension (Chronic) Atrial fibrillation CVA (cerebral infarction) With left-sided hemiparesis Hepatic encephalopathy History of stroke Hyperammonemia Hypertension Paralysis as complication of stroke Recurrent UTI Sacral decubitus ulcer Seizure disorder Sleep apnea Small bowel obstruction Surgical History H/O exploratory laparotomy H/O: hysterectomy History of hysterectomy Family History Other Hypertension Obesity Social History Preferred Language: B[place] Communication Ability: Unable Visual Impairment: No Limitations Hearing Ability: Normal Director Speech Required: Yes Beliefs That Will Affect Care: None marital status: Current Living Situation: Spouse Feels Safe at Home: Yes Smoking Status: Never smoker Second Hand Exposure: No ; Hx Alcohol Use: No Hx Substance Use: No Review of Systems See HPI for pertinent positives & negatives. and A total of 10 systems reviewed and were otherwise negative Physical Exam Vital Signs Vital Signs - 24 hr 01/04/19 14:20 01/04/19 14:21 01/04/19 14:42 Temperature 36.6 C Temperature Source Oral Sepsis Recent Fever Within 48 Hours No Sepsis New/Unexplained Change in Mental Status No Sepsis Action Taken by Nursing No Action Required Pulse Rate 86 82 86 Pulse Rate [Apical] Pulse Rate from SpO2 Sensor 90 Pulse Rhythm [Apical] Respiratory Rate 16 18 16 Respiratory Effort / Characteristics Non-Labored Respiratory Depth Normal Respiratory Pattern Regular Blood Pressure 120/78 120/78 Blood Pressure [Right Arm] Blood Pressure Mean 92 92 Blood Pressure Mean [Right Arm] Pulse Oximetry 95 96 95 Oxygen Delivery Method Room Air Room Air Room Air 01/04/19 16:26 01/04/19 16:32 01/04/19 17:00 Temperature Temperature Source Sepsis Recent Fever Within 48 Hours Sepsis New/Unexplained Change in Mental Status Sepsis Action Taken by Nursing Pulse Rate 96 H 84 86 Pulse Rate [Apical] Pulse Rate from SpO2 Sensor 89 87 89 Pulse Rhythm [Apical] Respiratory Rate 18 18 19 Respiratory Effort / Characteristics Respiratory Depth Respiratory Pattern Blood Pressure 101/80 95/43 L 106/74 Blood Pressure [Right Arm] Blood Pressure Mean 87 60 84 Blood Pressure Mean [Right Arm] Pulse Oximetry 97 95 97 Oxygen Delivery Method Room Air Room Air Room Air 01/04/19 17:30 01/04/19 18:00 01/04/19 18:30 Temperature Temperature Source Sepsis Recent Fever Within 48 Hours Sepsis New/Unexplained Change in Mental Status Sepsis Action Taken by Nursing Pulse Rate 81 81 81 Pulse Rate [Apical] Pulse Rate from SpO2 Sensor 94 H 150 H 88 Pulse Rhythm [Apical] Respiratory Rate 25 H 23 30 H Respiratory Effort / Characteristics Respiratory Depth Respiratory Pattern Blood Pressure 108/77 104/74 108/75 Blood Pressure [Right Arm] Blood Pressure Mean 87 84 86 Blood Pressure Mean [Right Arm] Pulse Oximetry 92 90 95 Oxygen Delivery Method Room Air Room Air Room Air 01/04/19 19:11 01/04/19 20:11 Temperature Temperature Source Sepsis Recent Fever Within 48 Hours Sepsis New/Unexplained Change in Mental Status Sepsis Action Taken by Nursing Pulse Rate Pulse Rate [Apical] 82 92 H Pulse Rate from SpO2 Sensor Pulse Rhythm [Apical] Irregular Irregular Respiratory Rate 16 16 Respiratory Effort / Characteristics Non-Labored Spontaneous Respiratory Depth Normal Normal Respiratory Pattern Blood Pressure Blood Pressure [Right Arm] 110/66 99/51 L Blood Pressure Mean Blood Pressure Mean [Right Arm] 80 67 Pulse Oximetry 96 100 Oxygen Delivery Method Room Air Room Air Vital signs reviewed. General: Chronically ill-appearing, obese 68 y/o female, in no significant distress. HEENT: No scleral icterus, PERRLA, neck supple. Atraumatic. Cardiovascular: Regular rate and rhythm, no extra sounds. Pulmonary: Clear to auscultation bilaterally, normal work of breathing. Abdomen: Soft, nontender, nondistended, positive bowel sounds. Musculoskeletal: Atraumatic, no peripheral edema. Neurologic: Spastic left hemiparesis, somnolent but arousable. Slow to answer questions. Aware of location and year. Minimal baseline tremor of the right upper extremity. Skin: Warm, dry, no rash, bandage over right 4th toe Course 1421: Past medical records reviewed. The patient was evaluated in room B09. A complete history and physical examination was performed. 1821: Upon reevaluation, the patient is resting comfortably. I discussed laboratory and radiographic results with her. She verbalized agreement of the treatment plan. The patient will be evaluated for further management and care. 1831: I reviewed the patient's case with Dr. Napoles, [facility] Hospitalist. She will evaluate the patient for further management. Administered Medications Ascorbic Acid (Vitamin C) 500 mg PO BID MIGUEL Stop: 02/03/19 21:54 Last Admin: 01/08/19 08:20 Dose: 500 mg Documented by: [id number] Admin: 01/07/19 22:17 Dose: 500 mg Documented by: [id number] Admin: 01/07/19 08:34 Dose: 500 mg Documented by: [id number] Admin: 01/06/19 20:32 Dose: 500 mg Documented by: [id number] Admin: 01/06/19 08:56 Dose: 500 mg Documented by: [id number] Admin: 01/05/19 19:55 Dose: 500 mg Documented by: [id number] Admin: 01/05/19 10:22 Dose: 500 mg Documented by: [id number] Admin: 01/04/19 23:34 Dose: 500 mg Documented by: [id number] Aspirin (Ecotrin Ectab) 81 mg PO QAM MIGUEL Stop: 02/04/19 08:59 Last Admin: 01/08/19 08:19 Dose: 81 mg Documented by: [id number] Admin: 01/07/19 08:34 Dose: 81 mg Documented by: [id number] Admin: 01/06/19 08:56 Dose: 81 mg Documented by: [id number] Admin: 01/05/19 10:21 Dose: 81 mg Documented by: [id number] Ciprofloxacin (Cipro) 750 mg PO BID MIGUEL Stop: 02/03/19 21:54 Last Admin: 01/08/19 08:19 Dose: 750 mg Documented by: [id number] Admin: 01/07/19 22:19 Dose: 750 mg Documented by: [id number] Admin: 01/07/19 08:35 Dose: 750 mg Documented by: [id number] Admin: 01/06/19 20:32 Dose: 750 mg Documented by: [id number] Admin: 01/06/19 08:57 Dose: 750 mg Documented by: [id number] Admin: 01/05/19 19:53 Dose: 750 mg Documented by: [id number] Admin: 01/05/19 10:13 Dose: 750 mg Documented by: [id number] Admin: 01/04/19 23:34 Dose: 750 mg Documented by: [id number] Divalproex Sodium (Depakote Extended Release) 500 mg PO BID MIGUEL Stop: 02/03/19 21:54 Last Admin: 01/08/19 08:19 Dose: 500 mg Documented by: [id number] Admin: 01/07/19 22:19 Dose: 500 mg Documented by: [id number] Admin: 01/07/19 08:34 Dose: 500 mg Documented by: [id number] Admin: 01/06/19 20:33 Dose: 500 mg Documented by: [id number] Admin: 01/06/19 08:56 Dose: 500 mg Documented by: [id number] Admin: 01/05/19 19:54 Dose: 500 mg Documented by: [id number] Admin: 01/05/19 10:18 Dose: 500 mg Documented by: [id number] Admin: 01/04/19 23:31 Dose: 500 mg Documented by: [id number] Docusate Sodium (Colace) 100 mg PO BID MIGUEL Stop: 02/03/19 21:54 Last Admin: 01/08/19 08:20 Dose: Not Given Documented by: [id number] Admin: 01/07/19 22:18 Dose: 100 mg Documented by: [id number] Admin: 01/07/19 08:34 Dose: 100 mg Documented by: [id number] Admin: 01/06/19 20:31 Dose: 100 mg Documented by: [id number] Admin: 01/06/19 11:09 Dose: 100 mg Documented by: [id number] Admin: 01/05/19 20:07 Dose: 100 mg Documented by: [id number] Admin: 01/05/19 10:26 Dose: 100 mg Documented by: [id number] Admin: 01/04/19 23:32 Dose: 100 mg Documented by: [id number] Duloxetine HCl (Cymbalta) 40 mg PO QAM MIGUEL Stop: 02/05/19 08:59 Last Admin: 01/08/19 08:19 Dose: 40 mg Documented by: [id number] Admin: 01/07/19 08:33 Dose: 40 mg Documented by: [id number] Admin: 01/06/19 13:05 Dose: 40 mg Documented by: [id number] Gadobutrol (Gadavist 65ml) 9.5 ml IV ONCE PRN PRN Reason: Interaction Checking Stop: 01/10/19 18:37 Last Admin: 01/06/19 18:39 Dose: 9.5 ml Documented by: [id number] Lactated Ringer's (Lr) 1,000 mls @ 80 mls/hr IV .[id number] MIGUEL Stop: 02/05/19 23:14 Last Admin: 01/08/19 12:52 Dose: 80 mls/hr Documented by: [id number] Infusion: 01/08/19 12:32 Dose: 80 mls/hr Documented by: [id number] Admin: 01/08/19 00:02 Dose: 80 mls/hr Documented by: [id number] Infusion: 01/08/19 00:02 Dose: 80 mls/hr Documented by: [id number] Admin: 01/07/19 12:25 Dose: 80 mls/hr Documented by: [id number] Infusion: 01/07/19 12:18 Dose: 80 mls/hr Documented by: [id number] Admin: 01/06/19 23:48 Dose: 80 mls/hr Documented by: [id number] Ioversol (Optiray 320 125ml) 116 ml IV ONCE PRN PRN Reason: Interaction Checking Stop: 01/08/19 22:46 Last Admin: 01/04/19 22:47 Dose: 1 ml Documented by: [id number] Lacosamide (Vimpat) 100 mg PO BID MIGUEL Stop: 02/03/19 21:54 Last Admin: 01/08/19 08:19 Dose: 100 mg Documented by: [id number] Admin: 01/07/19 22:19 Dose: 100 mg Documented by: [id number] Admin: 01/07/19 08:34 Dose: 100 mg Documented by: [id number] Admin: 01/06/19 20:32 Dose: 100 mg Documented by: [id number] Admin: 01/06/19 08:57 Dose: 100 mg Documented by: [id number] Admin: 01/05/19 19:54 Dose: 100 mg Documented by: [id number] Admin: 01/05/19 10:18 Dose: 100 mg Documented by: [id number] Admin: 01/04/19 23:35 Dose: 100 mg Documented by: [id number] Levothyroxine Sodium (Synthroid) 75 mcg PO DAILYBB MIGUEL Stop: 02/04/19 06:29 Last Admin: 01/08/19 05:54 Dose: 75 mcg Documented by: [id number] Admin: 01/07/19 05:40 Dose: 75 mcg Documented by: [id number] Admin: 01/06/19 05:47 Dose: Not Given Documented by: [id number] Admin: 01/05/19 07:26 Dose: 75 mcg Documented by: [id number] Metoprolol Succinate (Toprol Xl) 50 mg PO HS MIGUEL Stop: 02/05/19 20:59 Last Admin: 01/07/19 22:18 Dose: Not Given Documented by: [id number] Admin: 01/06/19 20:31 Dose: 50 mg Documented by: [id number] Polyethylene Glycol (Miralax Powder Packet) 17 gm PO BID MIGUEL Stop: 02/03/19 21:54 Last Admin: 01/08/19 08:21 Dose: Not Given Documented by: [id number] Admin: 01/07/19 22:20 Dose: Not Given Documented by: [id number] Admin: 01/07/19 08:33 Dose: 17 gm Documented by: [id number] Admin: 01/06/19 20:33 Dose: 17 gm Documented by: [id number] Admin: 01/06/19 08:55 Dose: 17 gm Documented by: [id number] Admin: 01/05/19 19:53 Dose: 17 gm Documented by: [id number] Admin: 01/05/19 10:38 Dose: 17 gm Documented by: [id number] Admin: 01/04/19 23:32 Dose: 17 gm Documented by: [id number] Pravastatin Sodium (Pravachol) 20 mg PO QAM MIGUEL Stop: 02/04/19 08:59 Last Admin: 01/08/19 08:20 Dose: 20 mg Documented by: [id number] Admin: 01/07/19 08:34 Dose: 20 mg Documented by: [id number] Admin: 01/06/19 11:09 Dose: 20 mg Documented by: [id number] Admin: 01/05/19 10:22 Dose: 20 mg Documented by: [id number] Ranitidine HCl (Zantac) 150 mg PO BID MIGUEL Stop: 02/03/19 21:54 Last Admin: 01/08/19 08:19 Dose: 150 mg Documented by: [id number] Admin: 01/07/19 22:18 Dose: 150 mg Documented by: [id number] Admin: 01/07/19 08:34 Dose: 150 mg Documented by: [id number] Admin: 01/06/19 20:32 Dose: 150 mg Documented by: [id number] Admin: 01/06/19 08:56 Dose: 150 mg Documented by: [id number] Admin: 01/05/19 20:51 Dose: 150 mg Documented by: [id number] Admin: 01/05/19 10:24 Dose: 150 mg Documented by: [id number] Admin: 01/04/19 23:32 Dose: 150 mg Documented by: [id number] Rivaroxaban (Xarelto) 20 mg PO HS MIGUEL Stop: 02/03/19 21:54 Last Admin: 01/07/19 22:18 Dose: 20 mg Documented by: [id number] Admin: 01/06/19 20:32 Dose: 20 mg Documented by: [id number] Admin: 01/05/19 19:54 Dose: 20 mg Documented by: [id number] Admin: 01/04/19 23:34 Dose: 20 mg Documented by: [id number] Discontinued Medications Acetaminophen (Tylenol) 650 mg PO NOW STA Stop: 01/05/19 19:49 Last Admin: 01/05/19 19:55 Dose: Not Given Documented by: [id number] Acetaminophen (Tylenol) Confirm Administered Dose 650 mg .ROUTE .STK-MED ONE Stop: 01/05/19 19:51 Last Admin: 01/05/19 19:53 Dose: 650 mg Documented by: [id number] Amiodarone HCl (Cordarone) 200 mg PO [facility] Stop: 02/04/19 08:59 Last Admin: 01/07/19 08:34 Dose: 200 mg Documented by: [id number] Admin: 01/06/19 08:56 Dose: 200 mg Documented by: [id number] Admin: 01/05/19 10:14 Dose: 200 mg Documented by: [id number] Duloxetine HCl (Cymbalta) 60 mg PO [facility] Stop: 02/04/19 08:59 Last Admin: 01/05/19 10:26 Dose: 60 mg Documented by: [id number] Sodium Chloride (Nss 1000ml) 1,000 mls @ 999 mls/hr IV .Q1H1M [facility] Stop: 01/04/19 15:30 Last Infusion: 01/04/19 16:20 Dose: 0 mls/hr Documented by: [id number] Admin: 01/04/19 15:11 Dose: 999 mls/hr Documented by: [id number] Sodium Chloride (Nss 1000ml) 1,000 mls @ 125 mls/hr IV .Q8H [facility] Stop: 02/03/19 18:14 Last Admin: 01/04/19 22:21 Dose: Not Given Documented by: [id number] Influenza Virus Vaccine Quadrival (Flucelvax Quad Vaccine) 0.5 ml IM .ONCE ONE Stop: 01/05/19 09:01 Last Admin: 01/08/19 11:25 Dose: 0.5 ml Documented by: [id number] Cosigned by: [id number] Lorazepam (Ativan) 0.5 mg PO NOW STA Stop: 01/06/19 12:52 Last Admin: 01/06/19 17:28 Dose: 0.5 mg Documented by: [id number] Lorazepam (Ativan) Confirm Administered Dose 0.5 mg .ROUTE .STK-MED ONE Stop: 01/06/19 17:28 Last Admin: 01/06/19 17:37 Dose: Not Given Documented by: [id number] Metoprolol Succinate (Toprol Xl) 25 mg PO HS MIGUEL Stop: 02/03/19 21:54 Last Admin: 01/05/19 20:51 Dose: 25 mg Documented by: [id number] Admin: 01/04/19 23:31 Dose: 25 mg Documented by: [id number] Sodium Biphosphate/Sodium Phosphate (Fleet Enema) 132 ml SC NOW STA Stop: 01/05/19 02:03 Last Admin: 01/05/19 02:33 Dose: 132 ml Documented by: [id number] Medical Decision Making Differential Diagnosis Differential Diagnosis includes but is not limited to dehydration, stroke, anemia, hypoglycemia, hyponatremia, hypernatremia, urinary tract infection, pneumonia, bronchitis, sepsis, gastroenteritis, additional abdominal pathology, metabolic abnormalities and infections. Medical Records Attestation: I reviewed the patient's medical records. Home Medications Current Medication List: was personally reviewed by me Laboratory Data Attestation: I reviewed the patient's lab results. Result diagrams: 01/08/19 05:55 01/08/19 05:55 Lab Results 01/04/19 01/04/19 01/04/19 Range/Units 14:36 14:36 14:40 WBC 9.24 (4.8-10.8) K/uL RBC 4.27 (4.2-5.4) M/uL Hgb 13.8 (12.0-16.0) g/dL Hct 43.7 (37-47) % MCV 102.3 H (80-100) fL MCH 32.3 (25-34) pg MCHC 31.6 L (32-36) g/dL RDW Std Deviation 51.8 H (36.4-46.3) fL RDW Coeff of Rodger 13.8 (11.5-14.5) % Plt Count 113 L (130-400) K/uL MPV 10.6 H (7.4-10.4) fL Immature Gran % (Auto) 0.2 % Neut % (Auto) 63.3 % Lymph % (Auto) 26.6 % [place] % (Auto) 9.0 % Eos % (Auto) 0.8 % Baso % (Auto) 0.1 % Immature Gran # (Auto) 0.02 (0.00-0.02) K/uL Neut # (Auto) 5.85 (1.4-6.5) K/uL Lymph # (Auto) 2.46 (1.2-3.4) K/uL [place] # (Auto) 0.83 H (0.11-0.59) K/uL Eos # (Auto) 0.07 (0-0.5) K/uL Baso # (Auto) 0.01 (0-0.2) K/uL Sodium (136-145) mmol/L Potassium (3.5-5.1) mmol/L Chloride (98-107) mmol/L Carbon Dioxide (21-32) mmol/L Anion Gap (3-11) BUN (7-18) mg/dl Creatinine (0.6-1.2) mg/dl Est Cr Clr Drug Dosing Est GFR ( Amer) Est GFR (Non-Af Amer) BUN/Creatinine Ratio (10-20) Glucose (70-99) mg/dl POC Glucose 95 (70-99) Lactate 1.6 (0.4-2.0) mmol/L Calcium (8.5-10.1) mg/dl Total Bilirubin (0.2-1) mg/dl AST (15-37) U/L ALT (12-78) U/L Alkaline Phosphatase (45-117) U/L Troponin I (0-0.045) ng/ml Total Protein (6.4-8.2) gm/dl Albumin (3.4-5.0) gm/dl Globulin (2.5-4.0) gm/dl Albumin/Globulin Ratio (0.9-2) TSH (0.300-4.500) uIu/ml Free T4 (0.8-1.6) ng/dl Urine Color Urine Appearance (Clear) Urine pH (4.5-7.5) Ur Specific [place] (1.000-1.030) Urine Protein (Negative) Urine Glucose (UA) (Negative) Urine Ketones (Negative) Urine Blood (Negative) Urine Nitrite (Negative) Urine Bilirubin (Negative) Urine Urobilinogen (Negative) Ur Leukocyte Esterase (Negative) Valproic Acid (50-100) mcg/ml 01/04/19 01/04/19 01/04/19 Range/Units 14:50 14:50 16:35 WBC (4.8-10.8) K/uL RBC (4.2-5.4) M/uL Hgb (12.0-16.0) g/dL Hct (37-47) % MCV (80-100) fL MCH (25-34) pg MCHC (32-36) g/dL RDW Std Deviation (36.4-46.3) fL RDW Coeff of Rodger (11.5-14.5) % Plt Count (130-400) K/uL MPV (7.4-10.4) fL Immature Gran % (Auto) % Neut % (Auto) % Lymph % (Auto) % [place] % (Auto) % Eos % (Auto) % Baso % (Auto) % Immature Gran # (Auto) (0.00-0.02) K/uL Neut # (Auto) (1.4-6.5) K/uL Lymph # (Auto) (1.2-3.4) K/uL [place] # (Auto) (0.11-0.59) K/uL Eos # (Auto) (0-0.5) K/uL Baso # (Auto) (0-0.2) K/uL Sodium 140 (136-145) mmol/L Potassium 3.8 (3.5-5.1) mmol/L Chloride 100 (98-107) mmol/L Carbon Dioxide 35 H (21-32) mmol/L Anion Gap 5.0 (3-11) BUN 11 (7-18) mg/dl Creatinine 0.63 (0.6-1.2) mg/dl Est Cr Clr Drug Dosing Not Reportable Est GFR ( Amer) 108.3 Est GFR (Non-Af Amer) 93.5 BUN/Creatinine Ratio 17.6 (10-20) Glucose 106 H (70-99) mg/dl POC Glucose (70-99) Lactate (0.4-2.0) mmol/L Calcium 9.2 (8.5-10.1) mg/dl Total Bilirubin 0.4 (0.2-1) mg/dl AST 15 (15-37) U/L ALT 10 L (12-78) U/L Alkaline Phosphatase 66 (45-117) U/L Troponin I < 0.015 (0-0.045) ng/ml Total Protein 6.8 (6.4-8.2) gm/dl Albumin 3.0 L (3.4-5.0) gm/dl Globulin 3.8 (2.5-4.0) gm/dl Albumin/Globulin Ratio 0.8 L (0.9-2) TSH 5.300 H (0.300-4.500) uIu/ml Free T4 1.52 (0.8-1.6) ng/dl Urine Color Yellow Urine Appearance Clear (Clear) Urine pH 6.5 (4.5-7.5) Ur Specific [place] 1.017 (1.000-1.030) Urine Protein Negative (Negative) Urine Glucose (UA) Negative (Negative) Urine Ketones Negative (Negative) Urine Blood Negative (Negative) Urine Nitrite Negative (Negative) Urine Bilirubin Negative (Negative) Urine Urobilinogen Negative (Negative) Ur Leukocyte Esterase Negative (Negative) Valproic Acid 105 H (50-100) mcg/ml Imaging Data Radiologist's Impression: Radiology results as stated below per my review and the radiologist's interpretation: CT head/brain wo con CLINICAL HISTORY: 68 years-old Female presenting with AMS. TECHNIQUE: Multidetector CT imaging of the head was performed without the use of intravenous contrast. IV contrast: None. One or more dose lowering techniques were used consistent with the principles of ALARA (as low as reasonably achievable), including automatic exposure control, mA or kV adjustment to individual patient size, and/or use of iterative reconstruction. COMPARISON: 03/07/2013. CT DOSE (mGy.cm): The estimated cumulative dose is 773.57 mGy.cm. FINDINGS: Folder Inspector topogram: Unremarkable. Proportional ventricular and sulcal prominence, likely age-related parenchymal volume loss. No hemorrhage. Periventricular and subcortical white matter hypoattenuation, nonspecific but likely indicative of chronic small vessel ischemic change. Redemonstration of the extensive right middle cerebellar artery territory distribution chronic infarct with overlying postsurgical changes of the right calvarium. No acute territorial infarct. No mass effect or midline shift. Extra-axial crescentic low-density fluid and dural thickening consistent with postoperative change. The presence of calcification is new from prior. Paranasal sinuses and mastoid air cells clear. IMPRESSION: 1. No significant change compared to the prior study. No acute intracranial abnormality. Electronically signed by: Ganesh Temple M.D. 01/04/2019 3:32 PM XR chest 1V portable CLINICAL HISTORY: 68 years-old Female presenting with weakness. TECHNIQUE: Portable upright AP view of the chest was obtained. COMPARISON: 11/27/2018. FINDINGS: Atherosclerosis of the aortic arch. Cardiac silhouette enlarged. No focal opacity. No large effusion or pneumothorax. Degenerative changes of the thoracic spine. Osteopenia. Hyperdensities in the upper abdomen consistent with ga llstones. IMPRESSION: 1. Cardiomegaly. No other convincing evidence of acute cardiopulmonary disease. Electronically signed by: Ganesh Temple M.D. 01/04/2019 2:37 PM XR KUB/Abdomen 1 view CLINICAL HISTORY: 68 years-old Female presenting with constipation. TECHNIQUE: Single supine view of the abdomen was obtained. COMPARISON: CT of abdomen and pelvis from 09/20/2018 and plain radiograph from 12/26/2017. FINDINGS: Moderate stool burden throughout the colon. IVC filter in place at the level of L3. Prominent cholelithiasis. Nonobstructive bowel gas pattern. No gross pneumoperitoneum. Allowing for bowel gas and stool, no calcifications to suggest nephrolithiasis. Multiple pelvic phleboliths unchanged in distribution. Levoscoliosis and multilevel degenerative changes of the lumbar spine. Lung bases clear. IMPRESSION: 1. Constipation with a moderate stool burden. 2. Cholelithiasis. Electronically signed by: Ganesh Temple M.D. 01/04/2019 3:23 PM ECG Data Attestation: I personally reviewed and interpreted this ECG as follows: Indication: altered mental status Rate (beats per minute): 80 Rhythm: atrial fibrillation Findings: + other (Previous inferior and anterior infarct. Diffuse T-wave flattening. QTc 461) and + T-wave inversion (Anterior); no ST depression, no ST elevation and no acute ischemic change Comparison ECG Date: from (11/27/18) Change: no significant change Blood Pressure Blood Pressure Findings: Normal blood pressure Blood Pressure Disposition: did not require urgent referral MDM Narrative This patient was evaluated and appeared to be in no significant distress. IV access was obtained and laboratory work was drawn. 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 Patient was on nasal cannula oxygen at the time my evaluation. Chest x-ray was performed and reveals cardiomegaly without acute disease. Abdominal x-ray rev eals increased fecal burden. UA is negative. Laboratory work is fairly reassuring. CT scan of the head was performed and reveals no evidence of acute pathology. The patient does seem to be more awake since the IV fluids were initiated. The etiology of the patient's somnolence/altered mental status is unclear. Family states this is clearly different than her baseline. Given her dependence on caregivers for ADLs and her recent medication changes, patient will be evaluated by the hospitalist service for further management. Impression & Plan Altered mental status, Chronic constipation Discharge Plan Visit Data *Final* Discharge Date/Time: 01/04/19 20:23 Chief Complaint: Altered Mental Status ED Provider: Elaine Rodriguez Discharge Problem: Altered mental status, Chronic constipation Patient Disposition: Admitted As Inpatient Discharge Instructions Interventions: ED Discharge Assessment Last Done: 01/04/19 20:23 Discharge Problem: Altered mental status Qualifiers: Altered mental status type: unspecified Qualified Code(s): R41.82 - Altered mental status, unspecified The scribe's documentation has been prepared under my direction and personally reviewed by me in its entirety. I confirm that the note above accurately reflects all work, treatment, procedures, and medical decision making performed by me.
[2019-01-04] MEDS ORDERED: PHARMACIST DISCHARGE MED REC CONSULT PRN (21:55)
[2019-01-04] MEDS ORDERED: NON-FORMULARY MEDICATION (Lactobacillus Acidophilus [Probiotic] 1 cell) PO SCH (21:55)
[2019-01-04] MEDS ORDERED: FUROSEMIDE 20 MG TAB PO PRN (21:55)
[2019-01-04] MEDS ORDERED: NON-FORMULARY MEDICATION (Cranberry 400 MG) PO SCH (21:55)
[2019-01-04] MEDS ORDERED: DIVALPROEX EXTENDED RELEASE 250 MG TABCR PO SCH (21:55)
[2019-01-04] MEDS ORDERED: NON-FORMULARY MEDICATION (Coenzyme Q10 200 MG) PO SCH (21:55)
[2019-01-04] MEDS ORDERED: OPTIRAY 320 125ml IV PRN (22:47)
--- NOTE | 2019-01-04 23:18 | CT Scan Report ---
CT ANGIOGRAPHY OF THE NECK WITH CONTRAST CLINICAL HISTORY: Altered mental status. History of stroke. COMPARISON STUDY: Carotid ultrasound January 10, 2006. Technique: CT angiography of the carotid and vertebral arteries was obtained using RemoovraBioActor 320 IV and 3D reconstruction on an independent workstation. NASCET criteria was utilized. Automated exposure c ontrol was utilized for the study. A dose lowering technique was utilized adhering to the principles of ALARA. CT DOSE: 576.00 mGy.cm Findings: The bilateral common carotid, cervical internal carotid and vertebral arteries are patent. There is mild plaque within the proximal bilateral internal carotid arteries without stenosis. The CT A of the head will be reported separately. The right vertebral artery is dominant and patent. There i s no dissection within the major vessels of the neck. The left vertebral artery is diminutive, and is likely hypoplastic. There is no cervical spine fracture. A few small thyroid nodules are noted. Lung apices are unremarkable. IMPRESSION: Mild atherosclerotic plaque. No dissection or stenosis within the major vessels of the neck. Electronically signed by: Vasyl Klein M.D. 01/04/2019 11:16 PM
--- NOTE | 2019-01-04 23:23 | CT Scan Report ---
CTA ANGIOGRAPHY OF THE HEAD CLINICAL HISTORY: altered mental status COMPARISON STUDY: MRI the brain March 08, 2013. Head CT performed earlier today. TECHNIQUE: Helical axial images of the head were obtained following uneventful intravenous administr ation of 116 cc of Optiray 320. Automated exposure control was utilized for the study. A dose lower ing technique was utilized adhering to the principles of ALARA. FINDINGS: Extensive encephalomalacia within the right cerebral hemisphere is chronic. Associated dila tation of the right lateral ventricle is unchanged. The basilar cisterns are patent. The appearance o f the brain is unchanged from earlier exams. The bilateral M1, M2, A1 and A2 segments are patent. The re is mild asymmetric decreased caliber of the right middle cerebral artery when compared the left. T his is chronic. The right vertebral artery is dominant. The distal left vertebral artery is diminutiv e, likely hypoplastic. There is persistence of the right posterior cerebral artery. No intracra nial aneurysm or abrupt vessel cut off is identified. Right-sided craniotomy is noted. IMPRESSION: 1. No intracranial aneurysm, abrupt vessel cut off or dissection. Mild asymmetric decreased caliber o f the right middle cerebral artery which is chronic. 2. No change in appearance of the brain from earlier exams with extensive encephalomalacia within the right cerebral hemisphere. Electronically signed by: Vasyl Klein M.D. 01/04/2019 11:22 PM
[2019-01-04] MEDS: DIVALPROEX EXTENDED RELEASE 500 MG TAB PO SCH (23:31)
[2019-01-04] MEDS: METOPROLOL SUCC 25MG EXT REL TAB PO SCH (23:31)
[2019-01-04] MEDS: DOCUSATE SODIUM 100 MG CAP PO SCH (23:32)
[2019-01-04] MEDS: POLYETHYLENE (MIRALAX) 17 GM PACK PO SCH (23:32)
[2019-01-04] MEDS: ASCORBIC ACID 500 MG TAB PO SCH (23:34)
[2019-01-04] MEDS: RIVAROXABAN 20 MG TAB PO SCH (23:34)
[2019-01-04] MEDS: CIPROFLOXACIN 250 MG TAB PO SCH (23:34)
[2019-01-04] MEDS: LACOSAMIDE 50 MG TABLET PO SCH (23:35)
[2019-01-05] MEDS ORDERED: SOD PHOSPHATE/SOD BIPHOSPHATE ENEMA 132 ML BTL PR STA (02:02)
[2019-01-05 05:35] LABS: Hemoglobin 14.6 g/dL (12.0-16.0); Mean Corpuscular Hemoglobin 32.8 pg (25-34); Mean Corpuscular Hgb Conc 32.4 g/dL (32-36); Mean Corpuscular Volume 101.1 fL (80-100); RDW Coefficient of Variation 13.7 % (11.5-14.5); RDW Standard Deviation 51.2 fL (36.4-46.3); Red Blood Count 4.45 M/uL (4.2-5.4); White Blood Count 6.53 K/uL (4.8-10.8)
[2019-01-05 05:57] LABS: Basophils # (auto) 0.01 K/uL (0-0.2); Basophils % (auto) 0.2 %; Eosinophils # (auto) 0.16 K/uL (0-0.5); Eosinophils % (auto) 2.5 %; Immature Granulocytes # (auto) 0.03 K/uL (0.00-0.02); Immature Granulocytes % (auto) 0.5 %; Lymphocytes # (auto) 1.68 K/uL (1.2-3.4); Lymphocytes % (auto) 25.7 %; Monocytes # (auto) 0.76 K/uL (0.11-0.59); Monocytes % (auto) 11.6 %; Neutrophils # (auto) 3.89 K/uL (1.4-6.5); Neutrophils % (auto) 59.5 %; Platelet Count 88 K/uL (130-400); Platelet Estimate Decreased (Normal)
[2019-01-05 05:58] LABS: INR 1.2 (0.9-1.1); Prothrombin Time 12.4 Seconds (9.0-12.0)
[2019-01-05 06:06] LABS: BUN Creatinine Ratio 15.8 (10-20); Blood Urea Nitrogen 10 mg/dl (7-18); Calcium 8.8 mg/dl (8.5-10.1); Carbon Dioxide 32 mmol/L (21-32); Chloride 102 mmol/L (98-107); Cholesterol 139 mg/dl (0-200); Est GFR (African American) 109.5; Est GFR (Non-African American) 94.5; Glucose 90 mg/dl (70-99); Potassium 3.6 mmol/L (3.5-5.1); Sodium 139 mmol/L (136-145)
[2019-01-05 06:11] LABS: Chol HDL Ratio 3; HDL Cholesterol 44 mg/dl; LDL Cholesterol Calculated 60 mg/dl; Triglycerides 176 mg/dl (0-150); Troponin I < 0.015 ng/ml (0-0.045); VLDL Cholesterol 35 mg/dl
[2019-01-05 06:39] LABS: Estimated Average Glucose 103 mg/dl; Hemoglobin A1C 5.2 % (4.5-5.6)
[2019-01-05] MEDS: LEVOTHYROXINE SODIUM 75 MCG TABLET PO SCH (07:26)
[2019-01-05] MEDS ORDERED: INFLUENZA VIRUS QUAD VACCINE 0.5 ML SYR IM ONE (09:00)
[2019-01-05] MEDS ORDERED: INFLUENZA ADMINISTRATION CHARGE ONE (09:00)
[2019-01-05] MEDS ORDERED: DULOXETINE HCL 60 MG CAP PO SCH (09:00)
[2019-01-05] MEDS ORDERED: BIO CLEANSE PO SCH (09:00)
--- NOTE | 2019-01-05 09:09 | Ultrasound Report ---
US arterial duplex LE LT CLINICAL HISTORY: 68 years-old Female presenting with diminished pulses, cold toes. TECHNIQUE: Real-time grayscale and color and spectral Doppler ultrasound imaging of the left lower ex tremity arteries was performed. Measurements calculated based on NASCET criteria. COMPARISON: None. FINDINGS: LEFT: Common femoral artery: Patent. Triphasic waveforms. Peak systolic velocity (PSV) 74 cm/s. Deep femoral artery: Patent. Triphasic waveforms. PSV 42 cm/s. Superficial femoral artery: Patent. Triphasic waveforms. PSV 76 cm/s. Popliteal artery: Patent. Triphasic waveforms. PSV 70 cm/s. Anterior tibial artery: Patent. Triphasic waveforms. PSV 81 cm/s. Posterior tibial artery: Patent. Triphasic waveforms. PSV 70 cm/s. Peroneal artery: Patent. Triphasic waveforms. PSV 54 cm/s. Dorsalis pedis: Patent. Triphasic waveforms. PSV 92 cm/s. ANKLE/BRACHIAL INDEX (IZZY): Not performed due to patient intolerance Brachial: Right: mmHg. Left: mmHg. Ankle (posterior tibial): Right: mmHg. Left: mmHg. Ankle (dorsalis pedis): Right: mmHg. Left: mmHg. Ankle/brachial index: Right: , Left: . Reference ranges: Normal Ankle/Brachial Index (IZZY) 1.0-1.4; 0.91-0.99 borderline; < or = 0.9 abnormal (0.7-0.89 mild, 0.51-0.69 moderate, < or = 0.5 severe peripheral arterial disease). Normal Toe/Brachial Index (TBI) > or = 0.6; < 0.6 abnormal (0.34-0.59 mild, 0.12-0.34 moderate, < or = 0.11 severe peripheral arterial disease). IMPRESSION: 1. No hemodynamically significant stenosis. 2. Ankle brachial indices not performed due to patient intolerance. Electronically signed by: Ganesh Temple M.D. 01/05/2019 9:07 AM
[2019-01-05] MEDS: CIPROFLOXACIN 250 MG TAB PO SCH ×2 (10:13→19:53)
[2019-01-05] MEDS: AMIODARONE 200 MG TAB PO SCH (10:14)
[2019-01-05] MEDS: LACOSAMIDE 50 MG TABLET PO SCH ×2 (10:18→19:54)
[2019-01-05] MEDS: DIVALPROEX EXTENDED RELEASE 500 MG TAB PO SCH ×2 (10:18→19:54)
[2019-01-05] MEDS: ASPIRIN 81 MG ECTAB PO SCH (10:21)
[2019-01-05] MEDS: ASCORBIC ACID 500 MG TAB PO SCH ×2 (10:22→19:55)
[2019-01-05] MEDS: PRAVASTATIN SOD 20 MG TAB PO SCH (10:22)
[2019-01-05] MEDS: DOCUSATE SODIUM 100 MG CAP PO SCH ×2 (10:26→20:07)
[2019-01-05] MEDS: POLYETHYLENE (MIRALAX) 17 GM PACK PO SCH ×2 (10:38→19:53)
--- NOTE | 2019-01-05 13:09 | Neurology Consultation ---
Date of Consultation January 05, 2019 Assessment & Plan (1) Altered mental status: 1. folic acid, b12 pending 2. depakote level slightly high but not toxic levels 3. correct any metabolic issues 4. MRI may be helpful - but not urgent and would likely not change treatment plan 5. likely multi factorial and combined with failure to thrive 6. amiodarone interactions- as follows cipro and cymbalta contraindicated due to risk of torsades. also vimpat can decreased heart rate. discussed with internal medicine PAC 7. orthostatic blood pressures (2) Seizure disorder: 1. continue Vimpat 100 mg BID and Depakote 500 mg BID for now 2. check a Depakote level in 2 days 3. 72 hour EEG order as out patient 01/16/2019 and follow up with Dr Scherer 05/04/2019 but may need to be transferred [place] [facility] [place] [facility] [place] to sort out if the episode are seizure events. Supervising Physician Co-Signing Physician Notes I have seen and discussed above patient with Dr Kusum Marquis, neurology. Pt seen and examined. Sleepy but arousable. Some R>L confusion, poss finger anomia. Mild dysarthria, flat L NLF, LUE 0/5 LLE less than antigrav. Imp hx of sz, spells yesterday were different that usual and associated with being upright. Raises the question of orthostasis. There are mult med interactions include Cipro with amiodarone, cymbalta. Roly communicated concern to hospitalist. Check orthostasis, cardiac monitoring. Agree with ambulatory eeg monitor to try to determine what is sz and what is not. I would not change anticonvulsants further unless clear sz. Depakote level in 2 day as dose just adjusted 2 day ago. Will follow with you. MCKENZIE Marquis MD History of Present Illness Reason for Consultation: seizure AMS change Requesting Physician: Callum Napoles MD Attending Physician: Callum Napoles MD History of Present Illness Josefa is a 68 year old female with PMH- CVA in 2011, left spastic hemiparesis, DIANNE, morbid obesity, hypothyroidism, seizure disorder, AF, HLD, HTN, GERD who was brought by her family due to MS change and seizure. She had CVA in 2011 and that left significant sequela but before these episodes patient was able to feed herself which she is not able anymore and has had a decline over the past [address] Scherer in our office and at that time her Depakote was decreased to 500mg BID and her Vimpat was increased to 100 mg BID to try to reduce sedation. She responds with a smile but does not talk much. She has been incontinent since the stroke but it has gotten worse. She is checked by her wound care at home and she has decubitus ulcers and right big toe wound which is in healing process. There has been no fever chills headache chest pain shortness of breath abdominal pain frequency urgency hematuria dysuria hematemesis. Her who is bedside states she has not been eating or drinking well was constipated on admission but her bowels have moved since with treatment. Allergies Allergy/AdvReac Type Severity Reaction Status Date / Time fish oil Allergy Unknown UNKNOWN Verified 01/04/19 16:09 atorvastatin AdvReac Mild MUSCLE Verified 01/04/19 16:09 ACHES citalopram AdvReac Unknown contributed Verified 01/04/19 16:09 to seizures? recently stopped taking med 01/2016 Home Medications Home Medications Medication Instructions Recorded Confirmed Type amiodarone 200 mg PO QAM 12/16/17 01/04/19 History ascorbic acid (vitamin C) 500 mg PO BID 12/16/17 01/04/19 History coenzyme Q10 200 mg PO BID 12/16/17 01/04/19 History cranberry 400 mg PO HS 12/16/17 01/04/19 History docusate sodium 100 mg PO BID 12/16/17 01/04/19 History furosemide 20 mg PO DAILY PRN 12/16/17 01/04/19 History levothyroxine 75 mcg PO QAM 12/16/17 01/04/19 History pravastatin 20 mg PO QAM 12/16/17 01/04/19 History ranitidine HCl 150 mg PO BID 12/16/17 01/04/19 History acetaminophen [Mapap 650 mg PO Q6 PRN #30 tab 12/28/17 01/04/19 Rx (acetaminophen)] metoprolol succinate 25 mg PO HS 01/12/18 01/04/19 History polyethylene glycol 3350 [Miralax] 17 g PO BID 01/12/18 01/04/19 History ciprofloxacin 750 mg tablet 750 mg PO BID #60 tab 12/28/18 01/04/19 Rx Bio Cleanse 1 tab PO QAM 01/04/19 01/04/19 History Lactobacillus acidophilus 1 cell PO HS 01/04/19 01/04/19 History [Probiotic] divalproex 500 mg PO BID 01/04/19 01/04/19 History duloxetine 60 mg PO QAM 01/04/19 01/04/19 History lacosamide [Vimpat] 100 mg PO BID 01/04/19 01/04/19 History rivaroxaban [Xarelto] 20 mg PO HS 01/04/19 01/04/19 History Patient History Medical History Bilateral leg edema Left spastic hemiparesis From CVA secondary to A. fib in 2011 DIANNE (obstructive sleep apnea) (Chronic) Fatty liver (Chronic) Thrombocytopenia (Acute) Chronic constipation (Chronic) Morbid obesity (Chronic) BMI 37 Hypothyroidism (Chronic) Seizure disorder (Chronic) Atrial fibrillation (Chronic) Hyperlipidemia (Chronic) Hypertension (Chronic) Atrial fibrillation CVA (cerebral infarction) With left-sided hemiparesis Hepatic encephalopathy History of stroke Hyperammonemia Hypertension Paralysis as complication of stroke Recurrent UTI Sacral decubitus ulcer Seizure disorder Sleep apnea Small bowel obstruction Surgical History H/O exploratory laparotomy H/O: hysterectomy History of hysterectomy Family History Other Hypertension Obesity Social History Preferred Language: Yakut Communication Ability: Unable Visual Impairment: No Limitations Hearing Ability: Normal [employer] Required: Yes Beliefs That Will Affect Care: None marital status: Current Living Situation: Spouse Feels Safe at Home: Yes Smoking Status: Never smoker Second Hand Exposure: No ; Hx Alcohol Use: No Hx Substance Use: No Physical Exam Physical Exam: Physical Exam: Constitutional:appearance ill appearing, lethargic, wakes with voice command Ears, Nose, Mouth and Throat: mucous membranes moist, no injection and skin normal, eyes normal Cardiovascular: irregular Respiratory: course breath sounds Musculoskeletal: decreased distal pulses Skin: right GT wrapped Eyes: extraocular muscles intact (EOMI) NEUROLOGIC EXAMINATION: Mental status: Alert and minimally interactive Oriented to person Speech one brief words Cranial Nerves flattening of left nasolabial fold Reflexes: Deep tendon reflexes were symmetrical and graded 2/5 Sensory: to light and cool touch Coordination: will not cooperate for exam Gait/Stance: Posture lying in bed Motor: will no lift arm above head or maintain to gravity -right, left slight contracture of fingers Strength: unable to assess Results & Data Vital Signs (Past 12 Hours) Vital Signs Temp Pulse Resp BP Pulse Ox 01/05/19 12:23 36.8 C 99 H 18 111/81 95 01/05/19 07:51 36.6 C 94 H 22 125/88 95 01/05/19 03:33 36.6 C 80 18 122/76 94 Laboratory Results Abnormal lab results 01/04/19 01/04/19 01/04/19 Range/Units 14:36 14:50 14:50 MCV 102.3 H (80-100) fL MCHC 31.6 L (32-36) g/dL RDW Std Deviation 51.8 H (36.4-46.3) fL Plt Count 113 L (130-400) K/uL MPV 10.6 H (7.4-10.4) fL Immature Gran # (Auto) (0.00-0.02) K/uL [place] # (Auto) 0.83 H (0.11-0.59) K/uL Platelet Estimate (Normal) PT (9.0-12.0) Seconds INR (0.9-1.1) Carbon Dioxide 35 H (21-32) mmol/L Glucose 106 H (70-99) mg/dl ALT 10 L (12-78) U/L Albumin 3.0 L (3.4-5.0) gm/dl Albumin/Globulin Ratio 0.8 L (0.9-2) Triglycerides (0-150) mg/dl TSH 5.300 H (0.300-4.500) uIu/ml Valproic Acid 105 H (50-100) mcg/ml 01/05/19 01/05/19 01/05/19 Range/Units 05:13 05:13 05:13 MCV 101.1 H (80-100) fL MCHC (32-36) g/dL RDW Std Deviation 51.2 H (36.4-46.3) fL Plt Count 88 L (130-400) K/uL MPV (7.4-10.4) fL Immature Gran # (Auto) 0.03 H (0.00-0.02) K/uL [place] # (Auto) 0.76 H (0.11-0.59) K/uL Platelet Estimate Decreased L (Normal) PT 12.4 H (9.0-12.0) Seconds INR 1.2 H (0.9-1.1) Carbon Dioxide (21-32) mmol/L Glucose (70-99) mg/dl ALT (12-78) U/L Albumin (3.4-5.0) gm/dl Albumin/Globulin Ratio (0.9-2) Triglycerides 176 H (0-150) mg/dl TSH (0.300-4.500) uIu/ml Valproic Acid (50-100) mcg/ml Diagnostic Findings CT head- No significant change compared to the prior study. No acute intracranial abnormality. CXR-Cardiomegaly. No other convincing evidence of acute cardiopulmonary disease. KUB- Constipation with a moderate stool burden. Cholelithiasis. CTA head-No intracranial aneurysm, abrupt vessel cut off or dissection. Mild asymmetric decreased caliber of the right middle cerebral artery which is chronic. No change in appearance of the brain from earlier exams with extensive encephalomalacia within the right cerebral hemisphere. CTA neck- Mild atherosclerotic plaque. No dissection or stenosis within the major vessels of the neck. LE doppler-No hemodynamically significant stenosis. Ankle brachial indices not performed due to patient intolerance. (1) Altered mental status Altered mental status type: unspecified Qualified Code(s): R41.82 - Altered mental status, unspecified
--- NOTE | 2019-01-05 13:46 | Hospitalist Progress Note ---
Date of Service January 05, 2019 Assessment & Plan (1) Altered mental status: * Continue to monitor on telemetry- hx CVA 2011 secondary to atrial fibrillation- patient currently rate controlled on amiodarone, metoprolol and anticoagulated with Xarelto * Vital signs, Neuro checks Q4h * Head CT- no acute intracranial abnormality * CTA Head without intracranial aneurysm, abrupt vessel cut off or dissection * CTA Neck with mild atherosclerotic plaque, no dissection or stenosis * KUB constipation with moderate stool burden, cholelithiasis (which is chronic per family) * ECHO without regional wall motion abnormality. EF 50-55%. Mild LVH * US Venous Doppler without DVT * B12, Folate wnl * UA negative * Continue home medicine as adjusted but per /divalproex ER 1000mg, Vimpat 100mg BID * Neurology Consult- follows with Dr. Scherer- appreciate rec -? increased seizure activity with decreased depakote * EEG ordered * Current Osteomyelitis R Great Toe - saw Dr. Boswell as outpatient- given Cipro 750mg BID- continued on admission-- will taper dose of cymbalta per Neuro with concerns for Torsades with Cymbalta + Amiodarone + Cipro- continue to monitor on telemetry--? contribution to current ams * * DVT prophylaxis continue Xarelto which patient takes for A. fib's. (2) Osteomyelitis: * Osteomyelitis of Right Great Toe * Patient has been seen by Dr. Hernandez previously with rec for amputation, but family declined * Cultures + for pseudomonas on 12/08/18. * Patient initially treated with Levaquin and was switched to Cipro by Dr. Boswell as outpatient for osteomyelitis- patient on day 5 of treatment with Levaquin currently * ? ID Consult (3) GERD (gastroesophageal reflux disease): * Continue ranitidine 150 mg p.o. twice daily (4) DIANNE (obstructive sleep apnea): * Patient unable to tolerate CPAP- per family, patient on 6L via NC at night * Resp order for 6L O2 via NC QHS (5) Chronic constipation: * KUB with moderate stool burden * Bowel regimen- docusate sodium 100 mg p.o. twice daily, MiraLAX as needed for constipation (6) Hypothyroidism: * Elevated TSH to 5.3 but free T4 normal 1.52. * Continue home dose of levothyroxine 75 MCG's QHS for now- continue to monitor (7) Seizure disorder: * As above (8) Atrial fibrillation: * Continue Xarelto * Rate controlled on telemetry currently- 87bpm * Metoprolol succinate 25 mg p.o. nightly * Amiodarone 200 mg p.o. every morning. * ASA 81mg (9) Hyperlipidemia: * Continue pravastatin 20 mg p.o. nightly (10) Hypertension: * Continue furosemide 20 mg p.o. daily prn * Metoprolol succinate 25 mg p.o. nightly * Amiodarone 200 mg p.o. every morning. * ASA 81mg Patient is full code per family request. Supervising Physician Co-Signing Physician Notes Attending Attestation - Chart reviewed in detail, care plan d/w AURELIANO Drummond. I agree w/ the hubbard components of her documentation. 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 Now with recent seizures followed by encephalopathy. This is in context of right great toe osteomyelitis. W/u thus far for altered mental status negative. Appreciate neuro consult and recommendations. Will need EEG and MR brain. Agree that combo of amiodarone, cipro and cymbalta could cause conduction issues. Would wean cymbalta slowly to avoid cymbalta withdrawal symptoms. QTc on latest EKG acceptable. Taiwo Cruz MD Subjective Patient seen this morning at bedside with and son present, patient lethargic at this time and unable to obtain much information. Per family, patient has has noticible decline over the past six or so weeks, and yesterday had two seizures and was unable to keep her head up or eat. She recently had medication adjustments by Dr. Scherer, and had depakote decreased from 1500mg to 1000mg as well as increased vimpat from 100mg to 200mg daily in hopes of decreasing persistent sedation. She was at [facility] for therapy and developed a sore on her right great toe as a result of improper care, per family, and was transfer to facility in [place] for ongoing therapy needs for her right arm, and the ulcer has progressed to the point where she now has osteomyelitis. Treated recently with Levaquin for concurrent UTI on UA in November 2018 and was recently switched to Cipro by Dr. Boswell for Osteomyelitis of her great right toe. states she has had approximately five days worth of cipro at this time. Review of Systems Review of Systems: Unobtainable due to reduced consciousness Physical Exam Constitutional: + ill appearing, + obese and + lethargic; no acute distress and no altered mental status wakes to voice, but minimal interaction- one word answers Eyes: PERRL, conjunctivae normal, anicteric sclerae Neck: trachea midline, no thyromegaly Respiratory: normal respiratory effort; no respiratory distress, no labored breathing and does not use accessory muscles coarse breath sounds patient with poor inspiratory effort Cardiovascular: Rate/Rhythm: + irregularly irregular Heart Sounds: normal S1 and normal S2 Vessels: no JVD Extremities: + edema Chest (Breasts): Additional Comments: erythema breast folds Gastrointestinal (Abdomen): Inspection/Auscultation: + abdomen distended and + hypoactive bowel sounds Percussion/Palpation: abdomen soft Musculoskeletal: diminished pulses b/l LE Unable to asses strength due to patient's current condition Skin: Wound left thigh measuring 10 x 12.6 cm- macerated and erythematous, moderate drainage and foul odor. Wound bilateral buttocks measuring 12 x 15 cm- is macerated and erythematous, moderate drainage, odor. Wound right great toe measuring 1.6 x 0.6 x 0.2 cm- covered with fibrin and slough- Periwound is intact without inflammation- mild drainage without odor Neurologic: patellar DTR's 2+ bilat, sensation intact Alert, minimal verbalization Oriented to person Results & Data Vital Signs (Past 12 Hours) Vital Signs Temp Pulse Resp BP Pulse Ox 01/05/19 12:23 36.8 C 99 H 18 111/81 95 01/05/19 07:51 36.6 C 94 H 22 125/88 95 01/05/19 03:33 36.6 C 80 18 122/76 94 Laboratory Results 01/05/19 01/05/19 01/05/19 Range/Units 10:37 05:13 05:13 WBC (4.8-10.8) K/uL RBC (4.2-5.4) M/uL Hgb (12.0-16.0) g/dL Hct (37-47) % MCV (80-100) fL MCH (25-34) pg MCHC (32-36) g/dL RDW Std Deviation (36.4-46.3) fL RDW Coeff of Rodger (11.5-14.5) % Plt Count (130-400) K/uL MPV (7.4-10.4) fL Immature Gran % (Auto) % Neut % (Auto) % Lymph % (Auto) % Garrett % (Auto) % Eos % (Auto) % Baso % (Auto) % Immature Gran # (Auto) (0.00-0.02) K/uL Neut # (Auto) (1.4-6.5) K/uL Lymph # (Auto) (1.2-3.4) K/uL Garrett # (Auto) (0.11-0.59) K/uL Eos # (Auto) (0-0.5) K/uL Baso # (Auto) (0-0.2) K/uL Platelet Estimate (Normal) PT 12.4 H (9.0-12.0) Seconds INR 1.2 H (0.9-1.1) Sodium 139 (136-145) mmol/L Potassium 3.6 (3.5-5.1) mmol/L Chloride 102 (98-107) mmol/L Carbon Dioxide 32 (21-32) mmol/L Anion Gap 6.0 (3-11) BUN 10 (7-18) mg/dl Creatinine 0.61 (0.6-1.2) mg/dl Est Cr Clr Drug Dosing 109.0 ml/min Est GFR ( Amer) 109.5 Est GFR (Non-Af Amer) 94.5 BUN/Creatinine Ratio 15.8 (10-20) Glucose 90 (70-99) mg/dl Estimat Average Glucose mg/dl Hemoglobin A1c (4.5-5.6) % Calcium 8.8 (8.5-10.1) mg/dl Troponin I < 0.015 (0-0.045) ng/ml Triglycerides 176 H (0-150) mg/dl Cholesterol 139 (0-200) mg/dl LDL Cholesterol, Calc 60 mg/dl VLDL Cholesterol, Calc 35 mg/dl HDL Cholesterol 44 mg/dl Cholesterol/HDL Ratio 3 Vitamin B12 417 (211-911) pg/ml Folate 13.91 (>5.38) ng/ml 01/05/19 01/04/19 01/04/19 Range/Units 05:13 22:01 22:01 WBC 6.53 (4.8-10.8) K/uL RBC 4.45 (4.2-5.4) M/uL Hgb 14.6 (12.0-16.0) g/dL Hct 45.0 (37-47) % MCV 101.1 H (80-100) fL MCH 32.8 (25-34) pg MCHC 32.4 (32-36) g/dL RDW Std Deviation 51.2 H (36.4-46.3) fL RDW Coeff of Rodger 13.7 (11.5-14.5) % Plt Count 88 L (130-400) K/uL MPV 10.0 (7.4-10.4) fL Immature Gran % (Auto) 0.5 % Neut % (Auto) 59.5 % Lymph % (Auto) 25.7 % Garrett % (Auto) 11.6 % Eos % (Auto) 2.5 % Baso % (Auto) 0.2 % Immature Gran # (Auto) 0.03 H (0.00-0.02) K/uL Neut # (Auto) 3.89 (1.4-6.5) K/uL Lymph # (Auto) 1.68 (1.2-3.4) K/uL Garrett # (Auto) 0.76 H (0.11-0.59) K/uL Eos # (Auto) 0.16 (0-0.5) K/uL Baso # (Auto) 0.01 (0-0.2) K/uL Platelet Estimate Decreased L (Normal) PT (9.0-12.0) Seconds INR (0.9-1.1) Sodium (136-145) mmol/L Potassium (3.5-5.1) mmol/L Chloride (98-107) mmol/L Carbon Dioxide (21-32) mmol/L Anion Gap (3-11) BUN (7-18) mg/dl Creatinine (0.6-1.2) mg/dl Est Cr Clr Drug Dosing ml/min Est GFR ( Amer) Est GFR (Non-Af Amer) BUN/Creatinine Ratio (10-20) Glucose (70-99) mg/dl Estimat Average Glucose 103 mg/dl Hemoglobin A1c 5.2 (4.5-5.6) % Calcium (8.5-10.1) mg/dl Troponin I < 0.015 (0-0.045) ng/ml Triglycerides (0-150) mg/dl Cholesterol (0-200) mg/dl LDL Cholesterol, Calc mg/dl VLDL Cholesterol, Calc mg/dl HDL Cholesterol mg/dl Cholesterol/HDL Ratio Vitamin B12 (211-911) pg/ml Folate (>5.38) ng/ml PG Care Time/CCT Total # of Minutes Spent Total Time Spent with Patient: Total time spent is greater than 50% in coordination of care (as documented) at patient's floor/unit and/or counseling patient: 45 (1) Atrial fibrillation Atrial fibrillation type: paroxysmal Qualified Code(s): I48.0 - Paroxysmal atrial fibrillation (2) Hyperlipidemia Hyperlipidemia type: other hyperlipidemia Qualified Code(s): E78.4 - Other hyperlipidemia (3) Hypothyroidism Hypothyroidism type: acquired Qualified Code(s): E03.9 - Hypothyroidism, unspecified (4) Altered mental status Altered mental status type: unspecified Qualified Code(s): R41.82 - Altered mental status, unspecified (5) Hypertension Hypertension type: essential hypertension Qualified Code(s): I10 - Essential (primary) hypertension
[2019-01-05 15:24] LABS: Folate (Folic Acid) 13.91 ng/ml (>5.38)
--- NOTE | 2019-01-05 15:24 | Ultrasound Report ---
BILATERAL LOWER EXTREMITY VENOUS DOPPLER HISTORY: Acute pain of the lower extremities R/O DVT COMPARISON STUDY: None. FINDINGS: There is normal compressibility, flow, and augmentation within the bilateral lower extremit y deep venous systems. Suboptimal examination secondary to patient condition.. The calf vessels are s uboptimally visualized. IMPRESSION: No sonographic evidence of deep venous thrombosis within the right or left lower extremity. Electronically signed by: Rico Sawyer M.D. 01/05/2019 3:23 PM
--- NOTE | 2019-01-05 15:35 | Wound Consultation ---
Date of Consultation January 05, 2019 Assessment & Plan (1) Osteomyelitis: Patient with chronic osteomyelitis of the right great toe. She is seen Dr. Hernandez who recommended amputation. Patient and family would like to hold off on this for now. Wound needed debridement. After obtaining permission topical Xylocaine was applied. Using a curette wound was debrided of fibrin and slough. There is scant bleeding was controlled with pressure. Patient tolerated the procedure well with no complications. This represents a non-excisional debridement of less than 20 cm. Wound will be dressed with Iodosorb. (2) Suspected deep tissue injury: Patient with questionable deep tissue injury in the perineal area. Wound is very macerated. No debridement is required at this time. We will apply SensiCare. Continue offloading. Thank you for allowing to participate in the care of this patient. Please not hesitate to call with any questions. History of Present Illness Reason for Consultation: Wound of the right great toe Perineal examination. Attending Physician: Callum Napoles MD History of Present Illness This is a 68-year-old female known to the wound clinic with a medical history including hypertension, hyperlipidemia, atrial fibrillation, seizure disorder, hypothyroidism, thrombocytopenia, obstructive sleep apnea, left spastic hemiparesis and chronic osteomyelitis of the right great toe who was admitted with altered mental status. We are being consulted for pressure injury of the perineal area and her chronic ostium mellitus of the right great toe. Allergies Allergy/AdvReac Type Severity Reaction Status Date / Time fish oil Allergy Unknown UNKNOWN Verified 01/04/19 16:09 atorvastatin AdvReac Mild MUSCLE Verified 01/04/19 16:09 ACHES citalopram AdvReac Unknown contributed Verified 01/04/19 16:09 to seizures? recently stopped taking med 01/2016 Home Medications Home Medications Medication Instructions Recorded Confirmed Type amiodarone 200 mg PO QAM 12/16/17 01/04/19 History ascorbic acid (vitamin C) 500 mg PO BID 12/16/17 01/04/19 History coenzyme Q10 200 mg PO BID 12/16/17 01/04/19 History cranberry 400 mg PO HS 12/16/17 01/04/19 History docusate sodium 100 mg PO BID 12/16/17 01/04/19 History furosemide 20 mg PO DAILY PRN 12/16/17 01/04/19 History levothyroxine 75 mcg PO QAM 12/16/17 01/04/19 History pravastatin 20 mg PO QAM 12/16/17 01/04/19 History ranitidine HCl 150 mg PO BID 12/16/17 01/04/19 History acetaminophen [Mapap 650 mg PO Q6 PRN #30 tab 12/28/17 01/04/19 Rx (acetaminophen)] metoprolol succinate 25 mg PO HS 01/12/18 01/04/19 History polyethylene glycol 3350 [Miralax] 17 g PO BID 01/12/18 01/04/19 History ciprofloxacin 750 mg tablet 750 mg PO BID #60 tab 12/28/18 01/04/19 Rx Bio Cleanse 1 tab PO QAM 01/04/19 01/04/19 History Lactobacillus acidophilus 1 cell PO HS 01/04/19 01/04/19 History [Probiotic] divalproex 500 mg PO BID 01/04/19 01/04/19 History duloxetine 60 mg PO QAM 01/04/19 01/04/19 History lacosamide [Vimpat] 100 mg PO BID 01/04/19 01/04/19 History rivaroxaban [Xarelto] 20 mg PO HS 01/04/19 01/04/19 History Patient History Medical History Bilateral leg edema Left spastic hemiparesis From CVA secondary to A. fib in 2011 DIANNE (obstructive sleep apnea) (Chronic) Fatty liver (Chronic) Thrombocytopenia (Acute) Chronic constipation (Chronic) Morbid obesity (Chronic) BMI 37 Hypothyroidism (Chronic) Seizure disorder (Chronic) Atrial fibrillation (Chronic) Hyperlipidemia (Chronic) Hypertension (Chronic) Atrial fibrillation CVA (cerebral infarction) With left-sided hemiparesis Hepatic encephalopathy History of stroke Hyperammonemia Hypertension Paralysis as complication of stroke Recurrent UTI Sacral decubitus ulcer Seizure disorder Sleep apnea Small bowel obstruction Surgical History H/O exploratory laparotomy H/O: hysterectomy History of hysterectomy Family History Other Hypertension Obesity Social History Preferred Language: [place] Communication Ability: Unable Visual Impairment: No Limitations Hearing Ability: Normal Carbon Cleaner Required: Yes Beliefs That Will Affect Care: None marital status: Current Living Situation: Spouse Feels Safe at Home: Yes Smoking Status: Never smoker Second Hand Exposure: No ; Hx Alcohol Use: No Hx Substance Use: No Review of Systems Review of Systems: All systems reviewed & are unremarkable except as noted in HPI & below Physical Exam Skin: Wound #1, left thigh measuring 10 x 12.6 cm. Wound is macerated and erythematous. There is moderate drainage and foul odor. Wound #2 bilateral buttocks measuring 12 x 15 cm. Wound is macerated and erythematous. There is moderate drainage and foul odor. Wound #3, right great toe measuring 1.6 x 0.6 x 0.2 cm. Wound is covered with fibrin and slough. Periwound is intact without inflammation. There is mild drainage no foul odors. Neurologic: + confused and + obtunded Psychiatric: Orientation: cooperative Results & Data Vital Signs (Past 12 Hours) Vital Signs Temp Pulse Pulse Resp BP Pulse Ox 01/05/19 13:44 82 01/05/19 12:23 36.8 C 99 H 18 111/81 95 01/05/19 07:51 36.6 C 94 H 22 125/88 95 01/05/19 03:33 36.6 C 80 18 122/76 94 PG Care Time/CCT Total # of Minutes Spent Total Time Spent with Patient: Total time spent is greater than 50% in coordination of care (as documented) at patient's floor/unit and/or counseling patient: (1) Osteomyelitis Osteomyelitis type: other chronic Osteomyelitis location: foot Laterality: right Qualified Code(s): M86.671 - Other chronic osteomyelitis, right ankle and foot
[2019-01-05] MEDS ORDERED: ACETAMINOPHEN 325 MG TAB PO STA (19:48)
[2019-01-05] MEDS ORDERED: ACETAMINOPHEN 325 MG TAB ONE (19:50)
[2019-01-05] MEDS: RIVAROXABAN 20 MG TAB PO SCH (19:54)
[2019-01-05] MEDS: METOPROLOL SUCC 25MG EXT REL TAB PO SCH (20:51)
[2019-01-06] MEDS: LEVOTHYROXINE SODIUM 75 MCG TABLET PO SCH (05:47)
[2019-01-06 05:52] LABS: Basophils # (auto) 0.01 K/uL (0-0.2); Basophils % (auto) 0.1 %; Eosinophils # (auto) 0.16 K/uL (0-0.5); Eosinophils % (auto) 1.8 %; Hematocrit (blood only) 45.3 % (37-47); Hemoglobin 14.8 g/dL (12.0-16.0); Immature Granulocytes # (auto) 0.01 K/uL (0.00-0.02); Immature Granulocytes % (auto) 0.1 %; Lymphocytes # (auto) 2.28 K/uL (1.2-3.4); Mean Corpuscular Hemoglobin 32.8 pg (25-34); Mean Corpuscular Hgb Conc 32.7 g/dL (32-36); Mean Corpuscular Volume 100.4 fL (80-100); Mean Platelet Volume 10.1 fL (7.4-10.4); Monocytes # (auto) 1.24 K/uL (0.11-0.59); Monocytes % (auto) 14.2 %; Neutrophils # (auto) 5.06 K/uL (1.4-6.5); Neutrophils % (auto) 57.8 %; Platelet Count 108 K/uL (130-400); RDW Coefficient of Variation 13.8 % (11.5-14.5); RDW Standard Deviation 50.8 fL (36.4-46.3); Red Blood Count 4.51 M/uL (4.2-5.4); White Blood Count 8.76 K/uL (4.8-10.8)
[2019-01-06 06:02] LABS: INR 1.4 (0.9-1.1); Prothrombin Time 13.8 Seconds (9.0-12.0)
[2019-01-06 06:18] LABS: BUN Creatinine Ratio 17.6 (10-20); Calcium 8.8 mg/dl (8.5-10.1); Creatinine Clr Calc Pharmacy 107.2 ml/min; Est GFR (African American) 108.9; Potassium 3.7 mmol/L (3.5-5.1)
[2019-01-06 08:28] LABS: Albumin Level 2.5 gm/dl (3.4-5.0); Bilirubin Direct 0.1 mg/dl (0-0.2); Bilirubin,Total 0.4 mg/dl (0.2-1); Total Protein 5.9 gm/dl (6.4-8.2)
[2019-01-06] MEDS: POLYETHYLENE (MIRALAX) 17 GM PACK PO SCH ×2 (08:55→20:33)
[2019-01-06] MEDS: DIVALPROEX EXTENDED RELEASE 500 MG TAB PO SCH ×2 (08:56→20:33)
[2019-01-06] MEDS: ASCORBIC ACID 500 MG TAB PO SCH ×2 (08:56→20:32)
[2019-01-06] MEDS: AMIODARONE 200 MG TAB PO SCH (08:56)
[2019-01-06] MEDS: ASPIRIN 81 MG ECTAB PO SCH (08:56)
[2019-01-06] MEDS: LACOSAMIDE 50 MG TABLET PO SCH ×2 (08:57→20:32)
[2019-01-06] MEDS: CIPROFLOXACIN 250 MG TAB PO SCH ×2 (08:57→20:32)
--- NOTE | 2019-01-06 10:04 | Progress Note ---
DATE: 01/06/2019 SUBJECTIVE: I am seeing the patient in followup of a gradually progressive change in mental status superimposed on an old right MCA infarction. The patient had 2 episodes prior to admission of possible seizure activity, although it was somewhat different than prior and it occurred in the upright position. She has not had any recurrence since hospitalized. PHYSICAL EXAMINATION: GENERAL: She is awake, alert. Mentation is slow. She follows some simple commands, is oriented to place and person. No right/left confusion. VITAL SIGNS: 129/88, 73, 20, 37. NEUROLOGIC: No fixed gaze preference is noted. There is some right hand resting tremor. Right upper extremity is greater than antigravity. Right lower extremity appears greater than antigravity. Left upper extremity with some proximal shoulder shrugs and left lower extremity trace. Intact light touch bilaterally. [id number] on the right is tremulous. IMPRESSION: This patient with a history of a large MCA stroke and secondary seizure, had 2 episodes that were somewhat atypical for seizure coming on the tails of reduction in the dose of Depakote (level is still high therapeutic) and an increase in Vimpat. No obvious seizure activity is noted and it sounds as if the patient is resumed back to her relatively recent baseline. PLAN: 1. MRI brain with and without contrast. 2. If there continues to be waxing and waning mental status or episodes are unclear whether or not there are seizure, I would recommend transfer to a [facility] for continuous EEG monitoring. If not, I would recommend as Dr. Scherer has ordered an ambulatory EEG as an outpatient. Regarding potential medication interactions, Cymbalta has been held and Cipro has been continued. Continue cardiovascular monitoring. We will repeat a Depakote level tomorrow, which will be about 5 days of therapy at this current dosing. We will follow with you.
[2019-01-06] MEDS: DULOXETINE HCL 20 MG CAP PO SCH ×2 (10:42→13:05)
[2019-01-06] MEDS: PRAVASTATIN SOD 20 MG TAB PO SCH (11:09)
[2019-01-06] MEDS: DOCUSATE SODIUM 100 MG CAP PO SCH ×2 (11:09→20:31)
[2019-01-06] MEDS ORDERED: LORazepam 0.5 MG TAB PO STA (12:51)
--- NOTE | 2019-01-06 12:52 | Hospitalist Progress Note ---
Date of Service January 06, 2019 Assessment & Plan (1) Altered mental status: * Continue to monitor on telemetry- hx CVA 2011 secondary to atrial fibrillation- patient currently rate controlled on amiodarone, metoprolol and anticoagulated with Xarelto * Vital signs, Neuro checks Q4h * Head CT- no acute intracranial abnormality * CTA Head without intracranial aneurysm, abrupt vessel cut off or dissection * CTA Neck with mild atherosclerotic plaque, no dissection or stenosis * KUB constipation with moderate stool burden, cholelithiasis (which is chronic per family) * ECHO without regional wall motion abnormality. EF 50-55%. Mild LVH * US Venous Doppler without DVT * B12, Folate wnl * UA negative * Continue home medicine as adjusted but per /divalproex ER 1000mg, Vimpat 100mg BID * Neurology Consult- follows with Dr. Scherer- appreciate rec -? increased seizure activity with decreased depakote * EEG ordered * Current Osteomyelitis R Great Toe - saw Dr. Boswell as outpatient- given Cipro 750mg BID- continued on admission-- will taper dose of cymbalta per Neuro with concerns for Torsades with Cymbalta + Amiodarone + Cipro- continue to monitor on telemetry--> amiodarone does not seem to contribute much to rhythm control, not much rate control either--? consider alternative agent?? * DVT prophylaxis continue Xarelto which patient takes for A. fib's. (2) Osteomyelitis: * Osteomyelitis of Right Great Toe * Patient has been seen by Dr. Hernandez previously with rec for amputation, but family declined * Cultures + for pseudomonas on 12/08/18. * Patient initially treated with Levaquin and was switched to Cipro by Dr. Boswell as outpatient for osteomyelitis- patient on day 6 of treatment with Levaquin currently (3) GERD (gastroesophageal reflux disease): * Continue ranitidine 150 mg p.o. twice daily (4) DIANNE (obstructive sleep apnea): * Patient unable to tolerate CPAP- per family, patient on 6L via NC at night * Resp order for 6L O2 via NC QHS (5) Chronic constipation: * KUB with moderate stool burden- Resolved with bowel regimen of docusate sodium 100 mg p.o. twice daily, MiraLAX as needed for constipation (6) Hypothyroidism: * Elevated TSH to 5.3 but free T4 normal 1.52. * Continue home dose of levothyroxine 75 MCG's QHS for now- continue to monitor * Repeat TSH in AM- ? cause of recent tachycardia (7) Seizure disorder: * As above (8) Atrial fibrillation: * Continue Xarelto * Not currently rate controlled- HR 121 thia afternoon--> increased evening metoprolol from 25mg to 50mg PO * Amiodarone 200 mg p.o. every morning. * ASA 81mg (9) Hyperlipidemia: * Continue pravastatin 20 mg p.o. nightly (10) Hypertension: * Metoprolol succinate increased to 50 mg p.o. nightly for better rate con trol * Amiodarone 200 mg p.o. every morning. * ASA 81mg Patient is full code per family request. Supervising Physician Co-Signing Physician Notes Attending Attestation - Pt seen/examined, chart reviewed in detail, care plan d/w AURELIANO Drummond. I agree w/ the hubbard components of her documentation. 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 Now with recent seizures followed by encephalopathy. This is in context of right great toe osteomyelitis. Spoke with pt's and son at bedside. Son asked if serotonin syndrome could explain symptoms; reassured him that there was no evidence of such. confirms that patient had been lethargic shortly after admission and that has resolved. No reports of any ongoing seizure activity. EEG was indeed done this am. Tele - rapid a.fib. VS - tachy, BP wnl gen - chronically ill-appearing, says a few words, smiled at one point neck - no JVD heart - tachy, irregular lungs - decreased BS bases abd - soft NT ext - left foot - ?ecchymoses/erythema of 3rd/4th/5th toes - cap refill brisk; pulses left foot 2+; cool to touch however. right foot - dressing intact right great toe. pulses right foot 2+ neuro - left sided hemiplegia; left facial droop; tremor right arm noted MRI brain - no acute stroke old right MCA territory stroke w/ encephalomalacia EEG pending A/P: 1. recent encephalopathy - resolved. Due to post-ictal state in setting of multiple seizures? Await EEG. 2. right great toe osteomyelitis - continue cipro. Agree that combo of amiodarone, cipro and cymbalta could cause conduction issues. Would wean cymbalta slowly to avoid cymbalta withdrawal symptoms. QTc on latest EKG acceptable. Cymbalta 40mg x a few days; then 20mg daily for a few days, and so forth. 3. cerebrovascular disease with prior dense right MCA territory stroke. 4. left foot ecchymoses - etiology?? recent arterial duplex study normal. echo w/o endocarditis. follow this carefully. 5. rapid a.fib - increase BB. If rates prove difficult to treat then consider increasing amiodarone and/or giving such IV. Cont xarelto. /son updated at bedside Taiwo Cruz MD Subjective Patient evaluated at bedside this morning. Patient is more alert today, smiles, and answers questions with short one word answers. Patient with moderate stool burden on admission but was able to have a bowel movement last night. Concerns regarding interaction with cipro, cymbalta and amiodarone were discussed earlier with neurology, however risk factors for acute withdrawal from cymbalta may be unpleasant. Patient does not verbalize any chest pain, shortness of breath, n/v/d. She is able to follow simple commands when asked, and patient has not had recurrence of seizure activity since hospitalization. Patient relatively at baseline currently. Agrees with Neurology input for outpatient EEG with Dr. Scherer per discussion. Odering MRI and EEG with possible need for 72 hour EEG as outpatient was discussed by Neurology and was reinforced with family. Depakote level will be repeated in AM. Review of Systems Review of Systems: All systems reviewed & are unremarkable except as noted in HPI & below Physical Exam Constitutional: + ill appearing and + obese; no acute distress and no altered mental status Eyes: PERRL, conjunctivae normal, anicteric sclerae EOM intact bilaterally Neck: trachea midline, no thyromegaly Respiratory: normal respiratory effort; no respiratory distress, no labored breathing and does not use accessory muscles Cardiovascular: Rate/Rhythm: + irregularly irregular Heart Sounds: normal S1 and normal S2 Vessels: no JVD Extremities: + edema Gastrointestinal (Abdomen): normal bowel sounds, soft, nontender, no hepatosplenomegaly Neurologic: patellar DTR's 2+ bilat, sensation intact decreased strength 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 left upper extremity Results & Data Vital Signs (Past 12 Hours) Vital Signs Temp Pulse Pulse Pulse Resp BP Pulse Ox 01/06/19 11:49 36.7 C 101 H 20 111/86 98 01/06/19 08:00 103 H 01/06/19 07:50 37.0 C 73 20 129/88 97 01/06/19 04:14 36.9 C 85 20 143/81 H 97 Laboratory Results 01/06/19 01/06/19 01/06/19 Range/Units 05:13 05:13 05:13 WBC (4.8-10.8) K/uL RBC (4.2-5.4) M/uL Hgb (12.0-16.0) g/dL Hct (37-47) % MCV (80-100) fL MCH (25-34) pg MCHC (32-36) g/dL RDW Std Deviation (36.4-46.3) fL RDW Coeff of Rodger (11.5-14.5) % Plt Count (130-400) K/uL MPV (7.4-10.4) fL Immature Gran % (Auto) % Neut % (Auto) % Lymph % (Auto) % Elliott % (Auto) % Eos % (Auto) % Baso % (Auto) % Immature Gran # (Auto) (0.00-0.02) K/uL Neut # (Auto) (1.4-6.5) K/uL Lymph # (Auto) (1.2-3.4) K/uL Elliott # (Auto) (0.11-0.59) K/uL Eos # (Auto) (0-0.5) K/uL Baso # (Auto) (0-0.2) K/uL PT 13.8 H (9.0-12.0) Seconds INR 1.4 H (0.9-1.1) Sodium 139 (136-145) mmol/L Potassium 3.7 (3.5-5.1) mmol/L Chloride 103 (98-107) mmol/L Carbon Dioxide 31 (21-32) mmol/L Anion Gap 5.0 (3-11) BUN 11 (7-18) mg/dl Creatinine 0.62 (0.6-1.2) mg/dl Est Cr Clr Drug Dosing 107.2 ml/min Est GFR ( Amer) 108.9 Est GFR (Non-Af Amer) 94.0 BUN/Creatinine Ratio 17.6 (10-20) Glucose 100 H (70-99) mg/dl Calcium 8.8 (8.5-10.1) mg/dl Total Bilirubin 0.4 (0.2-1) mg/dl Direct Bilirubin 0.1 (0-0.2) mg/dl AST 17 (15-37) U/L ALT 10 L (12-78) U/L Alkaline Phosphatase 63 (45-117) U/L Total Protein 5.9 L (6.4-8.2) gm/dl Albumin 2.5 L (3.4-5.0) gm/dl 01/06/19 Range/Units 05:13 WBC 8.76 (4.8-10.8) K/uL RBC 4.51 (4.2-5.4) M/uL Hgb 14.8 (12.0-16.0) g/dL Hct 45.3 (37-47) % MCV 100.4 H (80-100) fL MCH 32.8 (25-34) pg MCHC 32.7 (32-36) g/dL RDW Std Deviation 50.8 H (36.4-46.3) fL RDW Coeff of Rodger 13.8 (11.5-14.5) % Plt Count 108 L (130-400) K/uL MPV 10.1 (7.4-10.4) fL Immature Gran % (Auto) 0.1 % Neut % (Auto) 57.8 % Lymph % (Auto) 26.0 % Elliott % (Auto) 14.2 % Eos % (Auto) 1.8 % Baso % (Auto) 0.1 % Immature Gran # (Auto) 0.01 (0.00-0.02) K/uL Neut # (Auto) 5.06 (1.4-6.5) K/uL Lymph # (Auto) 2.28 (1.2-3.4) K/uL Elliott # (Auto) 1.24 H (0.11-0.59) K/uL Eos # (Auto) 0.16 (0-0.5) K/uL Baso # (Auto) 0.01 (0-0.2) K/uL PT (9.0-12.0) Seconds INR (0.9-1.1) Sodium (136-145) mmol/L Potassium (3.5-5.1) mmol/L Chloride (98-107) mmol/L Carbon Dioxide (21-32) mmol/L Anion Gap (3-11) BUN (7-18) mg/dl Creatinine (0.6-1.2) mg/dl Est Cr Clr Drug Dosing ml/min Est GFR ( Amer) Est GFR (Non-Af Amer) BUN/Creatinine Ratio (10-20) Glucose (70-99) mg/dl Calcium (8.5-10.1) mg/dl Total Bilirubin (0.2-1) mg/dl Direct Bilirubin (0-0.2) mg/dl AST (15-37) U/L ALT (12-78) U/L Alkaline Phosphatase (45-117) U/L Total Protein (6.4-8.2) gm/dl Albumin (3.4-5.0) gm/dl Diagnostic Findings MRI Brain W W/O PG Care Time/CCT Total # of Minutes Spent Total Time Spent with Patient: Total time spent is greater than 50% in coordination of care (as documented) at patient's floor/unit and/or counseling patient: 30 (1) Atrial fibrillation Atrial fibrillation type: paroxysmal Qualified Code(s): I48.0 - Paroxysmal atrial fibrillation (2) Hyperlipidemia Hyperlipidemia type: other hyperlipidemia Qualified Code(s): E78.4 - Other hyperlipidemia (3) Hypothyroidism Hypothyroidism type: acquired Qualified Code(s): E03.9 - Hypothyroidism, unspecified (4) Altered mental status Altered mental status type: unspecified Qualified Code(s): R41.82 - Altered mental status, unspecified (5) Hypertension Hypertension type: essential hypertension Qualified Code(s): I10 - Essential (primary) hypertension (6) Osteomyelitis Laterality: right Osteomyelitis location: foot Osteomyelitis type: other chronic Qualified Code(s): M86.671 - Other chronic osteomyelitis, right ankle and foot
[2019-01-06] MEDS ORDERED: LORazepam 0.5 MG TAB ONE (17:27)
[2019-01-06] MEDS ORDERED: GADOBUTROL 65ML VIAL IV PRN (18:38)
--- NOTE | 2019-01-06 18:53 | Magnetic Resonance Report ---
MRI OF THE BRAIN WITHOUT AND WITH IV CONTRAST CLINICAL HISTORY: hx stroke, sz, progressive decline ms x 2 mo COMPARISON STUDY: MRI the brain February 28, 2013. Head CT and CTA of the head January 04, 2019. TECHNIQUE: Utilizing a 1.5 Shabnam magnet and dedicated coil, multiplanar, multiecho imaging of the br ain was performed pre and postcontrast administration. IV administration of 9.5 mL of Gadavist contr ast was uneventful. FINDINGS: Right-sided craniotomy is noted. There are no foci of restricted diffusion to suggest acute infarct. Extensive encephalomalacia within the right cerebral hemisphere is noted, as shown on MRI o f March 08, 2013. White matter T2 hyperintensity has increased since MRI of March 08, 2013. Dil atation of the right lateral ventricle is due to extensive encephalomalacia. This has slightly progre ssed. The basilar cisterns are patent. Atrophy of the right cerebral peduncle is chronic. There is no intracranial mass or pathologic enhancement. There is no suspicious marrow replacement within the ca lvarium. Orbits are unremarkable. IMPRESSION: 1. No acute intracranial findings. 2. Redemonstration of encephalomalacia within the right cerebral hemisphere suggestive of an old MCA territory infarct. Associated dilatation of the right lateral ventricle due to volume loss. 3. Increase in atrophy and small vessel disease since MRI of March 08, 2013. 4. No intracranial mass or pathologic enhancement. Electronically signed by: Vasyl Klein M.D. 01/06/2019 6:52 PM
[2019-01-06] MEDS: METOPROLOL SUCC 50MG EXT REL TAB PO SCH (20:31)
[2019-01-06] MEDS: RIVAROXABAN 20 MG TAB PO SCH (20:32)
--- NOTE | 2019-01-06 22:42 | Progress Note ---
Date of Service January 06, 2019 at about 2210 Received page from the patient's nurse stating there was concern for a brief period of ventricular tachycardia. At the time of the call, patient had returned to [facility] with rates in the 110's. In brief review of her chart, patient was admitted for altered mental status as well as toe osteomyelitis. There is mention of atrial fibrillation with poor rate control and a recent increase in her metoprolol. Spoke with telemetry techs. At that time patient was in A. fib with rates in the 110's. There is perhaps a 50 total seconds period of wide-complex tachycardia versus tremor/wandering baseline. Preceding this and following this the patient was in [facility]. Saw patient at bedside. She already had defibrillation pads in place as a precaution. Spoke with her bedside nurse who noted that the patient did have some tremors during this period of time but that the patient did not complain of any symptoms during this concerning potential arrhythmia. No reported acute mental status changes as well. Spoke with patient herself. She has a very flat affect and initially only opens her eyes to voice. She would give 1-2 word answers stating that she felt fine, that she had no chest pain, and that her heart did not bother her. Reviewed vitals. Heart is irregularly irregular, lungs clear. EKG at 2218 was atrial fibrillation with RVR rate 114, QTc 391. Brief review of labs notes this morning's potassium was 3.7. No recent magnesium checks. Plan: - Patient appears asymptomatic at present. Rate is relatively well controlled at present and she received an increased dose of her metoprolol earlier this evening. - We will check an interval potassium and magnesium. Will replace as needed to optimize electrolytes. - For now, unclear if this was true polymorphic ventricular tachycardia versus a brief tremor. We will keep her on telemetry and on the pacer pads as a precaution. Continue to monitor overnight. - This was discussed with Dr. Hsu (overnight hospitalist) in real-time and at the bedside. Joselyn Merrill, PGY3 Overnight call Results & Data Vital Signs (Past 12 Hours) Vital Signs Temp Pulse Pulse Resp BP Pulse Ox 01/06/19 18:52 37.2 C 137 H 18 108/76 92 01/06/19 16:00 121 H 01/06/19 15:14 36.5 C 105 H 19 105/67 94 01/06/19 11:49 36.7 C 101 H 20 111/86 98
[2019-01-06 22:59] LABS: BUN Creatinine Ratio 19.4 (10-20); Calcium 8.7 mg/dl (8.5-10.1); Creatinine Clr Calc Pharmacy 111.6 ml/min; Est GFR (African American) 110.7; Est GFR (Non-African American) 95.5; Magnesium 2.2 mg/dl (1.8-2.4)
[2019-01-06] MEDS: LACTATED RINGER'S 1,000 ML IV SCH (23:48)
[2019-01-07] MEDS: LEVOTHYROXINE SODIUM 75 MCG TABLET PO SCH (05:40)
[2019-01-07 06:01] LABS: Basophils # (auto) 0.01 K/uL (0-0.2); Basophils % (auto) 0.1 %; Eosinophils % (auto) 1.9 %; Hematocrit (blood only) 42.4 % (37-47); Hemoglobin 13.8 g/dL (12.0-16.0); Immature Granulocytes # (auto) 0.03 K/uL (0.00-0.02); Immature Granulocytes % (auto) 0.3 %; Lymphocytes # (auto) 3.28 K/uL (1.2-3.4); Lymphocytes % (auto) 31.7 %; Mean Corpuscular Hemoglobin 32.9 pg (25-34); Mean Corpuscular Hgb Conc 32.5 g/dL (32-36); Monocytes # (auto) 1.27 K/uL (0.11-0.59); Monocytes % (auto) 12.3 %; Neutrophils # (auto) 5.57 K/uL (1.4-6.5); Neutrophils % (auto) 53.7 %; Platelet Count 121 K/uL (130-400); RDW Standard Deviation 51.5 fL (36.4-46.3); White Blood Count 10.36 K/uL (4.8-10.8)
[2019-01-07 06:08] LABS: INR 1.2 (0.9-1.1); Prothrombin Time 11.9 Seconds (9.0-12.0)
[2019-01-07 06:28] LABS: BUN Creatinine Ratio 20.4 (10-20); Calcium 8.5 mg/dl (8.5-10.1); Creatinine Clr Calc Pharmacy 129.4 ml/min; Est GFR (African American) 116.1; Est GFR (Non-African American) 100.2; Potassium 4.1 mmol/L (3.5-5.1)
[2019-01-07 06:38] LABS: Thyroid Stimulating Hormone 11.3 uIu/ml (0.300-4.500)
[2019-01-07 06:50] LABS: T4 Free Thyroxine 1.42 ng/dl (0.8-1.6)
[2019-01-07] MEDS: DULOXETINE HCL 20 MG CAP PO SCH (08:33)
[2019-01-07] MEDS: POLYETHYLENE (MIRALAX) 17 GM PACK PO SCH ×2 (08:33→22:20)
[2019-01-07] MEDS: PRAVASTATIN SOD 20 MG TAB PO SCH (08:34)
[2019-01-07] MEDS: ASPIRIN 81 MG ECTAB PO SCH (08:34)
[2019-01-07] MEDS: DOCUSATE SODIUM 100 MG CAP PO SCH ×2 (08:34→22:18)
[2019-01-07] MEDS: AMIODARONE 200 MG TAB PO SCH (08:34)
[2019-01-07] MEDS: DIVALPROEX EXTENDED RELEASE 500 MG TAB PO SCH ×2 (08:34→22:19)
[2019-01-07] MEDS: LACOSAMIDE 50 MG TABLET PO SCH ×2 (08:34→22:19)
[2019-01-07] MEDS: ASCORBIC ACID 500 MG TAB PO SCH ×2 (08:34→22:17)
[2019-01-07] MEDS: CIPROFLOXACIN 250 MG TAB PO SCH ×2 (08:35→22:19)
--- NOTE | 2019-01-07 10:40 | Hospitalist Progress Note ---
Date of Service January 07, 2019 Assessment & Plan (1) Altered mental status: * Resolved- patient curently at baseline per family- likely secondary to [id number] state in setting of possible multiple seizures- awaiting EEG * Continue to monitor on telemetry- hx CVA 2011 secondary to atrial f ibrillation- patient on amiodarone, metoprolol, and is anticoagulated on xarelto as outpatient * Vital signs, Neuro checks Q4h * Head CT- no acute intracranial abnormality * CTA Head without intracranial aneurysm, abrupt vessel cut off or dissection * CTA Neck with mild atherosclerotic plaque, no dissection or stenosis * KUB constipation with moderate stool burden, cholelithiasis (which is chronic per family) * ECHO without regional wall motion abnormality. EF 50-55%. Mild LVH * US Venous Doppler without DVT * B12, Folate wnl * UA negative * EEG ordered- pending and likely will be done Tuesday morning * MRI without acute process * Neurology Consult- follows with Dr. Scherer- appreciate rec -? increased seizure activity with decreased Depakote * Current Osteomyelitis R Great Toe - saw Dr. Boswell as outpatient- given Cipro 750mg BID- continue Cipro- concerns for Torsades with Cymbalta + Amiodarone + Cipro- continue to monitor on telemetry, QTC wnl * Continue home medicine as adjusted but per /divalproex ER 1000mg, Vimpat 100mg BID--> Repeat valproic acid wnl at 78 * Cymbalta risk in patients with seizure hx--> will taper to prevent withdrawal as well as decrease risk with seizure hx * amiodarone does not seem to contribute much to rhythm control, not much rate control either--> * Per discussion with Cardiology, amiodarone does not seem to contribute much to rhythm or rate control--> will discontinue amiodarone and will increase metoprolol to gain better rate control- last night, metoprolol was increased from 25mg QHS to 50mg QHS. * Per conversation with Neurology, agree with recommendation for outpatient 72hour EEG if EEG in AM without seizure activity * TSH elevated at 11.3 this morning- T4 pending-->- will need repeat TSH level as outpatient with possible adjustment of Synthroid--> ?d/t amiodarone (2) Osteomyelitis: * Osteomyelitis of Right Great Toe * Patient has been seen by Dr. Hernandez previously with rec for amputation, family declined * Cultures + for pseudomonas on 12/08/18. * Patient initially treated with Levaquin and was switched to Cipro by Dr. Boswell as outpatient for osteomyelitis- patient on day 7 of treatment with Levaquin currently (3) GERD (gastroesophageal reflux disease): * Continue ranitidine 150 mg p.o. twice daily (4) DIANNE (obstructive sleep apnea): * Patient unable to tolerate CPAP- per family, patient on 6L via NC at night * Resp order for 6L O2 via NC QHS- per chart patient has not been receiving O2 6L at night- spoke with respiratory therapist today to ensure patient being treated properly at night for her DIANNE (5) Chronic constipation: * KUB with moderate stool burden- Resolved 01/07 with bowel regimen of docusate sodium 100 mg p.o. twice daily, MiraLAX as needed for constipation (6) Hypothyroidism: * Elevated TSH to 5.3 but free T4 normal 1.52 on admission--> TSH elevated this morning at 11.3 * Continue home dose of levothyroxine 75 MCG's QHS for now- continue to monitor * ?? Hypothyroid state may contribute to patient's constipation (7) Seizure disorder: * As above (8) Atrial fibrillation: * Continue Xarelto * Not currently rate controlled- HR 121 thia afternoon--> increased evening metoprolol from 25mg to 50mg PO * Amiodarone 200 mg p.o. every morning.--> discontinued Amiodarone--> will ti trate metoprolol as need * ASA 81mg (9) Hyperlipidemia: * Continue pravastatin 20 mg p.o. nightly (10) Hypertension: * Metoprolol succinate increased to 50 mg p.o. nightly for better rate control * Amiodarone 200 mg p.o. every morning --> d/c'd as above * ASA 81mg Patient is full code per family request. Supervising Physician Co-Signing Physician Notes Attending Attestation - Chart reviewed in detail, care plan d/w AURELIANO Drummond. I agree w/ the hubbard components of her documentation. 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 Baseline seizure disorder. Pre-hospital had multiple seizures followed by encephalopathy. This is in context of right great toe osteomyelitis and recent addition of cipro for such (culture w/ pseudomonas). vitals acceptable except tachycardia labs acceptable MRI brain w/o acute stroke or other acute process; right MCA territory encephalomalacia EEG pending for Tuesday A/P: 1. recent encephalopathy - resolved. Due to post-ictal state in setting of multiple seizures? Await EEG. MRI brain neg for acute process. No other infectious/metabolic abnormalities found thus far. #2 is chronic. 2. right great toe osteomyelitis - continue cipro. Agree that combo of amiodarone, cipro and cymbalta could cause conduction issues. But now that amiodarone is being stopped would resume cymbalta as previous. QTc on latest EKG acceptable. 3. cerebrovascular disease with prior dense right MCA territory stroke and resulting left-sided hemiplegia. 4. left foot ecchymoses - etiology?? recent arterial duplex study normal. echo w/o endocarditis. follow this carefully. 5. rapid a.fib - increase BB again today. Agree w/ stopping amiodarone (it is not controlling rhythm and unlikely to be giving her any rate control either). Cont xarelto. await EEG on Tuesday Taiwo Cruz MD Subjective Patient evaluated at bedside today. She has complaints of left foot/leg pain. The patient is much more alert today. Discussion was had with patient and family regarding recommendation to discontinue amiodarone given she has not had good rate or rhythm control. Family with concerns regarding tremor that has been present despite medical management. states they talked to cardiology in the past about the amiodarone but they did not discontinue it- she has been on it for many years. Metoprolol was increased last night, and patient has been running 100-110s, afib. No other concerns voiced at this time. Patient has still not had her EEG- to be done in morning due weekend coverage. Review of Systems Review of Systems: All systems reviewed & are unremarkable except as noted in HPI & below Physical Exam Constitutional: + ill appearing and + obese; no acute distress and no altered mental status Eyes: PERRL, conjunctivae normal, anicteric sclerae Neck: trachea midline, no thyromegaly Respiratory: normal respiratory effort; no respiratory distress, no labored breathing and does not use accessory muscles Cardiovascular: Rate/Rhythm: + irregularly irregular Heart Sounds: normal S1 and normal S2 Vessels: no JVD Extremities: + edema (b/l LE) Diminished pulses b/l LE Gastrointestinal (Abdomen): normal bowel sounds, soft, nontender, no hepatosplenomegaly Musculoskeletal: Strength decreased TRELL Skin: left foot - ?ecchymoses/erythema of 3rd/4th/5th toes - cap refill brisk; pulses left foot 2+; cool to touch however. right foot - dressing intact right great toe. pulses right foot 2+ Neurologic: deep tendon reflexes 2+ bilaterally Alert, minimal verbalization Oriented to person Left sided hemiplegia; Left facial droop; tremor right arm noted Results & Data Vital Signs (Past 12 Hours) Vital Signs Temp Pulse Pulse Resp BP Pulse Ox 01/07/19 08:00 93 H 01/07/19 07:16 36.4 C L 89 16 119/83 98 01/07/19 03:30 36.8 C 102 H 18 128/83 99 01/07/19 00:00 115 H 01/06/19 23:59 95 01/06/19 23:18 36.9 C 115 H 16 130/85 95 Laboratory Results 01/07/19 01/07/19 01/07/19 Range/Units 05:40 05:40 05:40 WBC 10.36 (4.8-10.8) K/uL RBC 4.20 (4.2-5.4) M/uL Hgb 13.8 (12.0-16.0) g/dL Hct 42.4 (37-47) % MCV 101.0 H (80-100) fL MCH 32.9 (25-34) pg MCHC 32.5 (32-36) g/dL RDW Std Deviation 51.5 H (36.4-46.3) fL RDW Coeff of Rodger 14.0 (11.5-14.5) % Plt Count 121 L (130-400) K/uL MPV 10.0 (7.4-10.4) fL Immature Gran % (Auto) 0.3 % Neut % (Auto) 53.7 % Lymph % (Auto) 31.7 % Ashe % (Auto) 12.3 % Eos % (Auto) 1.9 % Baso % (Auto) 0.1 % Immature Gran # (Auto) 0.03 H (0.00-0.02) K/uL Neut # (Auto) 5.57 (1.4-6.5) K/uL Lymph # (Auto) 3.28 (1.2-3.4) K/uL Ashe # (Auto) 1.27 H (0.11-0.59) K/uL Eos # (Auto) 0.20 (0-0.5) K/uL Baso # (Auto) 0.01 (0-0.2) K/uL PT 11.9 (9.0-12.0) Seconds INR 1.2 H (0.9-1.1) Sodium 139 (136-145) mmol/L Potassium 4.1 (3.5-5.1) mmol/L Chloride 103 (98-107) mmol/L Carbon Dioxide 31 (21-32) mmol/L Anion Gap 5.0 (3-11) BUN 10 (7-18) mg/dl Creatinine 0.51 L (0.6-1.2) mg/dl Est Cr Clr Drug Dosing 129.4 ml/min Est GFR ( Amer) 116.1 Est GFR (Non-Af Amer) 100.2 BUN/Creatinine Ratio 20.4 H (10-20) Glucose 114 H (70-99) mg/dl Calcium 8.5 (8.5-10.1) mg/dl Magnesium (1.8-2.4) mg/dl TSH 11.300 H (0.300-4.500) uIu/ml Free T4 1.42 (0.8-1.6) ng/dl Valproic Acid (50-100) mcg/ml 01/07/19 01/06/19 Range/Units 05:40 22:35 WBC (4.8-10.8) K/uL RBC (4.2-5.4) M/uL Hgb (12.0-16.0) g/dL Hct (37-47) % MCV (80-100) fL MCH (25-34) pg MCHC (32-36) g/dL RDW Std Deviation (36.4-46.3) fL RDW Coeff of Rodger (11.5-14.5) % Plt Count (130-400) K/uL MPV (7.4-10.4) fL Immature Gran % (Auto) % Neut % (Auto) % Lymph % (Auto) % Ashe % (Auto) % Eos % (Auto) % Baso % (Auto) % Immature Gran # (Auto) (0.00-0.02) K/uL Neut # (Auto) (1.4-6.5) K/uL Lymph # (Auto) (1.2-3.4) K/uL Ashe # (Auto) (0.11-0.59) K/uL Eos # (Auto) (0-0.5) K/uL Baso # (Auto) (0-0.2) K/uL PT (9.0-12.0) Seconds INR (0.9-1.1) Sodium 139 (136-145) mmol/L Potassium 4.0 (3.5-5.1) mmol/L Chloride 103 (98-107) mmol/L Carbon Dioxide 31 (21-32) mmol/L Anion Gap 5.0 (3-11) BUN 11 (7-18) mg/dl Creatinine 0.59 L (0.6-1.2) mg/dl Est Cr Clr Drug Dosing 111.6 ml/min Est GFR ( Amer) 110.7 Est GFR (Non-Af Amer) 95.5 BUN/Creatinine Ratio 19.4 (10-20) Glucose 124 H (70-99) mg/dl Calcium 8.7 (8.5-10.1) mg/dl Magnesium 2.2 (1.8-2.4) mg/dl TSH (0.300-4.500) uIu/ml Free T4 (0.8-1.6) ng/dl Valproic Acid 78 (50-100) mcg/ml Diagnostic Findings MRI OF THE BRAIN WITHOUT AND WITH IV CONTRAST CLINICAL HISTORY: hx stroke, sz, progressive decline ms x 2 mo COMPARISON STUDY: MRI the brain February 28, 2013. Head CT and CTA of the head January 04, 2019. TECHNIQUE: Utilizing a 1.5 Shabnam magnet and dedicated coil, multiplanar, multiecho imaging of the brain was performed pre and postcontrast administration. IV administration of 9.5 mL of Gadavist contrast was uneventful. FINDINGS: Right-sided craniotomy is noted. There are no foci of restricted diffusion to suggest acute infarct. Extensive encephalomalacia within the right cerebral hemisphere is noted, as shown on MRI of March 08, 2013. White matter T2 hyperintensity has increased since MRI of March 08, 2013. Dilatation of the right lateral ventricle is due to extensive encephalomalacia. This has slightly progressed. The basilar cisterns are patent. Atrophy of the right cerebral peduncle is chronic. There is no intracranial mass or pathologic enhancement. There is no suspicious marrow replacement within the calvarium. Orbits are unremarkable. IMPRESSION: 1. No acute intracranial findings. 2. Redemonstration of encephalomalacia within the right cerebral hemisphere suggestive of an old MCA territory infarct. Associated dilatation of the right lateral ventricle due to volume loss. 3. Increase in atrophy and small vessel disease since MRI of March 08, 2013. 4. No intracranial mass or pathologic enhancement. Electronically signed by: Vasyl Klein M.D. 01/06/2019 6:52 PM PG Care Time/CCT Total # of Minutes Spent Total Time Spent with Patient: Total time spent is greater than 50% in coordination of care (as documented) at patient's floor/unit and/or counseling patient:60 (1) Atrial fibrillation Atrial fibrillation type: paroxysmal Qualified Code(s): I48.0 - Paroxysmal atrial fibrillation (2) Hyperlipidemia Hyperlipidemia type: other hyperlipidemia Qualified Code(s): E78.4 - Other hyperlipidemia (3) Hypothyroidism Hypothyroidism type: acquired Qualified Code(s): E03.9 - Hypothyroidism, unspecified (4) Altered mental status Altered mental status type: unspecified Qualified Code(s): R41.82 - Altered mental status, unspecified (5) Hypertension Hypertension type: essential hypertension Qualified Code(s): I10 - Essential (primary) hypertension (6) Osteomyelitis Laterality: right Osteomyelitis location: foot Osteomyelitis type: other chronic Qualified Code(s): M86.671 - Other chronic osteomyelitis, right ankle and foot
[2019-01-07] MEDS: LACTATED RINGER'S 1,000 ML IV SCH (12:25)
--- NOTE | 2019-01-07 13:12 | Progress Note ---
DATE: 01/07/2019 SUBJECTIVE: I am seeing Mrs. Julio in followup. She has a history of a large right MCA infarction, secondary seizure disorder with a decline over the last 4-6 weeks. Possibly 2 seizures prior to admission, but they appeared atypical and my understanding as they occurred when she was upright raising the question of orthostasis. Her followup Depakote level was 79. Her MRI of the brain showed no acute abnormality. Overnight, she was said to have some dysrhythmia. On exam, 108/73, 85, 18, 36.4. The patient is very sleepy but arousable, follows some simple commands on the right. I did not try to vigorously awaken her as she appeared to be alert enough and cooperative. IMPRESSION: History of a large right MCA infarction which was embolic. No evidence of a new infarction or other primary central process. Unclear if recent episode representing orthostasis or seizure. Continue with higher dose of Vimpat and lower dose of Depakote. If an EEG was ordered on Tuesday, it will likely be performed on Tuesday. The patient needs outpatient ambulatory EEG scheduled to see if there are unwitnessed seizures that are contributing to the decline. If there was a decline in mentation during this hospitalization, I would recommend that she get transferred to a tertiary care center for continuous EEG monitoring. Some of the decline could be polyfactorial related to infection and polypharmacy. Cymbalta was held and then a dose was given due to pain. By report, there were no alternatives to the use of Cipro for the patient's infection. Continue to monitor cardiovascular status. We will follow with you.
[2019-01-07] MEDS: RIVAROXABAN 20 MG TAB PO SCH (22:18)
[2019-01-07] MEDS: METOPROLOL SUCC 50MG EXT REL TAB PO SCH (22:18)
[2019-01-08] MEDS: LACTATED RINGER'S 1,000 ML IV SCH ×2 (00:02→12:52)
[2019-01-08] MEDS: LEVOTHYROXINE SODIUM 75 MCG TABLET PO SCH (05:54)
[2019-01-08 06:17] LABS: Hematocrit (blood only) 43.4 % (37-47); Hemoglobin 13.7 g/dL (12.0-16.0); Mean Corpuscular Hgb Conc 31.6 g/dL (32-36); Mean Corpuscular Volume 104.6 fL (80-100); Mean Platelet Volume 9.8 fL (7.4-10.4); Platelet Count 110 K/uL (130-400); RDW Coefficient of Variation 14.1 % (11.5-14.5); RDW Standard Deviation 53.7 fL (36.4-46.3); Red Blood Count 4.15 M/uL (4.2-5.4)
[2019-01-08] MEDS ORDERED: LEVOTHYROXINE SODIUM 88 MCG TABLET PO SCH (06:30)
[2019-01-08 06:45] LABS: Albumin Level 2.4 gm/dl (3.4-5.0); BUN Creatinine Ratio 23.9 (10-20); Calcium 8.6 mg/dl (8.5-10.1); Est GFR (African American) 114.7; Est GFR (Non-African American) 98.9; Potassium 4.5 mmol/L (3.5-5.1)
[2019-01-08 06:48] LABS: Albumin Globulin Ratio 0.7 (0.9-2); Bilirubin,Total 0.5 mg/dl (0.2-1); Globulin 3.5 gm/dl (2.5-4.0); Total Protein 5.9 gm/dl (6.4-8.2)
[2019-01-08] MEDS: ASPIRIN 81 MG ECTAB PO SCH (08:19)
[2019-01-08] MEDS: LACOSAMIDE 50 MG TABLET PO SCH ×2 (08:19→20:34)
[2019-01-08] MEDS: CIPROFLOXACIN 250 MG TAB PO SCH ×2 (08:19→20:31)
[2019-01-08] MEDS: DULOXETINE HCL 20 MG CAP PO SCH (08:19)
[2019-01-08] MEDS: DIVALPROEX EXTENDED RELEASE 500 MG TAB PO SCH ×2 (08:19→20:32)
[2019-01-08] MEDS: ASCORBIC ACID 500 MG TAB PO SCH ×2 (08:20→20:33)
[2019-01-08] MEDS: PRAVASTATIN SOD 20 MG TAB PO SCH (08:20)
[2019-01-08] MEDS: DOCUSATE SODIUM 100 MG CAP PO SCH ×2 (08:20→20:32)
[2019-01-08] MEDS: POLYETHYLENE (MIRALAX) 17 GM PACK PO SCH ×2 (08:21→20:32)
--- NOTE | 2019-01-08 14:25 | Neurology Progress Note ---
Date of Service January 08, 2019 Assessment & Plan (1) Altered mental status: 1. folic acid, b12 pending 2. depakote level slightly high but not toxic levels 3. correct any metabolic issues 4. MRI brain - no acute findings. 5. likely multi factorial and combined with failure to thrive 6. amiodarone interactions- as follows cipro and cymbalta contraindicated due to risk of torsades. also vimpat can decreased heart rate. discussed with internal medicine PAC- amiodarone has been stopped. 7. orthostatic blood pressures - no done (2) Seizure disorder: 1. continue Vimpat 100 mg BID and Depakote 500 mg BID for now 2. depakote level 01/07- 3. 72 hour EEG order as out patient 01/16/2019 and follow up with Dr Scherer 05/04/2019 but may need to be transferred for LTM at [facility] [place] [facility] [place] out if the episode are seizure events. 4. EEG- pending read. Supervising Physician Co-Signing Physician Notes I have seen and discussed above patient with Dr Kusum Marquis, neurology. pt seen and examined.In process of being change.d Pt awake, alert, follows simple commands on right. Some R hand rest tremor. EEG P Imp recent neurologic decline, possibly related to polypharmacy, infection. Unclear if recent event was sz. P continue current dosing sz meds, outpt ambulatory EEG, minimize polypharmacy. MCKENZIE Marquis MD Dallin Rivero is a 68 year old female with PMH- CVA in 2011, left spastic hemiparesis, DIANNE, morbid obesity, hypothyroidism, seizure disorder, AF, HLD, HTN, GERD who was brought by her family due to MS change and seizure. She had CVA in 2011 and that left significant sequela but before these episodes patient was able to feed herself which she is not able anymore and has had a decline over the past [address] Scherer in our office and at that time her Depakote was decreased to 500mg BID and her Vimpat was increased to 100 mg BID to try to reduce sedation. She responds with a smile but does not talk much. She has been incontinent since the stroke but it has gotten worse. She is checked by her wound care at home and she has decubitus ulcers and right big toe wound which is in healing process. There has been no fever chills headache chest pain shortness of breath abdominal pain frequency urgency hematuria dysuria hematemesis. Her who is bedside states she has not been eating or drinking well was constipated on admission but her bowels have moved since with treatment. She states she is doing ok today. denies CP, SOB, abdominal pain, +left sided weakness. 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 sensation intact to light and cool touch left hand and foot cool to touch Results & Data Vital Signs (Past 12 Hours) Vital Signs Temp Pulse Resp BP Pulse Ox 01/08/19 11:36 36.7 C 83 16 91/57 L 97 01/08/19 09:28 36.8 C 85 18 110/77 99 01/08/19 08:12 36.8 C 85 16 110/77 99 01/08/19 04:03 36.4 C L 91 H 18 102/68 95 Laboratory Results Abnormal lab results 01/08/19 01/08/19 Range/Units 05:55 05:55 RBC 4.15 L (4.2-5.4) M/uL MCV 104.6 H (80-100) fL MCHC 31.6 L (32-36) g/dL RDW Std Deviation 53.7 H (36.4-46.3) fL Plt Count 110 L (130-400) K/uL Carbon Dioxide 34 H (21-32) mmol/L Creatinine 0.53 L (0.6-1.2) mg/dl BUN/Creatinine Ratio 23.9 H (10-20) AST 11 L (15-37) U/L ALT 9 L (12-78) U/L Total Protein 5.9 L (6.4-8.2) gm/dl Albumin 2.4 L (3.4-5.0) gm/dl Albumin/Globulin Ratio 0.7 L (0.9-2) Diagnostic Findings MRI brain-No acute intracranial findings. Redemonstration of encephalomalacia within the right cerebral hemisphere suggestive of an old MCA territory infarct. Associated dilatation of the right lateral ventricle due to volume loss. Increase in atrophy and small vessel disease since MRI of March 08, 2013. No intracranial mass or pathologic enhancement. (1) Altered mental status Altered mental status type: unspecified Qualified Code(s): R41.82 - Altered mental status, unspecified
--- NOTE | 2019-01-08 14:59 | Hospitalist Progress Note ---
Date of Service January 08, 2019 Assessment & Plan (1) Altered mental status: Patient nearly at baseline per Continue to monitor on telemetry- hx CVA 2011 secondary to atrial fibrillation- patient's amiodarone discontinued - continue home metoprolol and xarelto Head CT, CTA head and neck, MRI head without acute abnormalities ECHO without regional wall motion abnormality. EF 50-55%. Mild LVH US Venous Doppler without DVT B12, Folate wnl UA negative EEG ordered- pending Neurology Consult- follows with Dr. Scherer outpatient - ?increased seizure activity with decreased Depakote vs orthostatic event * Continue home medicine as adjusted but per /divalproex ER 1000mg, Vimpat 100mg BID--> Repeat valproic acid wnl at 78 * Cymbalta risk in patients with seizure hx--> will taper to prevent withdrawal as well as decrease risk with seizure hx * amiodarone does not seem to contribute much to rhythm control, not much rate control either--> Per discussion with Cardiology, amiodarone does not seem to contribute much to rhythm or rate control--> amiodarone was discontinued and metoprolol was increased to gain better rate control * Per conversation with Neurology, recommendation for outpatient 72hour EEG if EEG in AM without seizure activity (2) Seizure as late effect of cerebrovascular accident (CVA): As above (3) Osteomyelitis: Osteomyelitis of Right Great Toe Patient has been seen by Dr. Hernandez previously with rec for amputation, family declined Cultures + for pseudomonas on 12/08/18. Patient initially treated with Levaquin and was switched to Cipro by Dr. Boswell as outpatient for osteomyelitis given Cipro 750mg BID- continue Cipro- concerns for Torsades with Cymbalta + Amiodarone + Cipro- continue to monitor on telemetry, QTC wnl however questionable vtach vs artifact on telemetry overnight - patient asymptomatic. No QT prolongation on repeat EKG 01/08 (4) GERD (gastroesophageal reflux disease): Continue ranitidine 150 mg p.o. twice daily (5) DIANNE (obstructive sleep apnea): Patient unable to tolerate CPAP- per family, patient on 6L via NC at night Resp order for 6L O2 via NC QHS- per chart patient has not been receiving O2 6L at night- discussed with respiratory to ensure patient being treated properly at night for her DIANNE (6) Chronic constipation: KUB with moderate stool burden- Resolved 01/07 with bowel regimen of docusate sodium 100 mg p.o. twice daily, MiraLAX as needed for constipation (7) Hypothyroidism: Elevated TSH to 5.3 but free T4 normal 1.52 on admission--> TSH elevated this morning at 11.3 Continue home dose of levothyroxine 75 MCG's QHS for now- continue to monitor ?? Hypothyroid state may contribute to patient's constipation recheck outpatient in a few weeks (8) Atrial fibrillation: Continue Xarelto increased evening metoprolol from 25mg to 50mg PO - currently rate controlled discontinued Amiodarone continue ASA 81mg (9) Hyperlipidemia: Continue pravastatin 20 mg p.o. nightly (10) Hypertension: Metoprolol succinate increased to 50 mg p.o. nightly for better rate control ASA 81mg Patient is full code per family request. Subjective Ms. Julio reports feeling generally uncomfortable. Her is bedside and states that her mental status has improved but is not at baseline yet. Review of Systems Review of Systems: All systems reviewed & are unremarkable except as noted in HPI & below Physical Exam Physical Exam: General: no distress Eyes: normal inspection, PERLL Respiratory: chest non tender, clear to auscultation, normal breath sounds, no respiratory distress, no accessory muscle use Cardiac: regular rate and rhythm, no rub or gallop, no murmur, no edema, no jvd GI/: active bowel sounds, no abd pain or tenderness, soft, non distended Extremities: baseline left hemiparesis Neuro/Psych: alert and oriented x 3 with some confusion, normal mood and affect Skin: normal color, dry Results & Data Vital Signs (Past 12 Hours) Vital Signs Temp Pulse Resp BP Pulse Ox 01/08/19 11:36 36.7 C 83 16 91/57 L 97 01/08/19 09:28 36.8 C 85 18 110/77 99 01/08/19 08:12 36.8 C 85 16 110/77 99 01/08/19 04:03 36.4 C L 91 H 18 102/68 95 PG Care Time/CCT Total # of Minutes Spent Total Time Spent with Patient: Total time spent is greater than 50% in coordination of care (as documented) at patient's floor/unit and/or counseling patient: (1) Atrial fibrillation Atrial fibrillation type: paroxysmal Qualified Code(s): I48.0 - Paroxysmal atrial fibrillation (2) Hyperlipidemia Hyperlipidemia type: other hyperlipidemia Qualified Code(s): E78.4 - Other hyperlipidemia (3) Hypothyroidism Hypothyroidism type: acquired Qualified Code(s): E03.9 - Hypothyroidism, unspecified (4) Altered mental status Altered mental status type: unspecified Qualified Code(s): R41.82 - Altered mental status, unspecified (5) Hypertension Hypertension type: essential hypertension Qualified Code(s): I10 - Essential (primary) hypertension (6) Osteomyelitis Laterality: right Osteomyelitis location: foot Osteomyelitis type: other chronic Qualified Code(s): M86.671 - Other chronic osteomyelitis, right ankle and foot
[2019-01-08] MEDS: METOPROLOL SUCC 50MG EXT REL TAB PO SCH (20:33)
[2019-01-08] MEDS: RIVAROXABAN 20 MG TAB PO SCH (20:34)
[2019-01-09] MEDS: LACTATED RINGER'S 1,000 ML IV SCH ×2 (01:38→14:46)
[2019-01-09] MEDS: LEVOTHYROXINE SODIUM 75 MCG TABLET PO SCH (05:52)
[2019-01-09] MEDS ORDERED: METOPROLOL TARTRATE 1 MG/ML VIAL IV PRN (10:39)
[2019-01-09] MEDS: ASPIRIN 81 MG ECTAB PO SCH (10:56)
[2019-01-09] MEDS: DOCUSATE SODIUM 100 MG CAP PO SCH ×2 (10:56→20:06)
[2019-01-09] MEDS: POLYETHYLENE (MIRALAX) 17 GM PACK PO SCH ×2 (10:56→20:08)
[2019-01-09] MEDS: PRAVASTATIN SOD 20 MG TAB PO SCH (10:57)
[2019-01-09] MEDS: ASCORBIC ACID 500 MG TAB PO SCH ×2 (10:57→20:07)
[2019-01-09] MEDS: DIVALPROEX EXTENDED RELEASE 500 MG TAB PO SCH (11:00)
[2019-01-09] MEDS ORDERED: CIPROFLOXACIN 400 MG/200 ML BAG IV SCH (11:00)
[2019-01-09] MEDS: CIPROFLOXACIN 250 MG TAB PO SCH (11:01)
--- NOTE | 2019-01-09 11:04 | Hospitalist Progress Note ---
Date of Service January 09, 2019 Assessment & Plan (1) Altered mental status: Continue to monitor on telemetry- hx CVA 2011 secondary to atrial fibrillation- patient's amiodarone discontinued - continue metoprolol and Xeralto Head CT, CTA head and neck, MRI head without acute abnormalities ECHO without regional wall motion abnormality. EF 50-55%. Mild LVH US Venous Doppler without DVT B12, Folate wnl UA negative EEG ordered- pending Neurology Consult- follows with Dr. Scherer outpatient - ?increased seizure activity with decreased Depakote vs orthostatic event * Continue home medicine as adjusted but per /divalproex ER 1000mg, Vimpat 100mg BID--> Repeat valproic acid wnl at 78 * Discussed cymbalta with neurology - will resume homeddosing * amiodarone does not seem to contribute much to rhythm control, not much rate control either--> amiodarone was discontinued and metoprolol was increased to gain better rate control * Per conversation with Neurology, recommendation for outpatient 72hour EEG if EEG in AM without seizure activity Vimpat and Depakote changed to IV as patient is refusing po medications. Changes in mental status seizure related? Discussed with neurology (2) Seizure as late effect of cerebrovascular accident (CVA): As above (3) Osteomyelitis: Osteomyelitis of Right Great Toe Patient has been seen by Dr. Hernandez previously with rec for amputation, family declined Cultures + for pseudomonas on 12/08/18. Patient initially treated with Levaquin and was switched to Cipro by Dr. Boswell as outpatient for osteomyelitis - will change to IV cipro as patient is refusing po medications given Cipro 750mg BID- continue Cipro- concerns for Torsades with Cymbalta + Amiodarone + Cipro- continue to monitor on telemetry, QTC wnl on EKG 01/08 (4) GERD (gastroesophageal reflux disease): Continue ranitidine 150 mg p.o. twice daily (5) DIANNE (obstructive sleep apnea): Patient unable to tolerate CPAP- per family, patient on 6L via NC at night Resp order for 6L O2 via NC QHS- per chart patient has not been receiving O2 6L at night- discussed with respiratory to ensure patient being treated properly at night for her DIANNE (6) Chronic constipation: KUB with moderate stool burden- Resolved 01/07 with bowel regimen of docusate sodium 100 mg p.o. Continue prn miralax (7) Hypothyroidism: Elevated TSH to 5.3 but free T4 normal 1.52 on admission--> TSH elevated this morning at 11.3 Continue home dose of levothyroxine 75 MCG's QHS for now- continue to monitor ?? Hypothyroid state may contribute to patient's constipation recheck outpatient in a few weeks (8) Atrial fibrillation: Continue Xarelto increased evening metoprolol from 25mg to 50mg PO - will hold and add IV metoprolol as patient is refusing po medications discontinued Amiodarone continue ASA 81mg (9) Hyperlipidemia: Continue pravastatin 20 mg p.o. nightly (10) Hypertension: Metoprolol succinate increased to 50 mg p.o. nightly for better rate control - on hold as above ASA 81mg Patient is full code per family request. Subjective Ms. Julio is confused this morning and quite somnolent. She has been refusing her medications. She did awaken briefly to interact with her daughter and granddaughter and was unable to tell me where she was, thinking she was in [place] and then went back to sleep. She was unable to answer a review of systems. When I returned later to the room she was being fed by her and was alert though did not answer all questions. She did deny any pain. Physical Exam Physical Exam: General: no distress Eyes: normal inspection, PERLL Respiratory: chest non tender, clear to auscultation, normal breath sounds, no respiratory distress, no accessory muscle use Cardiac: regular rate and rhythm, no rub or gallop, no murmur, no edema, no jvd GI/: active bowel sounds, no abd pain or tenderness, soft, non distended Extremities: unable to assess, patient has baseline hemiplegia on the left, her CN II-XII appear to be at baseline Neuro/Psych:lethargic, confused Skin: normal color, dry Results & Data Vital Signs (Past 12 Hours) Vital Signs Temp Pulse Resp BP Pulse Ox 01/09/19 07:27 36.7 C 75 16 106/75 100 01/09/19 04:09 36.8 C 91 H 18 106/75 99 01/08/19 23:58 37.2 C 90 22 115/76 98 PG Care Time/CCT Total # of Minutes Spent Total Time Spent with Patient: Total time spent is greater than 50% in coordination of care (as documented) at patient's floor/unit and/or counseling patient: (1) Atrial fibrillation Atrial fibrillation type: paroxysmal Qualified Code(s): I48.0 - Paroxysmal atrial fibrillation (2) Hyperlipidemia Hyperlipidemia type: other hyperlipidemia Qualified Code(s): E78.4 - Other hyperlipidemia (3) Hypothyroidism Hypothyroidism type: acquired Qualified Code(s): E03.9 - Hypothyroidism, unspecified (4) Altered mental status Altered mental status type: unspecified Qualified Code(s): R41.82 - Altered mental status, unspecified (5) Hypertension Hypertension type: essential hypertension Qualified Code(s): I10 - Essential (primary) hypertension (6) Osteomyelitis Laterality: right Osteomyelitis location: foot Osteomyelitis type: other chronic Qualified Code(s): M86.671 - Other chronic osteomyelitis, right ankle and foot
[2019-01-09] MEDS: LACOSAMIDE 50 MG TABLET PO SCH (11:37)
[2019-01-09] MEDS: METOPROLOL TARTRATE 1 MG/ML VIAL IV SCH ×3 (11:38→23:25)
[2019-01-09] MEDS: VALPROATE SOD 250 MG in DEXTROSE 5% 50 ML IV SCH ×3 (12:20→22:32)
[2019-01-09] MEDS: DULOXETINE HCL 20 MG CAP PO SCH (13:02)
[2019-01-09] MEDS: LACOSAMIDE 100 MG in SODIUM CHLORIDE 0.9% 50 ML IV SCH ×2 (13:09→23:34)
--- NOTE | 2019-01-09 14:28 | Neurology Progress Note ---
Date of Service January 09, 2019 Assessment & Plan (1) Altered mental status: 1. folic acid, b12 pending 2. depakote level slightly high but not toxic levels 3. correct any metabolic issues 4. MRI brain - no acute findings. 5. likely multi factorial and combined with failure to thrive 6. amiodarone interactions- as follows cipro and cymbalta contraindicated due to risk of torsades. also vimpat can decreased heart rate. discussed with internal medicine PAC- amiodarone has been stopped. 7. orthostatic blood pressures - no done (2) Seizure disorder: 1. continue Vimpat 100 mg BID and Depakote 500 mg BID for now 2. depakote level 01/07- 3. 72 hour EEG order as out patient 01/16/2019 and follow up with Dr Scherer 05/04/2019 but may need to be transferred for LTM at [facility] or [facility] [place] to sort out if the episode are seizure events. 4. EEG- pending read. 5. ok to discharge once medically stable. follow up as plan per Dr Scherer with EEG 72 hours as scheduled. Supervising Physician Co-Signing Physician Notes I have seen and discussed above patient with Dr Kusum Marquis, neurology. PT seen and discussed with her . Pt is awake, alert, feeding self with R serrano nd. Less R hand resting and intention tremor. The etiology of pt recent decline may be polyfactorial and in part related to polypharmacy. She has had no sz since admission, but given her unexpected de higgins over the last several months rec ambulatory eeg. At this point I do not think pt needs to be transferred to tertiary care center for inpt sz monitoring. she appears to be more awake and alert. There is less tremor likely in part due to decreased depakote dose and dc amiodarone. Continue current doses of anticonvulsants. Will follow with you. MCKENZIE Marquis MD Dallin Rivero is a 68 year old female with PMH- CVA in 2011, left spastic hemiparesis, DIANNE, morbid obesity, hypothyroidism, seizure disorder, AF, HLD, HTN, GERD who was brought by her family due to MS change and seizure. She had CVA in 2011 and that left significant sequela but before these episodes patient was able to feed herself which she is not able anymore and has had a decline over the past [address] Scherer in our office and at that time her Depakote was decreased to 500mg BID and her Vimpat was increased to 100 mg BID to try to reduce sedation. She responds with a smile but does not talk much. She has been incontinent since the stroke but it has gotten worse. She is checked by her wound care at home and she has decubitus ulcers and right big toe wound which is in healing process. There has been no fever chills headache chest pain shortness of breath abdominal pain frequency urgency hematuria dysuria hematemesis. She states she is not doing well today states she is tired. There is no family in the room. denies CP, SOB, abdominal pain, +left sided weakness Physical Exam Physical Exam: Gen: alert NAD moderately interactive lungs course breath sounds CV irregular smile asymmetry, flattening of naso labial fold raise right arm in air with command hold against gravity, left unable to lift, right LE lifts against gravity and resistance, left minimal movement sensation intact to light and cool touch. Results & Data Vital Signs (Past 12 Hours) Vital Signs Temp Pulse Pulse Resp BP BP Pulse Ox 01/09/19 11:38 98 H 115/83 01/09/19 11:24 36.9 C 97 H 18 115/83 96 01/09/19 07:27 36.7 C 75 16 106/75 100 01/09/19 04:09 36.8 C 91 H 18 106/75 99 Laboratory Results no new labs Diagnostic Findings EEG pending read (1) Altered mental status Altered mental status type: unspecified Qualified Code(s): R41.82 - Altered mental status, unspecified
[2019-01-09] MEDS: RIVAROXABAN 20 MG TAB PO SCH (20:07)
[2019-01-09 21:30] LABS: Appearance Urine Turbid (Clear); Bacteria Urine Automated 2+ (Negative); Bilirubin Urine Negative (Negative); Blood Urine 1+ (Negative); Color Urine Yellow; Glucose Urine UA Negative (Negative); Ketones Urine Negative (Negative); Leukocyte Esterase Urine 3+ (Negative); Nitrite Urine Negative (Negative); Protein Urine Negative (Negative); Specific Gravity Urine 1.009 (1.000-1.030); Urobilinogen Urine Negative (Negative); WBC Urine Automated >30 /hpf (0-5); pH Urine 8.5 (4.5-7.5)
[2019-01-09 21:40] LABS: Cast Urine Automated 0 /lpf (0-5)
[2019-01-09] MEDS ORDERED: cefTRIAXone SODIUM 2,000 MG in DEXTROSE 5% 50 ML IV SCH (23:00)
[2019-01-09] MEDS: CIPROFLOXACIN 400 MG/200 ML BAG IV SCH (23:25)
[2019-01-10] MEDS: VALPROATE SOD 250 MG in DEXTROSE 5% 50 ML IV SCH ×4 (04:08→23:28)
[2019-01-10] MEDS: METOPROLOL TARTRATE 1 MG/ML VIAL IV SCH ×3 (05:06→17:49)
[2019-01-10] MEDS: LEVOTHYROXINE SODIUM 75 MCG TABLET PO SCH (05:47)
[2019-01-10 08:34] LABS: Basophils # (auto) 0.01 K/uL (0-0.2); Basophils % (auto) 0.2 %; Eosinophils # (auto) 0.41 K/uL (0-0.5); Eosinophils % (auto) 6.6 %; Hematocrit (blood only) 41.3 % (37-47); Hemoglobin 13.1 g/dL (12.0-16.0); Immature Granulocytes # (auto) 0.02 K/uL (0.00-0.02); Immature Granulocytes % (auto) 0.3 %; Lymphocytes % (auto) 36.9 %; Mean Corpuscular Hemoglobin 32.3 pg (25-34); Mean Corpuscular Hgb Conc 31.7 g/dL (32-36); Mean Corpuscular Volume 101.7 fL (80-100); Mean Platelet Volume 9.9 fL (7.4-10.4); Monocytes % (auto) 12.8 %; Neutrophils % (auto) 43.2 %; Platelet Count 118 K/uL (130-400); RDW Coefficient of Variation 14.2 % (11.5-14.5); RDW Standard Deviation 52.7 fL (36.4-46.3); Red Blood Count 4.06 M/uL (4.2-5.4); White Blood Count 6.24 K/uL (4.8-10.8)
[2019-01-10 09:01] LABS: BUN Creatinine Ratio 19.4 (10-20); Calcium 8.8 mg/dl (8.5-10.1); Creatinine Clr Calc Pharmacy 121.4 ml/min; Est GFR (African American) 113.3; Est GFR (Non-African American) 97.7; Potassium 3.9 mmol/L (3.5-5.1)
[2019-01-10] MEDS: CIPROFLOXACIN 400 MG/200 ML BAG IV SCH ×2 (10:39→21:57)
[2019-01-10] MEDS: LACOSAMIDE 100 MG in SODIUM CHLORIDE 0.9% 50 ML IV SCH (11:38)
[2019-01-10] MEDS: DOCUSATE SODIUM 100 MG CAP PO SCH ×2 (13:10→20:21)
[2019-01-10] MEDS: ASPIRIN 81 MG ECTAB PO SCH (13:11)
[2019-01-10] MEDS: POLYETHYLENE (MIRALAX) 17 GM PACK PO SCH ×2 (13:11→20:20)
[2019-01-10] MEDS: PRAVASTATIN SOD 20 MG TAB PO SCH (13:11)
[2019-01-10] MEDS: ASCORBIC ACID 500 MG TAB PO SCH ×2 (13:11→20:20)
[2019-01-10] MEDS: DULOXETINE HCL 60 MG CAP PO SCH (13:11)
--- NOTE | 2019-01-10 14:01 | Neurology Progress Note ---
Date of Service January 10, 2019 Assessment & Plan (1) Altered mental status: 1. folic acid, b12 WNL 2. depakote level ok 3. correct any metabolic issues 4. MRI brain - no acute findings. 5. likely multi factorial and combined with failure to thrive 6. amiodarone interactions- as follows cipro and cymbalta contraindicated due to risk of torsades. also vimpat can decreased heart rate. discussed with internal medicine PAC- amiodarone has been stopped. 7. orthostatic blood pressures as able 8. UTI - treat to culture (2) Seizure disorder: 1. continue Vimpat 100 mg BID and Depakote 500 mg BID for now 2. depakote level 01/07- 3. 72 hour EEG order as out patient 01/16/2019 and follow up with Dr Scherer 05/04/2019 but may need to be transferred for [place]TM at [facility] [facility] to sort out if the episode are seizure events. 4. EEG- pending read. unable to access remotely 5. ok to discharge once medically stable. -PT/OT recommending inpt rehab follow up as plan per Dr Scherer with EEG 72 hours as scheduled. Supervising Physician Co-Signing Physician Notes I have seen and discussed above patient with Dr Kusum Marquis, neurology. Pt awake and alert. No fixed gaze pref. LUE trace LLE possibly 2/5. RUE RLE full. Mild resting tremor with decreased blink frequency. EEG diffuse slowing moreso on R ( CW her stroke). No new infarct seen on MRI. Multiple med changes and decreased. Cause of pt gradual decline over several months unclear. Monitor, ambulatory EEG as outpt. MCEKNZIE Marquis MD Dallin Rivero is a 68 year old female with PMH- CVA in 2011, left spastic hemiparesis, DIANNE, morbid obesity, hypothyroidism, seizure disorder, AF, HLD, HTN, GERD who was brought by her family due to MS change and seizure. She had CVA in 2011 and that left significant sequela but before these episodes patient was able to feed herself which she is not able anymore and has had a decline over the past [address] Scherer in our office and at that time her Depakote was decreased to 500mg BID and her Vimpat was increased to 100 mg BID to try to reduce sedation. She responds with a smile but does not talk much. She has been incontinent since the stroke but it has gotten worse. She is checked by her wound care at home and she has decubitus ulcers and right big toe wound which is in healing process. There has been no fever chills headache chest pain shortness of breath abdominal pain frequency urgency hematuria dysuria hematemesis. She is sleepy but has eaten her meals without swallowing issues. . There is no family in the room. denies CP, SOB, abdominal pain, +left sided weakness Physical Exam Physical Exam: Gen: alert with voice command- "I'm tired" lungs Course breath sounds CV RRR squeezes with right hand left hand minimal movement and contracture of digits left sided facial droop oriented to [facility], 2019 Results & Data Vital Signs (Past 12 Hours) Vital Signs Temp Pulse Pulse Resp BP BP Pulse Ox 01/10/19 13:17 97 H 111/69 01/10/19 13:16 97 H 111/69 01/10/19 11:34 36.8 C 68 16 102/69 94 01/10/19 08:52 78 16 102/68 96 01/10/19 06:39 36.6 C 86 18 107/68 97 01/10/19 05:06 87 99/68 L 99/68 L 01/10/19 03:52 36.4 C L 87 18 101/66 98 Laboratory Results Abnormal lab results 01/09/19 01/10/19 01/10/19 Range/Units 20:45 08:19 08:19 RBC 4.06 L (4.2-5.4) M/uL MCV 101.7 H (80-100) fL MCHC 31.7 L (32-36) g/dL RDW Std Deviation 52.7 H (36.4-46.3) fL Plt Count 118 L (130-400) K/uL [place] # (Auto) 0.80 H (0.11-0.59) K/uL Creatinine 0.55 L (0.6-1.2) mg/dl Urine Appearance Turbid A (Clear) Urine pH 8.5 H (4.5-7.5) Urine Blood 1+ H (Negative) Ur Leukocyte Esterase 3+ H (Negative) Urine WBC (Auto) >30 H (0-5) /hpf Urine RBC (Auto) 5-10 H (0-4) /hpf U Epithel Cells (Auto) 5-10 H (0-5) /lpf Urine Bacteria (Auto) 2+ H (Negative) (1) Altered mental status Altered mental status type: unspecified Qualified Code(s): R41.82 - Altered mental status, unspecified
--- NOTE | 2019-01-10 14:18 | Hospitalist Progress Note ---
Date of Service January 10, 2019 Assessment & Plan (1) Altered mental status: Continue to monitor on telemetry- hx CVA 2011 secondary to atrial fibrillation- patient's amiodarone discontinued - continue metoprolol and Xeralto Head CT, CTA head and neck, MRI head without acute abnormalities ECHO without regional wall motion abnormality. EF 50-55%. Mild LVH US Venous Doppler without DVT B12, Folate wnl UA negative EEG ordered- pending Neurology Consult- follows with Dr. Scherer outpatient - ?increased seizure activity with decreased Depakote vs orthostatic event * Continue home medicine as adjusted but per /divalproex ER 1000mg, Vimpat 100mg BID--> Repeat valproic acid wnl at 78 * Discussed cymbalta with neurology - will resume homeddosing * amiodarone does not seem to contribute much to rhythm control, not much rate control either--> amiodarone was discontinued and metoprolol was increased to gain better rate control * Per conversation with Neurology, recommendation for outpatient 72hour EEG if EEG in AM without seizure activity Vimpat and Depakote changed to IV as patient is refusing po medications. Will order cxr and blood cultures to assess for other reasons for AMS - patient is growing gram negative bacilli in her urine despite ongoing cipro treatment Neuro would like patient to have ambulatory EEG after discharge (2) Seizure as late effect of cerebrovascular accident (CVA): As above (3) Osteomyelitis: Osteomyelitis of Right Great Toe Patient has been seen by Dr. Hernandez previously with rec for amputation, family declined Cultures + for pseudomonas on 12/08/18. Patient initially treated with Levaquin and was switched to Cipro by Dr. Boswell as outpatient for osteomyelitis - will change to IV cipro as patient is refusing po medications QTC wnl on EKG 01/08 (4) GERD (gastroesophageal reflux disease): Continue ranitidine 150 mg p.o. twice daily (5) DIANNE (obstructive sleep apnea): Patient unable to tolerate CPAP- per family, patient on 6L via NC at night - per chart she has not required O2 at night (6) Chronic constipation: KUB with moderate stool burden- Resolved 01/07 with bowel regimen of docusate sodium 100 mg p.o. Continue prn miralax (7) Hypothyroidism: Elevated TSH to 5.3 but free T4 normal 1.52 on admission--> TSH elevated this morning at 11.3 Continue home dose of levothyroxine 75 MCG's QHS for now- continue to monitor recheck outpatient in a few weeks (8) Atrial fibrillation: Continue Xarelto increased evening metoprolol from 25mg to 50mg PO - continue to hold and give IV metoprolol as patient is refusing po medications discontinued Amiodarone continue ASA 81mg (9) Hyperlipidemia: Continue pravastatin 20 mg p.o. nightly (10) Hypertension: Metoprolol succinate increased to 50 mg p.o. nightly for better rate control - on hold as above ASA 81mg Patient is full code per family request. Dispo: uncertain - with patient's confusion she is refusing po medications so cannot discharge at this time as she is requiring IV seizure medications and heart rate control. PT/OT recommending SNF Subjective Ms. Julio continues to be confused with lethargy at times. She continues to refuse po medications. Review of Systems Review of Systems: All systems reviewed & are unremarkable except as noted in HPI & below Physical Exam Physical Exam: General: no distress Eyes: normal inspection, PERLL Respiratory: chest non tender, clear to auscultation, normal breath sounds, no respiratory distress, no accessory muscle use Cardiac: regular rate and rhythm, no rub or gallop, no murmur, no edema, no jvd GI/: active bowel sounds, no abd pain or tenderness, soft, non distended Extremities: normal range of motion, normal strength, non tender Neuro/Psych: alert and oriented x 3, normal mood and affect Skin: normal color, dry Results & Data Vital Signs (Past 12 Hours) Vital Signs Temp Pulse Pulse Resp BP BP Pulse Ox 01/10/19 13:17 97 H 111/69 01/10/19 13:16 97 H 111/69 01/10/19 11:34 36.8 C 68 16 102/69 94 01/10/19 08:52 78 16 102/68 96 01/10/19 06:39 36.6 C 86 18 107/68 97 01/10/19 05:06 87 99/68 L 99/68 L 01/10/19 03:52 36.4 C L 87 18 101/66 98 PG Care Time/CCT Total # of Minutes Spent Total Time Spent with Patient: Total time spent is greater than 50% in coordination of care (as documented) at patient's floor/unit and/or counseling patient: (1) Altered mental status Altered mental status type: unspecified Qualified Code(s): R41.82 - Altered mental status, unspecified (2) Osteomyelitis Osteomyelitis type: other chronic Osteomyelitis location: foot Laterality: right Qualified Code(s): M86.671 - Other chronic osteomyelitis, right ankle and foot (3) Hypothyroidism Hypothyroidism type: acquired Qualified Code(s): E03.9 - Hypothyroidism, unspecified (4) Atrial fibrillation Atrial fibrillation type: paroxysmal Qualified Code(s): I48.0 - Paroxysmal atrial fibrillation (5) Hyperlipidemia Hyperlipidemia type: other hyperlipidemia Qualified Code(s): E78.4 - Other hyperlipidemia (6) Hypertension Hypertension type: essential hypertension Qualified Code(s): I10 - Essential (primary) hypertension
--- NOTE | 2019-01-10 14:37 | XRay Report ---
XR chest 1V portable CLINICAL HISTORY: Acute change in mental status COMPARISON STUDY: 01/04/2019 FINDINGS: The cardiac and mediastinal contours are normal. There is no evidence of focal pulmonary co nsolidation. There is no evidence of failure. No pleural effusions are visualized.[There is an old pr oximal left humeral fracture. IMPRESSION: No active disease in the chest. Electronically signed by: Barrington Schofield M.D. 01/10/2019 2:36 PM
--- NOTE | 2019-01-10 16:07 | Electroencephalogram ---
EEG Procedure Note Date of Service January 10, 2019 Start / End Times Start Time: 09:35 End Time: 09:[address] London De La Cruz History A 68 year old woman with prior right MCA stroke admitted with encephalopathy. EEG performed for evaluation of epileptiform activity. Home Medication List Home Medications Medication Instructions Recorded Confirmed Type amiodarone 200 mg PO QAM 12/16/17 01/04/19 History ascorbic acid (vitamin C) 500 mg PO BID 12/16/17 01/04/19 History coenzyme Q10 200 mg PO BID 12/16/17 01/04/19 History cranberry 400 mg PO HS 12/16/17 01/04/19 History docusate sodium 100 mg PO BID 12/16/17 01/04/19 History furosemide 20 mg PO DAILY PRN 12/16/17 01/04/19 History levothyroxine 75 mcg PO QAM 12/16/17 01/04/19 History pravastatin 20 mg PO QAM 12/16/17 01/04/19 History ranitidine HCl 150 mg PO BID 12/16/17 01/04/19 History acetaminophen [Mapap 650 mg PO Q6 PRN #30 tab 12/28/17 01/04/19 Rx (acetaminophen)] metoprolol succinate 25 mg PO HS 01/12/18 01/04/19 History polyethylene glycol 3350 [Miralax] 17 g PO BID 01/12/18 01/04/19 History ciprofloxacin 750 mg tablet 750 mg PO BID #60 tab 12/28/18 01/04/19 Rx Bio Cleanse 1 tab PO QAM 01/04/19 01/04/19 History Lactobacillus acidophilus 1 cell PO HS 01/04/19 01/04/19 History [Probiotic] divalproex 500 mg PO BID 01/04/19 01/04/19 History duloxetine 60 mg PO QAM 01/04/19 01/04/19 History lacosamide [Vimpat] 100 mg PO BID 01/04/19 01/04/19 History rivaroxaban [Xarelto] 20 mg PO HS 01/04/19 01/04/19 History Inpatient Medication List Ascorbic Acid (Vitamin C) 500 mg PO BID MIGUEL Stop: 02/03/19 21:54 Last Admin: 01/10/19 13:11 Dose: Not Given Documented by: [id number] Admin: 01/09/19 20:07 Dose: 500 mg Documented by: [id number] Admin: 01/09/19 10:57 Dose: Not Given Documented by: [id number] Admin: 01/08/19 20:33 Dose: 500 mg Documented by: [id number] Admin: 01/08/19 08:20 Dose: 500 mg Documented by: [id number] Admin: 01/07/19 22:17 Dose: 500 mg Documented by: [id number] Admin: 01/07/19 08:34 Dose: 500 mg Documented by: [id number] Admin: 01/06/19 20:32 Dose: 500 mg Documented by: [id number] Admin: 01/06/19 08:56 Dose: 500 mg Documented by: [id number] Admin: 01/05/19 19:55 Dose: 500 mg Documented by: [id number] Admin: 01/05/19 10:22 Dose: 500 mg Documented by: [id number] Admin: 01/04/19 23:34 Dose: 500 mg Documented by: [id number] Aspirin (Ecotrin Ectab) 81 mg PO QAM MIGUEL Stop: 02/04/19 08:59 Last Admin: 01/10/19 13:11 Dose: Not Given Documented by: [id number] Admin: 01/09/19 10:56 Dose: Not Given Documented by: [id number] Admin: 01/08/19 08:19 Dose: 81 mg Documented by: [id number] Admin: 01/07/19 08:34 Dose: 81 mg Documented by: [id number] Admin: 01/06/19 08:56 Dose: 81 mg Documented by: [id number] Admin: 01/05/19 10:21 Dose: 81 mg Documented by: [id number] Divalproex Sodium (Depakote Extended Release) 500 mg PO BID MIGUEL Stop: 02/03/19 21:54 Last Admin: 01/09/19 11:00 Dose: Not Given Documented by: [id number] Admin: 01/08/19 20:32 Dose: 500 mg Documented by: [id number] Admin: 01/08/19 08:19 Dose: 500 mg Documented by: [id number] Admin: 01/07/19 22:19 Dose: 500 mg Documented by: [id number] Admin: 01/07/19 08:34 Dose: 500 mg Documented by: [id number] Admin: 01/06/19 20:33 Dose: 500 mg Documented by: [id number] Admin: 01/06/19 08:56 Dose: 500 mg Documented by: [id number] Admin: 01/05/19 19:54 Dose: 500 mg Documented by: [id number] Admin: 01/05/19 10:18 Dose: 500 mg Documented by: [id number] Admin: 01/04/19 23:31 Dose: 500 mg Documented by: [id number] Docusate Sodium (Colace) 100 mg PO BID MIGUEL Stop: 02/03/19 21:54 Last Admin: 01/10/19 13:10 Dose: Not Given Documented by: [id number] Admin: 01/09/19 20:06 Dose: 100 mg Documented by: [id number] Admin: 01/09/19 10:56 Dose: Not Given Documented by: [id number] Admin: 01/08/19 20:32 Dose: 100 mg Documented by: [id number] Admin: 01/08/19 08:20 Dose: Not Given Documented by: [id number] Admin: 01/07/19 22:18 Dose: 100 mg Documented by: [id number] Admin: 01/07/19 08:34 Dose: 100 mg Documented by: [id number] Admin: 01/06/19 20:31 Dose: 100 mg Documented by: [id number] Admin: 01/06/19 11:09 Dose: 100 mg Documented by: [id number] Admin: 01/05/19 20:07 Dose: 100 mg Documented by: [id number] Admin: 01/05/19 10:26 Dose: 100 mg Documented by: [id number] Admin: 01/04/19 23:32 Dose: 100 mg Documented by: [id number] Duloxetine HCl (Cymbalta) 60 mg PO QAM MIGUEL Stop: 02/09/19 08:59 Last Admin: 01/10/19 13:11 Dose: Not Given Documented by: [id number] Gadobutrol (Gadavist 65ml) 9.5 ml IV ONCE PRN PRN Reason: Interaction Checking Stop: 01/10/19 18:37 Last Admin: 01/06/19 18:39 Dose: 9.5 ml Documented by: [id number] Valproic Acid 250 mg/ Dextrose 52.5 mls @ 55 mls/hr IV Q6H MIGUEL Stop: 02/08/19 10:59 Last Infusion: 01/10/19 11:38 Dose: 0 mls/hr Documented by: [id number] Admin: 01/10/19 10:40 Dose: 55 mls/hr Documented by: [id number] Infusion: 01/10/19 05:05 Dose: 0 mls/hr Documented by: [id number] Admin: 01/10/19 04:08 Dose: 55 mls/hr Documented by: [id number] Infusion: 01/09/19 23:30 Dose: 0 mls/hr Documented by: [id number] Admin: 01/09/19 22:32 Dose: 55 mls/hr Documented by: [id number] Infusion: 01/09/19 19:45 Dose: 0 mls/hr Documented by: [id number] Admin: 01/09/19 18:32 Dose: 55 mls/hr Documented by: [id number] Infusion: 01/09/19 13:10 Dose: 0 mls/hr Documented by: [id number] Admin: 01/09/19 12:20 Dose: 55 mls/hr Documented by: [id number] Lacosamide 100 mg/ Sodium (Chloride) 60 mls @ 60 mls/hr IV Q12H MIGUEL Stop: 02/08/19 11:14 Last Infusion: 01/10/19 13:12 Dose: 0 mls/hr Documented by: [id number] Admin: 01/10/19 11:38 Dose: 60 mls/hr Documented by: [id number] Infusion: 01/10/19 00:34 Dose: 0 mls/hr Documented by: [id number] Admin: 01/09/19 23:34 Dose: 60 mls/hr Documented by: [id number] Infusion: 01/09/19 14:10 Dose: 0 mls/hr Documented by: [id number] Admin: 01/09/19 13:09 Dose: 60 mls/hr Documented by: [id number] Ciprofloxacin (Cipro) 400 mg in 200 mls @ 100 mls/hr IV Q12H MIGUEL; Protocol Stop: 01/19/19 22:59 Last Infusion: 01/10/19 12:40 Dose: 0 mls/hr Documented by: [id number] Admin: 01/10/19 10:39 Dose: 100 mls/hr Documented by: [id number] Infusion: 01/10/19 01:25 Dose: 0 mls/hr Documented by: [id number] Admin: 01/09/19 23:25 Dose: 100 mls/hr Documented by: [id number] Lacosamide (Vimpat) 100 mg PO BID MIGUEL Stop: 02/03/19 21:54 Last Admin: 01/09/19 11:37 Dose: Not Given Documented by: [id number] Admin: 01/08/19 20:34 Dose: 100 mg Documented by: [id number] Admin: 01/08/19 08:19 Dose: 100 mg Documented by: [id number] Admin: 01/07/19 22:19 Dose: 100 mg Documented by: [id number] Admin: 01/07/19 08:34 Dose: 100 mg Documented by: [id number] Admin: 01/06/19 20:32 Dose: 100 mg Documented by: [id number] Admin: 01/06/19 08:57 Dose: 100 mg Documented by: [id number] Admin: 01/05/19 19:54 Dose: 100 mg Documented by: [id number] Admin: 01/05/19 10:18 Dose: 100 mg Documented by: [id number] Admin: 01/04/19 23:35 Dose: 100 mg Documented by: [id number] Levothyroxine Sodium (Synthroid) 75 mcg PO DAILYBB MIGUEL Stop: 02/04/19 06:29 Last Admin: 01/10/19 05:47 Dose: 75 mcg Documented by: [id number] Admin: 01/09/19 05:52 Dose: 75 mcg Documented by: [id number] Admin: 01/08/19 05:54 Dose: 75 mcg Documented by: [id number] Admin: 01/07/19 05:40 Dose: 75 mcg Documented by: [id number] Admin: 01/06/19 05:47 Dose: Not Given Documented by: [id number] Admin: 01/05/19 07:26 Dose: 75 mcg Documented by: [id number] Metoprolol Succinate (Toprol Xl) 50 mg PO HS MIGUEL Stop: 02/05/19 20:59 Last Admin: 01/08/19 20:33 Dose: 50 mg Documented by: [id number] Admin: 01/07/19 22:18 Dose: Not Given Documented by: [id number] Admin: 01/06/19 20:31 Dose: 50 mg Documented by: [id number] Metoprolol Tartrate (Lopressor) 5 mg IV Q6 MIGUEL Stop: 02/08/19 11:59 Last Admin: 01/10/19 13:17 Dose: 5 mg Documented by: [id number] Admin: 01/10/19 05:06 Dose: Not Given Documented by: [id number] Admin: 01/09/19 23:25 Dose: 5 mg Documented by: [id number] Admin: 01/09/19 19:30 Dose: 5 mg Documented by: [id number] Admin: 01/09/19 11:38 Dose: 5 mg Documented by: [id number] Polyethylene Glycol (Miralax Powder Packet) 17 gm PO BID MIGUEL Stop: 02/03/19 21:54 Last Admin: 01/10/19 13:11 Dose: Not Given Documented by: [id number] Admin: 01/09/19 20:08 Dose: 17 gm Documented by: [id number] Admin: 01/09/19 10:56 Dose: Not Given Documented by: [id number] Admin: 01/08/19 20:32 Dose: 17 gm Documented by: [id number] Admin: 01/08/19 08:21 Dose: Not Given Documented by: [id number] Admin: 01/07/19 22:20 Dose: Not Given Documented by: [id number] Admin: 01/07/19 08:33 Dose: 17 gm Documented by: [id number] Admin: 01/06/19 20:33 Dose: 17 gm Documented by: [id number] Admin: 01/06/19 08:55 Dose: 17 gm Documented by: [id number] Admin: 01/05/19 19:53 Dose: 17 gm Documented by: [id number] Admin: 01/05/19 10:38 Dose: 17 gm Documented by: [id number] Admin: 01/04/19 23:32 Dose: 17 gm Documented by: [id number] Pravastatin Sodium (Pravachol) 20 mg PO QAM MIGUEL Stop: 02/04/19 08:59 Last Admin: 01/10/19 13:11 Dose: Not Given Documented by: [id number] Admin: 01/09/19 10:57 Dose: Not Given Documented by: [id number] Admin: 01/08/19 08:20 Dose: 20 mg Documented by: [id number] Admin: 01/07/19 08:34 Dose: 20 mg Documented by: [id number] Admin: 01/06/19 11:09 Dose: 20 mg Documented by: [id number] Admin: 01/05/19 10:22 Dose: 20 mg Documented by: [id number] Ranitidine HCl (Zantac) 150 mg PO BID MIGUEL Stop: 02/03/19 21:54 Last Admin: 01/10/19 13:11 Dose: Not Given Documented by: [id number] Admin: 01/09/19 20:07 Dose: 150 mg Documented by: [id number] Admin: 01/09/19 10:57 Dose: Not Given Documented by: [id number] Admin: 01/08/19 20:34 Dose: 150 mg Documented by: [id number] Admin: 01/08/19 08:19 Dose: 150 mg Documented by: [id number] Admin: 01/07/19 22:18 Dose: 150 mg Documented by: [id number] Admin: 01/07/19 08:34 Dose: 150 mg Documented by: [id number] Admin: 01/06/19 20:32 Dose: 150 mg Documented by: [id number] Admin: 01/06/19 08:56 Dose: 150 mg Documented by: [id number] Admin: 01/05/19 20:51 Dose: 150 mg Documented by: [id number] Admin: 01/05/19 10:24 Dose: 150 mg Documented by: [id number] Admin: 01/04/19 23:32 Dose: 150 mg Documented by: [id number] Rivaroxaban (Xarelto) 20 mg PO HS [facility] Stop: 02/03/19 21:54 Last Admin: 01/09/19 20:07 Dose: 20 mg Documented by: [id number] Admin: 01/08/19 20:34 Dose: 20 mg Documented by: [id number] Admin: 01/07/19 22:18 Dose: 20 mg Documented by: [id number] Admin: 01/06/19 20:32 Dose: 20 mg Documented by: [id number] Admin: 01/05/19 19:54 Dose: 20 mg Documented by: [id number] Admin: 01/04/19 23:34 Dose: 20 mg Documented by: [id number] Discontinued Medications Acetaminophen (Tylenol) 650 mg PO NOW STA Stop: 01/05/19 19:49 Last Admin: 01/05/19 19:55 Dose: Not Given Documented by: [id number] Acetaminophen (Tylenol) Confirm Administered Dose 650 mg .ROUTE .STK-MED ONE Stop: 01/05/19 19:51 Last Admin: 01/05/19 19:53 Dose: 650 mg Documented by: [id number] Amiodarone HCl (Cordarone) 200 mg PO QAM MIGUEL Stop: 02/04/19 08:59 Last Admin: 01/07/19 08:34 Dose: 200 mg Documented by: [id number] Admin: 01/06/19 08:56 Dose: 200 mg Documented by: [id number] Admin: 01/05/19 10:14 Dose: 200 mg Documented by: [id number] Ciprofloxacin (Cipro) 750 mg PO BID MIGUEL Stop: 02/03/19 21:54 Last Admin: 01/09/19 11:01 Dose: Not Given Documented by: [id number] Admin: 01/08/19 20:31 Dose: 750 mg Documented by: [id number] Admin: 01/08/19 08:19 Dose: 750 mg Documented by: [id number] Admin: 01/07/19 22:19 Dose: 750 mg Documented by: [id number] Admin: 01/07/19 08:35 Dose: 750 mg Documented by: [id number] Admin: 01/06/19 20:32 Dose: 750 mg Documented by: [id number] Admin: 01/06/19 08:57 Dose: 750 mg Documented by: [id number] Admin: 01/05/19 19:53 Dose: 750 mg Documented by: [id number] Admin: 01/05/19 10:13 Dose: 750 mg Documented by: [id number] Admin: 01/04/19 23:34 Dose: 750 mg Documented by: [id number] Duloxetine HCl (Cymbalta) 60 mg PO QAM MIGUEL Stop: 02/04/19 08:59 Last Admin: 01/05/19 10:26 Dose: 60 mg Documented by: [id number] Duloxetine HCl (Cymbalta) 40 mg PO QAM MIGUEL Stop: 02/05/19 08:59 Last Admin: 01/09/19 13:02 Dose: Not Given Documented by: [id number] Admin: 01/08/19 08:19 Dose: 40 mg Documented by: [id number] Admin: 01/07/19 08:33 Dose: 40 mg Documented by: [id number] Admin: 01/06/19 13:05 Dose: 40 mg Documented by: [id number] Sodium Chloride (Nss 1000ml) 1,000 mls @ 999 mls/hr IV .Q1H1M MIGUEL Stop: 01/04/19 15:30 Last Infusion: 01/04/19 16:20 Dose: 0 mls/hr Documented by: [id number] Admin: 01/04/19 15:11 Dose: 999 mls/hr Documented by: [id number] Sodium Chloride (Nss 1000ml) 1,000 mls @ 125 mls/hr IV .Q8H MIGUEL Stop: 02/03/19 18:14 Last Admin: 01/04/19 22:21 Dose: Not Given Documented by: [id number] Lactated Ringer's (Lr) 1,000 mls @ 80 mls/hr IV .[id number] MIGUEL Stop: 02/05/19 23:14 Last Infusion: 01/09/19 23:42 Dose: 0 mls/hr Documented by: [id number] Infusion: 01/09/19 20:05 Dose: 0 mls/hr Documented by: [id number] Admin: 01/09/19 14:46 Dose: 80 mls/hr Documented by: [id number] Infusion: 01/09/19 14:46 Dose: 80 mls/hr Documented by: [id number] Infusion: 01/09/19 14:37 Dose: 80 mls/hr Documented by: [id number] Infusion: 01/09/19 12:20 Dose: 0 mls/hr Documented by: [id number] Admin: 01/09/19 01:38 Dose: 80 mls/hr Documented by: [id number] Infusion: 01/09/19 01:22 Dose: 80 mls/hr Documented by: [id number] Admin: 01/08/19 12:52 Dose: 80 mls/hr Documented by: [id number] Infusion: 01/08/19 12:32 Dose: 80 mls/hr Documented by: [id number] Admin: 01/08/19 00:02 Dose: 80 mls/hr Documented by: [id number] Infusion: 01/08/19 00:02 Dose: 80 mls/hr Documented by: [id number] Admin: 01/07/19 12:25 Dose: 80 mls/hr Documented by: [id number] Infusion: 01/07/19 12:18 Dose: 80 mls/hr Documented by: [id number] Admin: 01/06/19 23:48 Dose: 80 mls/hr Documented by: [id number] Ciprofloxacin (Cipro) 400 mg in 200 mls @ 100 mls/hr IV Q12H MIGUEL; Protocol Stop: 01/19/19 10:59 Last Infusion: 01/09/19 13:40 Dose: 0 mls/hr Documented by: [id number] Admin: 01/09/19 11:39 Dose: 100 mls/hr Documented by: [id number] Influenza Virus Vaccine Quadrival (Flucelvax Quad Vaccine) 0.5 ml IM .ONCE ONE Stop: 01/05/19 09:01 Last Admin: 01/08/19 11:25 Dose: 0.5 ml Documented by: [id number] Cosigned by: [id number] Ioversol (Optiray 320 125ml) 116 ml IV ONCE PRN PRN Reason: Interaction Checking Stop: 01/08/19 22:46 Last Admin: 01/04/19 22:47 Dose: 1 ml Documented by: [id number] Lorazepam (Ativan) 0.5 mg PO NOW STA Stop: 01/06/19 12:52 Last Admin: 01/06/19 17:28 Dose: 0.5 mg Documented by: [id number] Lorazepam (Ativan) Confirm Administered Dose 0.5 mg .ROUTE .STK-MED ONE Stop: 01/06/19 17:28 Last Admin: 01/06/19 17:37 Dose: Not Given Documented by: [id number] Metoprolol Succinate (Toprol Xl) 25 mg PO HS MIGUEL Stop: 02/03/19 21:54 Last Admin: 01/05/19 20:51 Dose: 25 mg Documented by: [id number] Admin: 01/04/19 23:31 Dose: 25 mg Documented by: [id number] Sodium Biphosphate/Sodium Phosphate (Fleet Enema) 132 ml [place] NOW STA Stop: 01/05/19 02:03 Last Admin: 01/05/19 02:33 Dose: 132 ml Documented by: [id number] Description This is a 21 electrode EEG with a single channel dedicated to limited EKG. The electrodes were placed in accordance with the International 10-20 system. REPORT: At the onset of the EEG the patient is in an altered mental state. The posterior dominant rhythm is not well seen. Instead the background is asymmetric predominantly consisting of 3-5 Hz theta delta activity with intermittent faster activity with increased focal slowing on the right maximal in the parasagital head region. Photic stimulation does not elicit any additional abnormalities. IMPRESSION: This is an abnormal EEG in a patient with altered mentation due to 1. Diffuse background slowing suggestive of a non specific encephalopathy, 2.Focal slowing on the right consistent with patient prior history of stroke. No epileptiform discharges or seizures are recorded.
[2019-01-10] MEDS: RIVAROXABAN 20 MG TAB PO SCH (20:21)
[2019-01-11] MEDS: LACOSAMIDE 100 MG in SODIUM CHLORIDE 0.9% 50 ML IV SCH ×3 (00:11→23:21)
[2019-01-11] MEDS: METOPROLOL TARTRATE 1 MG/ML VIAL IV SCH ×4 (00:34→18:10)
[2019-01-11] MEDS: VALPROATE SOD 250 MG in DEXTROSE 5% 50 ML IV SCH ×4 (05:20→23:51)
[2019-01-11] MEDS: LEVOTHYROXINE SODIUM 75 MCG TABLET PO SCH (06:11)
[2019-01-11] MEDS ORDERED: ERTAPENEM SODIUM 1,000 MG in SODIUM CHLORIDE 0.9% 50 ML IV SCH (08:15)
[2019-01-11] MEDS: DULOXETINE HCL 60 MG CAP PO SCH (09:23)
[2019-01-11] MEDS: PRAVASTATIN SOD 20 MG TAB PO SCH (09:25)
[2019-01-11] MEDS: POLYETHYLENE (MIRALAX) 17 GM PACK PO SCH ×2 (09:26→20:20)
[2019-01-11] MEDS: ASCORBIC ACID 500 MG TAB PO SCH ×2 (09:26→20:18)
[2019-01-11] MEDS: DOCUSATE SODIUM 100 MG CAP PO SCH ×2 (09:26→20:18)
[2019-01-11] MEDS: ASPIRIN 81 MG ECTAB PO SCH (09:26)
[2019-01-11] MEDS ORDERED: PIPERACILLIN/TAZOBACTAM 3.375 GM in DEXTROSE 5% 100 ML IV ONE (09:45)
--- NOTE | 2019-01-11 14:06 | Neurology Progress Note ---
Date of Service January 11, 2019 Assessment & Plan (1) Altered mental status: 1. folic acid, b12 WNL 2. depakote level ok 3. correct any metabolic issues 4. MRI brain - no acute findings. 5. likely multi factorial and combined with failure to thrive 6. amiodarone interactions- as follows cipro and cymbalta contraindicated due to risk of torsades. also vimpat can decreased heart rate. discussed with internal medicine PAC- amiodarone has been stopped. 7. orthostatic blood pressures as able 8. UTI - treat to culture- now >100,000 ecoli culture and ESBL now on isolation (2) Seizure disorder: 1. continue Vimpat 100 mg BID and Depakote 500 mg BID for now 2. depakote level 01/07- 3. 72 hour EEG order as out patient 01/16/2019 and follow up with Dr Scherer 05/04/2019 but may need to be transferred for [place] [facility] [place] [facility] [place] to sort out if the episode are seizure events. 4. EEG- pending read. unable to access remotely 5. ok to discharge once medically stable. -PT/OT recommending inpt rehab follow up as plan per Dr Scherer with EEG 72 hours as scheduled. Supervising Physician Co-Signing Physician Notes I have discussed above patient with Dr Kusum Marquis, neurology. Pt apparently sleepier today without new focality. Attributed to UTI. No known sz activity. Will follow with you. Pt needs ambulatory eeg as outpt. MCKENZIE Marquis MD Dallin Rivero is a 68 year old female with PMH- CVA in 2011, left spastic hemiparesis, DIANNE, morbid obesity, hypothyroidism, seizure disorder, AF, HLD, HTN, GERD who was brought by her family due to MS change and seizure. She had CVA in 2011 and that left significant sequela but before these episodes patient was able to feed herself which she is not able anymore and has had a decline over the past [address] Scherer in our office and at that time her Depakote was decreased to 500mg BID and her Vimpat was increased to 100 mg BID to try to reduce sedation. She responds with a smile but does not talk much. She has been incontinent since the stroke but it has gotten worse. She is checked by her wound care at home and she has decubitus ulcers and right big toe wound which is in healing process. There has been no fever chills headache chest pain shortness of breath abdominal pain frequency urgency hematuria dysuria hematemesis. She is sleepy but more lethargic today. There is no family in the room. denies CP, SOB, abdominal pain, +left sided weakness Physical Exam Physical Exam: Gen: alert NAD lungs course breath sounds CV RRR minimal movement left hand, squeezes in right hand lifts off bed Results & Data Vital Signs (Past 12 Hours) Vital Signs Temp Pulse Pulse Resp BP BP Pulse Ox 01/11/19 12:06 87 110/67 01/11/19 11:30 37.1 C 87 16 100/67 96 01/11/19 07:33 36.5 C 93 H 16 102/74 01/11/19 06:10 97 H 97 H 93/60 L 93/60 L 01/11/19 03:41 36.7 C 90 18 95/66 L 96 Laboratory Results Abnormal lab results 01/11/19 Range/Units 05:43 Ammonia 37.8 H (11-32) umol/L Diagnostic Findings EEG- This is an abnormal EEG in a patient with altered mentation previous stroke and infection. Diffuse background slowing suggestive of a non specific encephalopathy, 2.Focal slowing on the right consistent with patient prior history of stroke. No epileptiform discharges or seizures are recorded. (1) Altered mental status Altered mental status type: unspecified Qualified Code(s): R41.82 - Altered mental status, unspecified
--- NOTE | 2019-01-11 15:43 | Hospitalist Progress Note ---
Date of Service January 11, 2019 Assessment & Plan (1) Altered mental status: Continue to monitor on telemetry- hx CVA 2011 secondary to atrial fibrillation- patient's amiodarone discontinued - continue metoprolol and Xeralto Head CT, CTA head and neck, MRI head without acute abnormalities ECHO without regional wall motion abnormality. EF 50-55%. Mild LVH US Venous Doppler without DVT B12, Folate wnl UA negative EEG ordered- pending Neurology Consult- follows with Dr. Shcerer outpatient - ?increased seizure activity with decreased Depakote vs orthostatic event * Continue home medicine as adjusted but per /divalproex ER 1000mg, Vimpat 100mg BID--> Repeat valproic acid wnl at 78 * Discussed cymbalta with neurology - will resume home dosing * amiodarone does not seem to contribute much to rhythm control, not much rate control either--> amiodarone was discontinued and metoprolol was increased to gain better rate control * Per conversation with Neurology, recommendation for outpatient 72hour EEG if EEG in AM without seizure activity Vimpat and Depakote changed to IV as patient has been refusing po medications over the last couple of days. However, today she has been taking po meds. Will change her seizure meds back to po tomorrow if she continues to take her meds Patient is growing E. Coli ESBL in her urine which could be contributing to her encephalopathy Neuro would like patient to have ambulatory EEG after discharge (2) Seizure as late effect of cerebrovascular accident (CVA): As above (3) Osteomyelitis: Osteomyelitis of Right Great Toe Patient has been seen by Dr. Hernandez previously with rec for amputation, family declined Cultures + for pseudomonas on 12/08/18. Patient initially treated with Levaquin and was switched to Cipro by Dr. Boswell as outpatient for osteomyelitis - will change to IV Zosyn given UC result Check arterial study lower extremity for reduced pulses/cool dusky foot (4) GERD (gastroesophageal reflux disease): Continue ranitidine 150 mg p.o. twice daily (5) DIANNE (obstructive sleep apnea): Patient unable to tolerate CPAP- per family, patient on 6L via NC at night - per chart she has not required O2 at night (6) Chronic constipation: KUB with moderate stool burden- Resolved 01/07 with bowel regimen of docusate sodium 100 mg p.o. Continue prn miralax (7) Hypothyroidism: Elevated TSH to 5.3 but free T4 normal 1.52 on admission--> TSH increased to 11.3 Continue home dose of levothyroxine 75 MCG's QHS for now recheck outpatient in a few weeks (8) Atrial fibrillation: Continue Xarelto increased evening metoprolol from 25mg to 50mg PO - resume this evening now that she is taking PO. May need to titrate up further as heart rates have been around 90s discontinued Amiodarone continue ASA 81mg (9) UTI (urinary tract infection): E. coli ESBL - Zosyn (10) Hyperlipidemia: Continue pravastatin 20 mg p.o. nightly (11) Hypertension: Metoprolol succinate increased to 50 mg p.o. nightly for better rate control ASA 81mg Patient is full code per family request. Dispo: PT/OT recommending SNF Subjective Ms. Julio is more alert today but remains confused. She denies pain but otherwise cannot answer review of systems Review of Systems Review of Systems: All systems reviewed & are unremarkable except as noted in HPI & below Physical Exam Physical Exam: General: no distress Eyes: normal inspection, PERLL Respiratory: chest non tender, clear to auscultation, normal breath sounds, no respiratory distress, no accessory muscle use Cardiac: regular rate and rhythm, no rub or gallop, no murmur, no edema, no jvd GI/: active bowel sounds, no abd pain or tenderness, soft, non distended Extremities: normal range of motion, normal strength, non tender Neuro/Psych: alert and oriented x 3, normal mood and affect Skin: normal color, dry, right foot cool and dusky, nursing found pulse with doppler Results & Data Vital Signs (Past 12 Hours) Vital Signs Temp Pulse Pulse Resp BP BP Pulse Ox 01/11/19 15:17 36.9 C 105 H 20 109/75 92 01/11/19 14:42 37 C 67 16 98/73 L 97 01/11/19 12:06 87 110/67 01/11/19 11:30 37.1 C 87 16 100/67 96 01/11/19 07:33 36.5 C 93 H 16 102/74 01/11/19 06:10 97 H 97 H 93/60 L 93/60 L PG Care Time/CCT Total # of Minutes Spent Total Time Spent with Patient: Total time spent is greater than 50% in coordination of care (as documented) at patient's floor/unit and/or counseling patient: (1) Altered mental status Altered mental status type: unspecified Qualified Code(s): R41.82 - Altered mental status, unspecified (2) Osteomyelitis Osteomyelitis type: other chronic Osteomyelitis location: foot Laterality: right Qualified Code(s): M86.671 - Other chronic osteomyelitis, right ankle and foot (3) Hypothyroidism Hypothyroidism type: acquired Qualified Code(s): E03.9 - Hypothyroidism, unspecified (4) Atrial fibrillation Atrial fibrillation type: paroxysmal Qualified Code(s): I48.0 - Paroxysmal atrial fibrillation (5) Hyperlipidemia Hyperlipidemia type: other hyperlipidemia Qualified Code(s): E78.4 - Other hyperlipidemia (6) Hypertension Hypertension type: essential hypertension Qualified Code(s): I10 - Essential (primary) hypertension
[2019-01-11] MEDS ORDERED: PIPERACILLIN/TAZOBACTAM 3.375 GM in DEXTROSE 5% 100 ML IV SCH (16:00)
--- NOTE | 2019-01-11 18:24 | Ultrasound Report ---
ARTERIAL DUPLEX ULTRASOUND OF THE RIGHT LOWER EXTREMITY CLINICAL HISTORY: decreased pulses, dusky COMPARISON STUDY: 01/05/2019 FINDINGS: The patient refused ankle brachial indices. There is triphasic flow within the common femoral artery. There is triphasic flow within the superfic ial femoral artery. There is triphasic flow within the popliteal artery. There is triphasic flow with in the anterior tibial artery. There is biphasic flow within the peroneal posterior tibial arteries. IMPRESSION: No evidence of right lower extremity arterial stenosis. Electronically signed by: Barrington Schofield M.D. 01/11/2019 6:22 PM
[2019-01-11] MEDS: ACETAMINOPHEN 325 MG TAB PO PRN (18:39)
[2019-01-11] MEDS: RIVAROXABAN 20 MG TAB PO SCH (20:18)
[2019-01-11] MEDS: METOPROLOL SUCC 50MG EXT REL TAB PO SCH (20:20)
[2019-01-11] MEDS: PIPERACILLIN/TAZOBACTAM 3.375 GM in DEXTROSE 5% 100 ML IV SCH (21:50)
[2019-01-12] MEDS: PIPERACILLIN/TAZOBACTAM 3.375 GM in DEXTROSE 5% 100 ML IV SCH ×4 (03:36→21:56)
[2019-01-12] MEDS: VALPROATE SOD 250 MG in DEXTROSE 5% 50 ML IV SCH (04:56)
[2019-01-12] MEDS: LEVOTHYROXINE SODIUM 75 MCG TABLET PO SCH (06:07)
[2019-01-12] MEDS ORDERED: PIPERACILL/TAZOBAC CONSULT ACTIVE PRN (07:05)
[2019-01-12] MEDS: PRAVASTATIN SOD 20 MG TAB PO SCH (08:17)
[2019-01-12] MEDS: DOCUSATE SODIUM 100 MG CAP PO SCH ×2 (08:17→21:07)
[2019-01-12] MEDS: DULOXETINE HCL 30 MG CAP PO SCH (08:17)
[2019-01-12] MEDS: ASPIRIN 81 MG ECTAB PO SCH (08:17)
[2019-01-12] MEDS: POLYETHYLENE (MIRALAX) 17 GM PACK PO SCH ×2 (08:18→21:02)
[2019-01-12] MEDS: ASCORBIC ACID 500 MG TAB PO SCH ×2 (08:18→21:01)
[2019-01-12] MEDS ORDERED: METOPROLOL TARTRATE 25 MG TAB PO ONE (08:44)
[2019-01-12 09:25] LABS: Hematocrit (blood only) 40.4 % (37-47); Hemoglobin 12.7 g/dL (12.0-16.0); Mean Corpuscular Hemoglobin 32.2 pg (25-34); Mean Corpuscular Hgb Conc 31.4 g/dL (32-36); Mean Corpuscular Volume 102.5 fL (80-100); Mean Platelet Volume 9.6 fL (7.4-10.4); Platelet Count 128 K/uL (130-400); RDW Coefficient of Variation 14.4 % (11.5-14.5); RDW Standard Deviation 54.2 fL (36.4-46.3); Red Blood Count 3.94 M/uL (4.2-5.4); White Blood Count 6.73 K/uL (4.8-10.8)
[2019-01-12 10:23] LABS: Albumin Level 2.4 gm/dl (3.4-5.0); BUN Creatinine Ratio 17.9 (10-20); Calcium 8.3 mg/dl (8.5-10.1); Creatinine Clr Calc Pharmacy 91.5 ml/min; Est GFR (African American) 99.5; Est GFR (Non-African American) 85.8; Potassium 3.8 mmol/L (3.5-5.1)
[2019-01-12 10:25] LABS: Albumin Globulin Ratio 0.8 (0.9-2); Bilirubin,Total 0.4 mg/dl (0.2-1); Total Protein 5.4 gm/dl (6.4-8.2)
[2019-01-12] MEDS: DIVALPROEX EXTENDED RELEASE 500 MG TAB PO SCH ×2 (10:39→20:59)
[2019-01-12] MEDS: LACOSAMIDE 50 MG TABLET PO SCH ×2 (10:39→21:00)
--- NOTE | 2019-01-12 14:48 | Hospitalist Progress Note ---
Date of Service January 12, 2019 Assessment & Plan (1) Altered mental status: Continue to monitor on telemetry- hx CVA 2011 secondary to atrial fibrillation- patient's amiodarone discontinued - continue metoprolol and Xeralto Head CT, CTA head and neck, MRI head without acute abnormalities ECHO without regional wall motion abnormality. EF 50-55%. Mild LVH US Venous Doppler without DVT B12, Folate wnl EEG ordered- showed general slowing without seizure activity Neurology Consult- follows with Dr. Scherer outpatient - ?increased seizure activity with decreased Depakote vs orthostatic event * Continue home medicine as adjusted but per /divalproex ER 1000mg, Vimpat 100mg BID--> Repeat valproic acid wnl at 78 * Discussed cymbalta with neurology - resumed home dosing * amiodarone does not seem to contribute much to rhythm control, not much rate control either--> amiodarone was discontinued and metoprolol was increased to gain better rate control * Per conversation with Neurology, recommendation for outpatient 72hour EEG next week Changed medications back to po from IV as she is now accepting po medications again Patient is growing E. Coli ESBL in her urine which could be contributing to her encephalopathy (2) Seizure as late effect of cerebrovascular accident (CVA): As above (3) Osteomyelitis: Osteomyelitis of Right Great Toe Patient has been seen by Dr. Hernandez previously with rec for amputation, family declined Cultures + for pseudomonas on 12/08/18. Patient initially treated with Levaquin and was switched to Cipro by Dr. Bosewll as outpatient for osteomyelitis - changed to Zosyn to cover UTI Checked arterial study lower extremity for reduced pulses/cool dusky foot - without significant stenosis, patient refused ABIs (4) GERD (gastroesophageal reflux disease): Continue ranitidine 150 mg p.o. twice daily (5) DIANNE (obstructive sleep apnea): Patient unable to tolerate CPAP- per family, patient on 6L via NC at night - per chart she has not required O2 at night (6) Chronic constipation: KUB with moderate stool burden- Resolved 01/07 with bowel regimen of docusate sodium 100 mg p.o. Continue prn miralax (7) Hypothyroidism: Elevated TSH to 5.3 but free T4 normal 1.52 on admission--> TSH increased to 11.3 Continue home dose of levothyroxine 75 MCG's QHS for now recheck outpatient in a few weeks (8) Atrial fibrillation: Continue Xarelto increased evening metoprolol from 25mg to 50mg PO - resume this evening now that she is taking PO. May need to titrate up further as heart rates have been around 90s discontinued Amiodarone continue ASA 81mg (9) UTI (urinary tract infection): E. coli ESBL - Zosyn (10) Hyperlipidemia: Continue pravastatin 20 mg p.o. nightly (11) Hypertension: Metoprolol succinate increased to 75 mg p.o. nightly for better rate control ASA 81mg Patient is full code per family request. Dispo: PT/OT recommending SNF - will go to [facility] Ms. Julio is more alert today but still with some confusion. She does not answer review of systems. Her is bedside and we discussed her care. Review of Systems Review of Systems: All systems reviewed & are unremarkable except as noted in HPI & below Physical Exam Physical Exam: General: no distress Eyes: normal inspection, PERLL Respiratory: chest non tender, clear to auscultation, normal breath sounds, no respiratory distress, no accessory muscle use Cardiac: regular rate and rhythm, no rub or gallop, no murmur, no edema, no jvd GI/: active bowel sounds, no abd pain or tenderness, soft, non distended Extremities: normal range of motion, normal strength, non tender Neuro/Psych: alert and oriented x 3, normal mood and affect Skin: normal color, dry Results & Data Vital Signs (Past 12 Hours) Vital Signs Temp Pulse Resp BP Pulse Ox 01/12/19 07:20 36.6 C 100 H 20 128/88 100 PG Care Time/CCT Total # of Minutes Spent Total Time Spent with Patient: Total time spent is greater than 50% in coordination of care (as documented) at patient's floor/unit and/or counseling patient: (1) Altered mental status Altered mental status type: unspecified Qualified Code(s): R41.82 - Altered mental status, unspecified (2) Osteomyelitis Osteomyelitis type: other chronic Osteomyelitis location: foot Laterality: right Qualified Code(s): M86.671 - Other chronic osteomyelitis, right ankle and foot (3) Hypothyroidism Hypothyroidism type: acquired Qualified Code(s): E03.9 - Hypothyroidism, unspecified (4) Atrial fibrillation Atrial fibrillation type: paroxysmal Qualified Code(s): I48.0 - Paroxysmal atrial fibrillation (5) Hyperlipidemia Hyperlipidemia type: other hyperlipidemia Qualified Code(s): E78.4 - Other hyperlipidemia (6) Hypertension Hypertension type: essential hypertension Qualified Code(s): I10 - Essential (primary) hypertension
--- NOTE | 2019-01-12 15:00 | Neurology Progress Note ---
Date of Service January 12, 2019 Assessment & Plan (1) Altered mental status: 1. folic acid, b12 WNL 2. depakote level ok 3. correct any metabolic issues 4. MRI brain - no acute findings. 5. likely multi factorial and combined with failure to thrive 6. amiodarone interactions- as follows cipro and cymbalta contraindicated due to risk of torsades. also vimpat can decreased heart rate. discussed with internal medicine PAC- amiodarone has been stopped. 7. orthostatic blood pressures as able 8. UTI - treat to culture- now >100,000 ecoli culture and ESBL now on isolation (2) Seizure disorder: 1. continue Vimpat 100 mg BID and Depakote 500 mg BID for now 2. depakote level 01/07- 3. 72 hour EEG order as out patient 01/16/2019 and follow up with Dr Scherer 05/04/2019 but may need to be [place] [facility] [facility] to sort out if the episode are seizure events. 4. EEG- focal slowing over right area of stroke. 5. ok to discharge once medically stable. -PT/OT recommending inpt rehab will sign off for now will be available as needed. follow up as plan per Dr Scherer with EEG 72 hours as scheduled. Supervising Physician Co-Signing Physician Notes I have discussed above patient with Dr Enzo Astorga, neurology I have seen this woman today reviewed her case and discussed the situation with Kusum Doyle PA-C along with reviewing the prior neurology notes by Dr. Borges and at this point the patient is awake alert has her chronic left hemiparesis no obvious seizure activity and an EEG just showed some slowing of the right hemisphere consistent with a structural lesion there, no epileptiform activity, and a mild superimposed generalized slowing which is nonspecific On an outpatient basis she apparently follows with Dr. Berrios of the [facility] physician group and at this point I am making suggestions that we continue her current anticonvulsants and have her follow-up with Dr. Berrios after discharge as she is her neurologist of [facility] Neurology would be most happy to reevaluate her during the current hospitalization if things would change The cause for the protracted confusion in this particular case is likely a mix of toxic and parainfectious factors and seems to be clearing now on appropriate antibiotics with withdrawal of some of the cardiac medications there may have been producing bradycardic episodes etc. Enzo Astorga MD Dallin Rivero is a 68 year old female with PMH- CVA in 2011, left spastic hemiparesis, DIANNE, morbid obesity, hypothyroidism, seizure disorder, AF, HLD, HTN, GERD who was brought by her family due to MS change and seizure. She had CVA in 2012 and that left significant sequela but before these episodes patient was able to feed herself which she is not able anymore and has had a decline over the past [address] Scherer in our office and at that time her Depakote was decreased to 500mg BID and her Vimpat was increased to 100 mg BID to try to reduce sedation. She responds with a smile but does not talk much. She has been incontinent since the stroke but it has gotten worse. She is checked by her wound care at home and she has decubitus ulcers and right big toe wound which is in healing process. There has been no fever chills headache chest pain shortness of breath abdominal pain frequency urgency hematuria dysuria hematemesis. She is sleepy but more lethargic today. There is no family in the room. denies CP, SOB, abdominal pain, +left sided weakness Physical Exam Physical Exam: Gen: alert oriented to self and hopsital lungs course breath sounds CV irregular squeezes with right hand biceps triceps 5/5, left hand contracted no movement with fingers moves right LE with command and with stimulation left leg slight movement Results & Data Vital Signs (Past 12 Hours) Vital Signs Temp Pulse Resp BP Pulse Ox 01/12/19 07:20 36.6 C 100 H 20 128/88 100 Laboratory Results Abnormal lab results 01/12/19 01/12/19 Range/Units 09:09 09:09 RBC 3.94 L (4.2-5.4) M/uL MCV 102.5 H (80-100) fL MCHC 31.4 L (32-36) g/dL RDW Std Deviation 54.2 H (36.4-46.3) fL Plt Count 128 L (130-400) K/uL Glucose 103 H (70-99) mg/dl Calcium 8.3 L (8.5-10.1) mg/dl AST 13 L (15-37) U/L Total Protein 5.4 L (6.4-8.2) gm/dl Albumin 2.4 L (3.4-5.0) gm/dl Albumin/Globulin Ratio 0.8 L (0.9-2) Diagnostic Findings duplex lower extremities- No evidence of right lower extremity arterial stenosis. (1) Altered mental status Altered mental status type: unspecified Qualified Code(s): R41.82 - Altered mental status, unspecified
[2019-01-12] MEDS: ACETAMINOPHEN 325 MG TAB PO PRN (15:08)
[2019-01-12] MEDS ORDERED: KETOROLAC TROMETHAMINE 15 MG/ML VIAL IV PRN (17:15)
[2019-01-12] MEDS ORDERED: MAGNESIUM OXIDE 400 MG TAB PO ONE (17:16)
[2019-01-12] MEDS: METOPROLOL SUCC 25MG EXT REL TAB PO SCH (20:58)
[2019-01-12] MEDS: RIVAROXABAN 20 MG TAB PO SCH (20:58)
[2019-01-13] MEDS: PIPERACILLIN/TAZOBACTAM 3.375 GM in DEXTROSE 5% 100 ML IV SCH ×4 (04:51→21:42)
[2019-01-13] MEDS: LEVOTHYROXINE SODIUM 75 MCG TABLET PO SCH (06:15)
--- NOTE | 2019-01-13 06:42 | Communication Note ---
Date of Service: January 13, 2019 My note of yesterday was incorrect in terms of post discharge neruologiy follow up. Apparently the patient is to have an outpatient 72 hour eeg and follow up with Dr Scherer in April so my recommendations that she continue to see Dr Berrios was an error Dr Scherer was apparently called lst time he ws on service for a second opinion and her care has been transferred to him Other carr our recommendations for AED rx with vipat and depakote remain unchanged and we will again sign off the inpatient case for now unless the situation would change Enzo JACKSON
[2019-01-13] MEDS: DOCUSATE SODIUM 100 MG CAP PO SCH ×2 (08:27→21:27)
[2019-01-13] MEDS: LACOSAMIDE 50 MG TABLET PO SCH ×2 (08:28→21:29)
[2019-01-13] MEDS: ASPIRIN 81 MG ECTAB PO SCH (08:28)
[2019-01-13] MEDS: PRAVASTATIN SOD 20 MG TAB PO SCH (08:28)
[2019-01-13] MEDS: DULOXETINE HCL 30 MG CAP PO SCH (08:28)
[2019-01-13] MEDS: DIVALPROEX EXTENDED RELEASE 500 MG TAB PO SCH ×2 (08:28→21:28)
[2019-01-13] MEDS: ASCORBIC ACID 500 MG TAB PO SCH ×2 (08:29→21:30)
[2019-01-13] MEDS: POLYETHYLENE (MIRALAX) 17 GM PACK PO SCH ×2 (08:29→21:27)
--- NOTE | 2019-01-13 15:25 | Hospitalist Progress Note ---
Date of Service January 13, 2019 Assessment & Plan (1) Altered mental status: hx CVA 2011 secondary to atrial fibrillation Head CT, CTA head and neck, MRI head without acute abnormalities ECHO without regional wall motion abnormality. EF 50-55%. Mild LVH US Venous Doppler without DVT B12, Folate wnl EEG ordered- showed general slowing without seizure activity Neurology Consult- follows with Dr. Scherer outpatient - ?increased seizure activity with decreased Depakote vs orthostatic event * Continue home medicine as adjusted but per /divalproex ER 1000mg, Vimpat 100mg BID--> Repeat valproic acid wnl at 78 * Discussed cymbalta with neurology - resumed home dosing * Per conversation with Neurology, recommendation for outpatient 72hour EEG next week Patient is growing E. Coli ESBL in her urine which could be contributing to her encephalopathy (2) Seizure as late effect of cerebrovascular accident (CVA): As above (3) Osteomyelitis: Osteomyelitis of Right Great Toe Patient has been seen by Dr. Hernandez previously with rec for amputation, family declined Cultures + for pseudomonas on 12/08/18. Patient initially treated with Levaquin and was switched to Cipro by Dr. Boswell as outpatient for osteomyelitis - changed to Zosyn to cover UTI. She will need to change back to Cipro when Zosyn for UTI finished. Checked arterial study lower extremity for reduced pulses/cool dusky foot - without significant stenosis, patient refused ABIs (4) GERD (gastroesophageal reflux disease): Continue ranitidine 150 mg p.o. twice daily (5) DIANNE (obstructive sleep apnea): Patient unable to tolerate CPAP- per family, patient on 6L via NC at night - per chart she has not required O2 at night (6) Chronic constipation: KUB with moderate stool burden- Resolved 01/07 with bowel regimen of docusate sodium 100 mg p.o. Continue prn miralax (7) Hypothyroidism: Elevated TSH to 5.3 but free T4 normal 1.52 on admission--> TSH increased to 11.3 Continue home dose of levothyroxine 75 MCG's QHS for now recheck outpatient in a few weeks (8) Atrial fibrillation: Continue Xarelto increased evening metoprolol to 75 mg PO. HRs 70s - 90s. Will avoid titrating up further as pressures are running slightly hypotensive discontinued Amiodarone due to concerns for interactions with other medications - was unclear how much rate control patient was gaining from it continue ASA 81mg (9) UTI (urinary tract infection): E. coli ESBL - Zosyn initiated 01/11 (10) Hyperlipidemia: Continue pravastatin 20 mg p.o. nightly (11) Hypertension: Metoprolol succinate increased to 75 mg p.o. nightly for better rate control ASA 81mg Patient is full code per family request. Dispo: PT/OT recommending SNF - will go to [facility] - they will have a bed on Tuesday Subjective Ms. Julio awakens to verbal stimulus but quickly falls back to sleep. She can tell me where she is but does not answer review of systems. She denies pain Physical Exam Physical Exam: General: no distress Eyes: normal inspection, PERLL Respiratory: chest non tender, clear to auscultation, normal breath sounds, no respiratory distress, no accessory muscle use Cardiac: regular rate and rhythm, no rub or gallop, no murmur, no edema, no jvd GI/: active bowel sounds, no abd pain or tenderness, soft, non distended Extremities: normal range of motion, normal strength, non tender Neuro/Psych: drowsy and oriented to person and place, flat affect Skin: normal color, dry Results & Data Vital Signs (Past 12 Hours) Vital Signs Temp Pulse Resp BP Pulse Ox 01/13/19 15:10 36.7 C 95 H 16 98/69 L 98 01/13/19 07:17 36.4 C L 81 18 106/74 100 PG Care Time/CCT Total # of Minutes Spent Total Time Spent with Patient: Total time spent is greater than 50% in coordination of care (as documented) at patient's floor/unit and/or counseling patient: (1) Altered mental status Altered mental status type: unspecified Qualified Code(s): R41.82 - Altered mental status, unspecified (2) Osteomyelitis Osteomyelitis type: other chronic Osteomyelitis location: foot Laterality: right Qualified Code(s): M86.671 - Other chronic osteomyelitis, right ankle and foot (3) Hypothyroidism Hypothyroidism type: acquired Qualified Code(s): E03.9 - Hypothyroidism, uns pecified (4) Atrial fibrillation Atrial fibrillation type: paroxysmal Qualified Code(s): I48.0 - Paroxysmal atrial fibrillation (5) Hyperlipidemia Hyperlipidemia type: other hyperlipidemia Qualified Code(s): E78.4 - Other hyperlipidemia (6) Hypertension Hypertension type: essential hypertension Qualified Code(s): I10 - Essential (primary) hypertension
[2019-01-13] MEDS: ACETAMINOPHEN 325 MG TAB PO PRN (21:26)
[2019-01-13] MEDS: METOPROLOL SUCC 25MG EXT REL TAB PO SCH (21:28)
[2019-01-13] MEDS: RIVAROXABAN 20 MG TAB PO SCH (21:29)
[2019-01-14] MEDS: PIPERACILLIN/TAZOBACTAM 3.375 GM in DEXTROSE 5% 100 ML IV SCH ×4 (04:04→22:54)
[2019-01-14] MEDS: LEVOTHYROXINE SODIUM 75 MCG TABLET PO SCH (06:09)
[2019-01-14 06:55] LABS: Creatinine Clr Calc Pharmacy 99.7 ml/min; Est GFR (African American) 106.2; Est GFR (Non-African American) 91.6
[2019-01-14] MEDS: DIVALPROEX EXTENDED RELEASE 500 MG TAB PO SCH ×2 (08:30→20:58)
[2019-01-14] MEDS: DULOXETINE HCL 30 MG CAP PO SCH (08:30)
[2019-01-14] MEDS: ASCORBIC ACID 500 MG TAB PO SCH ×2 (08:31→21:00)
[2019-01-14] MEDS: LACOSAMIDE 50 MG TABLET PO SCH ×2 (08:31→21:00)
[2019-01-14] MEDS: PRAVASTATIN SOD 20 MG TAB PO SCH (08:32)
[2019-01-14] MEDS: DOCUSATE SODIUM 100 MG CAP PO SCH ×2 (08:32→20:57)
[2019-01-14] MEDS: ASPIRIN 81 MG ECTAB PO SCH (08:32)
[2019-01-14] MEDS: POLYETHYLENE (MIRALAX) 17 GM PACK PO SCH ×2 (08:32→20:51)
[2019-01-14] MEDS ORDERED: INFLUENZA VIRUS QUAD VACCINE 0.5 ML SYR IM ONE (09:00)
[2019-01-14] MEDS ORDERED: INFLUENZA ADMINISTRATION CHARGE ONE (09:00)
--- NOTE | 2019-01-14 12:38 | Hospitalist Progress Note ---
Date of Service January 14, 2019 Assessment & Plan (1) Altered mental status: hx CVA 2011 secondary to atrial fibrillation Head CT, CTA head and neck, MRI head without acute abnormalities ECHO without regional wall motion abnormality. EF 50-55%. Mild LVH US Venous Doppler without DVT B12, Folate wnl EEG ordered- showed general slowing without seizure activity Neurology Consult- follows with Dr. Scherer outpatient - ?increased seizure activity with decreased Depakote vs orthostatic event * Continue home medicine as adjusted but per /divalproex ER 1000mg, Vimpat 100mg BID--> Repeat valproic acid wnl at 78 * Discussed cymbalta with neurology - resumed home dosing * Per conversation with Neurology, recommendation for outpatient 72hour EEG next week Patient has E. Coli ESBL in her urine which could be contributing to her encephalopathy (2) Seizure as late effect of cerebrovascular accident (CVA): As above (3) Osteomyelitis: Osteomyelitis of Right Great Toe Patient has been seen by Dr. Hernandez previously with rec for amputation, family declined Cultures + for pseudomonas on 12/08/18. Patient initially treated with Levaquin and was switched to Cipro by Dr. Boswell as outpatient for osteomyelitis - changed to Zosyn to cover UTI. She will need to change back to Cipro when Zosyn for UTI finished. Checked arterial study lower extremity for reduced pulses/cool dusky foot - without significant stenosis, patient refused ABIs (4) GERD (gastroesophageal reflux disease): Continue ranitidine 150 mg p.o. twice daily (5) DIANNE (obstructive sleep apnea): Patient unable to tolerate CPAP- per family (6) Chronic constipation: KUB with moderate stool burden- Resolved 01/07 with bowel regimen of docusate sodium 100 mg p.o. Continue prn miralax (7) Hypothyroidism: Elevated TSH to 5.3 but free T4 normal 1.52 on admission--> TSH increased to 11.3 Continue home dose of levothyroxine 75 MCG's QHS for now recheck outpatient in a few weeks (8) Atrial fibrillation: Continue Xarelto increased evening metoprolol to 75 mg PO. HRs 70s - 90s. Will avoid titrating up further as pressures are running slightly hypotensive discontinued Amiodarone due to concerns for interactions with other medications - was unclear how much rate control patient was gaining from it continue ASA 81mg Could consider cardiology consult on Tuesday to help with rate controls if she is maintaining in the 90s (9) UTI (urinary tract infection): E. coli ESBL - Zosyn initiated 01/11 (10) Hyperlipidemia: Continue pravastatin 20 mg p.o. nightly (11) Hypertension: Metoprolol succinate increased to 75 mg p.o. nightly for better rate control ASA 81mg Patient is full code per family request. Dispo: PT/OT recommending SNF - will go to [facility] - they will have a bed on Tuesday Supervising Physician Co-Signing Physician Notes I supervised Preeti Mcadams NP on this patient's care. I examined the patient today independently of her. I discussed the plan of care with her with the plan being as written in her note except for any following changes/exceptions: None. Patient is slowly improving in alertness and responsiveness, though not oriented other than person. I spent considerable time with family explaining her multiple reasons for disorientation, and our plan to address each as best as possible. I would expect a slow recovery given her multiple issues; however, hopefully we will see steady improvement. Family seemed satisfied if a little discouraged by my overview and overall thoughts on how their /mother was doing. Subjective Ms. Julio is oriented to person. She denies pain but otherwise does not really answer ROS questions. Her family feels she is improving somewhat but are concerned about her persistent confusion Physical Exam Physical Exam: General: no distress Eyes: normal inspection, PERLL Respiratory: chest non tender, clear to auscultation, normal breath sounds, no respiratory distress, no accessory muscle use Cardiac: regular rate and rhythm, no rub or gallop, no murmur, no edema, no jvd GI/: active bowel sounds, no abd pain or tenderness, soft, non distended Extremities: normal range of motion, normal strength, non tender Neuro/Psych: alert and oriented x 3, normal mood and affect Skin: normal color, dry Results & Data Vital Signs (Past 12 Hours) Vital Signs Temp Pulse Resp BP Pulse Ox 01/14/19 07:00 36.8 C 84 20 108/77 90 PG Care Time/CCT Total # of Minutes Spent Total Time Spent with Patient: Total time spent is greater than 50% in coordination of care (as documented) at patient's floor/unit and/or counseling patient: (1) Atrial fibrillation Atrial fibrillation type: paroxysmal Qualified Code(s): I48.0 - Paroxysmal atrial fibrillation (2) Hyperlipidemia Hyperlipidemia type: other hyperlipidemia Qualified Code(s): E78.4 - Other hyperlipidemia (3) Hypothyroidism Hypothyroidism type: acquired Qualified Code(s): E03.9 - Hypothyroidism, unspecified (4) Altered mental status Altered mental status type: unspecified Qualified Code(s): R41.82 - Altered mental status, unspecified (5) Hypertension Hypertension type: essential hypertension Qualified Code(s): I10 - Essential (primary) hypertension (6) Osteomyelitis Laterality: right Osteomyelitis location: foot Osteomyelitis type: other chronic Qualified Code(s): M86.671 - Other chronic osteomyelitis, right ankle and foot
[2019-01-14] MEDS: RIVAROXABAN 20 MG TAB PO SCH (21:01)
[2019-01-14] MEDS: METOPROLOL SUCC 25MG EXT REL TAB PO SCH (21:06)
[2019-01-15] MEDS: PIPERACILLIN/TAZOBACTAM 3.375 GM in DEXTROSE 5% 100 ML IV SCH ×4 (03:46→22:10)
[2019-01-15] MEDS: LEVOTHYROXINE SODIUM 75 MCG TABLET PO SCH (05:49)
[2019-01-15 06:44] LABS: Creatinine Clr Calc Pharmacy 109.5 ml/min; Est GFR (African American) 109.5; Est GFR (Non-African American) 94.5
[2019-01-15] MEDS: ASCORBIC ACID 500 MG TAB PO SCH ×2 (07:31→21:29)
[2019-01-15] MEDS: LACOSAMIDE 50 MG TABLET PO SCH ×2 (07:31→21:30)
[2019-01-15] MEDS: DOCUSATE SODIUM 100 MG CAP PO SCH ×2 (07:31→21:28)
[2019-01-15] MEDS: DULOXETINE HCL 30 MG CAP PO SCH (07:31)
[2019-01-15] MEDS: PRAVASTATIN SOD 20 MG TAB PO SCH (07:31)
[2019-01-15] MEDS: ASPIRIN 81 MG ECTAB PO SCH (07:31)
[2019-01-15] MEDS: DIVALPROEX EXTENDED RELEASE 500 MG TAB PO SCH ×2 (07:31→21:29)
[2019-01-15] MEDS: POLYETHYLENE (MIRALAX) 17 GM PACK PO SCH ×2 (07:38→21:26)
--- NOTE | 2019-01-15 11:11 | Hospitalist Progress Note ---
Date of Service January 15, 2019 Assessment & Plan (1) Altered mental status: * Hx CVA 2011 secondary to atrial fibrillation * Head CT, CTA head and neck, MRI head without acute abnormalities * ECHO without regional wall motion abnormality. EF 50-55%. Mild LVH * US Venous Doppler without DVT * B12, Folate wnl * EEG ordered- showed general slowing without seizure activity * Neurology Consult- follows with Dr. Scherer outpatient - ?increased seizure activity with decreased Depakote vs orthostatic event * Continue home medicine as adjusted but per /divalproex ER 1000mg, Vimpat 100mg BID--> Repeat valproic acid wnl at 78 * Discussed cymbalta with neurology - resumed home dosing * Per conversation with Neurology, recommendation for outpatient 72hour EEG next week * Patient has E. Coli ESBL in her urine which could be contributing to her encephalopathy --> sensitive to Zosyn, Nitro, Imipenem, Ertapenem, Amikacin * Patient currently being treated with Zosyn--> will need to be discharged on Zosyn vs Ertapenem IV (due to frequency of dosing) and Cipro PO (for Osteo)--> pending bed at [facility], patient may complete abx course for UTI prior to discharge. If not, may need ultrasound guided IV prior to discharge for continued antibiotics. (2) Seizure as late effect of cerebrovascular accident (CVA): * As above (3) Osteomyelitis: * Osteomyelitis of Right Great Toe * Patient has been seen by Dr. Hernandez previously with rec for amputation, family declined * Cultures + for pseudomonas on 12/08/18. * Patient initially treated with Levaquin and was switched to Cipro by Dr. Boswell as outpatient for osteomyelitis --> changed to Zosyn to cover UTI. * Cipro will need to be continued at discharge if Zosyn completed prior to discharge * Checked arterial study lower extremity for reduced pulses/cool dusky foot - without significant stenosis, patient refused ABIs (4) GERD (gastroesophageal reflux disease): * Continue ranitidine 150 mg p.o. twice daily (5) DIANNE (obstructive sleep apnea): * Patient unable to tolerate CPAP- per family, patient on 6L NC at night (6) Chronic constipation: * Resolved-- KUB with moderate stool burden- Resolved 01/07 with bowel regimen of docusate sodium 100 mg p.o. * Continue prn miralax (7) Hypothyroidism: * Elevated TSH to 5.3 but free T4 normal 1.52 on admission--> TSH increased to 11.3 on 01/07 * Increase home dose of levothyroxine from 75mcg QHS to 88mcg today * Recheck TSH/T4 outpatient in next few weeks (8) Atrial fibrillation: * Continue Xarelto * Increased evening metoprolol to 75 mg PO--> rates 79-92 bpm over the past twenty-four hours--> will avoid further titration at this time given borderline BP * Discontinued Amiodarone due to concerns for interactions with other medications - unclear how much rate control patient was gaining from it * Continue ASA 81mg (9) UTI (urinary tract infection): * E. coli ESBL - Zosyn initiated 01/11 * Patient may need to be discharged on IV abx to complete course depending on when the bed is available- ?consider switching from Zosyn to Ertapenem for once daily dosing until 01/18- may req. US guided IV prior to discharge- will re-evaluate tomorrow * Patient will also need to continue Cipro PO for osteo of R great toe (10) Hyperlipidemia: * Continue pravastatin 20 mg p.o. nightly (11) Hypertension: * Stable- patient borderline hypotensive at 95/62 * Metoprolol succinate increased to 75 mg p.o. nightly for better rate control * Continue ASA 81mg Patient is full code per family request. Dispo: PT/OT recommending SNF - patient originally to go to [facility]- currently awaiting bed-- possible discharge tuesday or tuesday Supervising Physician Co-Signing Physician Notes Attending Attestation: Pt seen/examined, chart reviewed, care plan d/w AURELIANO Drummond. I agree w/ the hubbard components of her documentation. Patient looks MUCH better than my previous visit with her well over 1 week ago. Upon entering the room she said "hello doctor." She offered no complaints. She was conversant, not lethargic, and followed commands. VSS gen - NAD, mild left facial droop mouth - MMM heart - irregular, s1, s2 lungs - CTA b/l abd - soft NT BS+ ext - trace edema neuro - left hemiparesis Seizures are controlled. Finishing course of IV abx for ESBL e.coli. Could consider narrowing abx to ertapenem once daily from the zosyn. Dispo planning (SNF). Taiwo Cruz MD Subjective Patient evaluated in bed this morning. Patient continues to answer with 1-2 words, and expressed that she would like to be left alone to sleep. Patient was turned with two CNAs during examination for concerns regarding ulceration. Windy pad in place with sloughing, without ulcer. Patient without verbalization of any other concerns at this time, and per patient request, would not like family contacted at this time. Review of Systems Review of Systems: All systems reviewed & are unremarkable except as noted in HPI & below Physical Exam Constitutional: well developed, + ill appearing and + obese; no acute distress and no altered mental status Eyes: PERRL, conjunctivae normal, anicteric sclerae Neck: trachea midline, no thyromegaly Respiratory: normal respiratory effort; no respiratory distress, no labored breathing and does not use accessory muscles Auscultation: + crackles (bibasilar) Cardiovascular: Rate/Rhythm: + irregularly irregular Heart Sounds: normal S1 and normal S2 Vessels: no JVD Extremities: + edema (b/l LE) Gastrointestinal (Abdomen): Inspection/Auscultation: normal bowel sounds; abdomen not distended Percussion/Palpation: abdomen soft; abdomen nontender and no hepatosplenomegaly Musculoskeletal: Left sided weakness s/p CVA 2012, LUE & LLE Skin: normal turgor Skin warm and dry. Small wound right great toe- improving Sacral area- sloughing of superficial epidermal layer during examination and repositioning Neurologic: patellar DTR's 2+ bilat, sensation intact deep tendon reflexes 2+ bilaterally Results & Data Vital Signs (Past 12 Hours) Vital Signs Temp Pulse Resp BP Pulse Ox 01/15/19 07:26 36.8 C 85 18 108/72 98 Laboratory Results 01/15/19 01/15/19 01/15/19 Range/Units 15:30 15:30 05:41 WBC 7.01 (4.8-10.8) K/uL RBC 3.73 L (4.2-5.4) M/uL Hgb 12.1 (12.0-16.0) g/dL Hct 38.6 (37-47) % MCV 103.5 H (80-100) fL MCH 32.4 (25-34) pg MCHC 31.3 L (32-36) g/dL RDW Std Deviation 55.6 H (36.4-46.3) fL RDW Coeff of Rodger 14.6 H (11.5-14.5) % Plt Count 145 (130-400) K/uL MPV 9.4 (7.4-10.4) fL Sodium 144 (136-145) mmol/L Potassium 4.2 (3.5-5.1) mmol/L Chloride 106 (98-107) mmol/L Carbon Dioxide 33 H (21-32) mmol/L Anion Gap 5.0 (3-11) BUN 14 (7-18) mg/dl Creatinine 0.66 0.61 (0.6-1.2) mg/dl Est Cr Clr Drug Dosing 101.2 109.5 ml/min Est GFR ( Amer) 106.7 109.5 Est GFR (Non-Af Amer) 92.1 94.5 BUN/Creatinine Ratio 21.1 H (10-20) Glucose 97 (70-99) mg/dl Calcium 8.7 (8.5-10.1) mg/dl Valproic Acid (50-100) mcg/ml 01/15/19 Range/Units 05:41 WBC (4.8-10.8) K/uL RBC (4.2-5.4) M/uL Hgb (12.0-16.0) g/dL Hct (37-47) % MCV (80-100) fL MCH (25-34) pg MCHC (32-36) g/dL RDW Std Deviation (36.4-46.3) fL RDW Coeff of Rodger (11.5-14.5) % Plt Count (130-400) K/uL MPV (7.4-10.4) fL Sodium (136-145) mmol/L Potassium (3.5-5.1) mmol/L Chloride (98-107) mmol/L Carbon Dioxide (21-32) mmol/L Anion Gap (3-11) BUN (7-18) mg/dl Creatinine (0.6-1.2) mg/dl Est Cr Clr Drug Dosing ml/min Est GFR ( Amer) Est GFR (Non-Af Amer) BUN/Creatinine Ratio (10-20) Glucose (70-99) mg/dl Calcium (8.5-10.1) mg/dl Valproic Acid 63 (50-100) mcg/ml PG Care Time/CCT Total # of Minutes Spent Total Time Spent with Patient: Total time spent is greater than 50% in coordination of care (as documented) at patient's floor/unit and/or counseling patient: (1) Atrial fibrillation Atrial fibrillation type: paroxysmal Qualified Code(s): I48.0 - Paroxysmal atrial fibrillation (2) Hyperlipidemia Hyperlipidemia type: other hyperlipidemia Qualified Code(s): E78.4 - Other hyperlipidemia (3) Hypothyroidism Hypothyroidism type: acquired Qualified Code(s): E03.9 - Hypothyroidism, unspecified (4) Altered mental status Altered mental status type: unspecified Qualified Code(s): R41.82 - Altered mental status, unspecified (5) Hypertension Hypertension type: essential hypertension Qualified Code(s): I10 - Essential (primary) hypertension (6) Osteomyelitis Laterality: right Osteomyelitis location: foot Osteomyelitis type: other chronic Qualified Code(s): M86.671 - Other chronic osteomyelitis, right ankle and foot
[2019-01-15 15:58] LABS: BUN Creatinine Ratio 21.1 (10-20); Calcium 8.7 mg/dl (8.5-10.1); Creatinine Clr Calc Pharmacy 101.2 ml/min; Est GFR (African American) 106.7; Est GFR (Non-African American) 92.1; Potassium 4.2 mmol/L (3.5-5.1)
[2019-01-15 16:05] LABS: Hematocrit (blood only) 38.6 % (37-47); Hemoglobin 12.1 g/dL (12.0-16.0); Mean Corpuscular Hemoglobin 32.4 pg (25-34); Mean Corpuscular Hgb Conc 31.3 g/dL (32-36); Mean Corpuscular Volume 103.5 fL (80-100); Mean Platelet Volume 9.4 fL (7.4-10.4); Platelet Count 145 K/uL (130-400); RDW Coefficient of Variation 14.6 % (11.5-14.5); RDW Standard Deviation 55.6 fL (36.4-46.3); Red Blood Count 3.73 M/uL (4.2-5.4); White Blood Count 7.01 K/uL (4.8-10.8)
[2019-01-15] MEDS: METOPROLOL SUCC 25MG EXT REL TAB PO SCH (21:25)
[2019-01-15] MEDS: RIVAROXABAN 20 MG TAB PO SCH (21:30)
[2019-01-16] MEDS: ACETAMINOPHEN 325 MG TAB PO PRN ×2 (02:41→14:17)
[2019-01-16] MEDS: PIPERACILLIN/TAZOBACTAM 3.375 GM in DEXTROSE 5% 100 ML IV SCH ×4 (03:53→21:36)
[2019-01-16 06:34] LABS: Hematocrit (blood only) 38.3 % (37-47); Hemoglobin 11.9 g/dL (12.0-16.0); Mean Corpuscular Hemoglobin 32.1 pg (25-34); Mean Corpuscular Hgb Conc 31.1 g/dL (32-36); Mean Corpuscular Volume 103.2 fL (80-100); Mean Platelet Volume 9.6 fL (7.4-10.4); Platelet Count 149 K/uL (130-400); RDW Coefficient of Variation 14.7 % (11.5-14.5); RDW Standard Deviation 55.3 fL (36.4-46.3); Red Blood Count 3.71 M/uL (4.2-5.4); White Blood Count 8.61 K/uL (4.8-10.8)
[2019-01-16] MEDS: LEVOTHYROXINE SODIUM 88 MCG TABLET PO SCH (06:46)
[2019-01-16 07:04] LABS: BUN Creatinine Ratio 30.7 (10-20); Calcium 8.7 mg/dl (8.5-10.1); Creatinine Clr Calc Pharmacy 96.8 ml/min; Est GFR (African American) 105.1; Est GFR (Non-African American) 90.7; Potassium 4.2 mmol/L (3.5-5.1)
[2019-01-16] MEDS: ASPIRIN 81 MG ECTAB PO SCH (07:43)
[2019-01-16] MEDS: LACOSAMIDE 50 MG TABLET PO SCH ×2 (07:43→20:28)
[2019-01-16] MEDS: ASCORBIC ACID 500 MG TAB PO SCH ×2 (07:43→20:29)
[2019-01-16] MEDS: DULOXETINE HCL 30 MG CAP PO SCH (07:44)
[2019-01-16] MEDS: PRAVASTATIN SOD 20 MG TAB PO SCH (07:45)
[2019-01-16] MEDS: DOCUSATE SODIUM 100 MG CAP PO SCH ×2 (07:45→20:12)
[2019-01-16] MEDS: DIVALPROEX EXTENDED RELEASE 500 MG TAB PO SCH ×2 (08:15→20:28)
--- NOTE | 2019-01-16 09:55 | Hospitalist Progress Note ---
Date of Service January 16, 2019 Assessment & Plan (1) Altered mental status: * Hx CVA 2011 secondary to atrial fibrillation * Head CT, CTA head and neck, MRI head without acute abnormalities. ECHO without regional wall motion abnormality, EF 50-55%, Mild LVH. * US Venous Doppler without DVT * B12, Folate wnl * EEG ordered- showed general slowing without seizure activity * Neurology Consult- follows with Dr. Scherer outpatient - will need outpatient 72 hour EEG- reached out to Dr. Scherer regarding rescheduling- per Vivek DOMINGUEZ, will reschedule outpatient EEG for patient * Continue home medicine as adjusted but per /divalproex ER 1000mg, Vimpat 100mg BID--> Repeat valproic acid wnl at 78 * Discussed cymbalta with neurology - they agree to resume home dosing (60mg) - however, per family/patient request, they would like to transition to another medication for depression * Continue Cymbalta 30mg currently--> per patient/family, would not like to titrate this medication back up to home dosing (60mg) --> will consider alternative medication to initiate tomorrow after discussion with regarding genetic testing results * Patient has E. Coli ESBL in her urine which could be contributing to her encephalopathy * Continue Zosyn--> antibiotics will be completed 01/17 for UTI, and patient will need restarted on Cipro PO (for Osteo R great toe) after tomorrow * Per CM, currently awaiting bed at [facility] (2) Seizure as late effect of cerebrovascular accident (CVA): * As above (3) Osteomyelitis: * Osteomyelitis of Right Great Toe * Patient has been seen by Dr. Hernandez previously with rec for amputation, family declined * Checked arterial study lower extremity for reduced pulses/cool dusky foot - without significant stenosis, patient refused ABIs * Cultures + for pseudomonas on 12/08/18. * Patient initially treated with Levaquin and was switched to Cipro by Dr. Boswell as outpatient for osteomyelitis (on 12/28/18)-->changed to Zosyn to cover UTI-- patient on day 6 of treatment, complete on 01/17 * Cipro will need to be continued at discharge for continued treatment of R great toe osteo, until seen by Dr. Boswell on 01/30. (4) GERD (gastroesophageal reflux disease): * Continue ranitidine 150 mg p.o. twice daily (5) DIANNE (obstructive sleep apnea): * Patient unable to tolerate CPAP- per family, patient on 6L NC at night * Patient currently comfortable, O2 sat 96% on Room Air (6) Chronic constipation: * Resolved-- * KUB with moderate stool burden- Resolved 01/07 with bowel regimen of docusate sodium 100 mg p.o. * Patient with BM this morning * Continue prn miralax (7) Hypothyroidism: * Elevated TSH to 5.3 but free T4 normal 1.52 on admission * TSH increased to 11.3 on 01/07 * Levothyroxine increased from home dose 75mcg to 88mcg on 01/15 * Recheck TSH/T4 outpatient in next few weeks (8) Atrial fibrillation: * Continue Xarelto * Increased evening metoprolol from home dose, 25mg, to 50mg and then75 mg PO on 01/12 * Heart rates 77-89 bpm over the past twenty-four hours--> will continue to avoid further titration at this time, given borderline BP * Discontinued Amiodarone due to concerns for interactions with other medications - unclear how much rate control patient was gaining from it * Continue ASA 81mg (9) UTI (urinary tract infection): * E. coli ESBL - Zosyn initiated 01/11 * ?consider switching from Zosyn to Ertapenem for once daily dosing until 01/18- * Patient may be able to complete abx course while inpatient and could be sent out on Cipro PO if discharged delayed for auth--> if not, may req. US guided IV prior to discharge- will re-evaluate this afternoon pending auth for [facility]. * Patient will also need to continue Cipro PO for osteo of R great toe at that time once no longer being covered by Zosyn (10) Hyperlipidemia: * Continue pravastatin 20 mg p.o. nightly (11) Hypertension: * Stable- patient borderline hypotensive at 95/62 * Metoprolol succinate increased to 75 mg p.o. nightly for better rate control * Continue ASA 81mg Patient is full code per family request. Dispo: PT/OT recommending SNF - patient originally to go to [facility], however bed not available this week -- ref. now in for [facility]-- placement pending at this time Supervising Physician Co-Signing Physician Notes Attending Attestation: Chart reviewed in detail, care plan d/w PA Shira Drummond. I agree w/ the hubbard components of her documentation. Patient cont to improve from mental status standpoint. E.coli UTI - antibiotic course is wrapping up. Awaiting SNF placement. Taiwo Cruz MD Subjective Patient evaluated this morning with at bedside. Patient much more alert and talkative today. The patient refused to be repositioned this morning and left leg elevated with a pillow as in the past, and she conveys that she is having increased left leg pain/hamstring pain. Per , this usually occurs when her leg is externally rotated for extended periods of time. Discussion was had regarding cymbalta use and the patients neuropathic type pain and the plan to titrate back up to home dose, however per family, patient is not on cymbalta for pain but rather was initiated by Dr. Orozco for her depression following her stroke. states the patient had genetic testing in [place] for which antidepressant to use, and he states he will try and locate that this afternoon to review. He would not like the patient to be increased back on the cymbalta given this is the most alert and oriented the patient has been during her entire stay. She does also have some concerns regarding lower back/buttock pain, which is consistent from yesterday with the sloughing of skin in that area. When asked regarding the following: chest pain, shortness of breath, abdominal pain, n/v/d, fever, chills, or dysuria, the patient denies. Review of Systems Review of Systems: All systems reviewed & are unremarkable except as noted in HPI & below Physical Exam Constitutional: well developed and + obese; no acute distress at baseline cognitively Eyes: PERRL, conjunctivae normal, anicteric sclerae EOM intact bilaterally Neck: trachea midline, no thyromegaly Respiratory: normal respiratory effort; no respiratory distress, no labored breathing and does not use accessory muscles Auscultation: + crackles (bibasilar) Cardiovascular: Rate/Rhythm: + irregularly irregular Heart Sounds: normal S1 and normal S2 Vessels: no JVD Extremities: + edema (b/l LE) Gastrointestinal (Abdomen): Inspection/Auscultation: normal bowel sounds; a bdomen not distended Percussion/Palpation: abdomen soft; abdomen nontender and no hepatosplenomegaly Skin: normal turgor Neurologic: deep tendon reflexes 2+ bilaterally left sided focal motor deficit, decreased sensation Results & Data Vital Signs (Past 12 Hours) Vital Signs Temp Pulse Resp BP Pulse Ox 01/16/19 06:57 36.9 C 89 20 89/55 L 96 01/16/19 00:00 92/62 L 01/15/19 23:11 37.1 C 77 19 82/44 L 90 Laboratory Results 01/16/19 01/16/19 01/15/19 Range/Units 06:14 06:14 15:30 WBC 8.61 (4.8-10.8) K/uL RBC 3.71 L (4.2-5.4) M/uL Hgb 11.9 L (12.0-16.0) g/dL Hct 38.3 (37-47) % MCV 103.2 H (80-100) fL MCH 32.1 (25-34) pg MCHC 31.1 L (32-36) g/dL RDW Std Deviation 55.3 H (36.4-46.3) fL RDW Coeff of Rodger 14.7 H (11.5-14.5) % Plt Count 149 (130-400) K/uL MPV 9.6 (7.4-10.4) fL Sodium 140 144 (136-145) mmol/L Potassium 4.2 4.2 (3.5-5.1) mmol/L Chloride 105 106 (98-107) mmol/L Carbon Dioxide 28 33 H (21-32) mmol/L Anion Gap 6.0 5.0 (3-11) BUN 21 H 14 (7-18) mg/dl Creatinine 0.69 0.66 (0.6-1.2) mg/dl Est Cr Clr Drug Dosing 96.8 101.2 ml/min Est GFR ( Amer) 105.1 106.7 Est GFR (Non-Af Amer) 90.7 92.1 BUN/Creatinine Ratio 30.7 H 21.1 H (10-20) Glucose 87 97 (70-99) mg/dl Calcium 8.7 8.7 (8.5-10.1) mg/dl 01/15/19 Range/Units 15:30 WBC 7.01 (4.8-10.8) K/uL RBC 3.73 L (4.2-5.4) M/uL Hgb 12.1 (12.0-16.0) g/dL Hct 38.6 (37-47) % MCV 103.5 H (80-100) fL MCH 32.4 (25-34) pg MCHC 31.3 L (32-36) g/dL RDW Std Deviation 55.6 H (36.4-46.3) fL RDW Coeff of Rodger 14.6 H (11.5-14.5) % Plt Count 145 (130-400) K/uL MPV 9.4 (7.4-10.4) fL Sodium (136-145) mmol/L Potassium (3.5-5.1) mmol/L Chloride (98-107) mmol/L Carbon Dioxide (21-32) mmol/L Anion Gap (3-11) BUN (7-18) mg/dl Creatinine (0.6-1.2) mg/dl Est Cr Clr Drug Dosing ml/min Est GFR ( Amer) Est GFR (Non-Af Amer) BUN/Creatinine Ratio (10-20) Glucose (70-99) mg/dl Calcium (8.5-10.1) mg/dl PG Care Time/CCT Total # of Minutes Spent Total Time Spent with Patient: Total time spent is greater than 50% in coordination of care (as documented) at patient's floor/unit and/or counseling patient: (1) Atrial fibrillation Atrial fibrillation type: paroxysmal Qualified Code(s): I48.0 - Paroxysmal atrial fibrillation (2) Hyperlipidemia Hyperlipidemia type: other hyperlipidemia Qualified Code(s): E78.4 - Other hyperlipidemia (3) Hypothyroidism Hypothyroidism type: acquired Qualified Code(s): E03.9 - Hypothyroidism, unspecified (4) Altered mental status Altered mental status type: unspecified Qualified Code(s): R41.82 - Altered mental status, unspecified (5) Hypertension Hypertension type: essential hypertension Qualified Code(s): I10 - Essential (primary) hypertension (6) Osteomyelitis Laterality: right Osteomyelitis location: foot Osteomyelitis type: other chronic Qualified Code(s): M86.671 - Other chronic osteomyelitis, right ankle and foot
[2019-01-16] MEDS: POLYETHYLENE (MIRALAX) 17 GM PACK PO SCH ×2 (10:40→20:13)
[2019-01-16] MEDS: METOPROLOL SUCC 25MG EXT REL TAB PO SCH (20:26)
[2019-01-16] MEDS: RIVAROXABAN 20 MG TAB PO SCH (20:30)
[2019-01-17] MEDS: PIPERACILLIN/TAZOBACTAM 3.375 GM in DEXTROSE 5% 100 ML IV SCH ×2 (04:31→09:32)
[2019-01-17] MEDS: ACETAMINOPHEN 325 MG TAB PO PRN (04:35)
[2019-01-17] MEDS: LEVOTHYROXINE SODIUM 88 MCG TABLET PO SCH (05:18)
[2019-01-17 06:31] LABS: Basophils # (auto) 0.02 K/uL (0-0.2); Basophils % (auto) 0.2 %; Eosinophils % (auto) 3.4 %; Hematocrit (blood only) 37.8 % (37-47); Hemoglobin 12.1 g/dL (12.0-16.0); Immature Granulocytes # (auto) 0.03 K/uL (0.00-0.02); Immature Granulocytes % (auto) 0.3 %; Lymphocytes # (auto) 3.94 K/uL (1.2-3.4); Lymphocytes % (auto) 44.9 %; Mean Corpuscular Hemoglobin 32.5 pg (25-34); Mean Corpuscular Volume 101.6 fL (80-100); Mean Platelet Volume 9.4 fL (7.4-10.4); Monocytes # (auto) 0.86 K/uL (0.11-0.59); Monocytes % (auto) 9.8 %; Neutrophils # (auto) 3.62 K/uL (1.4-6.5); Neutrophils % (auto) 41.4 %; Platelet Count 139 K/uL (130-400); RDW Coefficient of Variation 14.3 % (11.5-14.5); RDW Standard Deviation 53.6 fL (36.4-46.3); Red Blood Count 3.72 M/uL (4.2-5.4); White Blood Count 8.77 K/uL (4.8-10.8)
[2019-01-17 07:00] LABS: BUN Creatinine Ratio 22.9 (10-20); Calcium 8.5 mg/dl (8.5-10.1); Creatinine Clr Calc Pharmacy 101.2 ml/min; Est GFR (African American) 106.7; Est GFR (Non-African American) 92.1
[2019-01-17 07:09] VITALS: BP 111/72; PULSE 86; TEMP 98.2; O2SAT 96
[2019-01-17] MEDS: PRAVASTATIN SOD 20 MG TAB PO SCH (08:17)
[2019-01-17] MEDS: ASCORBIC ACID 500 MG TAB PO SCH (08:17)
[2019-01-17] MEDS: DOCUSATE SODIUM 100 MG CAP PO SCH (08:17)
[2019-01-17] MEDS: LACOSAMIDE 50 MG TABLET PO SCH (08:18)
[2019-01-17] MEDS: ASPIRIN 81 MG ECTAB PO SCH (08:18)
[2019-01-17] MEDS: POLYETHYLENE (MIRALAX) 17 GM PACK PO SCH (08:18)
[2019-01-17] MEDS: DIVALPROEX EXTENDED RELEASE 500 MG TAB PO SCH (08:18)
[2019-01-17] MEDS ORDERED: DULOXETINE HCL 30 MG CAP PO SCH (09:00)
[2019-01-17] MEDS ORDERED: DULOXETINE HCL 20 MG CAP PO SCH (09:00)
--- NOTE | 2019-01-17 11:44 | Discharge Summary ---
Date of Service January 17, 2019 Admission HPI Per Admitting Provider Patient is a 68 years old female with past medical history of CVA in 2012, left spastic hemiparesis, obstructive sleep apnea, morbid obesity, hypothyroidism, seizure disorder, atrial fibrillation, hyperlipidemia, hypertension, GERD who was brought by her family to the emergency room stating that patient is declining in the past 3 weeks and that she had 2 seizures yesterday. Per family patient had partial seizures. Patient is less alert and oriented rarely speaks. Family said patient had CVA in 2011 and that left significant sequela but before these episodes patient was able to feed herself which she is not able anymore. Patient saw neurologist 2 days ago and her medication was adjusted at that time. Patient is seen by Dr. Drivre [facility]. She started to take her medication per new regime 48 hr ago. Family said patient does not feel like herself. Patient is responsive to conversation but she does not talk much. Patient is incontinent for urine. She is checked by her wound care at home and she has decubitus ulcers and right big toe wound which is in healing process. Patient is poor historian and it is difficult to review systems with her. Patient family declines fever chills headache chest pain shortness of breath abdominal pain frequency urgency hematuria dysuria hematemesis. Patient is usually constipated and this is not new. Labs are reviewed: Which shows white blood cell count of 9.24 hemoglobin of 13.8, hematocrit of 43.7 platelets of 113. PT/PTT/INR are pending, BNP pending. Sodium 140, potassium 3.8, chloride 100 anion gap 5, BUN 11, creatinine 0.63, GFR 93.5 lactate 1.6, AST 15, ALT 10, alkaline phosphatase 66, troponin 0 0.015 total protein 6.8, albumin 3 TSH 5.3, free T4 1.52 which is normal. Urine is negative for nitrates, bilirubin, urobilinogen and leukocyte esterase. Level of Depakote is 105 which is upper limit of normal. Chest x-ray: Cardiomegaly, no other convincing evidence of acute pulmonary disease. KUB positive for constipation with moderate stool bu rden, and cholelithiasis. Decision was made to admit patient to the PCU on telemetry for CT a of head and neck and other studies necessary to be done for altered mental status. Admission Exam Per Admitting Provider Constitutional: WD/WN, vitals as above well developed, well nourished and + morbidly obese Eyes: PERRL, conjunctivae normal, anicteric sclerae ENMT: external ear and nose normal, oropharynx normal Neck: trachea midline, no thyromegaly Respiratory: normal respiratory effort, lungs clear to auscultation Cardiovascular: Heart Sounds: normal S1, normal S2 and + murmur Palpation: + palpable S3 Vessels: + JVD Chest (Breasts): normal inspection/palpation of breasts Gastrointestinal (Abdomen): normal bowel sounds, soft, nontender, no hepatosplenomegaly Musculoskeletal: Left-sided weakness-2/5 strength in the upper and lower left extremities. Small wound located at the big toe of the right foot in the healing process. Extensive decubitus second through third degree located at the patient -perineum and lower back Skin: Decubitus ulcer and right big toe wound. Neurologic: Old weakness of the left upper and lower extremities Psychiatric: Poor historian difficult to perform exam. Exam based on the family's narrative Genitourinary: Large labial decubital the right lid lesion bilaterally and in the perineal area. Lymphatic: no cervical or axillary lymphadenopathy Principal Diagnosis Altered Mental Status/metabolic encephalopathy - initially 2nd to seizures, later on due to UTI - resolved. Discharge Exam Constitutional well developed and + obese; no acute distress Eyes PERRL, conjunctivae normal, anicteric sclerae EOM intact bilaterally Neck trachea midline, no thyromegaly Respiratory normal respiratory effort; no respiratory distress, no labored breathing and does not use accessory muscles Auscultation: + crackles (bibasilar) Cardiovascular Rate/Rhythm: + irregularly irregular Heart Sounds: normal S1 and normal S2 Vessels: no JVD Gastrointestinal (Abdomen) Inspection/Auscultation: normal bowel sounds; abdomen not distended Percussion/Palpation: abdomen soft; abdomen nontender and no hepatosplenomegaly Skin normal turgor Neurologic deep tendon reflexes 2+ bilaterally Left sided residual deficit Discharge Data Allergies Allergy/AdvReac Type Severity Reaction Status Date / Time fish oil Allergy Unknown UNKNOWN Verified 01/04/19 16:09 atorvastatin AdvReac Mild MUSCLE Verified 01/04/19 16:09 ACHES citalopram AdvReac Unknown contributed Verified 01/04/19 16:09 to seizures? recently stopped taking med 01/2016 Consultations 01/04/19 21:55 Consult Case Management - Discharge Planning Routine 01/04/19 23:45 Consult Wound Care Provider Routine 01/05/19 08:08 Consult Neurology Routine Ordered Studies 01/04/19 14:19 CT head/brain wo con Stat FINDINGS: Limnologist topogram: Unremarkable. Proportional ventricular and sulcal prominence, likely age-related parenchymal volume loss. No hemorrhage. Periventricular and subcortical white matter hypoattenuation, nonspecific but likely indicative of chronic small vessel ischemic change. Re-demonstration of the extensive right middle cerebellar artery territory distribution chronic infarct with overlying postsurgical changes of the right calvarium. No acute territorial infarct. No mass effect or midline shift. Extra-axial crescentic low-density fluid and dural thickening consistent with postoperative change. The presence of calcification is new from prior. Paranasal sinuses and mastoid air cells clear. IMPRESSION: 1. No significant change compared to the prior study. No acute intracranial abnormality. 01/04/19 21:55 CT angio head w con Stat FINDINGS: Extensive encephalomalacia within the right cerebral hemisphere is chronic. Associated dilatation of the right lateral ventricle is unchanged. The basilar cisterns are patent. The appearance of the brain is unchanged from earlier exams. The bilateral M1, M2, A1 and A2 segments are patent. There is mild asymmetric decreased caliber of the right middle cerebral artery when compared the left. This is chronic. The right vertebral artery is dominant. The distal left vertebral artery is diminutive, likely hypoplastic. There is persistence of the right posterior cerebral artery. No intracranial aneurysm or abrupt vessel cut off is identified. Right-sided craniotomy is noted. IMPRESSION: 1. No intracranial aneurysm, abrupt vessel cut off or dissection. Mild asymmetric decreased caliber of the right middle cerebral artery which is chronic. 2. No change in appearance of the brain from earlier exams with extensive encephalomalacia within the right cerebral hemisphere. CT angio neck with con Stat Findings: The bilateral common carotid, cervical internal carotid and vertebral arteries are patent. There is mild plaque within the proximal bilateral internal carotid arteries without stenosis. The CTA of the head will be reported separately. The right vertebral artery is dominant and patent. There is no dissection within the major vessels of the neck. The left vertebral artery is diminutive, and is likely hypoplastic. There is no cervical spine fracture. A few small thyroid nodules are noted. Lung apices are unremarkable. IMPRESSION: Mild atherosclerotic plaque. No dissection or stenosis within the major vessels of the neck. 01/05/19 02:02 US arterial duplex LE LT Routine FINDINGS: LEFT: Common femoral artery: Patent. Triphasic waveforms. Peak systolic velocity (PSV) 74 cm/s. Deep femoral artery: Patent. Triphasic waveforms. PSV 42 cm/s. Superficial femoral artery: Patent. Triphasic waveforms. PSV 76 cm/s. Popliteal artery: Patent. Triphasic waveforms. PSV 70 cm/s. Anterior tibial artery: Patent. Triphasic waveforms. PSV 81 cm/s. Posterior tibial artery: Patent. Triphasic waveforms. PSV 70 cm/s. Peroneal artery: Patent. Triphasic waveforms. PSV 54 cm/s. Dorsalis pedis: Patent. Triphasic waveforms. PSV 92 cm/s. ANKLE/BRACHIAL INDEX (IZZY): Not performed due to patient intolerance Brachial: Right: mmHg. Left: mmHg. Ankle (posterior tibial): Right: mmHg. Left: mmHg. Ankle (dorsalis pedis): Right: mmHg. Left: mmHg. Ankle/brachial index: Right: , Left: . Reference ranges: Normal Ankle/Brachial Index (IZZY) 1.0-1.4; 0.91-0.99 borderline; < or = 0.9 abnormal (0.7-0.89 mild, 0.51-0.69 moderate, < or = 0.5 severe peripheral arterial disease). Normal Toe/Brachial Index (TBI) > or = 0.6; < 0.6 abnormal (0.34-0.59 mild, 0.12-0.34 moderate, < or = 0.11 severe peripheral arterial disease). IMPRESSION: 1. No hemodynamically significant stenosis. 2. Ankle brachial indices not performed due to patient intolerance. 01/05/19 11:19 US venous doppler LE BI Routine FINDINGS: There is normal compressibility, flow, and augmentation within the bilateral lower extremity deep venous systems. Suboptimal examination secondary to patient condition.. The calf vessels are suboptimally visualized. IMPRESSION: No sonographic evidence of deep venous thrombosis within the right or left lower extremity. 01/06/19 09:36 MR brain wo/w con Routine FINDINGS: Right-sided craniotomy is noted. There are no foci of restricted diffusion to suggest acute infarct. Extensive encephalomalacia within the right cerebral hemisphere is noted, as shown on MRI of March 08, 2013. White matter T2 hyperintensity has increased since MRI of March 08, 2013. Dilatation of the right lateral ventricle is due to extensive encephalomalacia. This has slightly progressed. The basilar cisterns are patent. Atrophy of the right cerebral peduncle is chronic. There is no intracranial mass or pathologic enhancement. There is no suspicious marrow replacement within the calvarium. Orbits are unremarkable. IMPRESSION: 1. No acute intracranial findings. 2. Redemonstration of encephalomalacia within the right cerebral hemisphere sug gestive of an old MCA territory infarct. Associated dilatation of the right lateral ventricle due to volume loss. 3. Increase in atrophy and small vessel disease since MRI of March 08, 2013. 4. No intracranial mass or pathologic enhancement. 01/11/19 15:16 US arterial duplex LE RT Routine FINDINGS: The patient refused ankle brachial indices. There is triphasic flow within the common femoral artery. There is triphasic flow within the superficial femoral artery. There is triphasic flow within the popliteal artery. There is triphasic flow within the anterior tibial artery. There is biphasic flow within the peroneal posterior tibial arteries. IMPRESSION: No evidence of right lower extremity arterial stenosis. Hospital Course (1) Altered mental status: * Patient admitted for altered mental status, declining over the past several weeks-months. Concerns for seizure activity with recent adjustment of medications by patient's neurologist, Dr. Scherer, divalproex ER 1000mg, Vimpat 100mg BID. Head CT, CTA head and neck, MRI head without acute abnormalities. ECHO without regional wall motion abnormality, EF 50-55%, Mild LVH. US Venous Doppler without DVT * Valproic acid borderline high on admission, wnl at 78 on repeat lab. B12 and folate wnl given patient's continued neuropathic type pain. Concerns for drug interactions of Cipro (for R toe Osteo), Cymbalta (for depression) and Amiodarone for torsades. For improved rate control, metoprolol titrated from 25mg QHS to 75mg. * Cymbalta titrated from 60mg to 30mg prior to discharge. Family would like patient to be on different antidepressant- patient had genetic testing for antidepressants in [place] per . * UA initially negative on admission, however repeat UA and culture with evidence of E. Coli ESBL. Antibiotics switched to Zosyn for dual coverage of osteo and UTI. Course completed on zosyn for UTI and patient transitioned back to cipro to continue course for osteo until re-evaluated by Dr. Boswell. * EEG ordered during admission- showed general slowing without seizure activity . Patient to have outpatient 72 hour EEG scheduled by neurology ALBERTO, Kusum Doyle. * Vast improvement in cognition and alertness over the course of her hospital stay. Discharge was delayed due to waiting for placement at [facility]. (2) Seizure as late effect of cerebrovascular accident (CVA): * As above (3) Osteomyelitis: * See above * Osteomyelitis of Right Great Toe * Patient has been seen by Dr. Hernandez previously with rec for amputation, family declined at that time * Checked arterial study lower extremity for reduced pulses/cool dusky foot - without significant stenosis, patient refused ABIs (4) GERD (gastroesophageal reflux disease): * Continue ranitidine 150 mg p.o. twice daily (5) DIANNE (obstructive sleep apnea): * Patient unable to tolerate CPAP- per family, patient on 6L NC at night at home (6) Chronic constipation: * Resolved-- * KUB with moderate stool burden- Resolved 01/07 with bowel regimen of docusate sodium 100 mg p.o. * Patient with regular BMs with prn miralax. (7) Hypothyroidism: * Elevated TSH to 5.3 but free T4 normal 1.52 on admission * TSH increased to 11.3 on 01/07 * Levothyroxine increased from home dose 75mcg to 88mcg on 01/15 * Recheck TSH/T4 outpatient in next few weeks (8) Atrial fibrillation: * Continue Xarelto, ASA, Metoprolol (now at 75mg) (9) UTI (urinary tract infection): * E. coli ESBL - Zosyn * Patient will also need to continue Cipro PO for osteo of R great toe at that time once no longer being covered by Zosyn (10) Hyperlipidemia: * Continue pravastatin 20 mg p.o. nightly (11) Hypertension: * Stable * Metoprolol succinate increased to 75 mg p.o. nightly for better rate control * BP stable at discharge 111/72 * Continue ASA 81mg Total Time Total Time Spent Total Time Spent (In Minutes): 70 Discharge Plan Discharge Items Patient Disposition: Transfer [facility] Fac Reason For Visit: ALTERED MENTAL STATUS Discharge Diagnosis: Altered Mental Status, UTI Goals: Improve function through therapy Improve quality of life Decrease pain Decrease risk of infection and/or spread of infection Activity: As commented below Activity Comment: as tolerated with assistance Bathing: No limitations Non-emergency contact: Primary Care Provider Call non-emergency contact if: you have any medication questions and your symptoms worsen Follow-up/Referrals: Abdullahi Boswell MD [Physician] - 01/30/19 3:15 pm (Please, follow up at [facility]'s Infectious Disease Office with Dr. Boswell on TuesdayJanuary 30 at 3:15 pm. *The office is located in [address] of [facility]. If you need to change this appointment, call the office at [phone].) Jasmyne Orozco MD [Primary Care Provider] - Dipak Scherer DO [Physician] - 01/24/19 11:05 am (Please, follow up at [facility] with Dr. Scherer's nursing home assistant, Kusum Doyle PA-C, on TuesdayJanuary 24 at 11:05 am. *The office is located at [address] in [place]. If you need to change this appointment, call the office at [phone].) Diet: Heart Healthy Addtl Attending Provider Instructions: You have completed your antibiotics (Zosyn) for your UTI this morning. -However, you will continue to require Ciprofloxacin at discharge for continued treatment of your right toe infection- you have been given a prescription to take until seen by Dr. Boswell on January 30. Your amiodarone was discontinued during this hospitalization due to ineffective rate and ryhthm control, and you were titrated up on your Metoprolol to 75mg nightly. Your thyroid function was found to be low- your Synthroid (levothyroxine) was titrated from 75mcg to 88mcg daily. You have also been tapered down on your Cymbalta (duloxetine) from 60mg to 30mg currently. With regards to tapering your antidepressant slowly to prevent adverse effects, it is recommended that it is done over the course of the two weeks duration. Initiation of another antidepressant class, excluding effexor (wellbutrin), will need to be initiated and titrated up slowly at the same time the duloxetine is decreased/discontinued. You have been set up an appointment with Dr. Scherer for January 24. Kusum Doyle, his physician nursing home assistant, saw you while you were hospitalized and she is rescheduling your outpatient 72 hour EEG- you will be contacted regarding the time. Your valproate level was within normal limits prior to discharge- will need to be repeated at the discretion of Dr. Scherer. Please keep all appointments as scheduled. To review changes to your medications during this hospitalization: - STOP amiodarone - INCREASE metoprolol from 25mg to 75mg - INCREASE levothyroxine from 75mcg to 88mcg - RESUME ciprofloxacin 750mg twice daily It was a pleasure taking part in your care during this hospitalization. Please return to the emergency room with any worsening of symptoms, confusion, altered mental status, or symptoms that are concerning for you. Pending Studies at Discharge: No Stand-Alone Forms: My [facility] Skilled Items Patient informed of condition?: Yes DNR: No Discharge Level of Care: Acute rehab Communicable Disease: Yes Discharge Prognosis: Stable Lines: None Urinary Catheter: Yes ([place]) Medications and DC Order Prescriptions: New levothyroxine [Synthroid] 88 mcg Tablet 88 mcg PO DAILYBB 30 Days Qty: 30 RF: 0 metoprolol succinate 25 mg Tablet Extended Release 24 Hr 75 mg PO HS Qty: 90 RF: 0 duloxetine 30 mg Capsule,Delayed Release(Dr/Ec) 30 mg PO QAM 14 Days Qty: 14 RF: 0 Continued ascorbic acid (vitamin C) 500 mg Tablet 500 mg PO BID RF: 0 ranitidine HCl 150 mg tablet 150 mg PO BID RF: 0 cranberry 400 mg Capsule 400 mg PO HS RF: 0 docusate sodium 100 mg Capsule 100 mg PO BID RF: 0 pravastatin 20 mg tablet 20 mg PO QAM RF: 0 furosemide 20 mg tablet 20 mg PO DAILY PRN (Reason: edema/weight gain) RF: 0 coenzyme Q10 200 mg Capsule 200 mg PO BID RF: 0 acetaminophen [Mapap (acetaminophen)] 325 mg Tablet 650 mg PO Q6 PRN (Reason: pain) Qty: 30 RF: 0 polyethylene glycol 3350 [Miralax] 17 gram powder in packet 17 g PO BID RF: 0 divalproex 500 mg tablet extended release 24 hr 500 mg PO BID RF: 0 Vimpat 100 mg tablet 100 mg PO BID RF: 0 Xarelto 20 mg tablet 20 mg PO HS RF: 0 Bio Cleanse 1 tab PO QAM RF: 0 Probiotic 10 billion cell Capsule 1 cell PO HS RF: 0 ciprofloxacin HCl 750 mg tablet 750 mg PO BID Qty: 30 RF: 2 Discontinued amiodarone 200 mg tablet 200 mg PO QAM RF: 0 levothyroxine 75 mcg tablet 75 mcg PO QAM RF: 0 metoprolol succinate 25 mg tablet extended release 24 hr 25 mg PO HS RF: 0 duloxetine 60 mg capsule,delayed release(DR/EC) 60 mg PO QAM RF: 0 Discharge Orders: Discharge Order (Routine); Ordered 01/17/19 Ordered By: Shira Drummond Admission Data Admit Date/Time: 01/04/19 20:00 Attending Provider: Taiwo Cruz Admit Provider: Callum Napoles Primary Care Provider: Jasmyne Orozco Other Providers: Saman Keene ; Shira Drummond ; Kusum Doyle ; Kusum Marquis ; Rico Merrill ; Winifred Hsu ; Preeti Mcadams ; Dipak Scherer ; Enzo Astorga Other Interventions: Discharge Summary Assessment (RN) Last Done: 01/17/19 16:48 DC Date/Time DO NOT enter until pt leaves facility: 01/17/19 17:57 Supervising Physician Co-Signing Physician Notes Attending Attestation and Discharge Note: Pt seen/examined, chart reviewed in detail, discharge care plan d/w PA Shira Drummond. I agree w/ the hubbard components of her discharge documentation. 68yo female with history of large right-sided stroke leading to left-sided hemiparesis and seizure disorder. Presented with significantly altered mental status likely due to post-ictal state from seizures. Extensive work-up including MRI brain, EEG, etc showed no acute findings. Seen by [facility] who managed her anti-epileptics. Later in her stay she had an ESBL e.coli UTI - required IV zosyn for such. With time, treatment of her UTI, and supportive care her mental status largely went back to baseline. She had no further seizures later in her stay. Her stay was prolonged due to SNF placement issues as well. Discharge exam: gen - NAD face - mild left facial droop neck - no JVD heart - irregular, s1 s2 lungs - decreased BS bases, o/w CTA b/l abd - soft, NT, ND, BS+ ext - R great toe dressings intact; pulses 2+ b/l feet neuro - left-sided hemiparesis Agree with resumption of cipro orally for osteomyelitis right great toe at discharge. Taiwo Cruz MD
[2019-01-17] MEDS ORDERED: PIPERACILLIN/TAZOBACTAM 3.375 GM in DEXTROSE 5% 100 ML IV SCH (16:00)
== END 2019-01-17 17:57 | DRG 57 ==
LOC: ED 14:02 → SUATTDRO 20:00 → 2S 20:00 → 4W 01-11 14:15
DX: L89.896 Pressure-induced deep tissue damage of other site; Z79.899 Other long term (current) drug therapy; E78.5 Hyperlipidemia, unspecified; I10 Essential (primary) hypertension; I48.91 Unspecified atrial fibrillation; N39.0 Urinary tract infection, site not specified; Z88.8 Allergy status to other drugs, medicaments and biological substances; M86.671 Other chronic osteomyelitis, right ankle and foot; Z68.33 Body mass index [BMI] 33.0-33.9, adult; G47.33 Obstructive sleep apnea (adult) (pediatric); K21.9 Gastro-esophageal reflux disease without esophagitis; E03.9 Hypothyroidism, unspecified; Z83.49 Family history of other endocrine, nutritional and metabolic diseases; Z82.49 Family history of ischemic heart disease and other diseases of the circulatory system; I69.998 Other sequelae following unspecified cerebrovascular disease; I69.954 Hemiplegia and hemiparesis following unspecified cerebrovascular disease affecting left non-dominant side; Z79.01 Long term (current) use of anticoagulants; B96.5 Pseudomonas (aeruginosa) (mallei) (pseudomallei) as the cause of diseases classified elsewhere; B96.20 Unspecified Escherichia coli [E. coli] as the cause of diseases classified elsewhere; G40.909 Epilepsy, unspecified, not intractable, without status epilepticus; E66.01 Morbid (severe) obesity due to excess calories; K59.09 Other constipation